=== PATIENT | male | born 1945 | race Caucasian/White ===

== ENCOUNTER 2019-08-22 09:46 | Outpatient (CLI) | payer MEDICARE, MEDICAID, SELFPAY ==
--- NOTE | 2019-08-22 09:30 | USCV_ITS ---
Korey Stanislaw Age: 74 Gender: M : 1945 Exam Date: 08/22/2019 10:19 Ordering Phys: Mery Jurado MD ([email or web address]) Technologist: Rachelle Pepper [place] [facility] [place] SOB BP: 119 / 63 HR: 56 Rhythm: Sinus Technical Quality: Adequate MEASUREMENTS (Male / Female) Normal Values 2D ECHO LV Diastolic Diameter PLAX 6.3 cm 4.2 - 5.9 / 3.9 - 5.3 cm LV Systolic Diameter PLAX 6.0 cm LV Chamber Size 4.8 cm IVS Diastolic Thickness 0.7 cm 0.6 - 1.0 / 0.6 - 0.9 cm IVS Systolic Thickness 0.6 cm LVPW Diastolic Thickness 1.5 cm 0.6 - 1.0 / 0.6 - 0.9 cm LVPW Systolic Thickness 0.9 cm RV Chamber Size 4.0 cm LVOT Diameter 2.0 cm LV Ejection Fraction 2D Teich 10.6 % LV Ejection Fraction MOD 2C 36.8 % LV Ejection Fraction 2C AL 40.0 % LA Diameter 5.3 cm LA Width 4.3 cm LA Height 4.0 cm RA Width 3.1 cm RA Height 3.7 cm Aorta at Sinotubular Diameter 2.3 cm M-MODE LV Diastolic Diameter MM 6.8 cm 4.2 - 5.9 / 3.9 - 5.3 cm LV Systolic Diameter MM 5.8 cm LV Ejection Fraction MM Teich 28.8 % IVS Diastolic Thickness MM 0.7 cm 0.6 - 1.0 / 0.6 - 0.9 cm IVS Systolic Thickness MM 0.9 cm LVPW Diastolic Thickness MM 0.7 cm 0.6 - 1.0 / 0.6 - 0.9 cm LVPW Systolic Thickness MM 1.0 cm Aortic Annulus Diameter 2.7 cm LA Ao Ratio MM 1.9 MV E Point Septal Separation 1.9 cm DOPPLER AV Peak Velocity 133.0 cm/s LVOT Peak Velocity 86.0 cm/s AV Area Cont Eq vti 2.2 cm squared AV Area Cont Eq pk 2.1 cm squared MV Area PHT 5.0 cm squared Mitral E to A Ratio 2.7 MV E' Velocity 8.0 cm/s Mitral E to MV E' Ratio 12.1 Mitral E to LV E' Lateral Ratio 13.9 Mitral E to LV E' Septal Ratio 10.8 TR Peak Velocity 315.6 cm/s TR Peak Gradient 39.9 mmHg TR Mean Velocity 164.9 cm/s TR Mean Gradient 14.1 mmHg TR Velocity Time Integral 78.3 cm TV Peak E Velocity 63.0 cm/s Right Atrial Pressure 3.0 mmHg Pulmonary Artery Systolic Pressu 42.8 mmHg PV Peak Velocity 87.0 cm/s RV Acceleration Time 0.1 s RV Ejection Time 0.4 s RV AcT/ET 0.3 FINDINGS Left Ventricle Moderately increased left ventricular cavity size. Severely decreased left ventricular systolic function. Left ventricular ejection fraction is estimated at 28 %. Global left ventricular hypokinesis. Grade III/IV diastolic dysfunction (restrictive filling pattern), severely elevated filling pressures. Right Ventricle The right ventricle is normal in size and function. Moderate pulmonary hypertension, RVSP 42.8 mmHg. Right Atrium The right atrium is normal in size. Left Atrium Moderately increased left atrial size. Mitral Valve Moderately thickened mitral valve. No mitral valve stenosis. Severe mitral valve regurgitation. Aortic Valve Moderate aortic valve calcification. No aortic valve stenosis. Mild aortic valve regurgitation. Tricuspid Valve Mild tricuspid valve regurgitation. Pulmonic Valve Structurally normal pulmonic valve without significant stenosis. There is no pulmonic regurgitation. Pericardium Normal pericardium without effusion. Aorta Normal ascending aorta dimension. CONCLUSIONS 1-Moderately increased left ventricular cavity size. Severely decreased left ventricular systolic function. Left ventricular ejection fraction is estimated at 28 %. Global left ventricular hypokinesis. Grade III/IV diastolic dysfunction (restrictive filling pattern), severely elevated filling pressures. 2-The right ventricle is normal in size and function. Moderate pulmonary hypertension, RVSP 42.8 mmHg. 3-Moderately thickened mitral valve. No mitral valve stenosis. Severe mitral valve regurgitation. 4-Moderate aortic valve calcification. No aortic valve stenosis. Mild aortic valve regurgitation. 5-Mild tricuspid valve regurgitation. 6-There is no pericardial effusion. 7-Right atrial pressure is around 15 mm of mercury. 8-When compared to the prior echocardiogram dated 11/11/2017 there is worsening of left ventricle function from low normal 50% to severely depressed 28% now. There is global hypokinesis. There is also worsening of mitral regurgitation from mild to severe now. Mery Jurado MD (Electronically Signed) Final Date: 22 August 2019 18:57 S
== END 2019-08-22 09:47 | disposition home or self-care (01) ==
LOC: RAD 09:50
PROVIDERS: Family Provider Internal Medicine; PCP Internal Medicine; Visit Provider Internal Medicine Cardiovascular Disease
DX: R06.02 Shortness of breath (principal); I27.0 Primary pulmonary hypertension; I08.3 Combined rheumatic disorders of mitral, aortic and tricuspid valves
CPT/HCPCS: 93306

== ENCOUNTER → 2019-09-04 13:57 | Outpatient (BNVA) | payer MEDICARE, MEDICAID, SELFPAY | PROVIDERS: Family Provider Internal Medicine; PCP Internal Medicine; Visit Provider Nurse Practitioner Family | DX: I25.10 Atherosclerotic heart disease of native coronary artery without angina pectoris (principal); I50.9 Heart failure, unspecified | CPT/HCPCS: 80048 ==

== ENCOUNTER 2020-02-26 10:31 | Outpatient (CLI) | payer MEDICARE, MEDICAID, SELFPAY ==
[2020-02-26 10:45] VITALS: BMI 22.8
--- NOTE | 2020-02-26 10:54 | NMCV_ITS ---
NM angela perf SPECT r/s* [id number] Stanislaw Nair Age: 74 Gender: M : 1945 Exam Date: 02/26/2020 11:33 Ordering Phys: Ivania Zheng Technologist: GAYLA Blancas Exam Location: [facility] Indications: CHEST PAIN STRESS TEST Please see separate stress test report in [facility] for full findings IMAGE PROTOCOL Rest/Stress 1 Exercise Day Radiopharmaceutical Dose (mCi) Administration Site Administered by Rest: Tc-99m 10.8 IV GAYLA Maguire Sestamibi Stress:Tc-99m 32.2 IV GAYLA Maguire Sestamibi Rest: 26-Feb-2020 60 Discovery 630 Stress: 26-Feb-2020 30 Discovery 630 Radiopharmaceutical was injected at 87 % maximum heart rate. Images obtained in supine and prone position. SPECT RESULTS Technical Quality: Excellent Raw Data Analysis: Normal Image Corrections: No attenuation or motion correction applied Summed Stress Score: 23 Summed Rest Score: 22 Summed Difference Score: 2 PERFUSION FINDINGS Large area of fixed perfusion defect noted in basal to distal inferior and basal to distal lateral wall suggestive of old myocardial infarction versus scarring. FUNCTIONAL RESULTS (calculated via Gated SPECT) Stress Image LV EF (%): 25 Stress EDV (mL):246 TID: 1.03 Stress ESV (mL):184 Rest Image LV EF (%): 25 FUNCTIONAL FINDINGS: Severe global hypokinesis with regional inferior and lateral akinesis IMPRESSIONS Large area of old myocardial infarction versus scarring noted in the inferior and lateral wall without serenity-infarct ischemia. EKG segment will be documented separately. Mery Jurado MD (Electronically Signed) Final Date: 26 February 2020 18:18 S
--- NOTE | 2020-02-26 10:54 | ECG_ITS ---
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 Baseline heart rate was 92 beats per minute. Baseline blood pressure was 141/90 millimeters of mercury. Target heart rate was 146 beats per minute. Maximum heart rate achieved was 135, which was 92 % of the target heart rate. Maximum blood pressure was 173/106 millimeters of mercury. Total exercise time was 2 minutes 28 seconds. Maximum METs achieved was 4.6, maximum VO2 was 16.1. The reason for ending the test was maximum effort achieved. The patient complained of shortness of during the stress test, which then resolved at the end of the test. ELECTROCARDIOGRAM: BASELINE: Showed sinus rhythm, normal axis, no significant ST-T changes at the baseline noted. EXERCISE: At the peak exercise level, no significant ST-T changes suggestive of ischemia noted. RECOVERY: During the recovery period, heart rate dropped appropriately. PVCs were noted, no significant ST-T changes in the recovery suggestive of ischemia noted. CONCLUSION: 1. Exercise capacity poor. 2. Heart rate response was tachycardic. 3. Blood pressure response was appropriate. 4. Symptoms not suggestive of ischemia. 5. Electrocardiogram portion of the stress test was not suggestive of ischemia. 6. Nuclear scan will be documented separately. Electronically Signed On 02-27-2020 18:37:18 TRANSCRIBING OPERATORS SUPERVISOR by SHANNA BONE [id number]
[2020-02-26 12:29] VITALS: BP 126/88; PULSE 95
== END 2020-02-26 10:32 | disposition home or self-care (01) ==
LOC: CDL 10:37
PROVIDERS: PCP Internal Medicine; Visit Provider Nurse Practitioner Family
DX: R07.9 Chest pain, unspecified (principal); I25.10 Atherosclerotic heart disease of native coronary artery without angina pectoris
CPT/HCPCS: 78452; 93017; A9500

== ENCOUNTER → 2020-04-24 10:05 | Outpatient (BNVA) | payer MEDICARE, MEDICAID, SELFPAY | PROVIDERS: PCP Internal Medicine; Visit Provider Internal Medicine Cardiovascular Disease | DX: Z20.822 Contact with and (suspected) exposure to COVID-19 (principal); I50.42 Chronic combined systolic (congestive) and diastolic (congestive) heart failure; I25.10 Atherosclerotic heart disease of native coronary artery without angina pectoris; I11.0 Hypertensive heart disease with heart failure | CPT/HCPCS: 80048; 85025; 85610; 87635 ==

== ENCOUNTER 2020-05-15 10:55 | Day surgery (SDC) | payer MEDICARE, MEDICAID, SELFPAY ==
[2020-05-14 14:20] VITALS: BMI 22.0
[2020-05-15] VITALS (16 sets, daily range): BP systolic 127–152; BP diastolic 81–99; PULSE 72–100; RESP 14–34; TEMP 36.8–37.3; O2SAT 92–97; BMI 22.5
--- NOTE | 2020-05-15 11:00 | XACV_ITS ---
Exam Room: [facility] Ht: 173 cm Wt: 65 kg BSA: 1.76 m2 Gender: Male : 1945 Any Known Allergies: No known allergies Exam Priority: Routine Procedure(s): Procedure Description: Diagnostic procedure Procedure Description: Venous Graft Catheterization Procedure Description: PELAEZ Graft Catheterization Procedure Description: Coronary Angiography Diagnostic Cath Status: Elective Diagnostic Findings * LM: Mild 20% stenosis, PAIGE: 3 flow. * pLAD: Severe 90% stenosis, PAIGE: 3 flow. * mLAD: Severe 100% stenosis, PAIGE: 0 flow. * mCIRC: Severe 99% stenosis, PAIGE: 3 flow. * pRCA: Severe 99% stenosis, PAIGE: 2 flow. * dRCA: Severe 90% stenosis, PAIGE: 2 flow. * Two grafts visualized. * PELAEZ to dLAD: patent. * SVG to RPDA: patent. * Coronary angiography shows right dominance. PCI Status: Elective PCI Indication: New Onset Angina <= 2 months Interventional Findings * Unsuccessful attempt to cross mid circumflex despite of using different wires and techniques. Refer for BREAD ROOM HAND revascularization if fails medical management. Conclusions 1. I was not able to find graft to circumflex despite of aortogram. RIVERA was not attached. Most likely skip graft from PELAEZ to circumflex if present is not patent. Mid circumflex is the culprit vessel. Is highly calcified 99% subtotally occluded chronically occluded vessel which is the culprit.. 2. There is severe coronary artery disease with four vessel disease. 3. All grafts patent. 4. Patient has prior CABG. 5. Ascending aortogram was performed, no aneurysm noted. No saphenous venous graft to obtuse marginal seen.. Recommendations * 1-Return to inpatient for close monitoring and routine cath care 2-Risk factor modification for secondary prevention 3-Statin and aspirin 81 mg life--long, if tolerated 4-Maximize medical management 5-Refer for BREAD ROOM HAND ow up with Dr. Jurado in four weeks and your primary care in 10 days. Diagnostic RX Recommendation: PCI w/o planned CABG Pressures Phase:Rest AO : 127 / 63 ( 87 ) @ 7:32:00 AM 113 / 61 ( 83 ) @ 7:39:00 AM 118 / 61 ( 83 ) @ 7:49:00 AM 121 / 60 ( 85 ) @ 8:07:00 AM 124 / 64 ( 89 ) @ 8:21:00 AM 129 / 70 ( 95 ) @ 8:28:00 AM Clinical Evaluation EBL: 5mL-10mL Procedural Details Procedure Consent Obtained. Pre-Procedure Time Out. Identified patient by full name and date of as verbalized by the patient/guarantor. Does the consent match the physician's order: Yes. Accurate & Complete Informed Consent: Yes. Inpatient/Outpatient History & Physical on Chart: Yes. If H&P is completed, is and addenduem needed: No; If yes, is the addendum complete: N/A. Visualize and Verify Site with Patient/Guarantor: N/A. Relevant Radiology Images available: N/A. Pre-op teaching completed and patient verbalized understanding. The risks, benefits, and alternatives of sedation and/or procedure were discussed by physician. The patient agrees to continue. Procedure started. [facility] Clinical Fraility Score: 4: Vulnerable. Aluminum Fabrication Supervisor Indications: New Onset Angina. Chest Pain Symptom Assessment: Typical Angina Symptoms. Cardiovascular Instability: No. Correct patient, site and procedure confirmed by cath team. PERRLA. Strong, equal hand nurse ortho bilaterally. Lungs clear x 5 lobes. IV Site on Arrival: 20 gauge in the left forearm. IV Fluids: 0.9% NaCl at KVO. 0 mL infused prior to laboratory machinist. Pre Procedural Pulses: bilateral dorsalis pedis was 2+. Pre Procedural Pulses: bilateral posterior tibial was 2+. Oxygen started at 2liters/min via nasal canula. bilateral groins was prepped with chloroprep then draped in the usual sterile fashion. Baseline sample Acquired. HR: 70 BPM. Physician arrived. Equipment: 6F - Femoral. Cardiac Cath Pack. ACIST Manifold Kit Model BT 2000. Heparinized Saline (2 units/mL), 1000 mL bag. Kit, Micropuncture. Physician scrubbed in. Immediate Pre-Procedure Time Out. Correct Patient: Yes; Correct Procedure: Yes; Correct Site: Yes; Correct Patient Position: Yes; Correct Supplies: Yes; Dried Flammable Prep: Yes; Blood Products Available: N/A;. Lidocaine 1% infiltrated to the right groin. Arterial access obtained with micropuncture set. A 5 pitcairn islander JL4 catheter in over wire. Multiple views taken of left coronary artery. Catheter removed over the standard wire. A 5 pitcairn islander JR4 catheter in over wire. SVG's to RCA visualized and patent. Catheter redirected to the RCA. Multiple views taken of right coronary artery. Catheter redirected to the PELAEZ. PELAEZ to LAD visualized. Catheter removed over the standard wire. A 5 pitcairn islander Angled Pig catheter in over wire. Aortogram performed in @ 10 mL/second for a total of 30 mL. Catheter removed over the standard wire. A 5 pitcairn islander JR4 catheter in over wire. Catheter out. 6 pitcairn islander XB 3 guide catheter was inserted over the wire. Inventory is CRD 6FR XB 3 GUIDE. Runthrough guidewire was advanced through the guide catheter to lesion in the mid Circ. AP pads applied to patient. Wire out to reshape. Runthrough guidewire was advanced through the guide catheter to lesion in the mid Circ. Wire out to reshape. Runthrough guidewire was advanced through the guide catheter to lesion in the mid Circ. Wire out. Hi-Torque Refuse Collector 50 wire inserted. Wire out. Runthrough guidewire was advanced through the guide catheter to lesion in the mid Circ. Wire out. Guide catheter out. Hand injection for groin picture. Sheath removed. A Perclose ([employer]) was successful obtaining hemostatsis at the Right Femoral artery insertion site. Lidocaine 1% infiltrated to the right groin. Perclose placed without complications. No signs or symptoms of hematoma noted. Sterile dressing applied per usual sterile fashion. Post Procedure: Pulses reassessed and unchanged. PERRLA. Strong, equal hand nurse ortho bilaterally. No VTE prophylaxis required. Medication's Wasted: Lidocaine 1% = 10 mL. Medication's Wasted: Heparin = 1000 units. Total IV fluids: 111 mL. Contrast type used: Omnipaque 300 mgI/mL, 500 mL bottle. Physician scrubbed out. Post-op diagnosis: multi vessel CAD, occluded SVG to circ. Complications: none. Estimated blood loss: 5mL-10mL. Procedure completed. Patient transferred by bed to ICU. Vital chart was stopped. Access Site Site: Right Femoral artery Sheath Size: 6 Fr Hemostasis Method: Perclose ([employer]) Hemostasis Success: Successful Procedure Medications Start: 1:12 PM Stop: 1:12 PM Medication: Versed Amount: 1 mg Route: I.V. Start: 1:12 PM Stop: 1:12 PM Medication: Fentanyl Amount: 50 mcg Route: I.V. Start: 1:38 PM Stop: 1:38 PM Medication: Versed Amount: 1 mg Route: I.V. Start: 1:38 PM Stop: 1:38 PM Medication: Fentanyl Amount: 50 mcg Route: I.V. Start: 2:06 PM Stop: 2:06 PM Medication: Heparin Amount: 5000 units Route: I.V. I, the attending physician, have reviewed and verified all procedure medications. Yes, all medications given per verbal order History/Risk Factors Hypertension: Yes Dyslipidemia: No Peripheral Arterial Disease (PAD): No Myocardial Infarction (NM): Yes Obesity: No Renal Disease: No Prior Interventions PCI: Yes CABG: Yes Valve Surgery: No Report Signatures Finalized by Mery Jurado MD on 05/24/2020 03:55 PM
[2020-05-15] MEDS: diphenhydrAMINE 50 mg Capsule PO (11:19)
--- NOTE | 2020-05-15 13:09 | P.HP_ITS ---
Providers/Chief Complaint Primary Care Provider: Sonia Bustillo MD Chief Complaint: Left Cardiac Catheterization History of Present Illness Stanislaw Nair is a 75 year old male past medical history significant for coronary artery disease status post CABG 2018 x3, history of ST elevation [place] 2004, history of V. fib arrest, history of HIV, history of systolic heart failure who despite of optimization of medicine continues to have chest pain and worsening of shortness of breath. Stress test was performed which did not show ischemia since patient continues to have worsening of symptoms we decided to proceed with left heart cath. I have personally explained all risk benefit and alternative for the procedure including arrhythmia bleeding cardiac arrest emergent surgery. He agrees to proceed with it Medications/Allergies Home Medications Medication Instructions Recorded Confirmed Last Taken Type hydrochlorothiazide 12.5 mg tablet 12.5 mg PO DAILY 90 Days #90 tab 04/26/19 05/14/20 05/15/20 08:00 Rx atorvastatin 10 mg tablet 10 mg PO DAILY 90 Days #90 tab 06/13/19 05/15/20 05/14/20 22:00 Rx aspirin 81 mg tablet,delayed 81 mg PO DAILY 07/24/19 05/14/20 05/15/20 08:00 History release carvedilol 6.25 mg tablet 6.25 mg PO BID 07/24/19 05/14/20 05/15/20 08:00 History levothyroxine 112 mcg capsule 112 mcg PO DAILY 07/24/19 05/14/20 05/15/20 08:00 History potassium chloride 10 mEq 10 meq PO DAILY #30 tab 07/29/19 05/14/20 05/15/20 08:00 Rx tablet,extended release clopidogrel 75 mg tablet 75 mg PO DAILY #90 tab 08/13/19 05/14/20 05/15/20 08:00 Rx losartan 50 mg tablet 50 mg PO DAILY #90 tab 09/11/19 05/14/20 05/15/20 08:00 Rx furosemide 20 mg tablet 40 mg PO DAILY #180 tab 10/24/19 05/14/20 05/15/20 08:00 Rx nitroglycerin 0.4 mg sublingual 0.4 mg SUBLINGUAL Q5M PRN #30 tab 12/02/19 05/14/20 05/15/20 08:00 Rx tablet dolutegravir 50 mg-lamivudine 300 1 tab PO DAILY 03/24/20 05/14/20 05/15/20 08:00 History mg tablet isosorbide mononitrate 60 mg 60 mg PO DAILY #30 tab 04/22/20 05/14/20 05/15/20 08:00 Rx tablet,extended release 24 hr Allergies Allergy/AdvReac Type Severity Reaction Status Date / Time No Known Allergies Allergy Verified 05/14/20 14:25 PFSH Acute PFSH: Medical History Arteriosclerotic coronary artery disease History of non-Hodgkin's lymphoma HIV (human immunodeficiency virus infection) HTN (hypertension) Surgical History History of coronary artery bypass graft S/P PTCA (percutaneous transluminal coronary angioplasty) Family History Mother Diabetes CAD (coronary artery disease) Hypertension Father Diabetes CAD (coronary artery disease) Hypertension Brother CAD (coronary artery disease) Stroke Social History Smoking and tobacco status: never smoked Vitals/I&O/Wt Last Vital Signs Temp 98.2 F 05/15/20 11:22 Pulse 72 05/15/20 11:22 Resp 16 05/15/20 11:22 BP 139/83 05/15/20 11:22 Pulse Ox 97 05/15/20 11:22 Weight last 48 hrs Weight 148 lb Weight 145 lb Weight 145 lb Physical Exam Narrative: EXAM NARRATIVE: GENERAL: Patient is alert, awake and oriented x3. NECK: No jugular vein distension. HEENT: No cyanosis. No icterus. No pallor. HEART: Regular S1 and S2. No murmur, rub or gallop. LUNGS: Reduced breath sound with mild crackle bilaterally. ABDOMEN: Soft, nontender and nondistended. Positive bowel sounds. No guarding, rebound or tenderness. CENTRAL NERVOUS SYSTEM: Grossly nonfocal. EXTREMITIES: Lower extremities without edema bilaterally. A&P Assessment and plan (1) Arteriosclerotic coronary artery disease: Due to worsening of shortness of breath and chest pain in a patient with prior history of ST elevation [place] CABG and V. fib arrest despite of optimization of medicine we will further explored with left heart cath. Further plan will be advised as per progress of the patient. Status: Acute (2) HTN (hypertension): Well-controlled. Status: Acute Qualifiers: Hypertension type: essential hypertension Qualified Code(s): I10 - Essential (primary) hypertension (3) CHF (congestive heart failure): Compensated. Status: Acute Qualifiers: Heart failure type: combined systolic and diastolic Heart failure chronicity: chronic Qualified Code(s): I50.42 - Chronic combined systolic (congestive) and diastolic (congestive) heart failure Attestations Medical Necessity Statement*: Not expecting his stay to cross more than 1 midnight Coding Level of Care Code Established Pt Acute Vocational Psychologist for Coltg Fwd Patient Type Established History Detailed Exam Detailed Medical Decision Making Moderate Complexity Diagnoses Arteriosclerotic coronary artery disease I25.10 HTN (hypertension) I10 Hypertension type: essential hypertension CHF (congestive heart failure) I50.42 Heart failure type: combined systolic and diastolic Heart failure chronicity: chronic
--- NOTE | 2020-05-15 13:13 | W.PM.OPSUD ---
Surgery/Procedure H&P Update DATE OF PROCEDURE: May 15, 2020 DATE H&P PERFORMED: 05/15/20 H&P UPDATE INFORMATION: I have examined patient prior to procedure and No changes to prior documentation PREOP DIAGNOSIS: Angina PLANNED PROCEDURE: Operation Date: 05/15/20 12:00 Proposed Procedures p Left Cardiac Catheterization 94142 R06.02(Left) - Mery Jurado MD PATIENT REASSESSED PRIOR TO SEDATION, WITH NO CHANGE NOTED: Yes PHYSICAL EXAM: alert, oriented x 3 and clear to auscultation bilaterally AIRWAY EVAL/ANESTHESIA PLAN: ASA II, Risks, benefits & alternatives of sedation and/or procedure discussed and Patient agrees to continue as planned
[2020-05-15] MEDS: carvedilol 6.25 mg Tablet PO (18:27)
--- NOTE | 2020-05-15 23:22 | PC.NURSE ---
Dr. Mcerloy notified of patient asking for something for pain. He states his pain in at his surgical site to right groin. Right groin site is WNL. Dr. Mistry ordered Fentanyl IV. Patient asked that his IV be removed and is refusing to have another IV put in. IV was removed with catheter intact. Dr. Mcelroy notified. FOZIA De La Torre ordered.
[2020-05-16] MEDS: HYDROcodone-acetaminophen 5-325 mg Tablet 1 TAB PO (00:07)
[2020-05-16 03:20] VITALS: BP 127/68; PULSE 64; RESP 17; TEMP 36.6; O2SAT 94
[2020-05-16 06:00] VITALS: PULSE 64
[2020-05-16 08:12] VITALS: BP 145/73; PULSE 80; RESP 21; TEMP 36.8; O2SAT 97
[2020-05-16] MEDS: aspirin 81 mg EC Tablet PO (08:20)
[2020-05-16] MEDS: carvedilol 6.25 mg Tablet PO (08:20)
[2020-05-16] MEDS: clopidogrel 75 mg Tablet PO (08:20)
[2020-05-16] MEDS: atorvastatin 40 mg Tablet 20 MG PO (08:21)
[2020-05-16 08:22] VITALS: BP 145/73
[2020-05-16] MEDS: FUROsemide 20 mg Tablet 40 MG PO (08:22)
[2020-05-16] MEDS: isosorbide mononitrate ER 60 mg Tablet PO (08:22)
[2020-05-16] MEDS: potassium chloride ER 10 mEq Tablet PO (08:22)
[2020-05-16] MEDS: losartan 50 mg Tablet PO (08:22)
[2020-05-16] MEDS: hydroCHLOROthiazide 25 mg Tablet 12.5 MG PO (08:22)
[2020-05-16] MEDS: levothyroxine 112 mcg Tablet PO (08:23)
--- NOTE | 2020-05-16 09:49 | ECG_ITS ---
[facility] Test Date: 2020-05-16 Pat Name: Stanislaw Nair Department: Room: 111 Gender: Male District Wildlife Manager: : 1945 Requested By: Mery Jurado Order Number: [id number] Мария MD: Milo Mistry M.D. Measurements Intervals [place] Rate: 78 P: 59 CA: 184 QRS: 15 QRSD: 93 T: 95 QT: 368 QTc: 420 Interpretive Statements SINUS RHYTHM POSSIBLE LEFT ATRIAL ENLARGEMENT [-0.1mV P WAVE IN V1/V2] NONSPECIFIC ST & T-WAVE ABNORMALITY Compared to ECG 03/08/2016 12:08:54 Sinus bradycardia no longer present T-wave abnormality still present Electronically Signed On 05-18-2020 18:55:50 ELECTRIC MOTORS SALESPERSON by Milo Mistry M.D. [id number]
[2020-05-16] MEDS: nitroglycerin 0.4 mg sublingual Tablet SUBLINGUAL (09:53)
--- NOTE | 2020-05-16 10:21 | P.SS_ITS ---
Short Stay Summary Providers Date of Admit/Discharge: 05/16/20 Attending Provider: Mery Jurado MD Primary Care Provider: Sonia Bustillo MD Chief Complaint: Left Cardiac Catheterization HPI History of Present Illness Stanislaw Nair is a 75 year old male with past medical history significant for coronary artery disease status post CABG 2018 x3, history of ST elevation [place] 2004, history of V. fib arrest, history of HIV, history of systolic heart failure who despite of optimization of medicine continues to have chest pain and worsening of shortness of breath. Stress test was performed which did not show ischemia since patient continues to have worsening of symptoms so planned to undergo left heart cath. Review of Systems Const: Reports: change in weight and fatigue; Denies: fever(s) or chills Eyes: Denies: change in vision ENMT: Denies: throat pain or odynophagia Card: Reports: chest pain (Discomfort/tightness) and dyspnea on exertion; Denies: palpitations, swelling of feet/ankles, lightheadedness or orthopnea Resp: Reports: non-productive cough and chest congestion; Denies: dyspnea or productive cough GI: Reports: abdominal pain and hematochezia (positive hemoccult recently. ); Denies: nausea, vomiting, diarrhea or constipation : Denies: flank pain, dysuria or urinary frequency Musc: Denies: neck pain, back pain or joint pain Skin/Breast: Denies: rash or pruritus Neuro: Denies: headache(s) or dizziness Psych: Denies: anxiety or depression Endo: Denies: polyuria, polydipsia or tired all the time Dileep/Lymph: Denies: easy bruising or easy bleeding Home Meds/Allergies Home Medications and Allergies Home Medications Medication Instructions Recorded Confirmed Type aspirin 81 mg tablet,delayed 81 mg PO DAILY 07/24/19 05/14/20 History release carvedilol 6.25 mg tablet 6.25 mg PO BID 07/24/19 05/14/20 History levothyroxine 112 mcg capsule 112 mcg PO DAILY 07/24/19 05/14/20 History dolutegravir 50 mg-lamivudine 300 1 tab PO DAILY 03/24/20 05/14/20 History mg tablet Allergies Allergy/AdvReac Type Severity Reaction Status Date / Time No Known Allergies Allergy Verified 05/14/20 14:25 PFSH Acute PFSH: Medical History Arteriosclerotic coronary artery disease History of non-Hodgkin's lymphoma HIV (human immunodeficiency virus infection) HTN (hypertension) Surgical History History of coronary artery bypass graft S/P PTCA (percutaneous transluminal coronary angioplasty) Family History Mother Diabetes CAD (coronary artery disease) Hypertension Father Diabetes CAD (coronary artery disease) Hypertension Brother CAD (coronary artery disease) Stroke Social History Smoking and tobacco status: never smoked Vitals/I&O/Wt Last Vital Signs Temp 98.3 F 05/16/20 08:12 Pulse 80 05/16/20 08:12 Resp 21 H 05/16/20 08:12 BP 145/73 05/16/20 08:22 Pulse Ox 97 05/16/20 08:12 05/15/20 05/16/20 05/16/20 22:59 06:59 14:59 Intake Total 1134 / 1134 120 / 120 Output Total 450 / 450 475 / 925 Balance 684 / 684 -475 / 209 120 / 120 Weight last 48 hrs Weight 148 lb Weight 145 lb Weight 145 lb Physical Exam Narrative: EXAM NARRATIVE: GENERAL: Patient is alert, awake and oriented x3. NECK: No jugular vein distension. HEENT: No cyanosis. No icterus. No pallor. HEART: Regular S1 and S2. No murmur, rub or gallop. LUNGS: Reduced breath sound with mild crackle bilaterally. ABDOMEN: Soft, nontender and nondistended. Positive bowel sounds. No guarding, rebound or tenderness. CENTRAL NERVOUS SYSTEM: Grossly nonfocal. EXTREMITIES: Lower extremities without edema bilaterally. Hospital Course Hospital Course 75 year old male past medical history significant for coronary artery disease status post CABG 2018 x3, history of ST elevation [place] 2004, history of V. fib arrest, history of HIV, history of systolic heart failure who despite of optimization of medicine continues to have chest pain and worsening of shortness of breath. Stress test was performed which did not show ischemia since patient continues to have worsening of symptoms was to performed left heart cath. Coronary angiography showed patent PELAEZ and SVG to RCA however graft to left circumflex artery was occluded. Brief attempt was made to perform PCI of occluded torres martinez OM branch, however wire could not cross the stenosis and medical therapy was decided. Patient will be discharged home on Ranexa 500 mg twice daily. He will continue aspirin and Plavix. SSS Data Data Completed and Pending: Pending at discharge Category Date Time Status SCIENCE LIAISON request for service Routin e Exams 05/15/20 11:00 Taken Diagnoses at Discharge Discharge Diagnosis (1) Arteriosclerotic coronary artery disease: Status: Acute (2) HTN (hypertension): Status: Acute Qualifiers: Hypertension type: essential hypertension Qualified Code(s): I10 - Essential (primary) hypertension (3) CHF (congestive heart failure): Status: Acute Qualifiers: Heart failure chronicity: chronic Heart failure type: combined systolic and diastolic Qualified Code(s): I50.42 - Chronic combined systolic (congestive) and diastolic (congestive) heart failure Discharge Plan Discharge Patient Disposition: Home Condition: Stable Prescriptions: New ranolazine 500 mg tablet extended release 12 hr 500 mg PO BID Qty: 60 RF: 5 Continued carvedilol 6.25 mg tablet 6.25 mg PO BID RF: 0 aspirin [Adult Low Dose Aspirin] 81 mg tablet,delayed release (DR/EC) 81 mg PO DAILY RF: 0 levothyroxine 112 mcg capsule 112 mcg PO DAILY RF: 0 Dovato 50-300 mg tablet 1 tab PO DAILY RF: 0 hydrochlorothiazide 12.5 mg tablet 12.5 mg PO DAILY 90 Days Qty: 90 RF: 3 atorvastatin [Lipitor] 10 mg tablet 10 mg PO DAILY 90 Days Qty: 90 RF: 3 potassium chloride 10 mEq tablet extended release 10 meq PO DAILY Qty: 30 RF: 6 clopidogrel [Plavix] 75 mg tablet 75 mg PO DAILY Qty: 90 RF: 3 losartan 50 mg tablet 50 mg PO DAILY Qty: 90 RF: 3 furosemide 20 mg tablet 40 mg PO DAILY Qty: 180 RF: 3 nitroglycerin [Nitrostat] 0.4 mg tablet, sublingual 0.4 mg SUBLINGUAL Q5M PRN (Reason: chest pain) Qty: 30 RF: 3 isosorbide mononitrate 60 mg tablet extended release 24 hr 60 mg PO DAILY Qty: 30 RF: 6 Discharge Orders: Discharge Order (Routine); Ordered 05/16/20 Ordered By: Milo Mistry Referrals: Mery Jurado MD [Physician] - 6 Weeks ([facility] will be calling to schedule a cardiology followup with Dr. Jurado to be seen in 6 weeks. If you don't hear from them by Monday afternoon, please give them a call at [phone]) Ivania Zheng FNP [Nurse Practitioner] - 7-10 days ([facility] will be calling to schedule a post prcedure followup with JAYLIN Lemons to be seen in 7 to 10 days. If you don't hear from them by Monday afternoon, please give them a call at [phone]) Discharge Diet: Cardiac Discharge Activity: Increase activity as tolerated Patient Instructions: Ranolazine (By mouth), Left Heart Catheterization (DC), Post Angiogram Home Care Instructions Activity Restrictions/Additional Instructions: Follow-up with Ivania Zheng in 7 to 10 days, follow-up with Dr. Jurado in 6 to 8 weeks. Please do not lift more than 5 pounds of weight over the next 5 days Attestations Medical Necessity Statement*: Care not expected to cross 2 midnights. Patient came for outpatient left heart cath. Time Spent in Patient Care*: greater than 30 min Quality Metrics Clinical Quality Measures: During this hospital stay, did patient experience: None Coding Level of Care Code Acute Project Manager Process Development for g Fwd Diagnoses Arteriosclerotic coronary artery disease I25.10 HTN (hypertension) I10 Hypertension type: essential hypertension CHF (congestive heart failure) I50.42 Heart failure chronicity: chronic Heart failure type: combined systolic and diastolic
[2020-05-16 10:43] VITALS: BP 129/77; PULSE 76; RESP 18; TEMP 36.6; O2SAT 92
--- NOTE | 2020-05-16 10:56 | PC.NURSE ---
Pt discharged home. Pts discharge instructions given along with prescriptions and follow up appointment. Pt had no c/o pain or discomfort at the time of discharge.
== END 2020-05-16 11:00 | disposition home or self-care (01) ==
LOC: CCL 10:57 → CSU 13:40
PROVIDERS: PCP Internal Medicine; Visit Provider Internal Medicine Cardiovascular Disease
DX: I25.10 Atherosclerotic heart disease of native coronary artery without angina pectoris (principal); I11.0 Hypertensive heart disease with heart failure; I50.42 Chronic combined systolic (congestive) and diastolic (congestive) heart failure; Z95.1 Presence of aortocoronary bypass graft; I25.2 Old myocardial infarction; Z79.82 Long term (current) use of aspirin; B20 Human immunodeficiency virus [HIV] disease; Z82.49 Family history of ischemic heart disease and other diseases of the circulatory system; Z83.3 Family history of diabetes mellitus
CPT/HCPCS: 36415; 93005; 93459; C1760; C1769; C1887; C1894; J1644; J2250; J3010; J7030; Q0163; Q9967

== ENCOUNTER → 2021-03-10 11:35 | Outpatient (BNVA) | payer MEDICARE, MEDICAID, SELFPAY | PROVIDERS: PCP Internal Medicine; Visit Provider Nurse Practitioner Family | DX: I25.10 Atherosclerotic heart disease of native coronary artery without angina pectoris (principal); I11.0 Hypertensive heart disease with heart failure; I50.42 Chronic combined systolic (congestive) and diastolic (congestive) heart failure | CPT/HCPCS: 80048; 83880; 85025 ==

== ENCOUNTER → 2021-09-03 10:27 | Outpatient (BNVA) | payer MEDICARE, MEDICAID, SELFPAY | PROVIDERS: PCP Internal Medicine; Visit Provider Internal Medicine | DX: I25.10 Atherosclerotic heart disease of native coronary artery without angina pectoris (principal); I11.0 Hypertensive heart disease with heart failure; I50.42 Chronic combined systolic (congestive) and diastolic (congestive) heart failure | CPT/HCPCS: 99214 ==

== ENCOUNTER 2022-04-26 12:04 | Outpatient (CLI) | payer MEDICARE, MEDICAID, SELFPAY ==
--- NOTE | 2022-04-26 12:19 | XRR_ITS ---
PROCEDURE INFORMATION: Exam: XR Chest Exam date and time: 04/26/2022 12:31 PM Age: 77 years old Clinical indication: Shortness of breath; Prior surgery; Surgery type: Openheart, cardiac stents; Patient HX: --sob, HX of openheart and a heart condition. PT states that breathing is getting worse x a month. History of non hodgkins lymphoma TECHNIQUE: Imaging protocol: Radiologic exam of the chest. Views: 2 views. COMPARISON: CR XR chest 1V [id number] 03/08/2016 12:19 PM FINDINGS: Lungs: There is vague haziness both lung gutierrez with peribronchial cuffing and indistinct vascular margins likely secondary to pulmonary vascular congestion. There is also a small patchy infiltrate right lower lobe that may be secondary to CHF or pneumonia. Pleural spaces: Small bibasilar pleural effusions likely cardiogenic in nature. Heart/Mediastinum: Heart is moderately enlarged but stable. There is pulmonary vascular redistribution indicating elevated central venous pressure. Bones/joints: Patient has undergone prior median sternotomy and CABG. XR/XR chest 2V* [id number] IMPRESSION: 1. Cardiomegaly with mild CHF pattern. 2. Nonspecific patchy infiltrate right lower lobe. Cannot rule out superimposed pneumonia. Continued follow-up advised.
== END 2022-04-26 12:05 | disposition home or self-care (01) ==
LOC: RAD 12:08
PROVIDERS: PCP Internal Medicine; Visit Provider Nurse Practitioner Family
DX: R06.02 Shortness of breath (principal); I51.7 Cardiomegaly; R91.8 Other nonspecific abnormal finding of lung field; I50.9 Heart failure, unspecified
CPT/HCPCS: 71046

== ENCOUNTER → 2022-05-09 12:30 | Outpatient (BNVA) | payer MEDICARE, MEDICAID, SELFPAY | PROVIDERS: PCP Internal Medicine; Visit Provider Internal Medicine | DX: I25.10 Atherosclerotic heart disease of native coronary artery without angina pectoris (principal); I11.0 Hypertensive heart disease with heart failure; I50.42 Chronic combined systolic (congestive) and diastolic (congestive) heart failure; Z95.1 Presence of aortocoronary bypass graft | CPT/HCPCS: 99214 ==

== ENCOUNTER → 2022-05-09 12:30 | Outpatient (BNVA) | payer MEDICARE, MEDICAID, SELFPAY | PROVIDERS: PCP Internal Medicine; Visit Provider Internal Medicine | DX: I10 Essential (primary) hypertension (principal); I25.10 Atherosclerotic heart disease of native coronary artery without angina pectoris; I50.9 Heart failure, unspecified | CPT/HCPCS: 36415; 80048; 83880 ==

== ENCOUNTER 2022-06-03 12:16 | Outpatient (CLI) | payer MEDICARE, MEDICAID, SELFPAY ==
--- NOTE | 2022-06-03 13:00 | USCV_ITS ---
Stanislaw Nair Age: 77 Gender: M : 1945 Exam Date: 06/03/2022 13:38 Ordering Phys: Milo Mistry M.D ([email or web address]) Technologist: Laura Melgar Exam Location: [facility] – [place], [place] Indication: SOB BP: 117 / 70 HR: 67 Rhythm: Sinus Technical Quality: Good MEASUREMENTS (Male / Female) Normal Values 2D ECHO LV Diastolic Diameter PLAX 5.7 cm 4.2 - 5.9 / 3.9 - 5.3 cm LV Systolic Diameter PLAX 5.4 cm IVS Diastolic Thickness 0.8 cm 0.6 - 1.0 / 0.6 - 0.9 cm IVS Systolic Thickness 1.0 cm LVPW Diastolic Thickness 0.7 cm 0.6 - 1.0 / 0.6 - 0.9 cm LVPW Systolic Thickness 0.9 cm LVOT Diameter 2.1 cm LV Ejection Fraction 2D Teich 10.7 % LV Ejection Fraction MOD 2C 18.9 % LV Ejection Fraction 2C AL 18.0 % LA Diameter 3.7 cm LA Width 4.2 cm LA Height 4.9 cm RA Width 2.8 cm RA Height 4.6 cm Aorta at Sinotubular Diameter 0.0 cm IVC Diameter 2.6 cm M-MODE MV E Point Septal Separation 1.8 cm DOPPLER AV Peak Velocity 96.0 cm/s LVOT Peak Velocity 60.0 cm/s AV Area Cont Eq vti 2.4 cm squared AV Area Cont Eq pk 2.1 cm squared MV Peak Velocity 132.0 cm/s MV Area PHT 6.9 cm squared Mitral E to A Ratio 6.5 MV E' Velocity 66.0 cm/s Mitral E to MV E' Ratio 19.8 Mitral E to LV E' Lateral Ratio 16.6 Mitral E to LV E' Septal Ratio 24.9 TR Peak Velocity 313.5 cm/s TR Peak Gradient 39.3 mmHg Right Atrial Pressure 8.0 mmHg Pulmonary Artery Systolic Pressu 47.3 mmHg RV Acceleration Time 0.1 s RV Ejection Time 0.3 s RV AcT/ET 0.3 FINDINGS Left Ventricle Severely increased left ventricular cavity size. Severely decreased left ventricular systolic function. Left ventricular ejection fraction is estimated at 15 %. Global left ventricular hypokinesis. Grade IV/IV diastolic dysfunction (irreversible restrictive filling pattern), severely elevated filling pressures. Right Ventricle Normal right ventricular size. Mildly decreased right ventricular systolic function. Right Atrium Mildly increased right atrial size. Left Atrium Moderately increased left atrial size. Mitral Valve Moderately thickened mitral valve. Severe mitral valve regurgitation. Aortic Valve Moderate aortic valve calcification. No aortic valve stenosis. No aortic valve regurgitation. Tricuspid Valve Moderate tricuspid valve regurgitation. Pulmonic Valve [id number] pulmonary valve regurgitation. Pericardium Normal pericardium without effusion. Aorta Normal ascending aorta dimension. IVC Dilated IVC with decreased respiratory variation. CONCLUSIONS 1-Severely increased left ventricular cavity size. Severely decreased left ventricular systolic function. Left ventricular ejection fraction is estimated at 15 %. Global left ventricular hypokinesis. Grade IV/IV diastolic dysfunction (irreversible restrictive filling pattern), severely elevated filling pressures. 2- Moderately thickened mitral valve. Severe mitral valve regurgitation. 3-Moderate tricuspid valve regurgitation. 4-Dilated IVC with decreased respiratory variation. 5-There is no pericardial effusion. 6-Right atrial pressure is around 20 mm of mercury. Mery Jurado MD (Electronically Signed) Final Date: 04 June 2022 00:06 S
== END 2022-06-03 12:17 | disposition home or self-care (01) ==
LOC: RAD 12:21
PROVIDERS: PCP Internal Medicine; Visit Provider Internal Medicine
DX: R06.02 Shortness of breath (principal); I08.1 Rheumatic disorders of both mitral and tricuspid valves
CPT/HCPCS: 93306

== ENCOUNTER → 2022-07-22 09:21 | Outpatient (BNVA) | payer MEDICARE, MEDICAID, SELFPAY | PROVIDERS: PCP Internal Medicine; Visit Provider Internal Medicine | DX: I25.10 Atherosclerotic heart disease of native coronary artery without angina pectoris (principal); I11.0 Hypertensive heart disease with heart failure; I50.42 Chronic combined systolic (congestive) and diastolic (congestive) heart failure; Z79.82 Long term (current) use of aspirin | CPT/HCPCS: 99214 ==

== ENCOUNTER 2023-01-13 13:46 | Emergency (ER) | payer MEDICARE, MEDICAID, SELFPAY ==
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
[2023-01-13 13:53] VITALS: BP 126/83; PULSE 70; RESP 18; TEMP 36.9; O2SAT 93; BMI 21.6
[2023-01-13 13:56] VITALS: BP 126/83; PULSE 69; RESP 26; O2SAT 93
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
[2023-01-13 15:26] VITALS: BP 140/82; PULSE 71; RESP 24; O2SAT 94
[2023-01-13] MEDS: lidocaine-epi 1% 20 mL INJ INJECTION (15:37)
--- NOTE | 2023-01-13 15:39 | PC.NURSE ---
Bedside with Dr. Sagastume, sutures placed by doctor.
[2023-01-13 15:42] VITALS: BP 141/89; PULSE 75; RESP 24; O2SAT 92
--- NOTE | 2023-01-13 15:51 | PC.NURSE ---
Patient discharged to waiting room, waiting for personal ride at 1532.
== END 2023-01-13 15:52 | disposition home or self-care (01) ==
PROVIDERS: Emergency Provider Family Medicine; PCP Internal Medicine
DX: S01.81XA Laceration without foreign body of other part of head, initial encounter (principal); S00.81XA Abrasion of other part of head, initial encounter; I11.0 Hypertensive heart disease with heart failure; I50.9 Heart failure, unspecified; Z85.72 Personal history of non-Hodgkin lymphomas; B20 Human immunodeficiency virus [HIV] disease; Z95.1 Presence of aortocoronary bypass graft; V89.2XXA Person injured in unspecified motor-vehicle accident, traffic, initial encounter; Z79.02 Long term (current) use of antithrombotics/antiplatelets; Z79.82 Long term (current) use of aspirin
CPT/HCPCS: 12013; 70450; 70486; 72125; 99284

== ENCOUNTER 2023-01-20 09:52 | Outpatient (CLI) | payer MEDICARE, MEDICAID, SELFPAY ==
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
== END 2023-01-20 09:53 | disposition home or self-care (01) ==
LOC: RAD 09:53
PROVIDERS: PCP Internal Medicine; Visit Provider Internal Medicine
DX: R07.81 Pleurodynia (principal); S22.42XA Multiple fractures of ribs, left side, initial encounter for closed fracture; V89.2XXA Person injured in unspecified motor-vehicle accident, traffic, initial encounter; I50.22 Chronic systolic (congestive) heart failure; I08.3 Combined rheumatic disorders of mitral, aortic and tricuspid valves; I27.20 Pulmonary hypertension, unspecified
CPT/HCPCS: 71100; 93296; 93306; 99214

== ENCOUNTER 2023-04-03 10:31 | Emergency (ER) | payer MEDICARE, MEDICAID, SELFPAY ==
[2023-04-03 10:36] VITALS: BP 113/85; PULSE 87; RESP 22; TEMP 36.6; O2SAT 90; BMI 21.6
--- NOTE | 2023-04-03 10:43 | XR_ITS ---
WS: [id number] Exam: XR chest 1V portable [id number] Date/Time of Exam: 04/03/2023 10:44 AM Reason For Exam: sob Comparison 01/20/2023. Diffuse infiltrate in the mid and lower RIGHT lung suspicious for active pneumonia. Chronic pleural t hickening at the RIGHT costophrenic angle. The heart is mildly enlarged. The LEFT lung is clear. No p neumothorax. Signs of previous CABG surgery and coronary artery stenting. The mediastinum is normal i n contour. Bony structures are intact. Old LEFT rib fractures. Monitoring leads superimpose the chest . IMPRESSION: 1. Diffuse interstitial infiltrate in the mid and lower RIGHT lung suspicious for active pneumonia. P leural thickening at the RIGHT costophrenic angle. 2. Mild cardiac enlargement.
--- NOTE | 2023-04-03 10:44 | ED_ITS ---
HPI - SOB/Dyspnea 2 General: Chief Complaint: Shortness of Breath/Dyspnea Stated Complaint: chf exacerbation Time Seen by Provider: 04/03/23 10:32 Source: patient Mode of arrival: EMS Limitations: no limitations History of Present Illness: HPI Narrative: Patient is a 77-year-old male with an extensive past medical history including CAD with multiple cardiac stents, history of CABG, HTN, hyperlipidemia, atrial fibrillation on anticoagulation, CHF with severely decreased EF at 15% (does not have a defibrillator but at last cardiology appointment he was agreeable to ICD), non-hodgkins lymphoma, and HIV presents to ED today via EMS for complaints of shortness of breath. Patient states that he chronically has shortness of breath and cannot really tell me today that it is any different than his baseline. Patient states he feels tired of not being able to do any form of physical activity because his shortness of breath limits this. He has no chest pain currently. Has not noticed any leg swelling or weight gain. MD elicited complaint: shortness of breath Pertinent past history: congestive heart failure Onset (ago): month(s) Timing: constant Severity: severe Exacerbating factors: exertion Relieving factors: nothing Known history of: congestive heart failure Associated symptoms: Reports no associated symptoms and chest congestion; Deny abdominal pain, chest pain, dizziness, fever(s), hemoptysis, lightheadedness, nausea, palpitations, syncope or vomiting Treatment prior to arrival: none Related Data: Home oxygen amount: none Review of Systems 2 Const: Denies: fever(s), chills, body aches, fatigue or malaise Eyes: Denies: change in vision or blurry vision Card: Reports: dyspnea on exertion (chronic); Denies: chest pain, palpitations, irregular heart rhythm, edema, swelling of feet/ankles, lightheadedness, syncope, pre-syncope, leg pain with exertion or acrocyanosis Resp: Reports: dyspnea (chronic), non-productive cough and chest congestion; Denies: productive cough, wheezing, pain on inspiration or hemoptysis GI: Denies: abdominal pain, nausea, vomiting, heartburn or diarrhea : Denies: difficulty urinating or dysuria Musc: Denies: neck pain, back pain or joint pain Skin/Breast: Denies: rash Neuro: Denies: headache(s), numbness in extremities, weakness in extremities, sensory changes or dizziness [facility] ED 2 PFSH: Medical History History of non-Hodgkin's lymphoma HIV (human immunodeficiency virus infection) CHF (congestive heart failure) Arteriosclerotic coronary artery disease HTN (hypertension) Surgical History History of coronary artery bypass graft S/P PTCA (percutaneous transluminal coronary angioplasty) Family History Mother Diabetes CAD (coronary artery disease) Hypertension Father Diabetes CAD (coronary artery disease) Hypertension Brother CAD (coronary artery disease) Stroke Social History Smoking and tobacco/nicotine status: never used tobacco/nicotine Physical Exam 2 Const: COMMON NORMALS: no acute distress, patient oriented x3, no limitations, alert and well nourished GENERAL APPEARANCE: cooperative and other (chronically ill appearing) ORIENTATION/CONSCIOUSNESS: Yes awake, Yes oriented to person, Yes oriented to place and Yes oriented to time HENMT: COMMON NORMALS: normocephalic and atraumatic HEAD & SCALP: normal to inspection, normocephalic and atraumatic Eye: GENERAL EYE: appearance normal, both eyes and all related structures Neck/C-Spine: COMMON NORMALS: full ROM, no lymphadenopathy, supple, no meningeal signs and no JVD Chest: COMMONS NORMALS: normal inspection of the chest Resp: COMMON NORMALS: normal respiratory effort AUSCULTATION: rhonchi left lower and right lower Cardio: COMMON NORMALS: no JVD and regular rate RATE: regular rate R HYTHM: abnormal rhythm irregularly irregular GI: COMMON NORMALS: Normal to inspection, nondistended, normoactive bowel sounds present, Soft to palpation, non-tender, No hepatosplenomegaly present and no masses PALPATION: Yes Soft to palpation and Yes No hepatosplenomegaly present : COMMON NORMALS: Yes no CVA tenderness BLADDER/KIDNEY EXAM: Yes no CVA tenderness Back/Pelvis: COMMON NORMALS: no CVA tenderness and thoracic and lumbar spine normal to inspection Extremity: COMMON NORMALS: normal to inspection GENERAL: Yes normal exam except as noted Neuro: ISAAC COMA SCALE: document GCS findings Isaac coma scale eye opening: Spontaneous Isaac coma scale verbal response: Orientated Isaac coma scale motor response: Obey commands Isaac coma scale total score: 15 COMMON NORMALS: patient oriented x3, moves all extremities, no focal motor deficits and no sensory deficits noted SENSORIUM/ORIENTATION: Yes alert, Yes oriented to person, Yes oriented to place and Yes oriented to time MENINGEAL SIGNS: Yes no meningeal signs Skin: COMMON NORMALS: no rashes or lesions noted GENERAL SKIN EXAM: no rashes or lesions noted Course 2 Vital Signs: Vital signs: Vital Signs Temperature 97.8 F 04/03/23 10:36 Pulse Rate 87 04/03/23 10:36 Respiratory Rate 22 H 04/03/23 10:36 Blood Pressure 113/85 04/03/23 10:36 Pulse Oximetry 90 04/03/23 10:36 Oxygen Delivery Me thod Room Air 04/03/23 10:36 MDM - SOB/Dyspnea Medical Decision Making Patient is a nice 77-year-old male here with a complaint of shortness of breath. He states he is chronically short of breath and does not feel like his complaint today is really any worse than his baseline. He is not requiring oxygen. He is satting mid 90s on room air. He has not had any recent fevers. Patient does have an extensive past medical history regarding his heart. He has significant CAD and severely reduced EF at 15%. He is up to date on cardiology appointments and he has recently been agreeable to discussion of an ICD. He has no complaints of chest pain or palpitations today. His baseline and repeat EKGs showing rate controlled atrial fibrillation which he has a known history of. Blood work shows a normal white count. Chemistry overall fairly unremarkable. He does have some minor elevations to his BUNs/Cr at 36/1.5. Most recent comparisons were about a year ago and they were 24/1.1 then. Has been BNP is chronically elevated. He clinically does not appear fluid overloaded. Initial trop is elevated with a non-significant delta. Again EKGs are non-ischemic and he has no complaints of chest pain. Discussed with Dr. Acosta regarding patient. Patient wants to go home if possible. I think this is reasonable. His CXR does show RML and RLL pneumonia. Respiratoy panel negative. Again he is not requiring oxygen. Normal white count. He was given IM Rocephin prior to discharge and will be placed on Augmentin/Azithromycin for CAP coverage. He has an appointment with his PCP next Monday for follow up. Strict return to ED precautions. Medical Records I reviewed the patient's medical records. Lab Data I reviewed the patient's lab results. 04/03/23 10:56 04/03/23 10:56 Labs/Radiology: Laboratory Results WBC 7.59 10^3/uL (3.29-11.43) 04/03/23 10:56 RBC 5.24 10^6/uL (3.85-5.65) 04/03/23 10:56 Hgb 13.90 g/dL (11.27-16.99) 04/03/23 10:56 Hct 44.8 % (37-53) 04/03/23 10:56 MCV 85.5 fl (82-101) 04/03/23 10:56 MCH 26.5 pg (27-33) L 04/03/23 10:56 MCHC 31.0 g/dL (30-55) 04/03/23 10:56 RDW 17.4 % (12.1-15.1) H 04/03/23 10:56 Plt Count 250 10^3/cmm (157-399) 04/03/23 10:56 MPV 11.3 fL (7.4-10.4) H 04/03/23 10:56 Neut % (Auto) 79.4 % 04/03/23 10:56 Lymph % (Auto) 9.4 % 04/03/23 10:56 Garrett % (Auto) 7.6 % 04/03/23 10:56 Eos % (Auto) 1.1 % 04/03/23 10:56 Baso % (Auto) 1.3 % 04/03/23 10:56 Neut # (Auto) 6.03 10^3/uL (1.8-7.7) 04/03/23 10:56 Lymph # (Auto) 0.7 10^3/uL (0.8-4.8) L 04/03/23 10:56 Garrett # (Auto) 0.6 10^3/uL (0.2-0.9) 04/03/23 10:56 Eos # (Auto) 0.1 10^3/uL (0.0-0.8) 04/03/23 10:56 Baso # (Auto) 0.1 10^3/uL (0.0-0.1) 04/03/23 10:56 Nucleated RBC % (auto) 0.3 % 04/03/23 10:56 Nucleated RBCs # 0.0 /100WBC 04/03/23 10:56 Sodium 138 mmol/L (136-145) 04/03/23 10:56 Potassium 3.7 mmol/L (3.5-5.1) 04/03/23 10:56 Chloride 97 mmol/L (98-107) L 04/03/23 10:56 Carbon Dioxide 30 mmol/L (22-29) H 04/03/23 10:56 Anion Gap 14.7 (5-19) 04/03/23 10:56 BUN 36 mg/dL (8-23) H 04/03/23 10:56 Creatinine 1.5 mg/dL (0.7-1.2) H 04/03/23 10:56 GFR Calculation Not Reportable 04/03/23 10:56 Glucose 131 mg/dL (65-115) H 04/03/23 10:56 Calculated Osmolality 296 mOsm/kg (285-295) H 04/03/23 10:56 Calcium 9.5 mg/dL (8.5-10.5) 04/03/23 10:56 Total Bilirubin 1.2 mg/dL (0.15-1.2) 04/03/23 10:56 AST 28 U/L (0-40) 04/03/23 10:56 ALT 21 U/L (0-41) 04/03/23 10:56 Alkaline Phosphatase 164 U/L (40-130) H 04/03/23 10:56 Troponin T Baseline 76 ng/L (0-15) H 04/03/23 10:56 Troponin T 120 Minute 77.26 ng/L (0-15) H 04/03/23 12:50 Delta Troponin T 1.26 ABS# (0-10) 04/03/23 12:50 NT-Pro-B Natriuret Pep 9959 pg/mL (0-450) H 04/03/23 10:56 Total Protein 7.7 g/dL (6.6-8.7) 04/03/23 10:56 Albumin 3.8 g/dL (3.5-5.2) 04/03/23 10:56 Globulin 3.9 g/dL (1.3-4.6) 04/03/23 10:56 Adenovirus (PCR) Not detected (NOT DETECT) 04/03/23 11:18 C. pneumoniae DNA (PCR) Not detected (NOT DETECT) 04/03/23 11:18 Coronavirus 229E (PCR) Not detected (NOT DETECT) 04/03/23 11:18 Human Metapneumovir PCR Not detected (NOT DETECT) 04/03/23 11:18 Influenza A (H1) PCR Not detected (NOT DETECT) 04/03/23 11:18 Influ A (H1/09) PCR Not detected (NOT DETECT) 04/03/23 11:18 Influenza A (H3) PCR Not detected (NOT DETECT) 04/03/23 11:18 Influenza Type A (PCR) Not detected (NOT DETECT) 04/03/23 11:18 Influenza Type B (PCR) Not detected (NOT DETECT) 04/03/23 11:18 M. pneumoniae (PCR) Not detected (NOT DETECT) 04/03/23 11:18 Parainfluenza 1 (PCR) Not detected (NOT DETECT) 04/03/23 11:18 Parainfluenza 2 (PCR) Not detected (NOT DETECT) 04/03/23 11:18 Parainfluenza 3 (PCR) Not detected (NOT DETECT) 04/03/23 11:18 Parainfluenza 4 (PCR) Not detected (NOT DETECT) 04/03/23 11:18 RSV Type A (PCR) Not detected (NOT DETECT) 04/03/23 11:18 RSV Type B (PCR) Not detected (NOT DETECT) 04/03/23 11:18 Entero/Rhino (PCR) Not detected (NOT DETECT) 04/03/23 11:18 SARS-CoV-2 (PCR) Not detected (NOT DETECT) 04/03/23 11:18 All radiology interpretation(s) finalized by discharge Discharge Plan Discharge Patient Disposition: Home Clinical Impression: Pneumonia involving right lung Qualifiers: Pneumonia type: due to unspecified organism Lung location: lower lobe of lung Q ualified Code(s): J18.9 - Pneumonia, unspecified organism Condition: Stable Prescriptions: New azithromycin 250 mg tablet See Rx Instructions .ROUTE .COMPLEX Qty: 6 0RF Rx Instructions: take 500 mg today (day 1), then 250 mg for 4 days (days 2-5) amoxicillin-pot clavulanate 875-125 mg tablet 1 tab PO BID Qty: 14 0RF No Action carvedilol 6.25 mg tablet 6.25 mg PO BID aspirin [Adult Low Dose Aspirin] 81 mg tablet,delayed release (DR/EC) 81 mg PO DAILY Dovato 50-300 mg tablet 1 tab PO DAILY potassium chloride 10 mEq tablet extended release 10 meq PO DAILY Qty: 90 3RF losartan 50 mg tablet 50 mg PO DAILY Qty: 90 3RF nitroglycerin [Nitrostat] 0.4 mg tablet, sublingual 0.4 mg SUBLINGUAL Q5M PRN (Reason: chest pain) Qty: 25 3RF metolazone 2.5 mg tablet 2.5 mg PO DAILY Qty: 90 1RF atorvastatin [Lipitor] 10 mg tablet 10 mg PO DAILY Qty: 90 3RF Plavix 75 mg tablet 75 mg PO QAM Qty: 90 3RF ranolazine 500 mg tablet extended release 12 hr 500 mg PO BID Qty: 60 5RF levothyroxine 100 mcg tablet 100 mcg PO QAM escitalopram oxalate 10 mg tablet 10 mg PO QAM isosorbide mononitrate 60 mg tablet extended release 24 hr 60 mg PO QAM furosemide 20 mg tablet 40 mg PO QAM hydrochlorothiazide 12.5 mg tablet 12.5 mg PO QAM Discharge Orders: Discharge ED (Routine); Ordered 04/03/23 Ordered By: Nayla Herndon Referrals: Sonia Bustillo MD [Primary Care Provider] - Patient Instructions: Pneumonia (ED) Activity Restrictions/Additional Instructions: As we discussed your x-ray today showed a right-sided pneumonia. You are being placed on antibiotics for this. You need to return to the emergency department for onset of chest pain, difficulty breathing or shortness of breath that is worse than your baseline, fevers, or any other concerns you may have. Your kidney labs (BUN/Cr) were slightly elevated today. I would like these rechecked through your primary care office during your scheduled appointment next week. They may not need to be rechecked if they have more recent labs for comparison. Coding Level of Care Code ED Manager Multimedia for Tiara Sanchez
[2023-04-03 11:06] LABS: Basophils # 0.1 10^3/uL (0.0-0.1); Basophils % 1.3 %; Eosinophils # 0.1 10^3/uL (0.0-0.8); Eosinophils % 1.1 %; Hematocrit 44.8 % (37-53); Lymphocytes # 0.7 10^3/uL (0.8-4.8); Lymphocytes % 9.4 %; Mean Corpuscular Hemoglobin 26.5 pg (27-33); Mean Corpuscular Volume 85.5 fl (82-101); Mean Platelet Volume 11.3 fL (7.4-10.4); Monocytes # 0.6 10^3/uL (0.2-0.9); Monocytes % 7.6 %; Neutrophils # 6.03 10^3/uL (1.8-7.7); Neutrophils % 79.4 %; Nucleated Red Blood Cells % 0.3 %; Platelet Count 250 10^3/cmm (157-399); Red Blood Count 5.24 10^6/uL (3.85-5.65); Red Cell Distribution Width 17.4 % (12.1-15.1); White Blood Count 7.59 10^3/uL (3.29-11.43)
[2023-04-03 11:20] LABS: Troponin(5th) Baseline 76 ng/L (0-15)
[2023-04-03 11:33] LABS: Alanine Aminotransferase 21 U/L (0-41); Albumin Level 3.8 g/dL (3.5-5.2); Alkaline Phosphatase 164 U/L (40-130); Anion Gap 14.7 (5-19); Aspartate Amino Transferase 28 U/L (0-40); Blood Urea Nitrogen 36 mg/dL (8-23); Calcium 9.5 mg/dL (8.5-10.5); Carbon Dioxide 30 mmol/L (22-29); Chloride 97 mmol/L (98-107); Globulin 3.9 g/dL (1.3-4.6); Glucose 131 mg/dL (65-115); NT Pro B Type Natriuretic Pept 9959 pg/mL (0-450); Osmolality Calculated 296 mOsm/kg (285-295); Potassium 3.7 mmol/L (3.5-5.1); Sodium 138 mmol/L (136-145); Total Bilirubin 1.2 mg/dL (0.15-1.2); Total Protein 7.7 g/dL (6.6-8.7)
--- NOTE | 2023-04-03 12:53 | ECG_ITS ---
[facility] Test Date: 2023-04-03 Pat Name: Stanislaw Nair Department: Room: Gender: Male Senior Counsel Commercial: : 1945 Requested By: Nayla Herndon Order Number: [id number] Мария MD: Zak Palomares M.D. Measurements Intervals [place] Rate: 83 P: 0 WV: 0 QRS: 4 QRSD: 101 T: 266 QT: 382 QTc: 451 Interpretive Statements ATRIAL FIBRILLATION NONSPECIFIC ST & T-WAVE ABNORMALITY Compared to ECG 05/16/2020 09:56:35 Sinus rhythm no longer present T-wave abnormality still present Electronically Signed On 04-04-2023 19:40:02 CHORE TENDER by Zak Palomares M.D. [email or web address]
[2023-04-03 13:15] LABS: Troponin 5 2HR 77.26 ng/L (0-15); Troponin 5 2HR Delta 1.26 ABS# (0-10)
[2023-04-03 13:18] LABS: Adenovirus Not Detected (NOT DETECT); Chlamydia Pneumoniae Not Detected (NOT DETECT); Coronavirus 229E,HKU1,NL63,OC4 Not Detected (NOT DETECT); Human Metapneumovirus Not Detected (NOT DETECT); Human Rhinovirus/Enterovirus Not Detected (NOT DETECT); Influenza A Not Detected (NOT DETECT); Influenza A H1 Not Detected (NOT DETECT); Influenza A H1-2009 Not Detected (NOT DETECT); Influenza A H3 Not Detected (NOT DETECT); Influenza B Not Detected (NOT DETECT); Mycoplasma Pneumoniae Not Detected (NOT DETECT); Parainfluenza Virus Type 1 Not Detected (NOT DETECT); Parainfluenza Virus Type 2 Not Detected (NOT DETECT); Parainfluenza Virus Type 3 Not Detected (NOT DETECT); Parainfluenza Virus Type 4 Not Detected (NOT DETECT); Respiratory Syncytial Virus A Not Detected (NOT DETECT); Respiratory Syncytial Virus B Not Detected (NOT DETECT); SARS-COV-2 Not Detected (NOT DETECT)
[2023-04-03 13:30] VITALS: BP 108/82; PULSE 88; O2SAT 93
[2023-04-03] MEDS: cefTRIAXone 1,000 MG in water for injection-sterile 2.1 ML 2.1 MG IM (13:43)
[2023-04-03 13:56] VITALS: BP 112/80; PULSE 89; O2SAT 95
== END 2023-04-03 13:57 | disposition home or self-care (01) ==
PROVIDERS: Emergency Provider Physician Assistant; PCP Internal Medicine
DX: J18.9 Pneumonia, unspecified organism (principal); Z79.02 Long term (current) use of antithrombotics/antiplatelets; Z79.82 Long term (current) use of aspirin; Z11.52 Encounter for screening for COVID-19; B20 Human immunodeficiency virus [HIV] disease; I11.0 Hypertensive heart disease with heart failure; I50.9 Heart failure, unspecified; Z95.1 Presence of aortocoronary bypass graft; Z85.72 Personal history of non-Hodgkin lymphomas
CPT/HCPCS: 36415; 71045; 80053; 83880; 84484; 85025; 87486; 87581; 87633; 93005; 96372; 99285; J0696

== ENCOUNTER 2023-04-14 03:40 | Emergency (ER) | payer MEDICARE, MEDICAID, SELFPAY ==
[2023-04-14 03:40] VITALS: BP 118/82; PULSE 87; RESP 28; TEMP 36.3; BMI 22.6
--- NOTE | 2023-04-14 03:45 | ECG_ITS ---
[facility] Test Date: 2023-04-14 Pat Name: Stanislaw Nair Department: Room: Gender: Male Bottle Feeder: : 1945 Requested By: Mateo Mejía Order Number: [id number] Мария MD: Gagandeep Carrasquillo M.D. Measurements Intervals [place] Rate: 98 P: 0 MS: 0 QRS: 27 QRSD: 98 T: 133 QT: 366 QTc: 468 Interpretive Statements ATRIAL FIBRILLATION ST DEVIATION AND MODERATE T-WAVE ABNORMALITY, CONSIDER LATERAL ISCHEMIA [-0.1+ mV T-WAVE IN I/aVL/V5/V6] Compared to ECG 04/03/2023 12:53:05 Possible ischemia now present T-wave abnormality still present Electronically Signed On 04-14-2023 6:53:01 SATELLITE SPECIALIST by Gagandeep Carrasquillo M.D. [email or web address]
--- NOTE | 2023-04-14 03:46 | XRR_ITS ---
PROCEDURE INFORMATION: Exam: XR Chest Exam date and time: 04/14/2023 3:49 AM Age: 77 years old Clinical indication: Shortness of breath; Prior surgery; Surgery date: 6+ months; Surgery type: 2016; Patient HX: Patient says he has been feeling SOB and overly fatigued as of lately. Denies an cough or illiness; Additional info: Dyspnea TECHNIQUE: Imaging protocol: Radiologic exam of the chest. Views: 1 view. COMPARISON: CR XR chest 1V portable [id number] 04/03/2023 10:50 AM FINDINGS: Lungs: Lower lung ground-glass opacities are decreased. Pleural spaces: Question small pleural effusions. Negative for pneumothorax. Heart/Mediastinum: Cardiomegaly. CABG. Bones/joints: Unremarkable. XR/XR chest 1V portable [id number] IMPRESSION: Improved exam.
--- NOTE | 2023-04-14 03:58 | ED_ITS ---
HPI - SOB/Dyspnea 2 General: Chief Complaint: Shortness of Breath/Dyspnea Stated Complaint: SOB, Dizziness Time Seen by Provider: 04/14/23 03:45 History of Present Illness: HPI Narrative: Patient presents to the ER for worsening shortness of breath. Patient was brought in by EMS who said the patient was just discharged at 5 PM yesterday from the ER at [facility] for a workup for shortness of breath. He then went home got worse and then called EMS to be brought here. We do not have the records of [facility] and patient does not know what they did. They did not send him home to the medicine. Patient was treated in this ER approximately 1 week ago for pneumonia. Patient does not have oxygen at home. Patient says the shortness of breath has been going on for over the last month and slowly getting worse. Upon talking with the patient further it sounds these are more like panic attacks he says he sits in his room all alone and worries that if something was to happen no one would find him in He knows his heart is racing and he short of breath. Review of Systems 2 General: Reports: 10 or more systems reviewed and unremarkable except in HPI and below PFSH ED 2 PFSH: Medical History History of non-Hodgkin's lymphoma HIV (human immunodeficiency virus infection) CHF (congestive heart failure) Arteriosclerotic coronary artery disease HTN (hypertension) Surgical History History of coronary artery bypass graft S/P PTCA (percutaneous transluminal coronary angioplasty) Family History Mother Diabetes CAD (coronary artery disease) Hypertension Father Diabetes CAD (coronary artery disease) Hypertension Brother CAD (coronary artery disease) Stroke Social History Smoking and tobacco/nicotine status: never used tobacco/nicotine Physical Exam 2 Const: COMMON NORMALS: no acute distress, average body habitus, patient oriented x3, no limitations, healthy appearing, alert and well nourished HENMT: COMMON NORMALS: normocephalic, atraumatic, hearing grossly normal bilaterally, external ears normal, EAC's normal, Normal external nose present, moist oral mucous membranes and oropharynx normal HEAD & SCALP: normocephalic and atraumatic NOSE: Normal external nose present EXTERNAL EAR: Yes external ears normal EXTERNAL AUDITORY CANAL: EAC's normal Neck/C-Spine: COMMON NORMALS: no JVD Chest: COMMONS NORMALS: normal inspection of the chest and normal palpation of entire chest wall Resp: COMMON NORMALS: normal respiratory effort, No retractions, No use of accessory muscles and clear to auscultation bilaterally AUSCULTATION: clear to auscultation bilaterally Cardio: COMMON NORMALS: no JVD, regular rate, S1 normal heart sound present, S2 normal heart sound present, No gallops present (Cardio), No clicks present (Cardio) and No murmurs present (Cardio); negative for regular rhythm (Irregularly irregular) RATE: regular rate R HYTHM: abnormal rhythm (Irregularly irregular) HEART SOUNDS: S1 normal heart sound present and S2 normal heart sound present GI: COMMON NORMALS: Normal to inspection, nondistended, normoactive bowel sounds present, Soft to palpation, non-tender, No hepatosplenomegaly present and no masses PALPATION: Yes Soft to palpation and Yes No hepatosplenomegaly present Neuro: COMMON NORMALS: patient oriented x3 SENSORIUM/ORIENTATION: Yes alert Course 2 Vital Signs: Vital signs: Vital Signs Temperature 97.4 F L 04/14/23 03:40 Pulse Rate 101 H 04/14/23 05:11 Respiratory Rate 28 H 04/14/23 03:40 Blood Pressure 100/80 04/14/23 05:11 Pulse Oximetry 95 04/14/23 05:11 Oxygen Delivery Me thod Room Air 04/14/23 05:11 MDM - SOB/Dyspnea Medical Decision Making Home oxygen evaluation was done by RT which said he was pacing by the bed and the lowest he ever became was 96% on room air. Patient had CBC CMP chest x-ray and EKG troponin and BNP all performed. This first potassium, at 6.5 Cruz redraw the second 1 was 5.5. The BUN/creatinine was 32 and 1.6 troponin baseline was 71 and BNP was 14,319. Other than a potassium these are all stable for the patient. Patient was taken off of oxygen after his home oxygen study and he continued to be 95 to 97% on room air. Patient was given 10 mg of BuSpar for what appeared to be anxiety. Patient be discharged home with a diagnosis of BuSpar and patient be taken off his potassium. Patient is to follow-up with his PCP in approximately 7 days for further evaluation and treatment. Differential Diagnosis Unlikely acute exacerbation of chronic obstructive airways disease, congestive heart failure, community acquired pneumonia, asthma with exacerbation or pulmonary embolism Medical Records I reviewed the patient's medical records. Lab Data I reviewed the patient's lab results. 04/14/23 04:01 04/14/23 04:48 Labs/Radiology: Radiology Impressions Chest X-Ray 04/14/23 03:46 IMPRESSION: Improved exam. Laboratory Results WBC 9.36 10^3/uL (3.29-11.43) 04/14/23 04:01 RBC 5.32 10^6/uL (3.85-5.65) 04/14/23 04:01 Hgb 14.00 g/dL (11.27-16.99) 04/14/23 04:01 Hct 45.4 % (37-53) 04/14/23 04:01 MCV 85.3 fl (82-101) 04/14/23 04:01 MCH 26.3 pg (27-33) L 04/14/23 04:01 MCHC 30.8 g/dL (30-55) 04/14/23 04:01 RDW 18.0 % (12.1-15.1) H 04/14/23 04:01 Plt Count 223 10^3/cmm (157-399) 04/14/23 04:01 MPV 11.6 fL (7.4-10.4) H 04/14/23 04:01 Neut % (Auto) 80.4 % 04/14/23 04:01 Lymph % (Auto) 10.0 % 04/14/23 04:01 [place] % (Auto) 7.6 % 04/14/23 04:01 Eos % (Auto) 0.1 % 04/14/23 04:01 Baso % (Auto) 0.9 % 04/14/23 04:01 Neut # (Auto) 7.53 10^3/uL (1.8-7.7) 04/14/23 04:01 Lymph # (Auto) 0.9 10^3/uL (0.8-4.8) 04/14/23 04:01 [place] # (Auto) 0.7 10^3/uL (0.2-0.9) 04/14/23 04:01 Eos # (Auto) 0.0 10^3/uL (0.0-0.8) 04/14/23 04:01 Baso # (Auto) 0.1 10^3/uL (0.0-0.1) 04/14/23 04:01 Nucleated RBC % (auto) 0 % 04/14/23 04:01 Nucleated RBCs # 0.0 /100WBC 04/14/23 04:01 Sodium 139 mmol/L (136-145) 04/14/23 04:48 Potassium 5.5 mmol/L (3.5-5.1) H 04/14/23 04:48 Chloride 97 mmol/L (98-107) L 04/14/23 04:48 Carbon Dioxide 26 mmol/L (22-29) 04/14/23 04:48 Anion Gap 21.5 (5-19) H 04/14/23 04:48 BUN 32 mg/dL (8-23) H 04/14/23 04:48 Creatinine 1.6 mg/dL (0.7-1.2) H 04/14/23 04:48 GFR Calculation Not Reportable 04/14/23 04:48 Glucose 117 mg/dL (65-115) H 04/14/23 04:48 Calculated Osmolality 296 mOsm/kg (285-295) H 04/14/23 04:48 Calcium 9.6 mg/dL (8.5-10.5) 04/14/23 04:48 Total Bilirubin 1.6 mg/dL (0.15-1.2) H 04/14/23 04:01 AST 34 U/L (0-40) 04/14/23 04:01 ALT 31 U/L (0-41) 04/14/23 04:01 Alkaline Phosphatase 162 U/L (40-130) H 04/14/23 04:01 Troponin T Baseline 71 ng/L (0-15) H 04/14/23 04:01 NT-Pro-B Natriuret Pep 89808 pg/mL (0-450) H 04/14/23 04:01 Total Protein 7.5 g/dL (6.6-8.7) 04/14/23 04:01 Albumin 3.9 g/dL (3.5-5.2) 04/14/23 04:01 Globulin 3.6 g/dL (1.3-4.6) 04/14/23 04:01 All radiology interpretation(s) finalized by discharge EKG Data EKG 1: I personally reviewed and interpreted this EKG as follows: EKG Interpretation Date: 04/14/23 EKG interpretation time: 03:49 Prior EKG tracings: not available for review Interpretation: EKG showed ventricular rate 98 beats minute, QRS duration 98, QTc of 421, atrial fibrillation, Discharge Plan Discharge Patient Disposition: Home Clinical Impression: Panic attack, Breath shortness, Acute hyperkalemia Condition: Stable Prescriptions: New buspirone 5 mg tablet 5 mg PO TID PRN (Reason: anxiety) Qty: 14 0RF Discontinued potassium chloride 10 mEq tablet extended release 10 meq PO DAILY Qty: 90 3RF No Action carvedilol 6.25 mg tablet 6.25 mg PO BID aspirin [Adult Low Dose Aspirin] 81 mg tablet,delayed release (DR/EC) 81 mg PO DAILY Dovato 50-300 mg tablet 1 tab PO DAILY losartan 50 mg tablet 50 mg PO DAILY Qty: 90 3RF nitroglycerin [Nitrostat] 0.4 mg tablet, sublingual 0.4 mg SUBLINGUAL Q5M PRN (Reason: chest pain) Qty: 25 3RF metolazone 2.5 mg tablet 2.5 mg PO DAILY Qty: 90 1RF atorvastatin [Lipitor] 10 mg tablet 10 mg PO DAILY Qty: 90 3RF Plavix 75 mg tablet 75 mg PO QAM Qty: 90 3RF ranolazine 500 mg tablet extended release 12 hr 500 mg PO BID Qty: 60 5RF azithromycin 250 mg tablet See Rx Instructions .ROUTE .COMPLEX Qty: 6 0RF Rx Instructions: take 500 mg today (day 1), then 250 mg for 4 days (days 2-5) amoxicillin-pot clavulanate 875-125 mg tablet 1 tab PO BID Qty: 14 0RF levothyroxine 100 mcg tablet 100 mcg PO QAM escitalopram oxalate 10 mg tablet 10 mg PO QAM isosorbide mononitrate 60 mg tablet extended release 24 hr 60 mg PO QAM furosemide 20 mg tablet 40 mg PO QAM hydrochlorothiazide 12.5 mg tablet 12.5 mg PO QAM Discharge Orders: Discharge ED (Routine); Ordered 04/14/23 Ordered By: Mateo Mejía Referrals: Sonia Bustillo MD [Primary Care Provider] - 1 week Patient Instructions: Hyperkalemia (ED), Anxiety (ED), Panic Attack (ED) Activity Restrictions/Additional Instructions: Please stop taking your potassium supplement as your potassium is already high. Please start taking the buspirone as needed for anxiety. Please follow-up with your family doctor within the next 7 days for further evaluation and treatment. Coding Level of Care Code ED [employer] Roofer for Tiara Sanchez
[2023-04-14 04:07] LABS: Basophils # 0.1 10^3/uL (0.0-0.1); Basophils % 0.9 %; Eosinophils % 0.1 %; Hematocrit 45.4 % (37-53); Lymphocytes # 0.9 10^3/uL (0.8-4.8); Mean Corpuscular HGB Conc 30.8 g/dL (30-55); Mean Corpuscular Hemoglobin 26.3 pg (27-33); Mean Corpuscular Volume 85.3 fl (82-101); Mean Platelet Volume 11.6 fL (7.4-10.4); Monocytes # 0.7 10^3/uL (0.2-0.9); Monocytes % 7.6 %; Neutrophils # 7.53 10^3/uL (1.8-7.7); Neutrophils % 80.4 %; Nucleated Red Blood Cells % 0 %; Platelet Count 223 10^3/cmm (157-399); Red Blood Count 5.32 10^6/uL (3.85-5.65); White Blood Count 9.36 10^3/uL (3.29-11.43)
[2023-04-14 04:19] VITALS: O2SAT 96; O2SAT 97
[2023-04-14 04:29] LABS: Troponin(5th) Baseline 71 ng/L (0-15)
[2023-04-14 04:36] LABS: Alanine Aminotransferase 31 U/L (0-41); Albumin Level 3.9 g/dL (3.5-5.2); Alkaline Phosphatase 162 U/L (40-130); Anion Gap 21.5 (5-19); Aspartate Amino Transferase 34 U/L (0-40); Blood Urea Nitrogen 31 mg/dL (8-23); Calcium 9.9 mg/dL (8.5-10.5); Carbon Dioxide 28 mmol/L (22-29); Chloride 97 mmol/L (98-107); Globulin 3.6 g/dL (1.3-4.6); Glucose 114 mg/dL (65-115); NT Pro B Type Natriuretic Pept 14319 pg/mL (0-450); Osmolality Calculated 297 mOsm/kg (285-295); Sodium 140 mmol/L (136-145); Total Bilirubin 1.6 mg/dL (0.15-1.2); Total Protein 7.5 g/dL (6.6-8.7)
[2023-04-14 04:39] LABS: Potassium 6.5 mmol/L (3.5-5.1)
[2023-04-14 05:11] VITALS: BP 100/80; PULSE 101; O2SAT 95
[2023-04-14 05:11] LABS: Anion Gap 21.5 (5-19); Blood Urea Nitrogen 32 mg/dL (8-23); Calcium 9.6 mg/dL (8.5-10.5); Carbon Dioxide 26 mmol/L (22-29); Chloride 97 mmol/L (98-107); Glucose 117 mg/dL (65-115); Osmolality Calculated 296 mOsm/kg (285-295); Potassium 5.5 mmol/L (3.5-5.1); Sodium 139 mmol/L (136-145)
[2023-04-14] MEDS: BuSPIRONE 10 mg Tablet PO (05:11)
--- NOTE | 2023-04-14 05:38 | PC.NURSE ---
Friend of patient, Brady, called ER asking for update on patient. This nurse went and verified it would be okay to speak with caller and give him update on patient status. 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
[2023-04-14 05:40] VITALS: BP 115/82; PULSE 98; O2SAT 96
== END 2023-04-14 05:43 | disposition home or self-care (01) ==
PROVIDERS: Emergency Provider Emergency Medicine; PCP Internal Medicine
DX: F41.0 Panic disorder [episodic paroxysmal anxiety] (principal); R06.02 Shortness of breath; E87.5 Hyperkalemia; Z79.02 Long term (current) use of antithrombotics/antiplatelets; Z79.82 Long term (current) use of aspirin; B20 Human immunodeficiency virus [HIV] disease; Z85.72 Personal history of non-Hodgkin lymphomas; I11.0 Hypertensive heart disease with heart failure; I50.9 Heart failure, unspecified; I25.10 Atherosclerotic heart disease of native coronary artery without angina pectoris; Z95.1 Presence of aortocoronary bypass graft
CPT/HCPCS: 36415; 71045; 80048; 80053; 83880; 84484; 85025; 93005; 99285

== ENCOUNTER → 2023-04-18 08:36 | Outpatient (BNVA) | payer MEDICARE, MEDICAID, SELFPAY | PROVIDERS: PCP Internal Medicine; Visit Provider Nurse Practitioner Family | DX: I11.0 Hypertensive heart disease with heart failure (principal); I50.42 Chronic combined systolic (congestive) and diastolic (congestive) heart failure | CPT/HCPCS: 99214 ==

== ENCOUNTER → 2023-05-01 10:03 | Outpatient (BNVA) | payer MEDICARE, MEDICAID, SELFPAY | PROVIDERS: PCP Internal Medicine; Visit Provider Thoracic Surgery (Cardiothoracic Vascular Surgery) | DX: I11.0 Hypertensive heart disease with heart failure (principal); I50.42 Chronic combined systolic (congestive) and diastolic (congestive) heart failure | CPT/HCPCS: 99203 ==

== ENCOUNTER 2023-05-20 00:02 | Inpatient (IN) | payer MEDICARE, MEDICAID, SELFPAY ==
[2023-05-20] VITALS (70 sets, daily range): BP systolic 70–158; BP diastolic 47–101; PULSE 45–112; RESP 16–32; TEMP 34.3–37.8; O2SAT 13–100; BMI 19.3
--- NOTE | 2023-05-20 00:08 | XRR_ITS ---
PROCEDURE INFORMATION: Exam: XR Chest Exam date and time: 05/20/2023 12:36 AM Age: 78 years old Clinical indication: Other: Bradycardia TECHNIQUE: Imaging protocol: Radiologic exam of the chest. Views: 1 view. COMPARISON: CR (CHEST, ) 04/14/2023 3:49 AM FINDINGS: Lungs: Heterogeneous opacities at the right lung base could reflect atelectasis or pneumonitis. Pleural spaces: Tiny right pleural effusion appears similar to earlier exam. No pneumothorax on either side. Heart/Mediastinum: Severe enlargement of the cardiac silhouette is similar to prior. Vasculature: Mediastinal surgical clips and vascular markers suggest prior myocardial revascularization. Bones/joints: Age appropriate. XR/XR chest 1V portable [id number] IMPRESSION: 1. Stable severe cardiac enlargement. 2. Minor opacity at the right lung base could be atelectasis or developing pneumonitis. No findings of pulmonary edema.
--- NOTE | 2023-05-20 00:19 | ED_ITS ---
HPI - SOB/Dyspnea 2 General: Chief Complaint: Shortness of Breath/Dyspnea Stated Complaint: SOB Time Seen by Provider: 05/20/23 00:04 History of Present Illness: HPI Narrative: Patient presents to the ER for shortness of breath, low heart rate, low blood pressure. EMS stated his heart rate was fluctuating between about 40 and about 60 beats a minute, blood pressure upon arrival was 94/78. Patient states he has an appointment on Monday to have a defibrillator placed by Dr. Rankin but feels so bad that he does not think he can wait that long. Per records patient has ischemic cardiomyopathy status post CABG x 3 in 2018 and has multiple stents placed since then. He has a history of nodular lymphoma and HIV infection. He has chronic atrial fibrillation and is on Eliquis. He has had a transthoracic echo in May 2022 that revealed an ejection fraction of 15% with severe mitral valve regurgitation and moderate tricuspid valve regurgitation [facility] ED 2 PFSH: Medical History (Updated 05/20/23 @ 04:56 by Romero Jimenez MD) Hypothyroidism Atrial fibrillation with RVR History of non-Hodgkin's lymphoma HIV (human immunodeficiency virus infection) CHF (congestive heart failure) 05/24/22: LVEF 15% Arteriosclerotic coronary artery disease HTN (hypertension) Surgical History History of coronary artery bypass graft S/P PTCA (percutaneous transluminal coronary angioplasty) Family History Mother Diabetes CAD (coronary artery disease) Hypertension Father Diabetes CAD (coronary artery disease) Hypertension Brother CAD (coronary artery disease) Stroke Social History Smoking and tobacco/nicotine status: never used tobacco/nicotine Physical Exam 2 Const: COMMON NORMALS: patient oriented x3, no limitations and alert HENMT: COMMON NORMALS: normocephalic, atraumatic, hearing grossly normal bilaterally, external ears normal, EAC's normal, Normal external nose present, moist oral mucous membranes and oropharynx normal HEAD & SCALP: normocephalic and atraumatic NOSE: Normal external nose present EXTERNAL EAR: Yes external ears normal EXTERNAL AUDITORY CANAL: EAC's normal Eye: COMMON NORMALS: Equal, round and reactive pupils present, EOMs intact bilaterally, conjunctivae normal and no scleral icterus CONJUNCTIVA: Yes conjunctivae normal PUPIL: Yes Equal, round and reactive pupils present Neck/C-Spine: COMMON NORMALS: full ROM, no lymphadenopathy, supple, no meningeal signs and no JVD Chest: COMMONS NORMALS: normal inspection of the chest and normal palpation of entire chest wall Resp: COMMON NORMALS: normal respiratory effort, No retractions, No use of accessory muscles, clear to auscultation bilaterally (Decreased breath sounds bilaterally) and percussion normal AUSCULTATION: clear to auscultation bilaterally (Decreased breath sounds bilaterally) PERCUSSION: percussion normal Cardio: COMMON NORMALS: no JVD, S1 normal heart sound present, S2 normal heart sound present and No gallops present (Cardio); negative for regular rhythm (Bradycardic irregularly irregular rhythm) and negative for No murmurs present (Cardio) (3 out of 6 systolic ejection murmur) RHYTHM: abnormal rhythm (Bradycardic irregularly irregular rhythm) HEART SOUNDS: S1 normal heart sound present and S2 normal heart sound present GI: COMMON NORMALS: Normal to inspection, nondistended, normoactive bowel sounds present, Soft to palpation, non-tender, No hepatosplenomegaly present and no masses PALPATION: Yes Soft to palpation and Yes No hepatosplenomegaly present Extremity: NARRATIVE EXTREMITY EXAM: Fingers cold and blue. Neuro: COMMON NORMALS: patient oriented x3 SENSORIUM/ORIENTATION: Yes alert MENINGEAL SIGNS: Yes no meningeal signs Procedures Central Line Placement Left SC: Time Out Performed: Yes Patient Placed on Monitor/Pulse Ox: Yes MD Prep: mask, gown and gloves Central Line Prep: Chlorhexidine scrub and sterile drapes applied Ultrasound Used for Placement: Yes Central Line Lumen Inserted: triple Post Procedure: sutured in place, good blood return, all ports aspirated, flushed, capped and sterile dressing applied Post Procedure X-Ray: tip of catheter in good position and no pneumothorax seen Patient Tolerated Procedure: well and no complications Complications: none Intubation sedative: Etomidate Mg Given: 20 paralytic: Succinylcholine Mg Given: 100 Laryngoscope: fiber optic video scope ET Tube Size: 8 Tube Secured Depth (cm): 26 Tube Secured Location: lips Tube Placement Confirmation: visualized tube passing through cords, equal breath sounds bilaterally and no breath sounds over epigastrium Patient Tolerated Procedure: well and no complications Course 2 Vital Signs: Vital signs: Vital Signs Temperature 94.1 F L 05/20/23 04:45 Pulse Rate 59 L 05/20/23 04:45 Respiratory Rate 18 05/20/23 04:51 Blood Pressure 98/71 05/20/23 04:45 Pulse Oximetry 50 L 05/20/23 04:22 Oxygen Delivery Me thod Mechanical Ventil ation 05/20/23 04:51 Oxygen Flow Rate 50 05/20/23 04:45 Fraction of Inspir ed Oxygen 50 05/20/23 04:51 MDM - SOB/Dyspnea Medical Decision Making During patient's ER stay he looked over to nurse and says I think I am dying and then he went unresponsive and bradycardia down for could not feel a pulse. CPR was started patient was intubated that his pulse came back. Patient was placed on a ventilator and OG tube and Erickson were placed chest x-ray was obtained postintubation patient continued to be bradycardic and hypotensive. It left subclavian central line was placed x-ray was obtained reveals good placement, Dr. Jimenez was consulted who agreed to take the patient for the ICU for further evaluation and treatment. Differential Diagnosis Unlikely acute exacerbation of chronic obstructive airways disease, congestive heart failure, community acquired pneumonia, asthma with exacerbation or pulmonary embolism Medical Records I reviewed the patient's medical records. Lab Data I reviewed the patient's lab results. 05/20/23 00:54 05/20/23 00:54 Labs/Radiology: Radiology Impressions Head CT 05/20/23 01:47 IMPRESSION: No evidence of acute intracranial hemorrhage, mass effect, or edema. Chest X-Ray 05/20/23 03:22 IMPRESSION: Interval insertion of left subclavian central venous catheter in satisfactory position. No evidence of pneumothorax. Laboratory Results WBC 7.14 10^3/uL (3.29-11.43) 05/20/23 00:54 Corrected WBC Cancelled 05/20/23 00:28 RBC 4.91 10^6/uL (3.85-5.65) 05/20/23 00:54 Hgb 13.30 g/dL (11.27-16.99) 05/20/23 00:54 Hct 43.9 % (37-53) 05/20/23 00:54 MCV 89.4 fl (82-101) 05/20/23 00:54 MCH 27.1 pg (27-33) 05/20/23 00:54 MCHC 30.3 g/dL (30-55) 05/20/23 00:54 RDW 20.0 % (12.1-15.1) H 05/20/23 00:54 Plt Count 139 10^3/cmm (157-399) L 05/20/23 00:54 MPV 11.8 fL (7.4-10.4) H 05/20/23 00:54 Gran % Cancelled 05/20/23 00:28 Neut % (Auto) 69.0 % 05/20/23 00:54 Lymph % (Auto) 18.6 % 05/20/23 00:54 [place] % (Auto) 9.4 % 05/20/23 00:54 Eos % (Auto) 0.8 % 05/20/23 00:54 Baso % (Auto) 0.8 % 05/20/23 00:54 Neut # (Auto) 4.92 10^3/uL (1.8-7.7) 05/20/23 00:54 Lymph # (Auto) 1.3 10^3/uL (0.8-4.8) 05/20/23 00:54 Iron # (Auto) 0.7 10^3/uL (0.2-0.9) 05/20/23 00:54 Eos # (Auto) 0.1 10^3/uL (0.0-0.8) 05/20/23 00:54 Baso # (Auto) 0.1 10^3/uL (0.0-0.1) 05/20/23 00:54 Absolute Gran (auto) Cancelled 05/20/23 00:28 Nucleated RBC % (auto) 0.3 % 05/20/23 00:54 Nucleated RBCs # 0.0 /100WBC 05/20/23 00:54 PT 24.70 SECONDS (12.1-14.9) H 05/20/23 01:36 INR 2.14 (0.8-1.2) H 05/20/23 01:36 Specimen Type Arterial 05/20/23 02:25 Sample Site Brachial, right 05/20/23 02:25 ABG pH 7.22 (7.35-7.45) L 05/20/23 02:25 ABG pCO2 35.3 mmHg (35-45) 05/20/23 02:25 ABG pO2 452.0 mmHg (80.0-100.0) H 05/20/23 02:25 ABG PO2/FiO2 Ratio 0 05/20/23 02:25 ABG HCO3 14.6 mmol/L (22-26) L 05/20/23 02:25 ABG O2 Saturation > 100.0 05/20/23 02:25 ABG Base Excess -12.1 mmol/L (-2.0-2.0) L 05/20/23 02:25 Kevin Test N/a 05/20/23 02:25 A-a O2 Gradient 26.9 mmHg (5-10) H 05/20/23 02:25 Hematocrit 39.0 % (42-52) L 05/20/23 02:25 Hgb O2 Saturation 98.6 % (95-100) 05/20/23 02:25 Carboxyhemoglobin 1.2 %THgb (0.4-20.1) 05/20/23 02:25 Methemoglobin 0.8 % (0.4-1.5) 05/20/23 02:25 Total Hemoglobin 12.7 g/dL (14-18) L 05/20/23 02:25 Sodium 137.0 mmol/L (131-143) 05/20/23 02:25 Potassium 3.5 mmol/L (3.5-5.0) 05/20/23 02:25 Glucose 156.0 mg/dL (70-115) H 05/20/23 02:25 Ionized Calcium 1.0 mmol/L (1.1-1.4) L 05/20/23 02:25 O2 Delivery Device Vent 05/20/23 02:25 O2 Liters/Min 1.0 % 05/20/23 00:22 FiO2 100.0 % 05/20/23 02:25 PEEP 6.0 cmH20 05/20/23 02:25 Pharmaceutical Development Technician ID Alewe 05/20/23 02:25 Sodium 134 mmol/L (136-145) L 05/20/23 00:54 Potassium 5.3 mmol/L (3.5-5.1) H 05/20/23 00:54 Chloride 93 mmol/L (98-107) L 05/20/23 00:54 Carbon Dioxide 20 mmol/L (22-29) L 05/20/23 00:54 Anion Gap 26.3 (5-19) H 05/20/23 00:54 BUN 35 mg/dL (8-23) H 05/20/23 00:54 Creatinine 2.2 mg/dL (0.7-1.2) H 05/20/23 00:54 GFR Calculation Not Reportable 05/20/23 00:54 Glucose 135 mg/dL (65-115) H 05/20/23 00:54 Calculated Osmolality 288 mOsm/kg (285-295) 05/20/23 00:54 Lactic Acid 5.8 mmol/L (0.5-2.2) H* 05/20/23 01:36 Calcium 8.1 mg/dL (8.5-10.5) L 05/20/23 00:54 Phosphorus 4.9 mg/dL (2.5-4.5) H 05/20/23 00:54 Magnesium 2.3 mg/dL (1.7-2.3) 05/20/23 00:54 Total Bilirubin 1.2 mg/dL (0.15-1.2) 05/20/23 00:54 AST 39 U/L (0-40) 05/20/23 00:54 ALT 22 U/L (0-41) 05/20/23 00:54 Alkaline Phosphatase 162 U/L (40-130) H 05/20/23 00:54 Troponin T Baseline 64 ng/L (0-15) H 05/20/23 00:54 Troponin T 120 Minute 63.29 ng/L (0-15) H 05/20/23 02:31 Delta Troponin T -0.71 ABS# (0-10) L 05/20/23 02:31 NT-Pro-B Natriuret Pep 6527 pg/mL (0-450) H 05/20/23 00:54 Total Protein 6.6 g/dL (6.6-8.7) 05/20/23 00:54 Albumin 3.4 g/dL (3.5-5.2) L 05/20/23 00:54 Globulin 3.2 g/dL (1.3-4.6) 05/20/23 00:54 Procalcitonin 0.10 ng/mL (0-0.5) 05/20/23 00:54 TSH 8.78 uIU/mL (0.27-4.20) H 05/20/23 00:54 Random Cortisol 35.64 ug/dL (2.47-19.5) H 05/20/23 00:54 Influenza Type A Ag negative (Negative) 05/20/23 02:38 Influenza Type B Ag negative (Negative) 05/20/23 02:38 SARS-CoV-2 Ag (Rapid) negative (Negative) 05/20/23 02:38 All radiology interpretation(s) finalized by discharge EKG Data EKG 1: I personally reviewed and interpreted this EKG as follows: EKG Interpretation Date: 05/20/23 EKG interpretation time: 00:22 Prior EKG tracings: available for review Interpretation: Ventricular rate 68 beats a minute QRS duration 85 QTc 416 atrial fibrillation EKG 2: I personally reviewed and interpreted this EKG as follows: EKG Interpretation Date: 05/20/23 EKG interpretation time: 01:44 Prior EKG tracings: available for review Interpretation: Ventricular rate 61 bpm, QRS duration 90, QTc of 421, atrial fibrillation, nonspecific ST-T wave abnormality Critical Care Time 2 Critical Care Time: Critical Care Time: Yes Total Critical Care Time: 120 Attestation: The patient was emergently evaluated this patient's presentation and case had a high probability of a clinically significant, sudden, or life-threatening deterioration of the patient's initial critical presentation or condition which required my full and direct attention, intervention and personal management. Discharge Plan Discharge Patient Disposition: Admitted As Inpatient Admit Provider: Romero Jimenez Clinical Impression: Acute respiratory failure, Bradycardia, Ischemic cardiomyopathy Condition: Stable Coding Level of Care Code ED Regional Account Manager for Tiara Sanchez
[2023-05-20 00:34] LABS: ABG PCO2 23.3 mmHg (35-45); ABG PH Result 7.43 (7.35-7.45); Alveolar-Arterial Oxygen Gradi 4.4 mmHg (5-10); Arterial Blood Gas Hematocrit 39.5 % (42-52); Base Excess ABG -7.1 mmol/L (-2.0-2.0); Blood Gas Sample Site Brachial, right; Blood Gas Sample Type Arterial; Carboxyhemoglobin 1.4 %THgb (0.4-20.1); HCO3 ABG 15.4 mmol/L (22-26); HGB O2 Sat 97.8 % (95-100); Methemoglobin 0.2 % (0.4-1.5); Oxygen Device NC; Oxygen Saturation ABG 99.3; PO2 FiO2 Ratio Arterial Blood 0; Total Hemoglobin 12.9 g/dL (14-18)
[2023-05-20] MEDS: etomidate 2 mg/mL INJ SDV 10 mL 20 MG IVP ×2 (00:41→01:26)
[2023-05-20] MEDS: succinylcholine 20 mg/mL SDV 10mL 100 MG IVP (00:42)
--- NOTE | 2023-05-20 00:53 | XRR_ITS ---
PROCEDURE INFORMATION: Exam: XR Chest Exam date and time: 05/20/2023 1:02 AM Age: 78 years old Clinical indication: Device placement; Ett placement (vent status); Additional info: Post intubation TECHNIQUE: Imaging protocol: Radiologic exam of the chest. Views: 1 view. COMPARISON: CR (CHEST, ) 05/20/2023 12:36 AM FINDINGS: Tubes, catheters and devices: Endotracheal tube has been inserted in satisfactory position. Lungs: Patchy opacity is noted at the right lung base. Pleural spaces: Blunted costophrenic angles suggests small pleural effusions. No pneumothorax on either side. Heart/Mediastinum: Severe cardiac enlargement is unchanged. Vasculature: Mediastinal surgical clips and vascular markers suggest prior myocardial revascularization. Bones/joints: Age appropriate. XR/XR chest 1V portable [id number] IMPRESSION: 1. Endotracheal tube has been inserted in satisfactory position. 2. Patchy opacity at the right lung base is nonspecific but could reflect atelectasis or developing pneumonia. 3. Stable severe cardiac enlargement.
--- NOTE | 2023-05-20 00:57 | PC.NURSE ---
pt extremities cold, cyanosis to fingers, nose, toes, radial pulse 1+.
[2023-05-20 00:59] LABS: Basophils # 0.1 10^3/uL (0.0-0.1); Basophils % 0.8 %; Eosinophils # 0.1 10^3/uL (0.0-0.8); Eosinophils % 0.8 %; Hematocrit 43.9 % (37-53); Lymphocytes # 1.3 10^3/uL (0.8-4.8); Lymphocytes % 18.6 %; Mean Corpuscular HGB Conc 30.3 g/dL (30-55); Mean Corpuscular Hemoglobin 27.1 pg (27-33); Mean Corpuscular Volume 89.4 fl (82-101); Mean Platelet Volume 11.8 fL (7.4-10.4); Monocytes # 0.7 10^3/uL (0.2-0.9); Monocytes % 9.4 %; Neutrophils # 4.92 10^3/uL (1.8-7.7); Nucleated Red Blood Cells % 0.3 %; Platelet Count 139 10^3/cmm (157-399); Red Blood Count 4.91 10^6/uL (3.85-5.65); White Blood Count 7.14 10^3/uL (3.29-11.43)
[2023-05-20] MEDS: fentaNYL 1,000 MCG/100 ML BAG 2.5 MCG IV (01:08)
[2023-05-20] MEDS: dexmedeTOMIDine 0.9 % NaCL 400 MCG/100 ML PREMIX 1.3600000000000001 MCG IV (01:08)
--- NOTE | 2023-05-20 01:15 | PC.NURSE ---
@ [address] singer, 8.0 et tube, 26@ lip with +color change
[2023-05-20 01:20] LABS: Phosphorus 4.9 mg/dL (2.5-4.5)
[2023-05-20 01:33] LABS: Troponin(5th) Baseline 64 ng/L (0-15)
[2023-05-20 01:34] LABS: Alanine Aminotransferase 22 U/L (0-41); Albumin Level 3.4 g/dL (3.5-5.2); Alkaline Phosphatase 162 U/L (40-130); Aspartate Amino Transferase 39 U/L (0-40); Blood Urea Nitrogen 35 mg/dL (8-23); Calcium 8.1 mg/dL (8.5-10.5); Carbon Dioxide 20 mmol/L (22-29); Chloride 93 mmol/L (98-107); Creatinine Clr Calc Pharmacy 23.5054; Globulin 3.2 g/dL (1.3-4.6); Glucose 135 mg/dL (65-115); Magnesium 2.3 mg/dL (1.7-2.3); Osmolality Calculated 288 mOsm/kg (285-295); Sodium 134 mmol/L (136-145); Total Bilirubin 1.2 mg/dL (0.15-1.2); Total Protein 6.6 g/dL (6.6-8.7)
[2023-05-20 01:37] LABS: Anion Gap 26.3 (5-19); Potassium 5.3 mmol/L (3.5-5.1)
--- NOTE | 2023-05-20 01:39 | PC.NURSE ---
pt decerebrate posturing, no pupil response
[2023-05-20] MEDS: LORazepam 2 mg/mL INJ 10 mL MDV IV (01:41)
--- NOTE | 2023-05-20 01:47 | CTR_ITS ---
PROCEDURE INFORMATION: Exam: CT Head Without Contrast Exam date and time: 05/20/2023 2:00 AM Age: 78 years old Clinical indication: Altered mental status/memory loss; Additional info: AMS TECHNIQUE: Imaging protocol: Computed tomography of the head without contrast. Radiation optimization: All CT scans at this facility use at least one of these dose optimization techniques: automated exposure control; mA and/or kV adjustment per patient size (includes targeted exams where dose is matched to clinical indication); or iterative reconstruction. COMPARISON: CT head wo con* [id number] 01/13/2023 2:19 PM RADIATION DOSE METRICS: Total DLP (mGy-cm): 1130.58 FINDINGS: Brain: No hemorrhage. Unremarkable white matter. No mass effect. Preserved lopez-white interfaces. Cerebral ventricles: No ventriculomegaly. Paranasal sinuses: There is chronic partly calcified debris in the left maxillary sinus. Paranasal sinuses are otherwise clear. Mastoid air cells: Visualized mastoid air cells are well aerated. Bones/joints: Unremarkable. No acute fracture. Soft tissues: Unremarkable. CT/CT head wo con* [id number] IMPRESSION: No evidence of acute intracranial hemorrhage, mass effect, or edema.
[2023-05-20 01:54] LABS: INR 2.14 (0.8-1.2)
[2023-05-20] MEDS: sodium chloride 0.9% 1,000 ML 999 ML IV ×2 (01:54)
[2023-05-20 02:01] LABS: NT Pro B Type Natriuretic Pept 6527 pg/mL (0-450); Thyroid Stimulating Hormone 8.78 uIU/mL (0.27-4.20)
[2023-05-20 02:08] LABS: Lactic Sepsis W/Reflex 5.8 mmol/L (0.5-2.2)
--- NOTE | 2023-05-20 02:08 | ECG_ITS ---
[facility] Test Date: 2023-05-20 Pat Name: Stanislaw Nair Department: Room: Gender: Male Card Doffer: : 1945 Requested By: Mateo Mejía Order Number: [id number] Мария MD: Milo Mistry M.D. Measurements Intervals [place] Rate: 68 P: 0 MI: 0 QRS: 61 QRSD: 85 T: 119 QT: 399 QTc: 425 Interpretive Statements ATRIAL FIBRILLATION ST DEVIATION AND MODERATE T-WAVE ABNORMALITY, CONSIDER LATERAL ISCHEMIA [-0.1+ mV T-WAVE IN I/aVL/V5/V6] Compared to ECG 04/14/2023 03:49:10 No significant changes Electronically Signed On 05-20-2023 10:11:26 ORIENTAL RUG STRETCHER by Milo Mistry M.D. [id number]
--- NOTE | 2023-05-20 02:14 | XRR_ITS ---
PROCEDURE INFORMATION: Exam: XR Chest Exam date and time: 05/20/2023 2:23 AM Age: 78 years old Clinical indication: Device placement; Other: Og tube; Additional info: Og tube placement TECHNIQUE: Imaging protocol: Radiologic exam of the chest. Views: 1 view. COMPARISON: CR (CHEST, ) 05/20/2023 1:02 AM FINDINGS: Tubes, catheters and devices: Endotracheal tube is in satisfactory position. Enteral tube has been inserted in satisfactory position. Lungs: Stable nonspecific opacity at the right lung base. No findings pulmonary edema. Pleural spaces: Blunted costophrenic angles suggests small pleural effusions. No pneumothorax on either side. Heart/Mediastinum: Stable severe cardiac enlargement. Vasculature: Mediastinal surgical clips and vascular markers suggest prior myocardial revascularization. Bones/joints: Age appropriate. XR/XR chest 1V portable [id number] IMPRESSION: Endotracheal tube and enteral tube are in satisfactory positions. Remainder of the exam is stable.
[2023-05-20 02:30] LABS: ABG PCO2 35.3 mmHg (35-45); ABG PH Result 7.22 (7.35-7.45); Alveolar-Arterial Oxygen Gradi 26.9 mmHg (5-10); Base Excess ABG -12.1 mmol/L (-2.0-2.0); Blood Gas Sample Site Brachial, right; Blood Gas Sample Type Arterial; Carboxyhemoglobin 1.2 %THgb (0.4-20.1); HCO3 ABG 14.6 mmol/L (22-26); HGB O2 Sat 98.6 % (95-100); Methemoglobin 0.8 % (0.4-1.5); Oxygen Device VENT; Oxygen Saturation ABG > 100.0; PO2 FiO2 Ratio Arterial Blood 0; Potassium Level - ABG 3.5 mmol/L (3.5-5.0); Total Hemoglobin 12.7 g/dL (14-18)
[2023-05-20 02:57] LABS: Troponin 5 2HR 63.29 ng/L (0-15)
[2023-05-20 02:58] LABS: Troponin 5 2HR Delta -0.71 ABS# (0-10)
[2023-05-20 02:59] LABS: Influenza A by IFA negative (Negative); Influenza B by IFA negative (Negative); SARS Covid-2 Antigen negative (Negative)
--- NOTE | 2023-05-20 03:22 | XRR_ITS ---
PROCEDURE INFORMATION: Exam: XR Chest Exam date and time: 05/20/2023 3:37 AM Age: 78 years old Clinical indication: Device placement; Other: Central line placement TECHNIQUE: Imaging protocol: Radiologic exam of the chest. Views: 1 view. COMPARISON: CR (CHEST, ) 05/20/2023 2:23 AM FINDINGS: Tubes, catheters and devices: Left subclavian central venous catheter has been inserted with the tip projecting over the superior vena cava. Endotracheal and enteral tubes remain in satisfactory positions. Lungs: Unchanged minor opacity at the right lung base. Pleural spaces: Trace bilateral pleural effusions. Heart/Mediastinum: Unchanged cardiomegaly. Bones/joints: Age appropriate. XR/XR chest 1V portable [id number] IMPRESSION: Interval insertion of left subclavian central venous catheter in satisfactory position. No evidence of pneumothorax.
[2023-05-20 03:28] LABS: Reflex Lactate Order REFLEX LACTIC ORDERD
--- NOTE | 2023-05-20 03:36 | P.HP_ITS ---
Providers/Chief Complaint 2 Primary Care Provider: Sonia Bustillo MD Chief Complaint: SOB History of Present Illness 78-year-old gentleman with history of CAD, CABG, stents, ischemic cardiomyopathy, ejection fraction 15% on echocardiogram a year ago, history of V-fib arrest in 2013, atrial fibrillation on anticoagulation, severe MVR, moderate TVR, moderate pulmonary hypertension, history of lymphoma, HIV, has been in process of making arrangements with cardiothoracic surgery for AICD implantation this Monday, presented to ER with complaint of shortness of breath, in the ER noted to be cyanotic with worsening, feeling of impending doom reported feeling like he is going to and shortly after became unresponsive, went into cardiac arrest when he bradycardia down into the 20s, could not be palpated, underwent CPR, was intubated, achieved ROSC. He is afebrile, without leukocytosis, initial ABG with decreased CO2 23.3, pO2 106, bicarb 0.4. After resuscitation ABG 7.2/35 point 3/452/14 0.6 on 100% FiO2 on mechanical ventilator. On presentation he was also noted with mild hyperkalemia 5.3, JAMAL, BUN 35, creatinine 2.2. Mild alk phos elevation 162. Magnesium 2.3. Baseline troponin 64, 2-hour troponin unchanged 63.29. NT-proBNP 6527. Albumin 3.4. Procalcitonin 0.1. TSH 8.78. Rapid influenza and rapid COVID-19 negative. Chest x-ray with an opacity at right lung base possible atelectasis or developing pneumonitis. Stable severe cardiac enlargement. Head CT without evidence of acute intracranial hemorrhage mass effect or edema. He was started on on Precedex for sedation. Blood pressure around MAP of 62. On the monitor he is in atrial fibrillation with heart rates fluctuating around 50s. While able to communicate on discussion of goals of care stated help me if you can . Review of Systems 2 General: Reports: ROS unobtainable due to endotracheal tube Medications/Allergies Home Medications Medication Instructions Recorded Confirmed Last Taken Type aspirin 81 mg tablet,delayed 81 mg PO DAILY 07/24/19 05/17/23 05/16/23 History release (Adult Low Dose Aspirin) carvedilol 6.25 mg tablet 6.25 mg PO BID 07/24/19 05/17/23 05/17/23 History dolutegravir 50 mg-lamivudine 300 1 tab PO DAILY 03/24/20 05/17/23 05/16/23 History mg tablet (Dovato) ranolazine 500 mg tablet,extended 500 mg PO BID #60 tabs 05/15/20 05/17/23 01/13/23 Rx release,12 hr losartan 50 mg tablet 50 mg PO DAILY #90 tabs 12/13/21 05/17/23 05/17/23 Rx nitroglycerin 0.4 mg sublingual 0.4 mg sublingual Q5M PRN chest 12/31/21 05/17/23 05/16/23 Rx tablet (Nitrostat) pain #25 tabs metolazone 2.5 mg tablet 2.5 mg PO DAILY #90 tabs 06/13/22 05/17/23 05/16/23 Rx atorvastatin 10 mg tablet (Lipitor) 10 mg PO DAILY #90 tabs 11/16/22 05/17/23 05/17/23 Rx escitalopram oxalate 10 mg tablet 10 mg PO QAM 01/13/23 05/17/23 05/17/23 History furosemide 20 mg tablet 40 mg PO QAM 01/13/23 05/17/23 05/16/23 History isosorbide mononitrate 60 mg 60 mg PO QAM 01/13/23 05/17/23 05/17/23 History tablet,extended release 24 hr levothyroxine 100 mcg tablet 100 mcg PO QAM 01/13/23 05/17/23 05/17/23 History clopidogrel 75 mg tablet (Plavix) 75 mg PO QAM #90 tabs 03/06/23 05/17/23 05/15/23 Rx buspirone 5 mg tablet 5 mg PO TID PRN anxiety #14 tabs 04/14/23 05/17/23 Unknown Rx apixaban 2.5 mg tablet (Eliquis) 2.5 mg PO BID 04/18/23 05/17/23 05/17/23 History Allergies Allergy/AdvReac Type Severity Reaction Status Date / Time No Known Allergies Allergy Verified 05/01/23 10:13 PFSH Acute 2 PFSH: Medical History (Updated 05/20/23 @ 04:56 by Romero Jimenez MD) Hypothyroidism Atrial fibrillation with RVR History of non-Hodgkin's lymphoma HIV (human immunodeficiency virus infection) CHF (congestive heart failure) 05/24/22: LVEF 15% Arteriosclerotic coronary artery disease HTN (hypertension) Surgical History History of coronary artery bypass graft S/P PTCA (percutaneous transluminal coronary angioplasty) Family History Mother Diabetes CAD (coronary artery disease) Hypertension Father Diabetes CAD (coronary artery disease) Hypertension Brother CAD (coronary artery disease) Stroke Social History Smoking and tobacco/nicotine status: never used tobacco/nicotine Vitals/I&O/Wt Last Vital Signs Pulse 53 L 05/20/23 03:25 Resp 25 H 05/20/23 03:25 BP 74/47 05/20/23 03:25 Pulse Ox 98 05/20/23 02:15 O2 Del Method Mechanical Ventilation 05/20/23 03:25 FiO2 50 05/20/23 03:25 05/19/23 05/19/23 05/20/23 14:59 22:59 06:59 Intake Total 2003.005 / 2003.005 Balance 2003.005 / 2003.005 Weight last 48 hrs Weight 54.431 kg Physical Exam 2 Const: GENERAL APPEARANCE: patient mechanically ventilated OTHER: Sedated. HENMT: COMMON NORMALS: oropharynx normal Eye: OTHER: BP pinpoint pupils. Neck/C-Spine: COMMON NORMALS: no JVD Resp: COMMON NORMALS: normal respiratory effort and clear to auscultation bilaterally AUSCULTATION: clear to auscultation bilaterally Cardio: COMMON NORMALS: no JVD, regular rhythm, S1 normal heart sound present, S2 normal heart sound present and No murmurs present (Cardio) RATE: b radycardic RHYTHM: abnormal rhythm irregularly irregular HEART SOUNDS: S1 normal heart sound present and S2 normal heart sound present GI: COMMON NORMALS: Normal to inspection, nondistended, normoactive bowel sounds present, Soft to palpation and non-tender PALPATION: Yes Soft to palpation Extremity: COMMON NORMALS: no joint enlargement and no pedal edema Neuro: SENSORIUM/ORIENTATION: No alert Skin: NARRATIVE SKIN EXAM: Cool to touch. GENERAL SKIN EXAM: no rashes or lesions noted OTHER: Cyanotic distal extremities. Prolonged cap refill. Urinary Catheter Management: Erickson: Cath Placed During This Visit: yes Urinary Catheter Date of Insertion: 05/20/23 Urinary Catheter Time of Insertion: 01:18 Data 05/20/23 00:54 05/20/23 00:54 A&P Assessment and plan (1) Cardiac arrest: Cardiac arrest in ER, bradycardia down, lost pulse, bradycardia reported as low as 20s, without palpable pulse CPR was started. Intubated. Achieved ROSC. Hypotensive, bradycardic, atrial fibrillation. Reviewed vital signs, CBC, INR, ABG, CMP, lactic acid, magnesium, troponin, procalcitonin, TSH, rapid flu, rapid COVID, EKG, chest x-ray, head CT, ER note, discussed with ER provider. Random cortisol obtained. Complete troponin EKG series. Obtain TTE. Will need cardiology consultation. (2) Cardiogenic shock: Acidosis some persistence of bradycardia in the 50s with low EF, low blood pressures with cardiogenic shock, added epinephrine 1 mcg/min. Monitor for risk of tachycardia. Monitor heart rates. Left subclavian CVC was placed in ER. Additional assessment with echocardiogram, complete troponin EKG series. Will need cardiology consultation. Admitted to the intensive care unit. Continue hemodynamic and respiratory support. Consider dobutamine, but at risk of tachycardia. Less likely septic shock, afebrile, without leukocytosis, but does have underlying HIV. Right lower lobe possible infiltrate versus atelectasis. Will empirically cover with Levaquin for now. Mechanical ventilatory support, sedation. Random serum cortisol obtained, appropriate. (3) Bradycardia: Bradycardia down, lost pulse, reportedly bradycardia as low as 20s in ER. Very low EF at baseline 15%, history of ischemic cardiomyopathy. Epinephrine 1 mcg/min for now. Monitor heart rates. Blood pressures. Continue with hemodynamic support. EKG on my interpretation with atrial fibrillation, bradycardia. Hold/stop beta-mustapha. Does appear to have JAMAL on presentation as well, possible toxic effect of beta-mustapha contributing? TSH elevated, possible consideration of hypothyroidism, will switch to IV levothyroxine for now. Atrial fibrillation, with intermittent bradycardia, possible sick sinus syndrome. Will need cardiology evaluation. (4) Ischemic cardiomyopathy: History ischemic possibly also HIV? cardiomyopathy, EF 15%. Arrangements were being made for AICD to be placed on Monday. Continue aspirin, Plavix. Hold beta-mustapha. (5) HIV (human immunodeficiency virus infection): Check viral load, CD4. (6) Hypothyroidism: TSH 8.78, bradycardic, switch to IV levothyroxine for now. (7) JAMAL (acute kidney injury): Possibly prerenal with bradycardia, soft blood pressure on presentation, possible cardiorenal. Hemodynamic support as above. Additionally on losartan at home, hold. Hold Lasix, metolazone. Assess kidney ultrasound. Plan CAD: Hx CABG, stents, ischemic VFib arrest in 2013, isch cardiomyopathy EF 15% continue aspirin, Plavix, at the moment not a candidate for beta-mustapha. Goals of care: Full code at this time, detailed goals of care not available, but patient reportedly unable to communicate and express help me if you can . This was echoed by patient's next of kin. HTN: Currently hypotensive, hold antihypertensives. Atrial fibrillation: Normally on Eliquis. Switched to Lovenox for now. Requesting home medications to be confirmed, please review and reconcile once available. Prognosis guarded. Attestations 2 Medical Necessity Statement*: Admission over 2 midnights anticipated for assessment management of cardiogenic shock, bradycardia, status post cardiac arrest, with underlying ischemic cardiomyopathy, EF 15%, underlying HIV, JAMAL, additional medical problems as above. Coding Level of Care Code Critical Care >/= 30 minutes Critical care time (in minutes): 45 The high probability of a clinically significant, sudden or life threatening deterioration, as referenced in this documentation, required my full and direct attention, intervention and personal management. The critical care time shown is in addition to time spent performing any reported separately billable procedures and includes the following: [x] Data and vital sign review and interpretation [x ] Patient assessment, examination and intervention [x] Medication orders and management [x] Patient/Family updates as able [x] Care Coordination and Documentation. Diagnoses Cardiac arrest I46.9 Cardiogenic shock R57.0 Bradycardia R00.1 Ischemic cardiomyopathy I25.5 HIV (human immunodeficiency virus infection) B20 Hypothyroidism E03.9 JAMAL (acute kidney injury) N17.9
[2023-05-20] MEDS: levofloxacin-dextrose 5 % 750 MG/150 ML PREMIX 100 MG IV (04:00)
[2023-05-20] MEDS: EPINEPHrine 2.5 MG in sodium chloride 0.9% 250 ML 6.05999999999999961 MG IV (04:18)
[2023-05-20 04:35] LABS: Cortisol Random 35.64 ug/dL (2.47-19.5)
--- NOTE | 2023-05-20 04:48 | USCV_ITS ---
Stanislaw Nair Age: 78 Gender: M : 1945 Exam Date: 05/20/2023 11:33 Ordering Phys: Romero Jimenez MD Technologist: Nghia Dexter Exam Location: [facility] – [place] Indication: cardiac arrest BP: 100 / 76 HR: 82 Rhythm: Sinus Technical Quality: Adequate MEASUREMENTS (Male / Female) Normal Values 2D ECHO LVOT Diameter 1.8 cm LV Ejection Fraction MOD 2C 35.7 % LV Ejection Fraction 2C AL 0.0 % LA Diameter 4.5 cm RA Systolic Volume 4C AL 74.0 ml RA Systolic Volume 4C MOD 74.9 ml Aorta at Sinotubular Diameter 2.3 cm IVC Diameter 2.7 cm M-MODE LA Ao Ratio MM 2.0 AV Cusp Separation MM 1.1 cm DOPPLER AV Peak Velocity 117.0 cm/s LVOT Peak Velocity 46.0 cm/s AV Area Cont Eq vti 1.2 cm squared AV Area Cont Eq pk 1.1 cm squared MV Peak Velocity 393.0 cm/s MV Area PHT 5.3 cm squared Mitral E to A Ratio 4.0 TV Peak Velocity 217.3 cm/s TR Peak Velocity 230.0 cm/s TR Peak Gradient 21.2 mmHg TR Mean Velocity 173.0 cm/s TR Mean Gradient 12.9 mmHg TR Velocity Time Integral 61.1 cm PV Peak Velocity 59.2 cm/s RV Ejection Time 0.3 s FINDINGS Left Ventricle Left ventricle is normal size. Left systolic function is severely reduced with EF of 10 to 15%. Severe global hypokinesis. Right Ventricle Right ventricle is hypokinetic Right Atrium Dilated. Left Atrium Dilated. Mitral Valve Structurally normal mitral valve. Severe mitral regurgitation. Aortic Valve Structurally normal aortic valve. No significant stenosis. Mild aortic regurgitation. Tricuspid Valve Mild tricuspid regurgitation. Pulmonary artery systolic pressure is normal. Pulmonic Valve Mild pulmonic regurgitation. Pericardium Normal Aorta Normal in size IVC Dilated CONCLUSIONS LV systolic function is severely reduced with EF of 10 to 15%. Right ventricle is hypokinetic Biatrial dilation Severe mitral regurgitation Mild aortic regurgitation Mild tricuspid regurgitation Mild pulmonic regurgitation IVC is dilated. Compared to prior echocardiogram from 01/2023 no significant changes are seen Milo Mistry MD (Electronically Signed) Final Date: 21 May 2023 11:48 S
[2023-05-20 04:54] LABS: Lactic Acid level (Lactate) 5.3 mmol/L (0.5-2.2)
--- NOTE | 2023-05-20 04:57 | USR_ITS ---
PROCEDURE INFORMATION: Exam: US Retroperitoneal; Complete; Kidneys and Bladder Exam date and time: 05/20/2023 11:16 AM Age: 78 years old Clinical indication: Condition or disease; Other: Valeriano TECHNIQUE: Imaging protocol: Real-time ultrasound of the retroperitoneum with image documentation. Complete exam focused on the kidneys and bladder. COMPARISON: No relevant prior studies available. FINDINGS: Right kidney: 2 small cysts measuring up to 7 mm. No stones. No hydronephrosis. The right kidney measures 10.2 x 4.9 x 4.7 cm with the right renal cortex thickness measuring 1.3 cm. Left kidney: Normal. No stones. No hydronephrosis. The left kidney measures 11.5 x 4.8 x 5.4 cm with the left kidney cortex thickness measuring 1.4 cm. Urinary bladder: Erickson catheter in the bladder, underdistended. US/US renal BI* [id number] IMPRESSION: 1. No hydronephrosis on either side. 2. Normal size kidneys with 2 millimetric right renal cysts.
[2023-05-20] MEDS: pantoprazole 40 mg SDV IVP (05:07)
[2023-05-20] MEDS: enoxaparin 40 mg/0.4 mL Syringe 54 MG SUBCUT (05:13)
--- NOTE | 2023-05-20 06:08 | ECG_ITS ---
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 Measurements Intervals [place] Rate: 61 P: 0 [place]: 0 QRS: 48 QRSD: 90 T: 73 QT: 417 QTc: 423 Interpretive Statements ATRIAL FIBRILLATION POSSIBLE RIGHT VENTRICULAR CONDUCTION DELAY [RSR (QR) IN V1/V2] NONSPECIFIC ST & T-WAVE ABNORMALITY Compared to ECG 05/20/2023 00:12:06 Possible ischemia no longer present T-wave abnormality still present Electronically Signed On 05-20-2023 10:08:20 MANAGER NURSING by Milo Mistry M.D. [id number]
[2023-05-20 07:31] LABS: Basophils # 0.1 10^3/uL (0.0-0.1); Basophils % 0.5 %; Eosinophils % 0.1 %; Hematocrit 43.6 % (37-53); Lymphocytes # 0.6 10^3/uL (0.8-4.8); Lymphocytes % 6.1 %; Mean Corpuscular HGB Conc 30.7 g/dL (30-55); Mean Corpuscular Hemoglobin 26.9 pg (27-33); Mean Corpuscular Volume 87.4 fl (82-101); Mean Platelet Volume 12.5 fL (7.4-10.4); Monocytes # 0.9 10^3/uL (0.2-0.9); Monocytes % 9.6 %; Neutrophils # 8.07 10^3/uL (1.8-7.7); Neutrophils % 82.8 %; Nucleated Red Blood Cells % 0 %; Platelet Count 155 10^3/cmm (157-399); Red Blood Count 4.99 10^6/uL (3.85-5.65); Red Cell Distribution Width 19.9 % (12.1-15.1); White Blood Count 9.75 10^3/uL (3.29-11.43)
[2023-05-20 07:44] LABS: Alanine Aminotransferase 27 U/L (0-41); Albumin Level 3.2 g/dL (3.5-5.2); Alkaline Phosphatase 159 U/L (40-130); Anion Gap 19.1 (5-19); Aspartate Amino Transferase 50 U/L (0-40); Blood Urea Nitrogen 35 mg/dL (8-23); Calcium 7.5 mg/dL (8.5-10.5); Carbon Dioxide 22 mmol/L (22-29); Chloride 100 mmol/L (98-107); Globulin 2.8 g/dL (1.3-4.6); Glucose 110 mg/dL (65-115); Osmolality Calculated 293 mOsm/kg (285-295); Potassium 4.1 mmol/L (3.5-5.1); Sodium 137 mmol/L (136-145); Total Bilirubin 1.5 mg/dL (0.15-1.2)
--- NOTE | 2023-05-20 08:02 | PC.PHAR ---
Addendum entered by Suzy Cardoza 05/20/23 08:39: ext med history shows spironolactone 25mg daily filled 03/27/23 30d/s Original Note: medications entered are from what ext med history shows has been filled recently and what was on previously entered med list-removed ranolazine er 500mg bid ext doesnt show filled recently ranolazine er 500mg bid was on previosuly entered med list shows rx was written on 05/15/2020-
[2023-05-20 08:13] LABS: Creatinine Clr Calc Pharmacy 25.1388
[2023-05-20 08:18] LABS: Troponin 5 6HR 117.9 ng/L (0-15); Troponin 5 6HR Delta 53.9 ng/L (0-12)
[2023-05-20] MEDS: levothyroxine 100 mcg SDV 70 MCG IVP (09:26)
[2023-05-20] MEDS: norepinephrine 4 MG/250 ML BAG 7.5 MG IV (09:30)
[2023-05-20] MEDS: midazolam hcl 100 MG/100 ML BAG IV (09:31)
--- NOTE | 2023-05-20 12:13 | W.PM.EVENTAC ---
Event Note Event Note: Patient was found awake alert Will add Versed along fentanyl Avoid propofol Change vasopressors to Levophed and dobutamine Discontinue epinephrine Will start bicarb drip as well Will touch base with Dr. Rankin we can keep activated till Monday to get AICD
[2023-05-20] MEDS: FUROsemide 10 mg/mL SDV 4mL 40 MG IVP (12:56)
[2023-05-20] MEDS: piperacillin-tazobactam 3.375 GM in sodium chloride 0.9% (plus) 50 ML IV ×2 (12:56→20:55)
[2023-05-20] MEDS: sodium bicarbonate 150 MEQ in dextrose 5% 1,000 ML 75 MEQ IV (12:57)
[2023-05-20 18:12] LABS: ABG PCO2 42.3 mmHg (35-45); ABG PH Result 7.41 (7.35-7.45); Alveolar-Arterial Oxygen Gradi 11.9 mmHg (5-10); Base Excess ABG 1.5 mmol/L (-2.0-2.0); Blood Gas Allen Test Pos; Blood Gas Operator Identificat MONRO; Blood Gas Sample Site Brachial, right; Blood Gas Sample Type Arterial; HCO3 ABG 26.5 mmol/L (22-26); HGB O2 Sat 98.3 % (95-100); Ionized Calcium Level - ABG 1.2 mmol/L (1.1-1.4); Methemoglobin 0.2 % (0.4-1.5); Oxygen Device VENT; Oxygen Saturation ABG 99.6; PO2 FiO2 Ratio Arterial Blood 0; Potassium Level - ABG 3.2 mmol/L (3.5-5.0); Total Hemoglobin 14.4 g/dL (14-18)
[2023-05-20] MEDS: potassium chloride oral liq 20 mEq/15 mL UDC PO (22:47)
[2023-05-20] MEDS: fentaNYL 1,000 MCG/100 ML BAG 7.5 MCG IV (23:05)
--- NOTE | 2023-05-20 23:13 | PC.NURSE ---
Hospitalist notified bicarb normalized. Bicarb stopped per doctor orders. Also let hospitalist know about low potassium. Liquid oral potassium ordered for OG.
[2023-05-21] VITALS (75 sets, daily range): BP systolic 79–116; BP diastolic 48–71; PULSE 60–96; RESP 16–26; TEMP 37.2–37.8; O2SAT 85–100; BMI 22.6
[2023-05-21 04:31] LABS: Basophils # 0.1 10^3/uL (0.0-0.1); Basophils % 0.5 %; Eosinophils # 0.1 10^3/uL (0.0-0.8); Eosinophils % 0.7 %; Hematocrit 40.9 % (37-53); Lymphocytes # 0.5 10^3/uL (0.8-4.8); Lymphocytes % 4.3 %; Mean Corpuscular HGB Conc 31.3 g/dL (30-55); Mean Corpuscular Hemoglobin 26.7 pg (27-33); Mean Corpuscular Volume 85.2 fl (82-101); Mean Platelet Volume 12.2 fL (7.4-10.4); Monocytes # 0.6 10^3/uL (0.2-0.9); Neutrophils # 10.05 10^3/uL (1.8-7.7); Neutrophils % 88.9 %; Nucleated Red Blood Cells % 0 %; Platelet Count 156 10^3/cmm (157-399); Red Cell Distribution Width 19.6 % (12.1-15.1); White Blood Count 11.31 10^3/uL (3.29-11.43)
[2023-05-21] MEDS: chlorhexidine gluconate 4% Btl 118 mL 1 APPLIC TOPICAL (04:31)
[2023-05-21] MEDS: piperacillin-tazobactam 3.375 GM in sodium chloride 0.9% (plus) 50 ML IV ×3 (04:32→19:59)
[2023-05-21] MEDS: pantoprazole 40 mg SDV IVP (04:33)
[2023-05-21] MEDS: enoxaparin 60 mg/0.6 mL Syringe SUBCUT (04:34)
[2023-05-21 04:37] LABS: Alanine Aminotransferase 21 U/L (0-41); Alkaline Phosphatase 128 U/L (40-130); Anion Gap 12.1 (5-19); Aspartate Amino Transferase 28 U/L (0-40); Blood Urea Nitrogen 31 mg/dL (8-23); Calcium 8.1 mg/dL (8.5-10.5); Carbon Dioxide 31 mmol/L (22-29); Chloride 99 mmol/L (98-107); Creatinine Clr Calc Pharmacy 29.1081; Globulin 2.9 g/dL (1.3-4.6); Glucose 97 mg/dL (65-115); Osmolality Calculated 294 mOsm/kg (285-295); Potassium 3.1 mmol/L (3.5-5.1); Sodium 139 mmol/L (136-145); Total Bilirubin 1.5 mg/dL (0.15-1.2); Total Protein 5.9 g/dL (6.6-8.7)
[2023-05-21 04:40] LABS: ABG PH Result 7.43 (7.35-7.45); Alveolar-Arterial Oxygen Gradi 14.8 mmHg (5-10); Arterial Blood Gas Hematocrit 41.6 % (42-52); Base Excess ABG 5.7 mmol/L (-2.0-2.0); Blood Gas Operator Identificat JB; Blood Gas Sample Site Brachial, right; Blood Gas Sample Type Arterial; Carboxyhemoglobin 1.6 %THgb (0.4-20.1); HGB O2 Sat 97.1 % (95-100); Ionized Calcium Level - ABG 1.2 mmol/L (1.1-1.4); Methemoglobin 0.5 % (0.4-1.5); Oxygen Device VENT; Oxygen Saturation ABG 99.2; PO2 FiO2 Ratio Arterial Blood 0; Potassium Level - ABG 2.8 mmol/L (3.5-5.0); Total Hemoglobin 13.6 g/dL (14-18)
[2023-05-21 04:41] LABS: Lactate (Lactic Acid level) 1.2 mmol/L (0.5-2.2)
[2023-05-21] MEDS: norepinephrine 4 MG/250 ML BAG 7.5 MG IV ×2 (06:52→07:40)
[2023-05-21] MEDS: potassium chloride oral liq 20 mEq/15 mL UDC 40 MEQ OG-TUBE (06:52)
[2023-05-21] MEDS: fentaNYL 1,000 MCG/100 ML BAG 10 MCG IV ×2 (06:57→07:17)
[2023-05-21] MEDS: levothyroxine 100 mcg SDV 70 MCG IVP (08:14)
[2023-05-21] MEDS: midazolam hcl 100 MG/100 ML BAG IV (10:45)
--- NOTE | 2023-05-21 11:05 | PC.NURSE ---
resp rate increased repositioned and sedation increased
[2023-05-21] MEDS: FUROsemide 10 mg/mL SDV 4mL 40 MG IVP (12:09)
--- NOTE | 2023-05-21 12:11 | P.PN_ITS ---
Subjective 2 Subjective: Patient intubated and sedated Requiring minimal dose of vasopressor Levophed not on dobutamine CBC is unremarkable Blood gas unremarkable Bicarb drip turned off Patient will be given 80 mEq of potassium Creatinine improving Vitals/I&O/Wt Last Vital Signs Temp 99.8 F H 05/21/23 08:30 Pulse 87 05/21/23 10:00 Resp 26 H 05/21/23 11:38 BP 91/53 05/21/23 10:00 Pulse Ox 100 05/21/23 11:38 O2 Del Method Mechanical Ventilation 05/21/23 06:00 O2 Flow Rate 50 05/20/23 04:45 FiO2 30 05/21/23 11:38 05/20/23 05/21/23 05/21/23 22:59 06:59 14:59 Intake Total 876.75 / 958.138 287.725 / 1245.863 114.966 / 114.966 Output Total 2075 / 2075 900 / 2975 Balance -1198.25 / -1116.862 -612.275 / -1729.137 114.966 / 114.966 Weight last 48 hrs Weight 63.503 kg Weight 64.864 kg Weight 64.864 kg Weight 54.431 kg Physical Exam 2 Narrative: Patient intubated sedated Looks euvolemic FiO2 30% PEEP 5 Off pressors Bilateral assisted breath sounds Neuroexam is limited Urinary Catheter Management: Erickson: Cath Placed During This Visit: yes Reason for Continuing Indwelling Catheter: Accurate Measurement of Urinary Output in Critically Ill Patients Urinary Catheter Date of Insertion: 05/20/23 Urinary Catheter Time of Insertion: 01:18 Data 05/21/23 03:41 05/21/23 03:41 A&P Assessment and plan (1) HTN (hypertension): Qualifiers: Hypertension type: essential hypertension Qualified Code(s): I10 - Essential (primary) hypertension (2) CHF (congestive heart failure): Qualifiers: Heart failure type: combined systolic and diastolic Heart failure chronicity: chronic Qualified Code(s): I50.42 - Chronic combined systolic (congestive) and diastolic (congestive) heart failure (3) Ischemic cardiomyopathy: (4) Cardiogenic shock: (5) Cardiac arrest: (6) JAMAL (acute kidney injury): (7) HIV (human immunodeficiency virus infection): (8) Acute respiratory failure: Qualifiers: Respiratory failure complication: unspecified whether with hypoxia or hypercapnia Qualified Code(s): J96.00 - Acute respiratory failure, unspecified whether with hypoxia or hypercapnia (9) Right lower lobe pulmonary infiltrate: Plan Cardiac arrest most likely after cardiac arrhythmia Cardiogenic shock Respiratory failure require mechanical ventilation Reduced ejection fraction No significant signs of fluid overload Dr. Rankin planning for AICD placement on Monday, I have notified him Discontinue Lovenox patient did not receive Plavix he has been on Lovenox, did not get Eliquis which she was taking at home Continue low-dose Lasix Did not require dobutamine, wean off Levophed today Spoke with the girlfriend who was at the bedside, she is stating that Aspiration pneumonia: No fever Continue Zosyn Guarded prognosis Patient is full code Spoke with the girlfriend, there is no family in [place], daughter lives out of state in [place], girlfriend stating that she has medical DPOA paperwork but she is not sure if that is signed Attestations 2 Medical Necessity Statement*: Continue ICU management Coding Level of Care Code Critical Care >/= 30 minutes Critical care time (in minutes): 30 The high probability of a clinically significant, sudden or life threatening deterioration, as referenced in this documentation, required my full and direct attention, intervention and personal management. The critical care time shown is in addition to time spent performing any reported separately billable procedures and includes the following: [x] Data and vital sign review and interpretation [x ] Patient assessment, examination and intervention [x] Medication orders and management [x] Patient/Family updates as able [x] Care Coordination and Documentation. Diagnoses Essential hypertension I10 Hypertension type: essential hypertension Chronic combined systolic and diastolic congestive heart failure I50.42 Heart failure type: combined systolic and diastolic Heart failure chronicity: chronic Ischemic cardiomyopathy I25.5 Cardiogenic shock R57.0 Cardiac arrest I46.9 JAMAL (acute kidney injury) N17.9 HIV (human immunodeficiency virus infection) B20 Acute respiratory failure J96.00 Respiratory failure complication: unspecified whether with hypoxia or hypercapnia Right lower lobe pulmonary infiltrate R91.8
[2023-05-21] MEDS: lidocaine 1% 5 ML in potassium chloride premix 100 ML 25 ML IV (12:40)
--- NOTE | 2023-05-21 13:35 | PC.NURSE ---
resp rate elevated reposition and suction urine output increased
[2023-05-21] MEDS: fentaNYL 1,000 MCG/100 ML BAG 12.5 MCG IV (14:38)
[2023-05-21] MEDS: amiodarone 150 MG/100 ML PREMIX 400 MG IV (16:54)
--- NOTE | 2023-05-21 19:40 | PC.NURSE ---
VYe Tach: 8 beat run of V.tach @approximately 1920. Zoll pads placed on chest. Strip printed, image sent via VOLT to Dr. Jimenez @193. Stip placed in chart.
[2023-05-21 20:51] LABS: Magnesium 1.8 mg/dL (1.7-2.3); Potassium 3.6 mmol/L (3.5-5.1)
[2023-05-21] MEDS: magnesium sulfate premix 2 GM/50 ML PIGGYBACK IV (23:07)
[2023-05-21] MEDS: potassium chloride oral liq 20 mEq/15 mL UDC 40 MEQ PO (23:19)
[2023-05-22] VITALS (99 sets, daily range): BP systolic 81–122; BP diastolic 43–86; PULSE 61–114; RESP 16–32; TEMP 37.6–38.2; O2SAT 90–99
[2023-05-22] MEDS: norepinephrine 4 MG/250 ML BAG 22.5 MG IV (00:08)
[2023-05-22] MEDS: fentaNYL 1,000 MCG/100 ML BAG 10 MCG IV (00:46)
[2023-05-22] MEDS: chlorhexidine gluconate 4% Btl 118 mL 1 APPLIC TOPICAL (02:46)
[2023-05-22] MEDS: pantoprazole 40 mg SDV IVP (04:20)
[2023-05-22] MEDS: piperacillin-tazobactam 3.375 GM in sodium chloride 0.9% (plus) 50 ML IV ×3 (04:25→20:38)
[2023-05-22 04:38] LABS: Basophils # 0.1 10^3/uL (0.0-0.1); Basophils % 0.7 %; Eosinophils % 0.3 %; Hematocrit 44.6 % (37-53); Lymphocytes # 0.6 10^3/uL (0.8-4.8); Lymphocytes % 5.1 %; Mean Corpuscular HGB Conc 31.2 g/dL (30-55); Mean Corpuscular Hemoglobin 26.8 pg (27-33); Mean Corpuscular Volume 86.1 fl (82-101); Mean Platelet Volume 10.6 fL (7.4-10.4); Monocytes # 0.8 10^3/uL (0.2-0.9); Monocytes % 6.4 %; Neutrophils # 10.38 10^3/uL (1.8-7.7); Neutrophils % 86.8 %; Nucleated Red Blood Cells % 0 %; Platelet Count 196 10^3/cmm (157-399); Red Blood Count 5.18 10^6/uL (3.85-5.65); Red Cell Distribution Width 20.6 % (12.1-15.1); White Blood Count 11.95 10^3/uL (3.29-11.43)
[2023-05-22 04:59] LABS: Alanine Aminotransferase 18 U/L (0-41); Albumin Level 3.1 g/dL (3.5-5.2); Alkaline Phosphatase 127 U/L (40-130); Anion Gap 12.1 (5-19); Aspartate Amino Transferase 29 U/L (0-40); Blood Urea Nitrogen 29 mg/dL (8-23); Calcium 8.3 mg/dL (8.5-10.5); Carbon Dioxide 31 mmol/L (22-29); Chloride 98 mmol/L (98-107); Creatinine Clr Calc Pharmacy 36.5577; Globulin 3.2 g/dL (1.3-4.6); Glucose 135 mg/dL (65-115); Osmolality Calculated 292 mOsm/kg (285-295); Potassium 4.1 mmol/L (3.5-5.1); Sodium 137 mmol/L (136-145); Total Bilirubin 1.6 mg/dL (0.15-1.2); Total Protein 6.3 g/dL (6.6-8.7)
[2023-05-22] MEDS: levothyroxine 100 mcg Tablet PO (05:18)
[2023-05-22] MEDS: norepinephrine 4 MG/250 ML BAG 26.25 MG IV (09:14)
--- NOTE | 2023-05-22 09:40 | PC.NURSE ---
Called significant other, Va Bonilla, . Left message for her to call back she did. Spoke with her about the DPOA/ living will. She stated he has a Living Will that has her listed as beneficiary and the person to make decisions. Requested her to bring in a copy. She stated she would. She also stated he did not really have family, he had a niece. Requested her to bring in that phone number as well.
--- NOTE | 2023-05-22 10:56 | PC.NURSE ---
DPOA/ Healthcare directives now here.
[2023-05-22] MEDS: FUROsemide 10 mg/mL SDV 4mL 40 MG IVP (12:20)
--- NOTE | 2023-05-22 12:29 | PM.PN ---
Subjective Subjective: Sedation turned off at 8 AM this morning Patient has been evaluated multiple times today Family meeting conducted, spoke with Dr. Rankin Patient cognitive status is questionable at this point He is not showing any responses despite being off sedation Please note he was on Versed he might take longer time to show response For PVCs, V. tach episodes he has been put on amiodarone since yesterday Sinus pauses noted on telemetry as well Not on any pressors Family at the bedside Girlfriend is the medical DPOA who have change CODE STATUS to DO NOT RESUSCITATE in case there is an episode of cardiac arrest she is agreeable with hospice/comfort care management and terminal extubation She is well aware that AICD plans are dependent on his cognitive status Vitals/I&O/Wt Last Vital Signs Temp 100 F H 05/22/23 09:30 Pulse 76 05/22/23 10:00 Resp 27 H 05/22/23 10:30 BP 106/64 05/22/23 10:00 Pulse Ox 97 05/22/23 10:30 O2 Del Method Mechanical Ventilation 05/22/23 09:30 O2 Flow Rate 50 05/20/23 04:45 FiO2 30 05/22/23 10:30 05/21/23 05/22/23 05/22/23 22:59 06:59 14:59 Intake Total 658.584 / 818.133 473.051 / 1291.184 351.828 / 351.828 Output Total 2500 / 2500 150 / 2650 250 / 250 Balance -1841.416 / -1681.867 323.051 / -1358.816 101.828 / 101.828 Weight last 48 hrs Weight 62.369 kg Weight 63.503 kg Physical Exam Narrative: Signs of fluid overload present Currently on 30% FiO2 PEEP 5 Hemodynamically stable Multiple PVCs Adequate urine output Abdomen soft Patient not following commands Off sedation Urinary Catheter Management: Erickson: Cath Placed During This Visit: yes Reason for Continuing Indwelling Catheter: Accurate Measurement of Urinary Output in Critically Ill Patients Urinary Catheter Date of Insertion: 05/20/23 Urinary Catheter Time of Insertion: 01:18 Data 05/22/23 04:15 05/22/23 04:15 Micro: Microbiology 05/21/23 11:56 Gram Stain - Final Sputum - Endotracheal Tube Aspirate A&P Assessment and plan (1) CHF (congestive heart failure): Qualifiers: Heart failure type: combined systolic and diastolic Heart failure chronicity: chronic Qualified Code(s): I50.42 - Chronic combined systolic (congestive) and diastolic (congestive) heart failure (2) Ischemic cardiomyopathy: (3) Cardiogenic shock: (4) Cardiac arrest: (5) Hypothyroidism: (6) JAMAL (acute kidney injury): (7) HIV (human immunodeficiency virus infection): (8) Acute respiratory failure: Qualifiers: Respiratory failure complication: unspecified whether with hypoxia or hypercapnia Qualified Code(s): J96.00 - Acute respiratory failure, unspecified whether with hypoxia or hypercapnia (9) Right lower lobe pulmonary infiltrate: Plan Cardiac arrest s/p intubation by the EMS Sedation vacation today Monitor cognitive function Off fentanyl and Versed He might take longer to wake up and show neurological response CT head was unremarkable Respiratory failure requiring mechanical ventilation Minimal ventilatory settings PEEP 5 FiO2 30% Aspiration pneumonia currently on antibiotics afebrile low-grade fever noted No significant leukocytosis Cultures negative to date Cardiorenal: JAMAL: Creatinine improving with diuresis Systolic CHF exacerbation gentle diuresis Cardiogenic shock: Improving Nodule lymphoma, HIV history: Ischemic cardiomyopathy AICD placement on hold it is dependent upon cognitive function of the patient, Goals of care discussed with the medical DPOA his girlfriend who is at the bedside she did bring up medical DPOA documentation Second person on medical DPOA is niece in [place] We were mistaken, he has no daughter, there is a niece who is in [place] second agent as medical DPOA in case) not able to make decisions We discussed current status, indication for sedation medication, minimal vent settings, EF 15%, increased risk of mortality morbidity considering EF 15% high chance of cardiac arrhythmia and cardiac arrest, therefore had decided to pursue DO NOT RESUSCITATE goals of care in case there is another cardiac arrest she would transition his care to hospice/comfort Spoke with Dr. Rankin: AICD placement is dependent on cognitive function Patient evaluated multiple times Attestations Medical Necessity Statement*: Continue ICU management Coding Level of Care Code Critical Care >/= 30 minutes Critical care time (in minutes): 40 The high probability of a clinically significant, sudden or life threatening deterioration, as referenced in this documentation, required my full and direct attention, intervention and personal management. The critical care time shown is in addition to time spent performing any reported separately billable procedures and includes the following: [x] Data and vital sign review and interpretation [x] Patient assessment, examination and intervention [x] Medication orders and management [x] Patient/Family updates as able [x] Care Coordination and Documentation. Diagnoses Chronic combined systolic and diastolic congestive heart failure I50.42 Heart failure type: combined systolic and diastolic Heart failure chronicity: chronic Ischemic cardiomyopathy I25.5 Cardiogenic shock R57.0 Cardiac arrest I46.9 Hypothyroidism E03.9 JAMAL (acute kidney injury) N17.9 HIV (human immunodeficiency virus infection) B20 Acute respiratory failure J96.00 Respiratory failure complication: unspecified whether with hypoxia or hypercapnia Right lower lobe pulmonary infiltrate R91.8
--- NOTE | 2023-05-22 13:19 | PC.SOCIAL ---
Pg 2 IMM Pt is intubated at this time. Provided pt a copy of Pg 2 IMM at bedside. Unable to get ahold of family to explain. Pt is not expected to d/c w/n the next 24-48hrs. Initialed, dated, & timed a copy & placed in chart.
[2023-05-22 15:19] LABS: HIV RNA (CPY/ML) 1.58 (NOT DETECTED); HIV RNA LOG 38 copies/mL (NOT DETECTED)
--- NOTE | 2023-05-22 18:21 | PC.NURSE ---
Shift summary: Pt remains intubated. FIo2 remains at 30%. Only vent setting change was decreasing respiratory rate to 12. Sedation has been off since prior to 0900. Pt does grimace now with some repositioning and nail bed squeeze. He does not follow any commands at this time. Amio gtt still infusing at 0.5 mg/min. Levophed gtt infusing at 3 mcg/min from 6 this am. No edema noted. A-fib continues with occasional PVCs. AICD implant on hold until mentation improves. He has been slightly febrile all shift 99.8 to 100.8. Lasix admin today. Urine output of 1600ml this shift. No Bm noted. Significant other, Va, has been in to visit today as well as called twice to check on his progress.
--- NOTE | 2023-05-22 19:42 | CTR_ITS ---
PROCEDURE INFORMATION: Exam: CT Head Without Contrast Exam date and time: 05/23/2023 1:38 AM Age: 78 years old Clinical indication: Altered mental status/memory loss; Additional info: Post code TECHNIQUE: Imaging protocol: Computed tomography of the head without contrast. Radiation optimization: All CT scans at this facility use at least one of these dose optimization techniques: automated exposure control; mA and/or kV adjustment per patient size (includes targeted exams where dose is matched to clinical indication); or iterative reconstruction. COMPARISON: CT head wo con* [id number] 05/20/2023 2:00 AM RADIATION DOSE METRICS: Total DLP (mGy-cm): 956.59 FINDINGS: Brain: There is mild cerebral atrophy. There is mild diffuse heterogeneity of the white matter attenuation, consistent with chronic white matter ischemic changes. Negative for intracranial hemorrhage. Escobar and white matter interfaces are unremarkable. Negative for midline shift of brain. Cerebral ventricles: No ventriculomegaly. Paranasal sinuses: There is left maxillary sinus mucosal thickening with calcifications. Chronic mucoperiosteal thickening changes of the robert. Mastoid air cells: Visualized mastoid air cells are well aerated. Bones/joints: Unremarkable. No acute fracture. Soft tissues: Unremarkable. CT/CT head wo con* [id number] IMPRESSION: Negative for acute intracranial pathology.
[2023-05-22] MEDS: norepinephrine 4 MG/250 ML BAG 7.5 MG IV (23:05)
--- NOTE | 2023-05-22 23:27 | PC.NURSE ---
Sedation medications turned off this morning. At 2200 pt was responding to verbal command, nodding head yes and no, squeezing hands on command and wiggling toes.
[2023-05-23] VITALS (65 sets, daily range): BP systolic 88–123; BP diastolic 52–86; PULSE 65–132; RESP 16–40; TEMP 36.1–37.3; O2SAT 67–100; BMI 21.8
[2023-05-23] MEDS: chlorhexidine gluconate 4% Btl 118 mL 1 APPLIC TOPICAL (03:09)
[2023-05-23 03:58] LABS: Basophils % 0.4 %; Eosinophils # 0.1 10^3/uL (0.0-0.8); Eosinophils % 0.5 %; Hematocrit 42.7 % (37-53); Lymphocytes # 0.5 10^3/uL (0.8-4.8); Lymphocytes % 5.6 %; Mean Corpuscular HGB Conc 31.6 g/dL (30-55); Mean Corpuscular Volume 85.4 fl (82-101); Mean Platelet Volume 10.6 fL (7.4-10.4); Monocytes # 0.6 10^3/uL (0.2-0.9); Monocytes % 6.3 %; Neutrophils # 8.22 10^3/uL (1.8-7.7); Neutrophils % 86.4 %; Nucleated Red Blood Cells % 0 %; Platelet Count 148 10^3/cmm (157-399); Red Cell Distribution Width 20.7 % (12.1-15.1); White Blood Count 9.52 10^3/uL (3.29-11.43)
[2023-05-23 04:20] LABS: ABG PCO2 47.6 mmHg (35-45); ABG PH Result 7.49 (7.35-7.45); Arterial Blood Gas Hematocrit 42.4 % (42-52); Base Excess ABG 11.4 mmol/L (-2.0-2.0); Blood Gas Sample Site Brachial, right; Blood Gas Sample Type Arterial; HCO3 ABG 36.5 mmol/L (22-26); Oxygen Device VENT; PO2 FiO2 Ratio Arterial Blood 0
[2023-05-23 04:24] LABS: Magnesium 1.9 mg/dL (1.7-2.3)
[2023-05-23 04:25] LABS: Alanine Aminotransferase 12 U/L (0-41); Albumin Level 2.8 g/dL (3.5-5.2); Alkaline Phosphatase 103 U/L (40-130); Anion Gap 15.8 (5-19); Aspartate Amino Transferase 14 U/L (0-40); Blood Urea Nitrogen 25 mg/dL (8-23); Calcium 8.2 mg/dL (8.5-10.5); Carbon Dioxide 31 mmol/L (22-29); Chloride 94 mmol/L (98-107); Globulin 3.3 g/dL (1.3-4.6); Glucose 113 mg/dL (65-115); Osmolality Calculated 291 mOsm/kg (285-295); Sodium 138 mmol/L (136-145); Total Bilirubin 1.5 mg/dL (0.15-1.2); Total Protein 6.1 g/dL (6.6-8.7)
[2023-05-23 04:27] LABS: Potassium 2.8 mmol/L (3.5-5.1)
[2023-05-23] MEDS: piperacillin-tazobactam 3.375 GM in sodium chloride 0.9% (plus) 50 ML IV ×3 (05:09→19:55)
[2023-05-23] MEDS: pantoprazole 40 mg SDV IVP (05:09)
[2023-05-23] MEDS: lidocaine 1% 5 ML in potassium chloride premix 100 ML 26.25 ML IV (05:11)
[2023-05-23] MEDS: levothyroxine 100 mcg Tablet PO (06:27)
[2023-05-23] MEDS: fentaNYL 1,000 MCG/100 ML BAG 5 MCG IV (06:37)
--- NOTE | 2023-05-23 07:18 | P.PN_ITS ---
Subjective 2 Subjective: Mr. Nair remains intubated at this time. I do note that he is on a fentanyl infusion though apparently pressors are off. He remains on amiodarone. Monitor shows atrial fibrillation with heart rate in the mid 60s. No profound bradycardic episodes are reported by nursing service. Vitals/I&O/Wt Last Vital Signs Temp 97.3 F L 05/23/23 04:00 Pulse 71 05/23/23 06:00 Resp 20 H 05/23/23 06:00 BP 109/70 05/23/23 06:00 Pulse Ox 100 05/23/23 06:00 O2 Del Method Mechanical Ventilation 05/23/23 06:00 O2 Flow Rate 50 05/20/23 04:45 FiO2 30 05/23/23 06:00 05/22/23 05/23/23 05/23/23 22:59 06:59 14:59 Intake Total 406.687 / 758.515 287.425 / 1045.940 Output Total 1999 / 2249 400 / 2650 Balance -1593.313 / -1491.485 -112.575 / -1604.060 Weight last 48 hrs Weight 135 lb 4.8 oz Weight 137 lb 8 oz Physical Exam 2 Resp: COMMON NORMALS: clear to auscultation bilaterally AUSCULTATION: clear to auscultation bilaterally Cardio: COMMON NORMALS: regular rate RATE: regular rate RHYTHM: abnormal rhythm irregularly irregular Urinary Catheter Management: Erickson: Cath Placed During This Visit: yes Reason for Continuing Indwelling Catheter: Accurate Measurement of Urinary Output in Critically Ill Patients Urinary Catheter Date of Insertion: 05/20/23 Urinary Catheter Time of Insertion: 01:18 Data 05/23/23 03:31 05/23/23 03:31 Micro: Microbiology 05/21/23 11:56 Gram Stain - Final Sputum - Endotracheal Tube Aspirate Sputum Culture - Preliminary A&P Assessment and plan (1) CHF (congestive heart failure): We are currently awaiting consensus on Mr. Nair's cognitive state to determine whether it is appropriate to consider AICD implantation. I will be conferring more with my colleagues concerning this later today. Qualifiers: Heart failure type: combined systolic and diastolic Heart failure chronicity: chronic Qualified Code(s): I50.42 - Chronic combined systolic (congestive) and diastolic (congestive) heart failure Attestations 2 Medical Necessity Statement*: Congestive heart failure with severe medically refractory cardiomyopathy status post cardiac arrest Coding Level of Care Code Acute Code for Chg Fwd Diagnoses Chronic combined systolic and diastolic congestive heart failure I50.42 Heart failure type: combined systolic and diastolic Heart failure chronicity: chronic
[2023-05-23] MEDS: lidocaine 1% 5 ML in potassium chloride premix 100 ML 25 ML IV (09:34)
--- NOTE | 2023-05-23 10:11 | PC.NURSE ---
off sedation pt responding and awake at this time head of bed elevated pending extubation
--- NOTE | 2023-05-23 10:26 | PC.NURSE ---
extubated placed on 4 lnc at this time head of bed elevated suction large amts of secreations
[2023-05-23] MEDS: FUROsemide 10 mg/mL SDV 4mL 40 MG IVP (12:19)
--- NOTE | 2023-05-23 12:44 | P.PN_ITS ---
Subjective 2 Subjective: Successfully extubated to nasal cannula Saturating well Patient was asking for water He is only oriented to himself When I discussed indication for AICD he said what ever it takes but at the same time he is repeatedly saying he is not sure he does not now I have notified Dr. Rankin Patient seems to be oriented to himself Vitals/I&O/Wt Last Vital Signs Temp 97.3 F L 05/23/23 04:00 Pulse 120 H 05/23/23 10:00 Resp 23 H 05/23/23 09:55 BP 122/84 05/23/23 10:00 Pulse Ox 92 05/23/23 10:00 O2 Del Method Mechanical Ventilation 05/23/23 06:00 O2 Flow Rate 50 05/20/23 04:45 FiO2 30 05/23/23 09:55 05/22/23 05/23/23 05/23/23 22:59 06:59 14:59 Intake Total 406.687 / 758.515 287.425 / 1045.940 307.232 / 307.232 Output Total 1999 400 / 2650 Balance -1593.313 / -1491.485 -112.575 / -1604.060 307.232 / 307.232 Weight last 48 hrs Weight 61.371 kg Weight 62.369 kg Physical Exam 2 Narrative: Nasal cannula Signs of fluid overload present Currently on nasal cannula Oriented to himself Lethargic and fatigued Eye crusting noted Able to move extremities but very weak Erickson catheter draining concentrated urine Tachycardia Afebrile Urinary Catheter Management: Erickson: Cath Placed During This Visit: yes Reason for Continuing Indwelling Catheter: Accurate Measurement of Urinary Output in Critically Ill Patients Urinary Catheter Date of Insertion: 05/20/23 Urinary Catheter Time of Insertion: 01:18 Data 05/23/23 03:31 05/23/23 03:31 Micro: Microbiology 05/21/23 11:56 Gram Stain - Final Sputum - Endotracheal Tube Aspirate Sputum Culture - Preliminary Yeast species A&P Assessment and plan (1) CHF (congestive heart failure): Qualifiers: Heart failure type: combined systolic and diastolic Heart failure chronicity: chronic Qualified Code(s): I50.42 - Chronic combined systolic (congestive) and diastolic (congestive) heart failure (2) Ischemic cardiomyopathy: (3) Cardiogenic shock: (4) Cardiac arrest: (5) JAMAL (acute kidney injury): (6) Hypothyroidism: (7) HIV (human immunodeficiency virus infection): (8) Acute respiratory failure: Qualifiers: Respiratory failure complication: unspecified whether with hypoxia or hypercapnia Qualified Code(s): J96.00 - Acute respiratory failure, unspecified whether with hypoxia or hypercapnia (9) Right lower lobe pulmonary infiltrate: (10) Hypokalemia: (11) Hypomagnesemia: Plan Cardiac arrest secondary to malignant arrhythmia Extubated 05/22 Oriented to himself Asking for water 1 discussed AICD indication he is stating that he is not sure and then at the same time stating that what ever it takes, will reevaluate later in the day Dr. Rankin updated Patient is still febrile for aspiration pneumonia continue antibiotics Severe hypokalemia will give 80 mEq of potassium with 2 bags of K rider, magnesium is 1.9 will add p.o. regimen Patient extubated 05/22 to nasal cannula Aspiration pneumonia continue antibiotics he is not septic, no leukocytosis in case of further episode of fever we might have to escalate antibiotics to cover anti-MRSA and double antipseudomonal coverage for possible ventilator associated pneumonia SYSTOLIC CHF exacerbation I would continue Lasix. Multiple PVCs, no sustained V. tach: Discontinue IV amiodarone and switch to p.o. regimen Keep him on metoprolol Keep potassium above 4 magnesium of 2 Will request speech therapy DNR/DNI Guarded prognosis Will request PT as well JAMAL: Improved with diuresis Hypothyroidism continue levothyroxine Continue HIV medications Patient was evaluated multiple times Notify Dr. Rankin Attestations 2 Medical Necessity Statement*: Continue ICU management Coding Level of Care Code Critical Care >/= 30 minutes Critical care time (in minutes): 45 The high probability of a clinically significant, sudden or life threatening deterioration, as referenced in this documentation, required my full and direct attention, intervention and personal management. The critical care time shown is in addition to time spent performing any reported separately billable procedures and includes the following: [x] Data and vital sign review and interpretation [x ] Patient assessment, examination and intervention [x] Medication orders and management [x] Patient/Family updates as able [x] Care Coordination and Documentation. Diagnoses Chronic combined systolic and diastolic congestive heart failure I50.42 Heart failure type: combined systolic and diastolic Heart failure chronicity: chronic Ischemic cardiomyopathy I25.5 Cardiogenic shock R57.0 Cardiac arrest I46.9 JAMAL (acute kidney injury) N17.9 Hypothyroidism E03.9 HIV (human immunodeficiency virus infection) B20 Acute respiratory failure J96.00 Respiratory failure complication: unspecified whether with hypoxia or hypercapnia Right lower lobe pulmonary infiltrate R91.8 Hypokalemia E87.6 Hypomagnesemia E83.42
[2023-05-23] MEDS: vancomycin 1,000 MG in sodium chloride 0.9% 250 ML 250 MG IV (13:21)
[2023-05-23] MEDS: metoprolol tartrate 25 mg Tablet PO ×2 (13:22→21:42)
[2023-05-23] MEDS: amiodarone 200 mg Tablet 400 MG PO (17:30)
[2023-05-24] VITALS (13 sets, daily range): BP systolic 87–119; BP diastolic 57–68; PULSE 74–100; RESP 15–30; TEMP 36.4–36.9; O2SAT 83–100
--- NOTE | 2023-05-24 01:28 | PC.NURSE ---
Report called to [facility]. Patient AOx4 after midnight during shift. Tolerating oral intake well. Patient is using call light appropriately.
[2023-05-24] MEDS: piperacillin-tazobactam 3.375 GM in sodium chloride 0.9% (plus) 50 ML IV ×3 (05:07→21:27)
[2023-05-24] MEDS: pantoprazole 40 mg SDV IVP (05:10)
[2023-05-24 05:15] LABS: Basophils % 0.5 %; Eosinophils # 0.1 10^3/uL (0.0-0.8); Eosinophils % 0.9 %; Hematocrit 43.3 % (37-53); Lymphocytes # 0.6 10^3/uL (0.8-4.8); Lymphocytes % 7.4 %; Mean Corpuscular Hemoglobin 26.6 pg (27-33); Mean Corpuscular Volume 88.5 fl (82-101); Mean Platelet Volume 10.9 fL (7.4-10.4); Monocytes # 0.5 10^3/uL (0.2-0.9); Monocytes % 6.8 %; Neutrophils # 6.18 10^3/uL (1.8-7.7); Neutrophils % 83.7 %; Nucleated Red Blood Cells % 0.3 %; Platelet Count 138 10^3/cmm (157-399); Red Blood Count 4.89 10^6/uL (3.85-5.65); Red Cell Distribution Width 20.5 % (12.1-15.1); White Blood Count 7.39 10^3/uL (3.29-11.43)
[2023-05-24 05:41] LABS: Anion Gap 13.2 (5-19); Blood Urea Nitrogen 29 mg/dL (8-23); Calcium 8.2 mg/dL (8.5-10.5); Carbon Dioxide 32 mmol/L (22-29); Chloride 95 mmol/L (98-107); Creatinine Clr Calc Pharmacy 47.1943; Glucose 90 mg/dL (65-115); Osmolality Calculated 289 mOsm/kg (285-295); Potassium 3.2 mmol/L (3.5-5.1); Sodium 137 mmol/L (136-145)
[2023-05-24] MEDS: levothyroxine 100 mcg Tablet PO (06:48)
--- NOTE | 2023-05-24 09:39 | P.PN_ITS ---
Subjective 2 Subjective: Patient is awake and alert Oriented to time place and person He is able to recall that he was scheduled for an AICD on Monday but stating that he is not sure what happened at home I explained him he had a cardiac arrhythmia related to low EF cardiomyopathy Patient stating that he is scared of dying he is agreeable for AICD placement, I have notified Dr. Rankin who is planning to intervene likely on Monday which is his OR day I have changed amiodarone from IV to p.o. regimen Replenish potassium it is 2.2 today Afebrile in last 24 hours MRSA PCR pending Vitals/I&O/Wt Last Vital Signs Temp 97.6 F 05/24/23 07:17 Pulse 74 05/24/23 07:17 Resp 15 05/24/23 07:17 BP 102/65 05/24/23 07:17 Pulse Ox 94 05/24/23 07:17 O2 Del Method Nasal Cannula 05/24/23 07:17 O2 Flow Rate 3 05/24/23 01:54 FiO2 30 05/23/23 09:55 05/23/23 05/24/23 05/24/23 22:59 06:59 14:59 Intake Total 350 / 1118.439 290 / 1408.439 Output Total 400 / 400 300 / 700 Balance -50 / 718.439 -10 / 708.439 Weight last 48 hrs Weight 68.719 kg Weight 61.371 kg Physical Exam 2 Narrative: Signs of fluid load present Awake and alert GCS 15 Nonfocal neuroexam Currently on 3 L Pleasant cooperative S1, S2 Eating breakfast No active pain Erickson catheter in place Urinary Catheter Management: Erickson: Cath Placed During This Visit: yes Reason for Continuing Indwelling Catheter: Required Immobilization for Trauma or Surgery or Anesthesia Urinary Catheter Date of Insertion: 05/20/23 Urinary Catheter Time of Insertion: 01:18 Data 05/24/23 05:01 05/24/23 05:01 Micro: Microbiology 05/21/23 11:56 Gram Stain - Final Sputum - Endotracheal Tube Aspirate Sputum Culture - Preliminary Yeast species A&P Assessment and plan (1) CHF (congestive heart failure): Qualifiers: Heart failure type: combined systolic and diastolic Heart failure chronicity: chronic Qualified Code(s): I50.42 - Chronic combined systolic (congestive) and diastolic (congestive) heart failure (2) Ischemic cardiomyopathy: (3) Cardiogenic shock: (4) Bradycardia: (5) Cardiac arrest: (6) Hypothyroidism: (7) JAMAL (acute kidney injury): (8) Hypokalemia: (9) HIV (human immunodeficiency virus infection): (10) Acute respiratory failure: Qualifiers: Respiratory failure complication: unspecified whether with hypoxia or hypercapnia Qualified Code(s): J96.00 - Acute respiratory failure, unspecified whether with hypoxia or hypercapnia (11) Right lower lobe pulmonary infiltrate: (12) DNR (do not resuscitate): Plan Cardiac arrest likely related to V-fib arrhythmia EF 15% Plan for AICD placement on Monday by Dr. Rankin Aspiration pneumonia Afebrile in last 24 hours Check MRSA PCR He is on MRSA and antipseudomonal coverage for now JAMAL: Cardiorenal improved with diuresis Hypokalemia: Replenish potassium above 4 and mag above 2 Nonsustained V. tach Patient was on amiodarone drip for about 40 hours we have switched to p.o. amiodarone regimen Electrolyte goals: Potassium of 4 magnesium of 2 Continue p.o. magnesium supplementation Girlfriend is medical DPOA we do have legal documentation which is scanned in our system Niece is in [place] who is a second person as the DPOA Dysphagia diet Hold off on Eliquis for AICD placement on Monday I will keep him on Lovenox for now Patient is DNR/DNI in case of cardiac arrest I rediscussed goals of care today he is in agreement with DNR/DNI but want AICD placement Attestations 2 Medical Necessity Statement*: Continue medical management Diagnoses Chronic combined systolic and diastolic congestive heart failure I50.42 Heart failure type: combined systolic and diastolic Heart failure chronicity: chronic Ischemic cardiomyopathy I25.5 Cardiogenic shock R57.0 Bradycardia R00.1 Cardiac arrest I46.9 Hypothyroidism E03.9 JAMAL (acute kidney injury) N17.9 Hypokalemia E87.6 HIV (human immunodeficiency virus infection) B20 Acute respiratory failure J96.00 Respiratory failure complication: unspecified whether with hypoxia or hypercapnia Right lower lobe pulmonary infiltrate R91.8 DNR (do not resuscitate) Z66
[2023-05-24] MEDS: metoprolol tartrate 25 mg Tablet PO ×2 (09:40→21:52)
[2023-05-24] MEDS: amiodarone 200 mg Tablet 400 MG PO ×2 (09:40→17:27)
[2023-05-24] MEDS: FUROsemide 10 mg/mL SDV 4mL 20 MG IVP (10:50)
[2023-05-24] MEDS: lidocaine 1% 5 ML in potassium chloride premix 100 ML 25 ML IV (10:53)
[2023-05-24] MEDS: vancomycin 1,000 MG in sodium chloride 0.9% 250 ML 250 MG IV (13:22)
[2023-05-24 14:58] LABS: Methicillin-Resist S.aureu PCR NOT DETECTED (NOT DETECTED)
[2023-05-24] MEDS: magnesium oxide 400 mg tablet PO (17:27)
[2023-05-24] MEDS: chlorhexidine gluconate 4% Btl 118 mL 1 APPLIC TOPICAL (17:27)
--- NOTE | 2023-05-24 23:48 | PC.NURSE ---
At 2139 patient had a 9 beat run of VTACH.
[2023-05-25] VITALS (21 sets, daily range): BP systolic 98–129; BP diastolic 59–80; PULSE 78–110; RESP 15–32; TEMP 34.2–37; O2SAT 89–100
[2023-05-25] MEDS: piperacillin-tazobactam 3.375 GM in sodium chloride 0.9% (plus) 50 ML IV ×3 (04:07→20:47)
[2023-05-25] MEDS: pantoprazole 40 mg SDV IVP (04:08)
[2023-05-25 05:20] LABS: Basophils % 0.6 %; Eosinophils # 0.1 10^3/uL (0.0-0.8); Eosinophils % 1.4 %; Hematocrit 42.8 % (37-53); Lymphocytes # 0.6 10^3/uL (0.8-4.8); Lymphocytes % 9.5 %; Mean Corpuscular HGB Conc 30.6 g/dL (30-55); Mean Corpuscular Hemoglobin 26.5 pg (27-33); Mean Corpuscular Volume 86.6 fl (82-101); Mean Platelet Volume 10.5 fL (7.4-10.4); Monocytes # 0.5 10^3/uL (0.2-0.9); Monocytes % 7.9 %; Neutrophils # 5.15 10^3/uL (1.8-7.7); Neutrophils % 79.8 %; Nucleated Red Blood Cells % 0 %; Platelet Count 132 10^3/cmm (157-399); Red Blood Count 4.94 10^6/uL (3.85-5.65); Red Cell Distribution Width 20.2 % (12.1-15.1); White Blood Count 6.45 10^3/uL (3.29-11.43)
[2023-05-25 06:02] LABS: Anion Gap 14.3 (5-19); Blood Urea Nitrogen 31 mg/dL (8-23); Calcium 8.4 mg/dL (8.5-10.5); Carbon Dioxide 31 mmol/L (22-29); Chloride 96 mmol/L (98-107); Creatinine Clr Calc Pharmacy 51.4422; Glucose 103 mg/dL (65-115); Magnesium 2.1 mg/dL (1.7-2.3); Osmolality Calculated 293 mOsm/kg (285-295); Potassium 3.3 mmol/L (3.5-5.1); Sodium 138 mmol/L (136-145)
--- NOTE | 2023-05-25 07:00 | P.PN_ITS ---
Subjective 2 Subjective: Mr. Nair is awake on rounds. He wishes to proceed with plan for AICD implantation. He was concerned about his overall general weakness and I do appreciate his position on this. As well, he continues to receive IV antibiotics for concerns of potential pneumonia. Nurses report he did have a's 6 beat run of V. tach last night with spontaneous conversion. Vitals/I&O/Wt Last Vital Signs Temp 97.5 F L 05/25/23 03:53 Pulse 92 05/25/23 06:48 Resp 28 H 05/25/23 03:53 BP 104/71 05/25/23 03:53 Pulse Ox 92 05/25/23 03:53 O2 Del Method Nasal Cannula 05/24/23 16:00 O2 Flow Rate 3 05/24/23 01:54 FiO2 30 05/23/23 09:55 05/24/23 05/25/23 05/25/23 22:59 06:59 14:59 Intake Total 635 / 1295 290 / 1585 Output Total 450 / 450 Balance 635 / 1295 -160 / 1135 Weight last 48 hrs Weight 151 lb 3.2 oz Weight 151 lb 8 oz Physical Exam 2 Resp: COMMON NORMALS: normal respiratory effort and clear to auscultation bilaterally AUSCULTATION: clear to auscultation bilaterally Cardio: COMMON NORMALS: regular rate RATE: regular rate RHYTHM: abnormal rhythm irregularly irregular GI: COMMON NORMALS: Soft to palpation and non-tender PALPATION: Yes Soft to palpation Extremity: COMMON NORMALS: no clubbing, cyanosis or edema Urinary Catheter Management: Erickson: Cath Placed During This Visit: yes Reason for Continuing Indwelling Catheter: Required Immobilization for Trauma or Surgery or Anesthesia Urinary Catheter Date of Insertion: 05/20/23 Urinary Catheter Time of Insertion: 01:18 Data 05/25/23 04:56 05/25/23 04:56 A&P Assessment and plan (1) Cardiac arrest: Challenging situation, however given his presentation with acute arrest, history of arrest requiring CPR, as well as documented continued ventricular arrhythmias, I feel we should proceed with AICD implantation. He will have increased risk for adverse outcome including potential infection requiring need to explant the device related to the need for urgent AICD in the face of ongoing antibiotic treatment for presumed possible pneumonia. I discussed this very frankly with Mr. Nair he states understanding and wishes to proceed. We will tentatively plan for AICD implantation this afternoon around 4 PM when [employer] new accounts representative will be available. 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
[2023-05-25] MEDS: sodium chloride 0.9% 1,000 ML 75 ML IV ×2 (07:42→23:20)
[2023-05-25] MEDS: amiodarone 200 mg Tablet 400 MG PO (09:23)
[2023-05-25] MEDS: magnesium oxide 400 mg tablet PO (09:25)
--- NOTE | 2023-05-25 09:25 | P.PN_ITS ---
Subjective 2 Subjective: Patient resting comfortably Currently on 3 L Patient does not use oxygen at home Awaiting residential placement after AICD today Patient is requesting for [facility] or [facility] Will let disease case manager rn know No fever in last 48 hours He will still need antibiotics after AICD placement as prophylaxis for wound infection Vitals/I&O/Wt Last Vital Signs Temp 97.5 F L 05/25/23 07:10 Pulse 78 05/25/23 08:04 Resp 18 05/25/23 08:04 BP 106/68 05/25/23 07:10 Pulse Ox 98 05/25/23 08:04 O2 Del Method Nasal Cannula 05/25/23 08:04 O2 Flow Rate 3 05/25/23 08:04 FiO2 30 05/23/23 09:55 05/24/23 05/25/23 05/25/23 22:59 06:59 14:59 Intake Total 635 / 1295 290 / 1585 Output Total 450 / 450 Balance 635 / 1295 -160 / 1135 Weight last 48 hrs Weight 68.583 kg Weight 68.719 kg Physical Exam 2 Narrative: Awake and alert Euvolemic GCS 15 currently on 3 L Pleasant cooperative Nonfocal neuroexam No active chest pain His friend is visiting her In good spirits Urinary Catheter Management: Erickson: Cath Placed During This Visit: yes Reason for Continuing Indwelling Catheter: Required Immobilization for Trauma or Surgery or Anesthesia Urinary Catheter Date of Insertion: 05/20/23 Urinary Catheter Time of Insertion: 01:18 Data 05/25/23 04:56 05/25/23 04:56 A&P Assessment and plan (1) DNR (do not resuscitate): (2) CHF (congestive heart failure): Qualifiers: Heart failure type: combined systolic and diastolic Heart failure chronicity: chronic Qualified Code(s): I50.42 - Chronic combined systolic (congestive) and diastolic (congestive) heart failure (3) Ischemic cardiomyopathy: (4) Cardiogenic shock: (5) Arteriosclerotic coronary artery disease: (6) Cardiac arrest: (7) Hypothyroidism: (8) JAMAL (acute kidney injury): (9) Hypokalemia: (10) HIV (human immunodeficiency virus infection): (11) Acute respiratory failure: Qualifiers: Respiratory failure complication: unspecified whether with hypoxia or hypercapnia Qualified Code(s): J96.00 - Acute respiratory failure, unspecified whether with hypoxia or hypercapnia (12) Right lower lobe pulmonary infiltrate: Plan Ischemic cardiomyopathy: Plan for AICD placement today N.p.o. for now Aspiration pneumonia: Afebrile for last 48 hours Will Dc iv antibiotics and switch to p.o. regimen after AICD placement We can remove Erickson catheter after AICD placement as well Cardiac arrest related to cardiac arrhythmia Patient extubated successfully to nasal cannula Weak and lethargic appreciate PT recommendations Awaiting residential placement Patient is DNR/DNI Considering history of cardiac arrhythmia he was put on amiodarone p.o. regimen along metoprolol JAMAL improved with diuresis Gentle fluid hydration for AICD placement Attestations 2 Medical Necessity Statement*: Hopefully discharge once he gets placement of AICD Diagnoses DNR (do not resuscitate) Z66 Chronic combined systolic and diastolic congestive heart failure I50.42 Heart failure type: combined systolic and diastolic Heart failure chronicity: chronic Ischemic cardiomyopathy I25.5 Cardiogenic shock R57.0 Arteriosclerotic coronary artery disease I25.10 Cardiac arrest I46.9 Hypothyroidism E03.9 JAMAL (acute kidney injury) N17.9 Hypokalemia E87.6 HIV (human immunodeficiency virus infection) B20 Acute respiratory failure J96.00 Respiratory failure complication: unspecified whether with hypoxia or hypercapnia Right lower lobe pulmonary infiltrate R91.8
[2023-05-25] MEDS: metoprolol tartrate 25 mg Tablet PO (09:27)
[2023-05-25] MEDS: chlorhexidine gluconate 4% Btl 118 mL 1 APPLIC TOPICAL (09:28)
[2023-05-25] MEDS: levothyroxine 100 mcg Tablet PO (10:04)
[2023-05-25] MEDS: vancomycin 1,000 MG in sodium chloride 0.9% 250 ML 250 MG IV (12:05)
[2023-05-25] MEDS: lidocaine 1% 5 ML in potassium chloride premix 100 ML 25 ML IV (12:07)
--- NOTE | 2023-05-25 15:58 | PC.NURSE ---
This [employer] performed pre-op cleaning of pt with 2% CG wipes. Cleansing of neck, arms, chest, abdomen, legs from hip to ankle, socks removed feet cleansed socks replaced. Previous gown removed, new gown placed on pt.
--- NOTE | 2023-05-25 16:50 | ANES.PAUD2 ---
Pre-Anesthetic Update Pre-Anesthetic Assessment: Date of Surgery/Procedure: 05/25/23 Proposed Procedure: Operation Date: 05/25/23 16:00 Proposed Procedures p Defibrillator Placement(Not Applicable) - Valentin Rankin MD Any changes to Pre-Anesthetic Assessment?: Yes Changes from Pre-Anesthetic Assessment: Recent cardiac arrest and resuscitation Last Intake: Intake Last Liquid Date 05/24/23 Last Liquid Time 23:45 Last Solid Date 05/24/23 Last Solid Time 18:30 Labs Last 48hrs: Short CBC 05/24/23 05/25/23 Range/Units 05:01 04:56 WBC 7.39 6.45 (3.29-11.43) 10^ 3/uL Hgb 13.00 13.10 (11.27-16.99) g/ dL Hct 43.3 42.8 (37-53) % MCV 88.5 86.6 (82-101) fl Plt Count 138 L 132 L (157-399) 10^3/c mm Neut % (Auto) 83.7 79.8 % Neut # (Auto) 6.18 5.15 (1.8-7.7) 10^3/u L BMP 05/24/23 05/25/23 05:01 04:56 Sodium 137 138 Potassium 3.2 L 3.3 L Chloride 95 L 96 L Carbon Dioxide 32 H 31 H BUN 29 H 31 H Creatinine 1.2 1.1 Glucose 90 103 Calcium 8.2 L 8.4 L Vitals: Temperature 98.6 F 05/25/23 16:30 Temperature Source Axillary 05/25/23 03:53 Pulse Rate 89 05/25/23 16:30 Pulse Rhythm Regular 05/25/23 08:00 Pulse Strength 3+ Normal 05/24/23 20:36 Respiratory Rate 17 05/25/23 16:30 Respiratory Effort Spontaneous, Non- Labored 05/24/23 20:36 Respiratory Depth Normal 05/24/23 20:36 Respiratory Patter n Normal 05/24/23 20:36 Blood Pressure 98/59 05/25/23 16:30 Blood Pressure Ilana n 72 05/25/23 16:30 Blood Pressure Pos ition Semi Fowlers 05/25/23 03:53 Pulse Oximetry 99 05/25/23 16:30 Oxygen Delivery Me thod Room Air 05/25/23 16:30 Oxygen Flow Rate 3 05/25/23 08:04 Fraction of Inspir ed Oxygen 30 05/23/23 09:55 SaO2/FiO2 Ratio 98 05/20/23 02:15 Sepsis Recent Feve r Within 48 Hours No 05/20/23 02:15 Sepsis New/Unexpla ined Change in Men barbara Status No 05/20/23 00:03 Exam: Pre-Anes Outpt Exam: alert and oriented x 3 Cardiac Studies: Echocardiogram 05/20/23 Echocardiogram Ultrasound 01/20/23 Sestamibi Stress Test (Cardiology) 02/26/20
--- NOTE | 2023-05-25 17:28 | SC_ITS ---
WS: [id number] C-arm fluoroscopy for pacemaker insertion, 05/25/2023 Clinical Data: AICD implantation Comparison: Portable chest, 05/20/2023 Findings: Dr. Bill inserted a permanent pacemaker and defibrillator device. Impression: Pacemaker and defibrillator insertion.
[2023-05-25] MEDS: sodium chloride 0.9% 1,000 ML 30 ML IV (17:34)
[2023-05-25] MEDS: ceFAZolin 2,000 MG in sodium chloride 0.9% (plus) 50 ML 100 MG IV (18:10)
[2023-05-25] MEDS: ceFAZolin 1,000 mg SDV 1000 MG IRRIGATION (18:48)
[2023-05-25] MEDS: lidocaine 1% INJ 10 mL (per mL) 20 ML INTRADERMA (19:30)
--- NOTE | 2023-05-25 19:41 | PM.OP ---
Operative Report Date of procedure: May 25, 2023 Pre-op diagnosis: Congestive heart failure with medical refractory cardiomyopathy and recurrent ventricular arrhythmia Post-op diagnosis: same Procedure done: Single-lead automatic implantable cardiac defibrillator implantation Implants: AICD generator Right ventricular lead Pathology: none sent Surgeon: Valentin Rankin MD Anesthesia: MAC and Local IV fluids: 350 Complications: Hemodynamic instability required administration of nor epi and subsequently dobutamine infusion for stability Condition: stable Disposition: ICU Brief History: Mr. Nair is a 78-year-old gentleman with severe congestive heart failure and cardiomyopathy with an ejection fraction of 15%. He has a prior history of cardiac arrest following ventricular arrhythmia presented to the emergency department this admission where he had a witnessed arrest in the department. He has made a slow but steady recovery from that time with subsequent extubated and has regained full sensorium. Currently on antibiotic therapy due to haziness in the right lower lobe with concerns of potential pneumonia. White count remains normal he is afebrile. After careful discussion with or colleagues we felt that we should proceed with attempt at AICD implantation realizing that he is at increased risk for complications related to his tenuous condition as well as prior left subclavian central line placement in the emergency room department. This line has subsequent been removed. Details of risk of the procedure and the increased risk related to the numerous factors mentioned were discussed with Mr. Nair. He wished to proceed and did get permission for a 1 or 2 rounds of CPR but did not want to be electrically cardioverted. I did discuss with him that AICD implantation would provide that automatically as an attempt to recover rhythm should he had a malignant ventricular arrhythmia. He stated understanding wish to proceed. Proper consents have been reviewed and signed. Procedure: Procedure: Mr. Nair was taken to the OR suite and placed in the supine position over a shoulder roll. Appropriate timeout was completed and confirmed by all operative members present. He received conscious sedation with continuous anesthesia monitoring by. He has entire chest was sterilely prepped and draped. During this period, his became hypotensive and somewhat bradycardic. Just was counteracted with initially norepinephrine added I recommended dobutamine which was added. He had recently good response with this though it was slow, most probably related to his slow circulation time. After careful discussion between the operative team and our anesthesia colleagues, we felt reasonable to proceed with attempt at AICD implantation. Minimal sedation was given through the remainder of the procedure. 1% lidocaine was infiltrated in the left subclavicular region. While in Trendelenburg position, utilizing modified seldinger technique, a guidewire was placed in the [left/right] subclavian vein. This was confirmed in position by fluoroscopy. Next, after infiltration with lidocaine, a subcutaneous pocket was created beginning from the exit point of the guidewire and extending laterally and inferiorly. Cautery was utilized to create the pocket. I elected to create a submuscular pocket related to his very thin habitus. Hemostasis was confirmed. An antibiotic-soaked sponge was placed in the wound. A dilator and tear-away sheath was placed over the guidewire and advanced under fluoroscopy. Guidewire and dilator were removed. Next using a combination of curved and straight stylettes, the right ventricular lead was placed in position by fluoroscopy. The distal screw was extended. Interrogation was then performed confirming appropriate parameters. The tear-away sheath was then removed and the ventricular lead was sewn to the floor of the submuscular pocket. Generator was brought into the field, and after confirmation of hemostasis in the submuscular pocket, the lead was connected to the generator with appropriate capture. The entire system was interrogated by fluoroscopy. Lead and generator were secured in the pocket after the generator was placed in an antibiotic sleeve. Sponge and needle count was correct. The wound was then closed in 2 layers of 3-0 Vicryl suture. Skin was reapproximated in a subcuticular manner with 4-0 Monocryl suture. A pressure dressing was applied. The left arm was placed in a sling. Mr. Nair had equal breath sounds bilaterally. He was then transferred to the ICU, where chest x-ray is currently pending. There are no family members available or that can be contacted for further discussions at this time. Following are the specifics of this system: Right ventricular lead is 55 cm and model 6935M Serial number [id number] Ventricular lead had sensing of 11.6 mV with an impedance of 437 ohms. Threshold was 0.75 V [employer] AICD generator: Model # [id number] Serial #[id number] Current mode is VVI with a low rate of 40. Ventricular fibrillation at 188 bpm.
--- NOTE | 2023-05-25 19:45 | PC.NURSE ---
Received from OR via bed with nurse and BILLET HEATER OPERATOR at bedside. V/S stable. Axillary temp 93.6, terrie hugger placed on patient for active warming. Patient awake, alert, and oriented. Dressing to left upper chest c/d/i with sling in place to left arm.
--- NOTE | 2023-05-25 20:21 | ANE.PACU2 ---
Inpatient post-anesthesia follow up: Airway intact: Yes Vital signs: Temperature 97.5 F Pulse Rate 92 Respiratory Rate 16 Blood Pressure 107/71 Pulse Oximetry 100 Oxygen Delivery Me thod Nasal Cannula Oxygen Flow Rate 3.0 Fraction of Inspir ed Oxygen 30 Hydration adequate: Yes Nausea and vomiting: No Pain level: 1 Mental status: Baseline
--- NOTE | 2023-05-25 23:26 | PC.NURSE ---
Arterial Blood pressures: 2130 -- 135/62 (85) Dobutamine decreased to 8mcg/kg/min 2145 -- 123/60 (81) Dobutamine decreased to 6mcg/kg/min 2200 -- 128/62 (83) 2215 -- 131/61 (83) 2230 -- 130/61 (82) Dobutamine decreased to 5mcg/kg/min 2245 -- 129/58 (81) 2300 -- 126/59 (80) 2330 -- 116/52 Dobutamine decreased to 4mcg/kg/min
[2023-05-26] VITALS (28 sets, daily range): BP systolic 91–120; BP diastolic 60–82; PULSE 77–114; RESP 8–35; TEMP 36.1–36.7; O2SAT 90–99
--- NOTE | 2023-05-26 01:33 | PC.NURSE ---
Arterial Blood Pressure: 2315 -- 130/58 (77) 2330 -- 108/91 (99) 2345 -- 100/46 (63) 0000 -- 106/50 (66) 0015 -- 101/48 (63) Increased dobutamine to 5mcg/kg/min 0030 -- 102/50 (65) 0045 -- 107/52 (67) 0100 -- 111/53 (69)
[2023-05-26] MEDS: acetaminophen 325 mg Tablet 650 MG PO (02:35)
--- NOTE | 2023-05-26 03:12 | PC.NURSE ---
Arterial Line B/P: 0115 -- 114/61 (77) 0130 -- 114/58 (74) 0145 -- 95/40 (55) Right wrist IV pulled out, new IV started to right hand and Dobutamine restarted. 0200 -- 96/44 (61) 0215 -- 97/46 (61) 0230 -- 108/48 (66) 0245 -- 119/53 (72) 0300 -- 117/50 (70) Initialized on 05/26/23 03:06 - END OF NOTE
[2023-05-26] MEDS: pantoprazole 40 mg SDV IVP (04:21)
[2023-05-26] MEDS: piperacillin-tazobactam 3.375 GM in sodium chloride 0.9% (plus) 50 ML IV (04:21)
[2023-05-26 04:45] LABS: Basophils # 0.1 10^3/uL (0.0-0.1); Basophils % 0.7 %; Eosinophils # 0.1 10^3/uL (0.0-0.8); Eosinophils % 0.7 %; Hematocrit 38.4 % (37-53); Lymphocytes # 0.6 10^3/uL (0.8-4.8); Lymphocytes % 8.4 %; Mean Corpuscular Hemoglobin 26.6 pg (27-33); Mean Corpuscular Volume 85.9 fl (82-101); Mean Platelet Volume 10.5 fL (7.4-10.4); Monocytes # 0.6 10^3/uL (0.2-0.9); Monocytes % 8.2 %; Neutrophils % 81.1 %; Nucleated Red Blood Cells % 0 %; Platelet Count 125 10^3/cmm (157-399); Red Blood Count 4.47 10^6/uL (3.85-5.65); Red Cell Distribution Width 20.2 % (12.1-15.1); White Blood Count 6.79 10^3/uL (3.29-11.43)
--- NOTE | 2023-05-26 05:07 | PC.NURSE ---
Arterial Blood Pressures: 0315 -- 117/50 (70) 0330 -- 114/48 (68) 0345 -- 114/45 (67) 0400 -- 116/51 (70) 0415 -- 102/49 (65) 0430 -- 109/49 (67) 0445 -- 106/49 (66)
[2023-05-26 05:11] LABS: Anion Gap 15.3 (5-19); Blood Urea Nitrogen 23 mg/dL (8-23); Calcium 7.9 mg/dL (8.5-10.5); Carbon Dioxide 26 mmol/L (22-29); Chloride 99 mmol/L (98-107); Creatinine Clr Calc Pharmacy 65.3046; Glucose 129 mg/dL (65-115); Osmolality Calculated 289 mOsm/kg (285-295); Potassium 3.3 mmol/L (3.5-5.1); Sodium 137 mmol/L (136-145)
[2023-05-26] MEDS: levothyroxine 100 mcg Tablet PO (05:44)
--- NOTE | 2023-05-26 06:00 | XR_ITS ---
WS: [id number] Portable AP upright chest, 05/26/2023 Clinical Data: s/p aicd placement Comparison: Portable chest, 05/20/2023 Findings: There is a permanent pacemaker with the generator overlying the left upper chest. The dista l wires are within the right ventricle. There are small bilateral pleural effusions. The pulmonary va scularity is increased. The heart is enlarged. No pneumothorax is seen. Midline sternotomy sutures ar e present. There are monitor leads on the chest wall. The endotracheal tube and nasogastric tube are no longer present. Impression: 1. Insertion of permanent pacemaker with defibrillator capabilities. 2. No change in cardiomegaly, pulmonary vascular congestion and small bilateral effusions. 3. Removal of endotracheal tube and nasogastric tube.
--- NOTE | 2023-05-26 06:02 | PC.NURSE ---
Patient reports pain to left shoulder, tylenol given for pain. Patient refusing [place] for pain.
--- NOTE | 2023-05-26 06:27 | PC.NURSE ---
Arterial Blood Pressures: 0500 -- 115/49 (69) 0515 -- 113/51 (69) 0530 -- 111/50 (68) 0545 -- 120/54 (74) 0600 -- 112/53 (72) 0615 -- 119/53 (74)
[2023-05-26] MEDS: magnesium oxide 400 mg tablet PO ×2 (09:33→17:40)
[2023-05-26] MEDS: amiodarone 200 mg Tablet 400 MG PO ×2 (09:33→17:40)
[2023-05-26] MEDS: metoprolol tartrate 25 mg Tablet PO (09:33)
--- NOTE | 2023-05-26 11:32 | PM.PN ---
Subjective Subjective: This morning patient is stating that he is feeling slightly better Will try to wean off dobutamine Currently on room air saturating 92% Requires intermittently 2 L Vitals/I&O/Wt Last Vital Signs Temp 97.7 F 05/26/23 04:39 Pulse 83 05/26/23 10:24 Resp 18 05/26/23 10:24 BP 98/62 05/26/23 06:00 Pulse Ox 93 05/26/23 10:24 O2 Del Method Nasal Cannula 05/26/23 10:24 O2 Flow Rate 2 05/26/23 10:24 FiO2 30 05/23/23 09:55 05/25/23 05/26/23 05/26/23 22:59 06:59 14:59 Intake Total 1755 / 5 150 / 2205 50 / 50 Output Total 800 / 810 Balance 1745 / 2045 -650 / 1395 50 / 50 Weight last 48 hrs Weight 93.894 kg Weight 68.583 kg Physical Exam Narrative: Awake alert Euvolemic GCS 15 Pleasant cooperative Nonfocal neuroexam No active sign of fluid overload Currently on room air After complaint No active chest pain Urinary Catheter Management: Erickson: Cath Placed During This Visit: yes Reason for Continuing Indwelling Catheter: Accurate Measurement of Urinary Output in Critically Ill Patients Urinary Catheter Date of Insertion: 05/20/23 Urinary Catheter Time of Insertion: 01:18 Data 05/26/23 04:19 05/26/23 04:19 Micro: Microbiology 05/21/23 11:56 Gram Stain - Final Sputum - Endotracheal Tube Aspirate Sputum Culture - Final Rupinder tropicalis A&P Assessment and plan (1) DNR (do not resuscitate): (2) CHF (congestive heart failure): Qualifiers: Heart failure type: combined systolic and diastolic Heart failure chronicity: chronic Qualified Code(s): I50.42 - Chronic combined systolic (congestive) and diastolic (congestive) heart failure (3) Ischemic cardiomyopathy: (4) AICD (automatic cardioverter/defibrillator) present: (5) Cardiogenic shock: (6) Cardiac arrest: (7) Hypothyroidism: (8) JAMAL (acute kidney injury): (9) Hypokalemia: (10) Hypomagnesemia: (11) HIV (human immunodeficiency virus infection): (12) Acute respiratory failure: Qualifiers: Respiratory failure complication: unspecified whether with hypoxia or hypercapnia Qualified Code(s): J96.00 - Acute respiratory failure, unspecified whether with hypoxia or hypercapnia (13) Right lower lobe pulmonary infiltrate: Plan Status post AICD placement by Dr. Rankin No postoperative complication other than low blood pressure He was put on IV fluids and dobutamine No severe signs of cardiogenic shock We are weaning off dobutamine today Turn off IV fluids I will also switch his IV antibiotics to p.o. regimen Patient is waiting for shelter placement Hold off on IV Lasix for now Continue cardiac diet I will discontinue metoprolol and continue amiodarone DNR/DNI Hypokalemia: Replenish IV K rider, magnesium is normal Attestations Medical Necessity Statement*: Might be able to transfer out of ICU by tomorrow Diagnoses DNR (do not resuscitate) Z66 Chronic combined systolic and diastolic congestive heart failure I50.42 Heart failure type: combined systolic and diastolic Heart failure chronicity: chronic Ischemic cardiomyopathy I25.5 AICD (automatic cardioverter/defibrillator) present Z95.810 Cardiogenic shock R57.0 Cardiac arrest I46.9 Hypothyroidism E03.9 JAMAL (acute kidney injury) N17.9 Hypokalemia E87.6 Hypomagnesemia E83.42 HIV (human immunodeficiency virus infection) B20 Acute respiratory failure J96.00 Respiratory failure complication: unspecified whether with hypoxia or hypercapnia Right lower lobe pulmonary infiltrate R91.8
[2023-05-26 13:14] LABS: Vancomycin Trough 9.6 ug/mL (10-15)
[2023-05-26] MEDS: lidocaine 1% 5 ML in potassium chloride premix 100 ML 25 ML IV (13:29)
--- NOTE | 2023-05-26 13:45 | PC.NURSE ---
Art line removed intact. Pressure held until hemostatis obtained Gauze and transparent dressing applied.
[2023-05-26] MEDS: ALPRAZolam 0.5 mg Tablet PO (16:33)
[2023-05-26] MEDS: amoxicillin-clav 875-125 mg Tablet 1 TAB PO (17:40)
[2023-05-26] MEDS: chlorhexidine gluconate 4% Btl 118 mL 1 APPLIC TOPICAL (17:40)
--- NOTE | 2023-05-26 19:15 | PC.NURSE ---
Shift summary: Pt rested in bed in the am. Spent the rest of the shift in the recliner. He transferred well, with 1 assist. Able to bear his weight well. He did start to get short of breath after the transfer so O2 at 2lpm/NC applied for his comfort. He remains using oxygen the rest fo the shift. His knees are mottled. His hands and nail beds are purplish in color. His BP stayed WNL so the Dobutamine was weaned off early afternoon. He Picks at his meals and drinks fluids sparingly. He is alert and oriented. He is very polite. He became anxious and asked for anxiety meds this afternoon. Lung sounds were clear at that time. Xanax ordered and given, pt stated that held tremendously. His urine was rosario yellow witha low put put of 2250. He did have a very loos Bm today.
[2023-05-26] MEDS: HYDROcodone-acetaminophen 5-325 mg Tablet 1 TAB PO (20:50)
[2023-05-27] VITALS (18 sets, daily range): BP systolic 80–111; BP diastolic 54–83; PULSE 69–113; RESP 1–32; TEMP 36.2–36.9; O2SAT 91–95
[2023-05-27] MEDS: ALPRAZolam 0.5 mg Tablet PO ×2 (00:33→20:02)
[2023-05-27 04:30] LABS: Basophils # 0.1 10^3/uL (0.0-0.1); Basophils % 0.7 %; Eosinophils # 0.1 10^3/uL (0.0-0.8); Eosinophils % 1.2 %; Hematocrit 44.9 % (37-53); Lymphocytes # 0.8 10^3/uL (0.8-4.8); Lymphocytes % 10.1 %; Mean Corpuscular HGB Conc 30.3 g/dL (30-55); Mean Corpuscular Hemoglobin 26.4 pg (27-33); Mean Platelet Volume 11.3 fL (7.4-10.4); Monocytes # 0.5 10^3/uL (0.2-0.9); Monocytes % 7.2 %; Neutrophils # 6.01 10^3/uL (1.8-7.7); Neutrophils % 79.5 %; Nucleated Red Blood Cells % 0 %; Platelet Count 141 10^3/cmm (157-399); Red Blood Count 5.16 10^6/uL (3.85-5.65); Red Cell Distribution Width 20.5 % (12.1-15.1); White Blood Count 7.55 10^3/uL (3.29-11.43)
[2023-05-27] MEDS: pantoprazole 40 mg SDV IVP (04:48)
[2023-05-27 04:55] LABS: Anion Gap 13.7 (5-19); Blood Urea Nitrogen 21 mg/dL (8-23); Calcium 8.4 mg/dL (8.5-10.5); Carbon Dioxide 29 mmol/L (22-29); Chloride 98 mmol/L (98-107); Creatinine Clr Calc Pharmacy 55.6491; Glucose 99 mg/dL (65-115); Osmolality Calculated 287 mOsm/kg (285-295); Potassium 3.7 mmol/L (3.5-5.1); Sodium 137 mmol/L (136-145)
[2023-05-27] MEDS: levothyroxine 100 mcg Tablet PO (06:31)
[2023-05-27] MEDS: amiodarone 200 mg Tablet 400 MG PO ×2 (08:20→18:02)
[2023-05-27] MEDS: magnesium oxide 400 mg tablet PO ×2 (08:20→18:02)
[2023-05-27] MEDS: amoxicillin-clav 875-125 mg Tablet 1 TAB PO ×2 (08:20→18:03)
[2023-05-27] MEDS: chlorhexidine gluconate 4% Btl 118 mL 1 APPLIC TOPICAL (08:21)
[2023-05-27] MEDS: fixodent 39 gm Tube 1 APPLIC DENTAL (08:32)
--- NOTE | 2023-05-27 10:09 | P.PN_ITS ---
Subjective 2 Subjective: Off dobutamine drip since yesterday Blood pressure stable Patient eating breakfast Urine output is somewhat adequate Patient p.o. intake is poor Can transfer out of ICU to CSU Will do gentle fluid hydration till 3:00 Vitals/I&O/Wt Last Vital Signs Temp 98.2 F 05/27/23 04:00 Pulse 69 05/27/23 09:29 Resp 25 H 05/27/23 04:00 BP 92/64 05/27/23 04:00 Pulse Ox 95 05/27/23 09:29 O2 Del Method Nasal Cannula 05/27/23 09:29 O2 Flow Rate 2 05/27/23 09:29 FiO2 30 05/23/23 09:55 05/26/23 05/27/23 05/27/23 22:59 06:59 14:59 Intake Total 425 / 1975 100 / 2075 Output Total 250 / 250 275 / 525 Balance 175 / 1725 -175 / 1550 Weight last 48 hrs Weight 65.862 kg Weight 93.894 kg Physical Exam 2 Narrative: Pleasant cough No sign of fluid overload Currently on 2 L GCS 15 Pleasant and cooperative Nonfocal neuroexam MAP above 65 mmHg Urinary Catheter Management: Erickson: Cath Placed During This Visit: yes Reason for Continuing Indwelling Catheter: Accurate Measurement of Urinary Output in Critically Ill Patients Urinary Catheter Date of Insertion: 05/20/23 Urinary Catheter Time of Insertion: 01:18 Data 05/27/23 04:04 05/27/23 04:04 A&P Assessment and plan (1) DNR (do not resuscitate): (2) CHF (congestive heart failure): Qualifiers: Heart failure type: combined systolic and diastolic Heart failure chronicity: chronic Qualified Code(s): I50.42 - Chronic combined systolic (congestive) and diastolic (congestive) heart failure (3) Ischemic cardiomyopathy: (4) Cardiogenic shock: (5) Bradycardia: (6) Cardiac arrest: (7) AICD (automatic cardioverter/defibrillator) present: (8) Hypothyroidism: (9) JAMAL (acute kidney injury): (10) Hypokalemia: (11) Hypomagnesemia: (12) HIV (human immunodeficiency virus infection): (13) Acute respiratory failure: Qualifiers: Respiratory failure complication: unspecified whether with hypoxia or hypercapnia Qualified Code(s): J96.00 - Acute respiratory failure, unspecified whether with hypoxia or hypercapnia (14) Right lower lobe pulmonary infiltrate: Plan Ischemic cardiomyopathy Status post AICD placement Dr. Rankin No postoperative complication Patient required dobutamine for quite some time after AICD however it has been turned off Hemoglobin stable He has been transitioned to p.o. antibiotics for pneumonia Afebrile Can transfer out of ICU to CSU Gentle fluid hydration till 3:00 Plan to discharge him home versus group home on Monday DNR/DNI Not a candidate to be on significant antihypertensive regimen Continue Eliquis Poor p.o. intake Cardiac diet Requiring 2 L of oxygen Attestations 2 Medical Necessity Statement*: Possible discharge on Monday Diagnoses DNR (do not resuscitate) Z66 Chronic combined systolic and diastolic congestive heart failure I50.42 Heart failure type: combined systolic and diastolic Heart failure chronicity: chronic Ischemic cardiomyopathy I25.5 Cardiogenic shock R57.0 Bradycardia R00.1 Cardiac arrest I46.9 AICD (automatic cardioverter/defibrillator) present Z95.810 Hypothyroidism E03.9 JAMAL (acute kidney injury) N17.9 Hypokalemia E87.6 Hypomagnesemia E83.42 HIV (human immunodeficiency virus infection) B20 Acute respiratory failure J96.00 Respiratory failure complication: unspecified whether with hypoxia or hypercapnia Right lower lobe pulmonary infiltrate R91.8
[2023-05-27] MEDS: sodium chloride 0.9% 500 ML 70 ML IV (10:52)
[2023-05-27] MEDS: DOVATO 1 EACH PO (15:28)
[2023-05-27] MEDS: HYDROcodone-acetaminophen 5-325 mg Tablet 1 TAB PO (18:01)
[2023-05-27] MEDS: BuSPIRONE 10 mg Tablet PO (18:02)
[2023-05-27] MEDS: apixaban 5 mg Tablet 2.5 MG PO (18:02)
[2023-05-27] MEDS: ondansetron 2 mg/ML SDV 2 mL 4 MG IVP (20:03)
[2023-05-28] VITALS (13 sets, daily range): BP systolic 84–106; BP diastolic 58–85; PULSE 89–107; RESP 14–20; TEMP 36.4–36.8; O2SAT 92–97
[2023-05-28] MEDS: levothyroxine 100 mcg Tablet PO (05:02)
[2023-05-28] MEDS: pantoprazole 40 mg SDV IVP (05:02)
[2023-05-28] MEDS: escitalopram 10 mg Tablet PO (05:02)
[2023-05-28] MEDS: amoxicillin-clav 875-125 mg Tablet 1 TAB PO ×2 (09:49→17:55)
[2023-05-28] MEDS: apixaban 5 mg Tablet 2.5 MG PO ×2 (09:49→17:55)
[2023-05-28] MEDS: magnesium oxide 400 mg tablet PO ×2 (09:49→17:54)
[2023-05-28] MEDS: amiodarone 200 mg Tablet 400 MG PO ×2 (09:49→17:54)
[2023-05-28] MEDS: DOVATO 1 EACH PO (09:49)
[2023-05-28] MEDS: BuSPIRONE 10 mg Tablet PO ×2 (09:49→17:54)
--- NOTE | 2023-05-28 11:14 | P.PN_ITS ---
Subjective 2 Subjective: Blood pressure slightly better today No need of fluids Noticed mild crackles on lung auscultation Patient is on 2 L of oxygen A-fib RVR heart rate fluctuating between 95-1 10 Vitals/I&O/Wt Last Vital Signs Temp 97.5 F L 05/28/23 04:21 Pulse 107 H 05/28/23 09:02 Resp 18 05/28/23 09:02 BP 84/58 05/28/23 08:32 Pulse Ox 92 05/28/23 09:02 O2 Del Method Room Air 05/28/23 09:02 O2 Flow Rate 2 05/27/23 13:00 FiO2 30 05/23/23 09:55 05/27/23 05/28/23 05/28/23 21:59 06:59 14:59 Intake Total Output Total 50 / 50 Balance -50 / -50 Weight last 48 hrs Weight 47.854 kg Weight 65.862 kg Physical Exam 2 Narrative: On lung auscultation has mild crackles base of the lungs Currently on 2 L Blue tenderness noted of toes patient was in dependent position Erickson catheter and consider urine Pleasant cooperative Did not eat his breakfast much A-fib RVR Urinary Catheter Management: Erickson: Cath Placed During This Visit: yes, but has since been removed by the nurse Reason for Continuing Indwelling Catheter: Decision to DC Catheter Urinary Catheter Date of Insertion: 05/20/23 Urinary Catheter Time of Insertion: 01:18 Date Urinary Catheter Removed: 05/28/23 Time Urinary Catheter Discontinued: 10:05 Data 05/27/23 04:04 05/27/23 04:04 A&P Assessment and plan (1) DNR (do not resuscitate): (2) CHF (congestive heart failure): Qualifiers: Heart failure type: combined systolic and diastolic Heart failure chronicity: chronic Qualified Code(s): I50.42 - Chronic combined systolic (congestive) and diastolic (congestive) heart failure (3) Ischemic cardiomyopathy: (4) Cardiogenic shock: (5) Arteriosclerotic coronary artery disease: (6) Cardiac arrest: (7) AICD (automatic cardioverter/defibrillator) present: (8) JAMAL (acute kidney injury): (9) Hypokalemia: (10) HIV (human immunodeficiency virus infection): (11) Acute respiratory failure: Qualifiers: Respiratory failure complication: unspecified whether with hypoxia or hypercapnia Qualified Code(s): J96.00 - Acute respiratory failure, unspecified whether with hypoxia or hypercapnia (12) Right lower lobe pulmonary infiltrate: Plan 78-year male who present to the hospital after cardiac arrest, likely V-fib, patient was scheduled to see Dr. Rankin for AICD placement, Dr. Rankin was consulted, patient was extubated successfully to nasal cannula, patient agreed for AICD placement, his goals of care were changed to DNR/DNI, he suffered from aspiration pneumonia required antibiotics, I have switched his IV antibiotics to p.o. regimen he has been afebrile, his EF is poor 15%, poor functional capacity that is why we are recommending long term placement however he has not been accepted anywhere yet, his blood pressure remains in low 90s however MAP above 65, I am avoiding giving him IV fluids because he has mild crackles in his lungs neck, requires 2 L of oxygen intermittently, patient is agreeable to go home with home health if he is not excepted at any long term will need another home oxygen evaluation, he will need 3 more days of antibiotics to finish the course Cardiac arrest status post AICD placement Aspiration pneumonia: Improving Systolic CHF: Avoid IV fluids, will give him Lasix at the time of discharge Clinically euvolemic urine is concentrated Remove Erickson catheter today JAMAL: Resolved with diuresis Hypokalemia: Replenished DNR/DNI Cardiac diet Appreciate PT recommendations A-fib RVR added digoxin with amiodarone continue Eliquis he can be transition to 5 mg twice a day it was 2.5 twice daily because of JAMAL Poor prognosis Medical DPOA is his GF Please note there is no family his niece is second person on medical DPOA paperwork she is in [place]. Goals of care has been discussed with the patient and medical DPOA, they are agreeable with DNR/DNI Considering poor functional status in case of further worsening palliative care should be discussed Attestations 2 Medical Necessity Statement*: Possible discharge on Monday Diagnoses DNR (do not resuscitate) Z66 Chronic combined systolic and diastolic congestive heart failure I50.42 Heart failure type: combined systolic and diastolic Heart failure chronicity: chronic Ischemic cardiomyopathy I25.5 Cardiogenic shock R57.0 Arteriosclerotic coronary artery disease I25.10 Cardiac arrest I46.9 AICD (automatic cardioverter/defibrillator) present Z95.810 JAMAL (acute kidney injury) N17.9 Hypokalemia E87.6 HIV (human immunodeficiency virus infection) B20 Acute respiratory failure J96.00 Respiratory failure complication: unspecified whether with hypoxia or hypercapnia Right lower lobe pulmonary infiltrate R91.8
[2023-05-28] MEDS: digoxin 125 mcg Tablet PO (11:52)
[2023-05-28] MEDS: HYDROcodone-acetaminophen 5-325 mg Tablet 1 TAB PO (17:54)
--- NOTE | 2023-05-28 21:28 | PC.NURSE ---
Received in hand off report that patient had not urinated since sebastian was discontinued this morning but that patient has not had very much to drink. Nurse encouraged patient to drink more water. Patient was bladder scanned at this time and revealed only 58ml in the bladder and the patient states he still has no urge to urinate. Will continue to monitor at this time.
[2023-05-28] MEDS: ALPRAZolam 0.5 mg Tablet PO (22:03)
[2023-05-29] VITALS (19 sets, daily range): BP systolic 90–123; BP diastolic 58–74; PULSE 71–112; RESP 20–30; TEMP 37.1; O2SAT 88–99
[2023-05-29] MEDS: pantoprazole 40 mg SDV IVP (02:52)
[2023-05-29] MEDS: ondansetron 2 mg/ML SDV 2 mL 4 MG IVP (02:52)
--- NOTE | 2023-05-29 03:49 | PC.NURSE ---
Patient called nurse with complaints of nausea. Administered PRN zofran which did not help to relieve nausea. Patient had episode of vomiting once after which he stated he felt a little bit better. The patient was bladder scanned at this time which only revealed 112ml in bladder, patient still has not voided and has no urge to urinate.
--- NOTE | 2023-05-29 07:23 | PM.DCS ---
Documented by User: Mery Ta MD 05/28/23 11:28 Discharge Providers Date of Admission: 05/20/23 03:42 Date of Discharge: May 28, 2023 Attending Provider at Admission: Romero Jimenez Attending Provider at Discharge: Mery Ta MD Primary Care Provider: Sonia Bustillo MD Diagnoses at Discharge Discharge Diagnosis (1) DNR (do not resuscitate): Status: Acute (2) CHF (congestive heart failure): Status: Acute Qualifiers: Heart failure chronicity: chronic Heart failure type: combined systolic and diastolic Qualified Code(s): I50.42 - Chronic combined systolic (congestive) and diastolic (congestive) heart failure Permanent problem details: 05/24/22: LVEF 15% (3) Ischemic cardiomyopathy: Status: Acute (4) Cardiogenic shock: Status: Acute (5) Arteriosclerotic coronary artery disease: Status: Acute (6) Cardiac arrest: Status: Acute Permanent problem details: Like related to V-fib ROSC obtained by the EMS, Patient extubated successfully to nasal cannula 05/22 (7) AICD (automatic cardioverter/defibrillator) present: Status: Acute Permanent problem details: Placed by Dr. Rankin 05/25/2023 (8) JAMAL (acute kidney injury): Status: Acute (9) Hypokalemia: Status: Acute (10) HIV (human immunodeficiency virus infection): Status: Acute (11) Acute respiratory failure: Status: Acute Qualifiers: Respiratory failure complication: unspecified whether with hypoxia or hypercapnia Qualified Code(s): J96.00 - Acute respiratory failure, unspecified whether with hypoxia or hypercapnia (12) Right lower lobe pulmonary infiltrate: Status: Acute Reason for Visit Reason for Visit: SOB Hospital Course Hospital Course 78-year-old male who was admitted on 05/19 after cardiac arrest, he was intubated by the EMS, patient suffered from V-fib, ROSC was obtained, was admitted to the ICU, left subclavian central line was placed, patient was on Levophed and dobutamine which was gradually weaned off, Dr. Rankin was consulted as there was plan for AICD placement, patient was successfully extubated to nasal cannula 05/22, patient is a from aspiration pneumonia for which she required IV antibiotics initially which was transitioned to Augmentin when he recovered, his cardiogenic shock signs and symptoms improved, his EF is 15%, he still has poor functional status, still at risk of higher mortality and morbidity, does not have any family member, medical DPOA is his girlfriend, niece is second person on his medical DPOA who lives in [place], goals of care discussed they were changed from full code to DNR/DNI. I do believe in case of further worsening we should discuss palliative care with the patient and his medical DPOA. Secondary to poor functional status physical therapy and senior care was recommended. It is very challenging to get him placed because of HIV medications. Please note his systolic blood pressure stays below 100 however MAP stays above 65 and remotely, at the time of discharge she will get Augmentin, Eliquis, digoxin and amiodarone. I have discontinued antihypertensive regimen and Coreg because of his persistently low blood pressure. Requires 2 L of oxygen intermittently. Does state that if he is ultimately not excepted to senior care he would like to go home instead. He states he has a friend whose name is Ulises who takes care of him and is able to help him with all his activities of daily living. Brady helps with meals, laundry and a lot of the other chores that the patient might need to take care of. He says that he can only rely on him and in the meantime as an outpatient can try to work on senior care placement if he feels he needs it later. He states his functionality has improved. He is able to use a walker and ambulate up to the bathroom now. He states he is getting better. We will discuss with case management today to see what the status of senior care is. If it will take another few days for placement set up patient says he would like to be notified and would opt going home instead. This document to serve as discharge summary if patient ends up leaving today. Physical Exam Narrative: Mild signs of fluid overload Request to michelle escobar AICD site unremarkable Vianca escobar Nonfocal neuroexam GCS 15 Urinary Catheter Management: Erickson: Cath Placed During This Visit: yes, but has since been removed by the nurse Reason for Continuing Indwelling Catheter: Decision to DC Catheter Urinary Catheter Date of Insertion: 05/20/23 Urinary Catheter Time of Insertion: 01:18 Date Urinary Catheter Removed: 05/28/23 Time Urinary Catheter Discontinued: 10:05 Discharge Data Studies Completed and Pending Completed Studies During Hospitalization Category Date Time Status CT head wo con* [id number] Routine Cat Scan 05/22/23 19:[address] head wo con* [id number] Stat Cat Scan 05/20/23 01:47 Completed CXRP [XR chest 1V portable [id number]] Stat Exams 05/20/23 02:14 Completed CXRP [XR chest 1V portable [id number]] Stat Exams 05/20/23 03:22 Completed XR chest 1V portable [id number] Routine Exams 05/26/23 06:00 Completed XR chest 1V portable [id number] Stat Exams 05/20/23 00:08 Completed XR chest 1V portable [id number] Stat Exams 05/20/23 00:53 Completed CV. echo complete* [id number] Routine Ultrasound 05/20/23 04:48 Completed US renal BI* [id number] Routine Ultrasound 05/20/23 04:57 Completed Pending at discharge Category Date Time Status Miscellaneous Test Routine Lab 05/20/23 07:08 Received Radiology Impressions Renal Ultrasound 05/20/23 04:57 IMPRESSION: 1. No hydronephrosis on either side. 2. Normal size kidneys with 2 millimetric right renal cysts. Head CT 05/22/23 19:42 IMPRESSION: Negative for acute intracranial pathology. Laboratory Results WBC 7.55 10^3/uL (3.29-11.43) 05/27/23 04:04 Corrected WBC Cancelled 05/20/23 00:28 RBC 5.16 10^6/uL (3.85-5.65) 05/27/23 04:04 Hgb 13.60 g/dL (11.27-16.99) 05/27/23 04:04 Hct 44.9 % (37-53) 05/27/23 04:04 MCV 87.0 fl (82-101) 05/27/23 04:04 MCH 26.4 pg (27-33) L 05/27/23 04:04 MCHC 30.3 g/dL (30-55) 05/27/23 04:04 RDW 20.5 % (12.1-15.1) H 05/27/23 04:04 Plt Count 141 10^3/cmm (157-399) L 05/27/23 04:04 MPV 11.3 fL (7.4-10.4) H 05/27/23 04:04 Gran % Cancelled 05/20/23 00:28 Neut % (Auto) 79.5 % 05/27/23 04:04 Lymph % (Auto) 10.1 % 05/27/23 04:04 Barron % (Auto) 7.2 % 05/27/23 04:04 Eos % (Auto) 1.2 % 05/27/23 04:04 Baso % (Auto) 0.7 % 05/27/23 04:04 Neut # (Auto) 6.01 10^3/uL (1.8-7.7) 05/27/23 04:04 Lymph # (Auto) 0.8 10^3/uL (0.8-4.8) 05/27/23 04:04 Barron # (Auto) 0.5 10^3/uL (0.2-0.9) 05/27/23 04:04 Eos # (Auto) 0.1 10^3/uL (0.0-0.8) 05/27/23 04:04 Baso # (Auto) 0.1 10^3/uL (0.0-0.1) 05/27/23 04:04 Absolute Gran (auto) Cancelled 05/20/23 00:28 Nucleated RBC % (auto) 0 % 05/27/23 04:04 Nucleated RBCs # 0.0 /100WBC 05/27/23 04:04 PT 24.70 SECONDS (12.1-14.9) H 05/20/23 01:36 INR 2.14 (0.8-1.2) H 05/20/23 01:36 Specimen Type Cancelled 05/23/23 09:03 Sample Site Cancelled 05/23/23 09:03 O2 Sat Pulse Oximetry Cancelled 05/23/23 09:03 ABG pH Cancelled 05/23/23 09:03 ABG pCO2 Cancelled 05/23/23 09:03 ABG pO2 Cancelled 05/23/23 09:03 ABG PO2/FiO2 Ratio Cancelled 05/23/23 09:03 ABG HCO3 Cancelled 05/23/23 09:03 ABG O2 Saturation Cancelled 05/23/23 09:03 ABG Base Excess Cancelled 05/23/23 09:03 Kevin Test Cancelled 05/23/23 09:03 A-a O2 Gradient Cancelled 05/23/23 09:03 Hematocrit Cancelled 05/23/23 09:03 Hgb O2 Saturation Cancelled 05/23/23 09:03 Carboxyhemoglobin Cancelled 05/23/23 09:03 Methemoglobin Cancelled 05/23/23 09:03 Total Hemoglobin Cancelled 05/23/23 09:03 Sodium Cancelled 05/23/23 09:03 Potassium Cancelled 05/23/23 09:03 Glucose Cancelled 05/23/23 09:03 Ionized Calcium Cancelled 05/23/23 09:03 Respiration Rate Cancelled 05/23/23 09:03 O2 Delivery Device Cancelled 05/23/23 09:03 O2 Liters/Min Cancelled 05/23/23 09:03 SIMV Cancelled 05/23/23 09:03 Vent Mode Cancelled 05/23/23 09:03 Mechanical Rate Cancelled 05/23/23 09:03 Spontaneous Rate Cancelled 05/23/23 09:03 FiO2 Cancelled 05/23/23 09:03 Tidal Volume Cancelled 05/23/23 09:03 PEEP Cancelled 05/23/23 09:03 Pressure Support Cancelled 05/23/23 09:03 Pressure Control Cancelled 05/23/23 09:03 CPAP Cancelled 05/23/23 09:03 Mode BiPAP Cancelled 05/23/23 09:03 Specimen Drawn By Cancelled 05/23/23 09:03 Oxygen Equipment Technician ID Cancelled 05/23/23 09:03 Crit Value Read Back Cancelled 05/23/23 09:03 Blood Gas Notified Time Cancelled 05/23/23 09:03 Sodium 137 mmol/L (136-145) 05/27/23 04:04 Potassium 3.7 mmol/L (3.5-5.1) 05/27/23 04:04 Chloride 98 mmol/L (98-107) 05/27/23 04:04 Carbon Dioxide 29 mmol/L (22-29) 05/27/23 04:04 Anion Gap 13.7 (5-19) 05/27/23 04:04 BUN 21 mg/dL (8-23) 05/27/23 04:04 Creatinine 1.0 mg/dL (0.7-1.2) 05/27/23 04:04 GFR Calculation Not Reportable 05/27/23 04:04 Glucose 99 mg/dL (65-115) 05/27/23 04:04 Calculated Osmolality 287 mOsm/kg (285-295) 05/27/23 04:04 Lactic Acid 5.8 mmol/L (0.5-2.2) H* 05/20/23 01:36 Lactic Acid (Sepsis) 5.3 mmol/L (0.5-2.2) H* 05/20/23 04:28 Lactate 1.2 mmol/L (0.5-2.2) 05/21/23 03:41 Calcium 8.4 mg/dL (8.5-10.5) L 05/27/23 04:04 Phosphorus 4.9 mg/dL (2.5-4.5) H 05/20/23 00:54 Magnesium 2.0 mg/dL (1.7-2.3) 05/26/23 03:27 Total Bilirubin 1.5 mg/dL (0.15-1.2) H 05/23/23 03:31 AST 14 U/L (0-40) 05/23/23 03:31 ALT 12 U/L (0-41) 05/23/23 03:31 Alkaline Phosphatase 103 U/L (40-130) 05/23/23 03:31 Troponin T Baseline 64 ng/L (0-15) H 05/20/23 00:54 Troponin T 120 Minute 63.29 ng/L (0-15) H 05/20/23 02:31 Delta Troponin T -0.71 ABS# (0-10) L 05/20/23 02:31 Troponin T Hi Sens 6Hr 117.9 ng/L (0-15) H 05/20/23 07:08 Troponin T Hi Sens 6Hr Delta 53.9 ng/L (0-12) H* 05/20/23 07:08 NT-Pro-B Natriuret Pep 6527 pg/mL (0-450) H 05/20/23 00:54 Total Protein 6.1 g/dL (6.6-8.7) L 05/23/23 03:31 Albumin 2.8 g/dL (3.5-5.2) L 05/23/23 03:31 Globulin 3.3 g/dL (1.3-4.6) 05/23/23 03:31 Procalcitonin 0.10 ng/mL (0-0.5) 05/20/23 00:54 TSH 8.78 uIU/mL (0.27-4.20) H 05/20/23 00:54 Random Cortisol 35.64 ug/dL (2.47-19.5) H 05/20/23 00:54 Vancomycin Trough 9.6 ug/mL (10-15) L 05/26/23 12:07 HIV-1 RNA copies/mL 1.58 (NOT DETECTED) H 05/20/23 07:08 HIV-1 RNA (PCR) log10 38 copies/mL (NOT DETECTED) H 05/20/23 07:08 Influenza Type A Ag negative (Negative) 05/20/23 02:38 Influenza Type B Ag negative (Negative) 05/20/23 02:38 SARS-CoV-2 Ag (Rapid) negative (Negative) 05/20/23 02:38 MRSA (PCR) Not detected (NOT DETECTED) 05/23/23 13:30 Vitals Last Vital Signs Temp 98.2 F 05/28/23 11:19 Pulse 93 05/28/23 11:19 Resp 18 05/28/23 11:19 BP 97/69 05/28/23 11:19 Pulse Ox 92 05/28/23 09:02 O2 Del Method Room Air 05/28/23 09:02 O2 Flow Rate 2 05/27/23 13:00 FiO2 30 05/23/23 09:55 Discharge Plan Discharge Patient Disposition: Home Condition: Stable Prescriptions: New magnesium oxide 400 mg (241.3 mg magnesium) Tablet 400 mg PO BID Qty: 6 0RF amoxicillin-pot clavulanate 875-125 mg Tablet 1 tab PO BID Qty: 6 0RF amiodarone [Pacerone] 200 mg Tablet 400 mg PO BID Qty: 120 4RF Rx Instructions: 400 mg twice a day for 7 days, then 400 mg daily digoxin 125 mcg (0.125 mg) Tablet 125 mcg PO DAILY Qty: 90 0RF Continued atorvastatin [Lipitor] 10 mg tablet 10 mg PO DAILY Qty: 90 3RF Plavix 75 mg tablet 75 mg PO QAM Qty: 90 3RF buspirone 10 mg tablet 10 mg PO BID Nitrostat 0.4 mg Tablet, Sublingual 0.4 mg SUBLINGUAL Q5M PRN (Reason: Chest Pain) Rx Instructions: do not exceed 3 doses per episode ondansetron 4 mg tablet,disintegrating 4 mg PO Q8H PRN (Reason: Nausea And Vomiting) potassium chloride 20 mEq tablet extended release 20 meq PO DAILY Dovato 50-300 mg tablet 1 tab PO DAILY levothyroxine 100 mcg tablet 100 mcg PO QAM escitalopram oxalate 10 mg tablet 10 mg PO QAM Changed Eliquis 2.5 mg tablet 5 mg PO BID Qty: 60 0RF furosemide 20 mg tablet 20 mg PO QAM PRN (Reason: Overload, weight gain, shortness of breath) Qty: 60 0RF Discontinued carvedilol 6.25 mg tablet 6.25 mg PO BID aspirin [Adult Low Dose Aspirin] 81 mg tablet,delayed release (DR/EC) 81 mg PO DAILY losartan 50 mg tablet 50 mg PO DAILY Qty: 90 3RF metolazone 2.5 mg tablet 2.5 mg PO EVERY OTHER DAY isosorbide mononitrate 60 mg tablet extended release 24 hr 60 mg PO QAM Referrals: [facility] [Provider Group] - 06/05/23 2:30 pm (If you need to reschedule, please call ) Sonia Bustillo MD [Primary Care Provider] - 06/02/23 10:30 am () Valentin Rankin MD [Physician] - 7-10 days Discharge Diet: Cardiac Discharge Activity: Increase activity as tolerated and As per PT/OT instructions Patient Instructions: Digoxin (By mouth), Amoxicillin/Clavulanate Potassium (By mouth) (Augmentin, Augmentin..., Amiodarone (By mouth) (Cordarone, Pacerone), Magnesium Oxide (By mouth) (Mag-Ox 400, [facility]..., Heart Failure (DC), Implantable Cardioverter Defibrillator (DC), CHF Stoplight, Opioid Safety, Post Pacemaker - Chucho Activity Restrictions/Additional Instructions: May resume eliquis on May 26 No lifting or pulling with left arm x 2 weeks Do not raise left hand above eye level x 2 weeks May remove surgical bandage on May 26 Then, paint incision with betadine and recover with bandage daily May begin showers with bandage off on May 28 Left arm sling may be removed if patient compliant with not using left arm excessively x 2 weeks Report any redness, swelling, drainage, or increasing pain from surgical site Coding Level of Care Code 35077 Diagnoses DNR (do not resuscitate) Z66 Chronic combined systolic and diastolic congestive heart failure I50.42 Heart failure chronicity: chronic Heart failure type: combined systolic and diastolic Ischemic cardiomyopathy I25.5 Cardiogenic shock R57.0 Arteriosclerotic coronary artery disease I25.10 Cardiac arrest I46.9 AICD (automatic cardioverter/defibrillator) present Z95.810 JAMAL (acute kidney injury) N17.9 Hypokalemia E87.6 HIV (human immunodeficiency virus infection) B20 Acute respiratory failure J96.00 Respiratory failure complication: unspecified whether with hypoxia or hypercapnia Right lower lobe pulmonary infiltrate R91.8 Documented by User: Eunice Rush MD 05/29/23 09:34 Diagnoses at Discharge Discharge Diagnosis (1) DNR (do not resuscitate): Status: Acute (2) CHF (congestive heart failure): Status: Acute Qualifiers: Heart failure chronicity: chronic Heart failure type: combined systolic and diastolic Qualified Code(s): I50.42 - Chronic combined systolic (congestive) and diastolic (congestive) heart failure Permanent problem details: 05/24/22: LVEF 15% (3) Ischemic cardiomyopathy: Status: Acute (4) Cardiogenic shock: Status: Acute (5) Arteriosclerotic coronary artery disease: Status: Acute (6) Cardiac arrest: Status: Acute Permanent problem details: Like related to V-fib ROSC obtained by the EMS, Patient extubated successfully to nasal cannula 05/22 (7) AICD (automatic cardioverter/defibrillator) present: Status: Acute Permanent problem details: Placed by Dr. Rankin 05/25/2023 (8) JAMAL (acute kidney injury): Status: Acute (9) Hypokalemia: Status: Acute (10) HIV (human immunodeficiency virus infection): Status: Acute (11) Acute respiratory failure: Status: Acute Qualifiers: Respiratory failure complication: unspecified whether with hypoxia or hypercapnia Qualified Code(s): J96.00 - Acute respiratory failure, unspecified whether with hypoxia or hypercapnia (12) Right lower lobe pulmonary infiltrate: Status: Acute Reason for Visit Reason for Visit: SOB Hospital Course Hospital Course 78-year-old male who was admitted on 05/19 after cardiac arrest, he was intubated by the EMS, patient suffered from V-fib, ROSC was obtained, was admitted to the ICU, left subclavian central line was placed, patient was on Levophed and dobutamine which was gradually weaned off, Dr. Rankin was consulted as there was plan for AICD placement, patient was successfully extubated to nasal cannula 05/22, patient is a from aspiration pneumonia for which she required IV antibiotics initially which was transitioned to Augmentin when he recovered, his cardiogenic shock signs and symptoms improved, his EF is 15%, he still has poor functional status, still at risk of higher mortality and morbidity, does not have any family member, medical DPOA is his girlfriend, niece is second person on his medical DPOA who lives in [place], goals of care discussed they were changed from full code to DNR/DNI. I do believe in case of further worsening we should discuss palliative care with the patient and his medical DPOA. Secondary to poor functional status physical therapy and senior care was recommended. It is very challenging to get him placed because of HIV medications. Please note his systolic blood pressure stays below 100 however MAP stays above 65 and remotely, at the time of discharge she will get Augmentin, Eliquis, digoxin and amiodarone. I have discontinued antihypertensive regimen and Coreg because of his persistently low blood pressure. Requires 2 L of oxygen intermittently. Does state that if he is ultimately not excepted to senior care he would like to go home instead. He states he has a friend whose name is Ulises who takes care of him and is able to help him with all his activities of daily living. Brady helps with meals, laundry and a lot of the other chores that the patient might need to take care of. He says that he can only rely on him and in the meantime as an outpatient can try to work on senior care placement if he feels he needs it later. He states his functionality has improved. He is able to use a walker and ambulate up to the bathroom now. He states he is getting better. We will discuss with case management today to see what the status of senior care is. If it will take another few days for placement set up patient says he would like to be notified and would opt going home instead. This document to serve as discharge summary if patient ends up leaving today. Physical Exam Narrative: Euvolemic today. Lungs clear to auscultation bilaterally mild rhonchi at bases [facility] AICD site unremarkable [facility] Nonfocal neuroexam GCS 15 Normal S1-S2 Abdomen soft nontender No edema bilateral lower extremities Urinary Catheter Management: Erickson: Cath Placed During This Visit: yes, but has since been removed by the nurse Discharge Plan Discharge Patient Disposition: Home Condition: Stable Prescriptions: New magnesium oxide 400 mg (241.3 mg magnesium) Tablet 400 mg PO BID Qty: 6 0RF amoxicillin-pot clavulanate 875-125 mg Tablet 1 tab PO BID Qty: 6 0RF amiodarone [Pacerone] 200 mg Tablet 400 mg PO BID Qty: 120 4RF Rx Instructions: 400 mg twice a day for 7 days, then 400 mg daily digoxin 125 mcg (0.125 mg) Tablet 125 mcg PO DAILY Qty: 90 0RF Continued atorvastatin [Lipitor] 10 mg tablet 10 mg PO DAILY Qty: 90 3RF Plavix 75 mg tablet 75 mg PO QAM Qty: 90 3RF buspirone 10 mg tablet 10 mg PO BID Nitrostat 0.4 mg Tablet, Sublingual 0.4 mg SUBLINGUAL Q5M PRN (Reason: Chest Pain) Rx Instructions: do not exceed 3 doses per episode ondansetron 4 mg tablet,disintegrating 4 mg PO Q8H PRN (Reason: Nausea And Vomiting) potassium chloride 20 mEq tablet extended release 20 meq PO DAILY Dovato 50-300 mg tablet 1 tab PO DAILY levothyroxine 100 mcg tablet 100 mcg PO QAM escitalopram oxalate 10 mg tablet 10 mg PO QAM Changed Eliquis 2.5 mg tablet 5 mg PO BID Qty: 60 0RF furosemide 20 mg tablet 20 mg PO QAM PRN (Reason: Overload, weight gain, shortness of breath) Qty: 60 0RF Discontinued carvedilol 6.25 mg tablet 6.25 mg PO BID aspirin [Adult Low Dose Aspirin] 81 mg tablet,delayed release (DR/EC) 81 mg PO DAILY losartan 50 mg tablet 50 mg PO DAILY Qty: 90 3RF metolazone 2.5 mg tablet 2.5 mg PO EVERY OTHER DAY isosorbide mononitrate 60 mg tablet extended release 24 hr 60 mg PO QAM Referrals: [facility] [Provider Group] - 06/05/23 2:30 pm (If you need to reschedule, please call ) Sonia Bustillo MD [Primary Care Provider] - 06/02/23 10:30 am () Valentin Rankin MD [Physician] - 7-10 days Discharge Diet: Cardiac Discharge Activity: Increase activity as tolerated and As per PT/OT instructions Patient Instructions: Digoxin (By mouth), Amoxicillin/Clavulanate Potassium (By mouth) (Augmentin, Augmentin..., Amiodarone (By mouth) (Cordarone, Pacerone), Magnesium Oxide (By mouth) (Mag-Ox 400, [place] [facility]..., Heart Failure (DC), Implantable Cardioverter Defibrillator (DC), CHF Stoplight, Opioid Safety, Post Pacemaker - Chucho Activity Restrictions/Additional Instructions: May resume eliquis on Monday, May 26 No lifting or pulling with left arm x 2 weeks Do not raise left hand above eye level x 2 weeks May remove surgical bandage on May 26 Then, paint incision with betadine and recover with bandage daily May begin showers with bandage off on May 28 Left arm sling may be removed if patient compliant with not using left arm excessively x 2 weeks Report any redness, swelling, drainage, or increasing pain from surgical site Discharge Attestations Time Spent in Discharge Care*: greater than 30 min Quality Metrics Clinical Quality Measures [ No reported AMI, CVA or VTE this stay] Coding Level of Care Code 50531 Total time (in minutes) for Discharge: 45 Diagnoses DNR (do not resuscitate) Z66 Chronic combined systolic and diastolic congestive heart failure I50.42 Heart failure chronicity: chronic Heart failure type: combined systolic and diastolic Ischemic cardiomyopathy I25.5 Cardiogenic shock R57.0 Arteriosclerotic coronary artery disease I25.10 Cardiac arrest I46.9 AICD (automatic cardioverter/defibrillator) present Z95.810 JAMAL (acute kidney injury) N17.9 Hypokalemia E87.6 HIV (human immunodeficiency virus infection) B20 Acute respiratory failure J96.00 Respiratory failure complication: unspecified whether with hypoxia or hypercapnia Right lower lobe pulmonary infiltrate R91.8
[2023-05-29] MEDS: DOVATO 1 EACH PO (09:23)
[2023-05-29] MEDS: amoxicillin-clav 875-125 mg Tablet 1 TAB PO ×2 (09:24→17:44)
[2023-05-29] MEDS: digoxin 125 mcg Tablet PO (09:24)
[2023-05-29] MEDS: magnesium oxide 400 mg tablet PO ×2 (09:24→17:44)
[2023-05-29] MEDS: amiodarone 200 mg Tablet 400 MG PO ×2 (09:24→17:44)
[2023-05-29] MEDS: BuSPIRONE 10 mg Tablet PO ×2 (09:24→17:44)
[2023-05-29] MEDS: apixaban 5 mg Tablet 2.5 MG PO ×2 (09:25→17:44)
[2023-05-29] MEDS: sodium chloride 0.9% 250 ML IV ×2 (09:26→09:38)
[2023-05-29] MEDS: escitalopram 10 mg Tablet PO (09:27)
[2023-05-29] MEDS: levothyroxine 100 mcg Tablet PO (09:27)
[2023-05-29 12:31] LABS: Anion Gap 17.3 (5-19); Blood Urea Nitrogen 26 mg/dL (8-23); Calcium 8.7 mg/dL (8.5-10.5); Carbon Dioxide 26 mmol/L (22-29); Chloride 97 mmol/L (98-107); Creatinine Clr Calc Pharmacy 43.2103; Glucose 103 mg/dL (65-115); NT Pro B Type Natriuretic Pept 22501 pg/mL (0-450); Osmolality Calculated 287 mOsm/kg (285-295); Potassium 4.3 mmol/L (3.5-5.1); Sodium 136 mmol/L (136-145)
--- NOTE | 2023-05-29 12:57 | PC.SOCIAL ---
IMM update pg 2 of IMM updated and reviewed w/ patient. Copy provided and copy dated, initialed and placed in chart.
[2023-05-29] MEDS: FUROsemide 10 mg/mL SDV 4mL 40 MG IVP (13:57)
--- NOTE | 2023-05-29 16:57 | XRR_ITS ---
PROCEDURE INFORMATION: Exam: XR Chest Exam date and time: 05/29/2023 5:14 PM Age: 78 years old Clinical indication: Shortness of breath; Additional info: Hf, ef 10% TECHNIQUE: Imaging protocol: Radiologic exam of the chest. Views: 1 view. COMPARISON: CR XR chest 1V portable [id number] 05/26/2023 3:48 AM FINDINGS: Lungs: No focal consolidation. Pleural spaces: No evidence of pneumothorax. Small bilateral pleural effusions. Heart/Mediastinum: Moderate cardiomegaly. 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 Left subclavian approach single lead pacemaker ICD. Bones/joints: No evidence of acute osseous abnormality. XR/XR chest 1V portable [id number] IMPRESSION: 1. Cardiomegaly and small bilateral pleural effusions.
--- NOTE | 2023-05-29 17:00 | W.PM.EVENTAC ---
Event Note Event Note: Patient has had little to no urine output in the last 24 hours. Unresponsive to Lasix. Lasix has been increased to 40 IV twice daily. BNP 22,000. We will consult cardiology. Patient may require dobutamine drip again. He will also require ischemic workup. Discussed with Dr. Palomares, who will consult on patient.
--- NOTE | 2023-05-29 17:52 | P.CONIM_ITS ---
Providers/Reason For Consult 2 Consulting Physician/Specialty*: TERE Palomares MD/cardiology Reason for Consult*: Patient with advanced heart failure, oliguria Attending Physician: Eunice Rush MD Primary Care Provider: Sonia Bustillo MD History of Present Illness History of Present Illness Stanislaw Nair is a 78 year old male history of atherosclerotic heart disease, severe LV systolic dysfunction, was admitted to hospital with features of decompensated heart failure. Apparently the patient went into ventricular fibrillation and was successfully resuscitated. Subsequently he underwent ICD implantation. Currently the patient is very oligoanuric. Cardiology consult is requested for further cardiac evaluation recommendations. This patient is known to have recurrent decompensated heart failure. His LV ejection fraction was around 10 to 15% by echocardiogram, on 05/20/23. He denies any chest pain or chest tightness. He had a cardiac catheterization in 2020. He was found to have a patent PELAEZ to the LAD and venous graft to the RCA. He had a high-grade lesion in the mid circumflex artery which was found to be not amenable for PCI. So it was opted to treat him medically at that time. Currently he has no fever or chills. No cough. Patient also was found to have features of acute kidney injury, possible right lower lobe infiltrate. He is a DNR status. He has a history of non-Hodgkin's lymphoma, HIV, hypothyroidism, atrial fibrillation and high blood pressure. Review of Systems 2 Narrative: CONSTITUTIONAL: No fever or chills. History generalized weakness EYES: No blurring of vision or other visual disturbances lately. ENT: No hoarseness of voice, auditory disturbances or sore throat. CARDIOVASCULAR: As mentioned above. RESPIRATORY: No significant cough. GASTROINTESTINAL: No hematemesis or melena. GENITOURINARY: No dysuria or hematuria. INTEGUMENTARY: No skin rashes or history of skin cancer. NEURO: No transient ischemic attacks or amaurosis. PSYCHIATRIC: No history of psychosis or major depression. HEMATOLOGIC: No bleeding disorders or significant anemia. ENDOCRINE: No history of polyuria or polydipsia. MUSCULOSKELETAL: No recent joint pain or swelling. ALLERGY/IMMUNOLOGY: As mentioned above. Medications/Allergies Home Medications Medication Instructions Recorded Confirmed Last Taken Type aspirin 81 mg tablet,delayed 81 mg PO DAILY 07/24/19 05/20/23 05/16/23 History release (Adult Low Dose Aspirin) carvedilol 6.25 mg tablet 6.25 mg PO BID 07/24/19 05/20/23 05/17/23 History losartan 50 mg tablet 50 mg PO DAILY #90 tabs 12/13/21 05/20/23 05/17/23 Rx atorvastatin 10 mg tablet (Lipitor) 10 mg PO DAILY #90 tabs 11/16/22 05/20/23 05/17/23 Rx escitalopram oxalate 10 mg tablet 10 mg PO QAM 01/13/23 05/20/23 05/17/23 History furosemide 20 mg tablet 20 mg PO QAM 01/13/23 05/20/23 05/16/23 History isosorbide mononitrate 60 mg 60 mg PO QAM 01/13/23 05/20/23 05/17/23 History tablet,extended release 24 hr levothyroxine 100 mcg tablet 100 mcg PO QAM 01/13/23 05/20/23 05/17/23 History clopidogrel 75 mg tablet (Plavix) 75 mg PO QAM #90 tabs 03/06/23 05/20/23 05/15/23 Rx apixaban 2.5 mg tablet (Eliquis) 2.5 mg PO BID 04/18/23 05/20/23 05/17/23 History buspirone 10 mg tablet 10 mg PO BID 05/20/23 05/20/23 Unknown History dolutegravir 50 mg-lamivudine 300 1 tab PO DAILY 05/20/23 05/20/23 Unknown History mg tablet (Dovato) metolazone 2.5 mg tablet 2.5 mg PO EVERY OTHER DAY 05/20/23 05/20/23 Unknown History nitroglycerin 0.4 mg sublingual 0.4 mg sublingual Q5M PRN Chest 05/20/23 05/20/23 Unknown History tablet (Nitrostat) Pain ondansetron 4 mg disintegrating 4 mg PO Q8H PRN Nausea And Vomiting 05/20/23 05/20/23 Unknown History tablet potassium chloride 20 mEq 20 meq PO DAILY 05/20/23 05/20/23 Unknown History tablet,extended release Allergies Allergy/AdvReac Type Severity Reaction Status Date / Time No Known Allergies Allergy Verified 05/01/23 10:13 Current Medications Generic Name Dose Route Start Last Admin Trade Name Freq PRN Reason Stop Dose Admin Acetaminophen 650 mg 05/20/23 04:48 05/26/23 02:35 Acetaminophen 325 Mg Tablet PO 650 mg Q6H PRN Administration Mild/Mod Pain Or Temp >/= 101 Hydrocodone Bitart/Acetaminophen 1 tab 05/25/23 20:03 05/28/23 17:54 Hydrocodone-Acetaminophen 5-325 Mg Tablet PO 1 tab Q4H PRN Administration MODERATE PAIN Alprazolam 0.5 mg 05/26/23 16:19 05/28/23 22:03 Alprazolam 0.5 Mg Tablet PO 0.5 mg BID PRN Administration ANXIETY Amiodarone HCl 400 mg 05/23/23 18:00 05/29/23 17:44 Amiodarone 200 Mg Tablet PO 400 mg BID SHAMIKA Administration Amoxicillin/Clavulanate Potassium 1 tab 05/26/23 18:00 05/29/23 17:44 Amoxicillin-Clav 875-125 Mg Tablet PO 1 tab BID SHAMIKA Administration Protocol Apixaban 2.5 mg 05/27/23 18:00 05/29/23 17:44 Apixaban 5 Mg Tablet PO 2.5 mg BID SHAMIKA Administration Buspirone HCl 10 mg 05/27/23 18:00 05/29/23 17:44 Buspirone 10 Mg Tablet PO 10 mg BID SHAMIKA Administration Denture Adhesive 1 applic 05/27/23 08:09 05/27/23 08:32 Fixodent 39 Gm Tube DENTAL 1 applic PRN PRN Administration denture adhesive Digoxin 125 mcg 05/28/23 11:15 05/29/23 09:24 Digoxin 125 Mcg Tablet PO 125 mcg DAILY SHAMIKA Administration Escitalopram Oxalate 10 mg 05/28/23 06:00 05/29/23 09:27 Escitalopram 10 Mg Tablet PO 10 mg QAM SHAMIKA Administration Levothyroxine Sodium 100 mcg 05/22/23 06:00 05/29/23 09:27 Levothyroxine 100 Mcg Tablet PO 100 mcg QAM SHAMIKA Administration Magnesium Oxide 400 mg 05/24/23 18:00 05/29/23 17:44 Magnesium Oxide 400 Mg Tablet PO 400 mg BID SHAMIKA Administration Non-Formulary Med ( 1 each 05/27/23 13:00 05/29/23 09:23 Dovato 50-300 Mg Tab PO 1 each ) DAILY SHAMIKA Administration Ondansetron HCl 4 mg 05/20/23 04:48 05/29/23 02:52 Ondansetron 2 Mg/Ml Sdv 2 Ml IVP 4 mg Q8H PRN Administration vomiting, or N/V if npo Pantoprazole Sodium 40 mg 05/20/23 04:48 05/29/23 02:52 Pantoprazole 40 Mg Sdv IVP 40 mg Q24H SHAMIKA Administration PFSH Acute 2 PFSH: Medical History Hypothyroidism Atrial fibrillation with RVR History of non-Hodgkin's lymphoma HIV (human immunodeficiency virus infection) CHF (congestive heart failure) 05/24/22: LVEF 15% Arteriosclerotic coronary artery disease HTN (hypertension) Surgical History History of coronary artery bypass graft S/P PTCA (percutaneous transluminal coronary angioplasty) Family History Mother Diabetes CAD (coronary artery disease) Hypertension Father Diabetes CAD (coronary artery disease) Hypertension Brother CAD (coronary artery disease) Stroke Social History Smoking and tobacco/nicotine status: never used tobacco/nicotine Vitals/I&O/Wt Last Vital Signs Temp 97.6 F 05/28/23 23:18 Pulse 91 05/29/23 09:32 Resp 22 H 05/29/23 09:32 BP 123/72 05/29/23 10:25 Pulse Ox 94 05/29/23 09:32 O2 Del Method Room Air 05/29/23 09:32 O2 Flow Rate 2 05/27/23 13:00 FiO2 30 05/23/23 09:55 05/29/23 05/29/23 05/29/23 06:59 14:59 22:59 Intake Total 105 / 1910 1020 / 1020 Output Total 105 / 105 50 / 155 Balance 105 / 1800 915 / 915 -50 / 865 Weight last 48 hrs Weight 120 lb 14.4 oz Weight 105 lb 8 oz Physical Exam 2 Narrative: GENERAL: The patient is alert and oriented times three. Lethargic , generalized emaciation HEENT: Mild pallor. No significant pallor, icterus or lymphadenopathy.Oral cavity: There are no mucous membrane lesions. NECK: Trachea appears to be central. No masses noted. No JVD or thyromegaly appreciated. RESPIRATORY: Chest is symmetrical. No intercostals muscle retraction or any accessory muscle activation. There is no chest wall tenderness. Breath sounds are heard bilaterally. Occasional scattered crackles. Breath sounds are diminished in the bases. BREASTS: Deferred. HEART: The heart sounds are normal. Soft S3. No S4.. Short systolic murmur in the left sternal border. No pericardial rub ABDOMEN: No vessel pulsations or distention. No tenderness. Slightly distended. Bowel sounds are normally heard. : Deferred. RECTAL: Deferred. LYMPHATIC: No lymphadenopathy noted in the neck. EXTREMITIES: 1-2+ edema both lower extremities. Cold and clammy extremities. Peripheral pulses are weak bilaterally. MUSCULOSKELETAL: No acute joint deformities or swelling SKIN: There are no significant rashes or ecchymosis NEUROPSYCHIATRIC: The patient is alert and oriented x3. No focal motor deficits. Urinary Catheter Management: Erickson: Cath Placed During This Visit: yes, but has since been removed by the nurse Reason for Continuing Indwelling Catheter: Decision to DC Catheter Urinary Catheter Date of Insertion: 05/20/23 Urinary Catheter Time of Insertion: 01:18 Date Urinary Catheter Removed: 05/28/23 Time Urinary Catheter Discontinued: 10:05 Data 05/27/23 04:04 05/29/23 11:46 Other Labs: Laboratory Last Values WBC 7.55 10^3/uL (3.29-11.43) 05/27/23 04:04 Corrected WBC Cancelled 05/20/23 00:28 RBC 5.16 10^6/uL (3.85-5.65) 05/27/23 04:04 Hgb 13.60 g/dL (11.27-16.99) 05/27/23 04:04 Hct 44.9 % (37-53) 05/27/23 04:04 MCV 87.0 fl (82-101) 05/27/23 04:04 MCH 26.4 pg (27-33) L 05/27/23 04:04 MCHC 30.3 g/dL (30-55) 05/27/23 04:04 RDW 20.5 % (12.1-15.1) H 05/27/23 04:04 Plt Count 141 10^3/cmm (157-399) L 05/27/23 04:04 MPV 11.3 fL (7.4-10.4) H 05/27/23 04:04 Gran % Cancelled 05/20/23 00:28 Neut % (Auto) 79.5 % 05/27/23 04:04 Lymph % (Auto) 10.1 % 05/27/23 04:04 [place] % (Auto) 7.2 % 05/27/23 04:04 Eos % (Auto) 1.2 % 05/27/23 04:04 Baso % (Auto) 0.7 % 05/27/23 04:04 Neut # (Auto) 6.01 10^3/uL (1.8-7.7) 05/27/23 04:04 Lymph # (Auto) 0.8 10^3/uL (0.8-4.8) 05/27/23 04:04 [place] # (Auto) 0.5 10^3/uL (0.2-0.9) 05/27/23 04:04 Eos # (Auto) 0.1 10^3/uL (0.0-0.8) 05/27/23 04:04 Baso # (Auto) 0.1 10^3/uL (0.0-0.1) 05/27/23 04:04 Absolute Gran (auto) Cancelled 05/20/23 00:28 Nucleated RBC % (auto) 0 % 05/27/23 04:04 Nucleated RBCs # 0.0 /100WBC 05/27/23 04:04 PT 24.70 SECONDS (12.1-14.9) H 05/20/23 01:36 INR 2.14 (0.8-1.2) H 05/20/23 01:36 Specimen Type Cancelled 05/23/23 09:03 Sample Site Cancelled 05/23/23 09:03 O2 Sat Pulse Oximetry Cancelled 05/23/23 09:03 ABG pH Cancelled 05/23/23 09:03 ABG pCO2 Cancelled 05/23/23 09:03 ABG pO2 Cancelled 05/23/23 09:03 ABG PO2/FiO2 Ratio Cancelled 05/23/23 09:03 ABG HCO3 Cancelled 05/23/23 09:03 ABG O2 Saturation Cancelled 05/23/23 09:03 ABG Base Excess Cancelled 05/23/23 09:03 Kevin Test Cancelled 05/23/23 09:03 A-a O2 Gradient Cancelled 05/23/23 09:03 Hematocrit Cancelled 05/23/23 09:03 Hgb O2 Saturation Cancelled 05/23/23 09:03 Carboxyhemoglobin Cancelled 05/23/23 09:03 Methemoglobin Cancelled 05/23/23 09:03 Total Hemoglobin Cancelled 05/23/23 09:03 Sodium Cancelled 05/23/23 09:03 Potassium Cancelled 05/23/23 09:03 Glucose Cancelled 05/23/23 09:03 Ionized Calcium Cancelled 05/23/23 09:03 Respiration Rate Cancelled 05/23/23 09:03 O2 Delivery Device Cancelled 05/23/23 09:03 O2 Liters/Min Cancelled 05/23/23 09:03 SIMV Cancelled 05/23/23 09:03 Vent Mode Cancelled 05/23/23 09:03 Mechanical Rate Cancelled 05/23/23 09:03 Spontaneous Rate Cancelled 05/23/23 09:03 FiO2 Cancelled 05/23/23 09:03 Tidal Volume Cancelled 05/23/23 09:03 PEEP Cancelled 05/23/23 09:03 Pressure Support Cancelled 05/23/23 09:03 Pressure Control Cancelled 05/23/23 09:03 CPAP Cancelled 05/23/23 09:03 Mode BiPAP Cancelled 05/23/23 09:03 Specimen Drawn By Cancelled 05/23/23 09:03 Staff Radiographer ID Cancelled 05/23/23 09:03 Crit Value Read Back Cancelled 05/23/23 09:03 Blood Gas Notified Time Cancelled 05/23/23 09:03 Sodium 136 mmol/L (136-145) 05/29/23 11:46 Potassium 4.3 mmol/L (3.5-5.1) 05/29/23 11:46 Chloride 97 mmol/L (98-107) L 05/29/23 11:46 Carbon Dioxide 26 mmol/L (22-29) 05/29/23 11:46 Anion Gap 17.3 (5-19) 05/29/23 11:46 BUN 26 mg/dL (8-23) H 05/29/23 11:46 Creatinine 1.2 mg/dL (0.7-1.2) 05/29/23 11:46 GFR Calculation Not Reportable 05/29/23 11:46 Glucose 103 mg/dL (65-115) 05/29/23 11:46 Calculated Osmolality 287 mOsm/kg (285-295) 05/29/23 11:46 Lactic Acid 5.8 mmol/L (0.5-2.2) H* 05/20/23 01:36 Lactic Acid (Sepsis) 5.3 mmol/L (0.5-2.2) H* 05/20/23 04:28 Lactate 1.2 mmol/L (0.5-2.2) 05/21/23 03:41 Calcium 8.7 mg/dL (8.5-10.5) 05/29/23 11:46 Phosphorus 4.9 mg/dL (2.5-4.5) H 05/20/23 00:54 Magnesium 2.0 mg/dL (1.7-2.3) 05/26/23 03:27 Total Bilirubin 1.5 mg/dL (0.15-1.2) H 05/23/23 03:31 AST 14 U/L (0-40) 05/23/23 03:31 ALT 12 U/L (0-41) 05/23/23 03:31 Alkaline Phosphatase 103 U/L (40-130) 05/23/23 03:31 Troponin T Baseline 64 ng/L (0-15) H 05/20/23 00:54 Troponin T 120 Minute 63.29 ng/L (0-15) H 05/20/23 02:31 Delta Troponin T -0.71 ABS# (0-10) L 05/20/23 02:31 Troponin T Hi Sens 6Hr 117.9 ng/L (0-15) H 05/20/23 07:08 Troponin T Hi Sens 6Hr Delta 53.9 ng/L (0-12) H* 05/20/23 07:08 NT-Pro-B Natriuret Pep 62444 pg/mL (0-450) H 05/29/23 11:46 Total Protein 6.1 g/dL (6.6-8.7) L 05/23/23 03:31 Albumin 2.8 g/dL (3.5-5.2) L 05/23/23 03:31 Globulin 3.3 g/dL (1.3-4.6) 05/23/23 03:31 Procalcitonin 0.10 ng/mL (0-0.5) 05/20/23 00:54 TSH 8.78 uIU/mL (0.27-4.20) H 05/20/23 00:54 Random Cortisol 35.64 ug/dL (2.47-19.5) H 05/20/23 00:54 Vancomycin Trough 9.6 ug/mL (10-15) L 05/26/23 12:07 HIV-1 RNA copies/mL 1.58 (NOT DETECTED) H 05/20/23 07:08 HIV-1 RNA (PCR) log10 38 copies/mL (NOT DETECTED) H 05/20/23 07:08 Influenza Type A Ag negative (Negative) 05/20/23 02:38 Influenza Type B Ag negative (Negative) 05/20/23 02:38 SARS-CoV-2 Ag (Rapid) negative (Negative) 05/20/23 02:38 MRSA (PCR) Not detected (NOT DETECTED) 05/23/23 13:30 Other data: Cardiac catheterization on 05/15/2020 Diagnostic Findings * LM: Mild 20% stenosis, PAIGE: 3 flow. * pLAD: Severe 90% stenosis, PAIGE: 3 flow. * mLAD: Severe 100% stenosis, PAIGE: 0 flow. * mCIRC: Severe 99% stenosis, PAIGE: 3 flow. * pRCA: Severe 99% stenosis, PAIGE: 2 flow. * dRCA: Severe 90% stenosis, PAIGE: 2 flow. * Two grafts visualized. * PELAEZ to dLAD: patent. * SVG to RPDA: patent. * Coronary angiography shows right dominance. PCI Status: Elective PCI Indication: New Onset Angina <= 2 months Interventional Findings * Unsuccessful attempt to cross mid circumflex despite of using different wires and techniques. Refer for STRIPPING SHOVEL OPERATOR revascularization if fails medical management. Conclusions 1. I was not able to find graft to circumflex despite of aortogram. RIVERA was not attached. Most likely skip graft from PELAEZ to circumflex if present is not patent. Mid circumflex is the culprit vessel. Is highly calcified 99% subtotally occluded chronically occluded vessel which is the culprit.. 2. There is severe coronary artery disease with four vessel disease. 3. All grafts patent. 4. Patient has prior CABG. 5. Ascending aortogram was performed, no aneurysm noted. No saphenous venous graft to obtuse marginal seen.. A&P Assessment and plan (1) CHF (NYHA class IV, ACC/AHA stage D): The patient with severe LV systolic dysfunction and features of advanced heart failure. The oliguria, most likely related to the low output state. At this point, it may start him on IV Dobutrex 5 mics per KG per minute. Doses may be gradually advanced. Based on the clinical response, further management decisions will be made. I have ordered an EKG to look for interval changes (2) Ventricular fibrillation: Status post successful resuscitation. (3) AICD (automatic cardioverter/defibrillator) present: Status post ICD implantation, ICD function appears to be appropriate. (4) Atherosclerotic heart disease of [place] coronary artery without angina pectoris: The most recent cardiac catheterization was done in 2020. In the absence of any chest pain, I may hold off on any invasive workup for the time being. Qualifiers: [place] vs. transplanted heart: [place] heart Qualified Code(s): I25.10 - Atherosclerotic heart disease of [place] coronary artery without angina pectoris (5) Intermittent atrial fibrillation: Patient is on long-term oral anticoagulation. This may be continued. (6) JAMAL (acute kidney injury): Kidney function seems to be stable at this time. May continue on the current measures. Plan Based on the clinical response, further recommendations will be made. He may be continue on the other current medications for the time being Thank you for the opportunity to evaluate this patient and make thes recommendations Consult Attestations 2 Medical Necessity Statement: The EKG from -05/13 Atrial fibrillation with controlled ventricular response rate. Diffuse nonspecific T wave changes. Features of incomplete right bundle branch block. The echocardiogram revealed LV systolic function is severely reduced with EF of 10 to 15%. Right ventricle is hypokinetic Biatrial dilation Severe mitral regurgitation Mild aortic regurgitation Mild tricuspid regurgitation Mild pulmonic regurgitation IVC is dilated. Compared to prior echocardiogram from 01/2023 no significant changes are seen Coding Level of Care Code 05219 Diagnoses CHF (NYHA class IV, ACC/AHA stage D) I50.84 Ventricular fibrillation I49.01 AICD (automatic cardioverter/defibrillator) present Z95.810 Atherosclerosis of [place] coronary artery of [place] heart without angina pectoris I25.10 [place] vs. transplanted heart: [place] heart Intermittent atrial fibrillation I48.0 JAMAL (acute kidney injury) N17.9
[2023-05-29] MEDS: DOBUTamine drip 500 MG/250 ML PREMIX 8.23000000000000043 MG IV (19:39)
--- NOTE | 2023-05-29 20:35 | ECG_ITS ---
[facility] Test Date: 2023-05-29 Pat Name: Stanislaw Nair Department: Room: 112 Gender: Male Overlay Pl[employer]ian: : 1945 Requested By: Zak Palomares Order Number: [id number] Мария MD: Zak Palomares M.D. Measurements Intervals [place] Rate: 80 P: 0 CT: 0 QRS: -2 QRSD: 100 T: 60 QT: 421 QTc: 486 Interpretive Statements ATRIAL FIBRILLATION INFERIOR MYOCARDIAL INFARCTION , PROBABLY OLD [40+ ms Q WAVE AND/OR ST/T ABNORMALITY IN II/aVF] Compared to ECG 05/20/2023 01:44:41 Myocardial infarct finding now present T-wave abnormality no longer present Electronically Signed On 05-30-2023 23:10:27 CDT by Zak Palomares M.D. [email or web address]
[2023-05-29] MEDS: ALPRAZolam 0.5 mg Tablet PO (21:44)
[2023-05-30] VITALS (16 sets, daily range): BP systolic 98–121; BP diastolic 55–75; PULSE 73–86; RESP 15–27; TEMP 35.7–36.6; O2SAT 94–96
[2023-05-30] MEDS: pantoprazole 40 mg SDV IVP (02:03)
[2023-05-30] MEDS: FUROsemide 10 mg/mL SDV 4mL 40 MG IVP ×2 (02:04→16:13)
[2023-05-30] MEDS: escitalopram 10 mg Tablet PO (04:48)
[2023-05-30] MEDS: levothyroxine 100 mcg Tablet PO (04:48)
[2023-05-30 04:52] LABS: Basophils # 0.1 10^3/uL (0.0-0.1); Basophils % 1.1 %; Eosinophils # 0.1 10^3/uL (0.0-0.8); Eosinophils % 1.4 %; Hematocrit 38.9 % (37-53); Lymphocytes # 0.6 10^3/uL (0.8-4.8); Lymphocytes % 7.4 %; Mean Corpuscular HGB Conc 31.1 g/dL (30-55); Mean Corpuscular Hemoglobin 26.8 pg (27-33); Mean Corpuscular Volume 86.3 fl (82-101); Mean Platelet Volume 10.5 fL (7.4-10.4); Monocytes # 0.4 10^3/uL (0.2-0.9); Neutrophils # 6.81 10^3/uL (1.8-7.7); Neutrophils % 81.9 %; Nucleated Red Blood Cells % 0 %; Platelet Count 213 10^3/cmm (157-399); Red Blood Count 4.51 10^6/uL (3.85-5.65); Red Cell Distribution Width 20.6 % (12.1-15.1); White Blood Count 8.33 10^3/uL (3.29-11.43)
[2023-05-30 05:51] LABS: Anion Gap 17.3 (5-19); Blood Urea Nitrogen 26 mg/dL (8-23); Calcium 7.6 mg/dL (8.5-10.5); Carbon Dioxide 22 mmol/L (22-29); Chloride 100 mmol/L (98-107); Creatinine Clr Calc Pharmacy 47.1385; Glucose 111 mg/dL (65-115); Magnesium 1.9 mg/dL (1.7-2.3); Osmolality Calculated 287 mOsm/kg (285-295); Potassium 3.3 mmol/L (3.5-5.1); Sodium 136 mmol/L (136-145)
[2023-05-30] MEDS: amoxicillin-clav 875-125 mg Tablet 1 TAB PO (08:22)
[2023-05-30] MEDS: amiodarone 200 mg Tablet 400 MG PO ×2 (08:22→17:42)
[2023-05-30] MEDS: BuSPIRONE 10 mg Tablet PO ×2 (08:22→17:42)
[2023-05-30] MEDS: apixaban 5 mg Tablet 2.5 MG PO ×2 (08:22→17:42)
[2023-05-30] MEDS: magnesium oxide 400 mg tablet PO ×2 (08:22→17:42)
[2023-05-30] MEDS: digoxin 125 mcg Tablet PO (08:22)
[2023-05-30] MEDS: DOVATO 1 EACH PO (08:23)
[2023-05-30] MEDS: potassium chloride ER 20 mEq Tablet 40 MEQ PO (12:08)
--- NOTE | 2023-05-30 12:46 | P.PN_ITS ---
Subjective 2 Subjective: Feels better today. 1100 urine output overnight. Currently on dobutamine drip. Cardiology following States he is happy that he feels better. Vitals/I&O/Wt Last Vital Signs Temp 96.9 F L 05/30/23 03:30 Pulse 77 05/30/23 08:22 Resp 20 H 05/30/23 08:08 BP 121/71 05/30/23 03:30 Pulse Ox 94 05/30/23 08:08 O2 Del Method Room Air 05/30/23 08:08 O2 Flow Rate 2 05/27/23 13:00 FiO2 30 05/23/23 09:55 05/29/23 05/30/23 05/30/23 22:59 06:59 14:59 Intake Total 75 / 1095 Output Total 220 / 325 550 / 875 400 / 400 Balance -220 / 695 -475 / 220 -400 / -400 Weight last 48 hrs Weight 50.938 kg Weight 54.839 kg Physical Exam 2 Narrative: Euvolemic today. Lungs clear to auscultation bilaterally Pleasant cooperative AICD site unremarkable Pleasant cooperative Nonfocal neuroexam GCS 15 Normal S1-S2 Abdomen soft nontender No edema bilateral lower extremities Urinary Catheter Management: Erickson: Cath Placed During This Visit: yes, but has since been removed by the nurse Reason for Continuing Indwelling Catheter: Decision to DC Catheter Urinary Catheter Date of Insertion: 05/20/23 Urinary Catheter Time of Insertion: 01:18 Date Urinary Catheter Removed: 05/28/23 Time Urinary Catheter Discontinued: 10:05 Data 05/30/23 04:32 05/30/23 04:32 A&P Assessment and plan (1) DNR (do not resuscitate): (2) CHF (congestive heart failure): Qualifiers: Heart failure type: combined systolic and diastolic Heart failure chronicity: chronic Qualified Code(s): I50.42 - Chronic combined systolic (congestive) and diastolic (congestive) heart failure (3) Ischemic cardiomyopathy: (4) Cardiogenic shock: (5) Arteriosclerotic coronary artery disease: (6) Cardiac arrest: (7) AICD (automatic cardioverter/defibrillator) present: (8) JAMAL (acute kidney injury): (9) Hypokalemia: (10) HIV (human immunodeficiency virus infection): (11) Acute respiratory failure: Qualifiers: Respiratory failure complication: unspecified whether with hypoxia or hypercapnia Qualified Code(s): J96.00 - Acute respiratory failure, unspecified whether with hypoxia or hypercapnia (12) Right lower lobe pulmonary infiltrate: Plan 78-year male who present to the hospital after cardiac arrest, likely V-fib, patient was scheduled to see Dr. Raknin for AICD placement, Dr. Rankin was consulted, patient was extubated successfully to nasal cannula, patient agreed for AICD placement, his goals of care were changed to DNR/DNI, he suffered from aspiration pneumonia required antibiotics, I have switched his IV antibiotics to p.o. regimen he has been afebrile, his EF is poor 15%, poor functional capacity that is why we are recommending detention placement however he has not been accepted anywhere yet, his blood pressure remains in low 90s however MAP above 65, I am avoiding giving him IV fluids because he has mild crackles in his lungs neck, requires 2 L of oxygen intermittently, patient is agreeable to go home with home health if he is not excepted at any detention will need another home oxygen evaluation, he will need 3 more days of antibiotics to finish the course Cardiac arrest status post AICD placement Acute on chronic CHF exacerbation, severe LV dysfunction, advanced heart failure Ventricular fibrillation Coronary artery disease Intermittent atrial fibrillation -Continue dobutamine 5/h ? Continue IV Lasix ? Cardiology consulted. Recommendations appreciated ? Patient may need ischemic workup. Will discuss with cardiology regarding further management ? Continue amiodarone, digoxin, Eliquis ? Continue Eliquis, aspirin, statin ? Patient is at high risk of cardiac arrhythmia. Aspiration pneumonia: Will stop antibiotics today as patient has completed course. Continue to monitor urine output JAMAL on CKD. Initially resolved with diuresis. Creatinine normal today. Hypokalemia: Replenished DNR/DNI Cardiac diet Medical DPOA is his GF Please note there is no family his niece is second person on medical DPOA paperwork she is in [place]. Attestations 2 Medical Necessity Statement*: Continue to diurese patient. Dobutamine drip to be continued. Diagnoses DNR (do not resuscitate) Z66 Chronic combined systolic and diastolic congestive heart failure I50.42 Heart failure type: combined systolic and diastolic Heart failure chronicity: chronic Ischemic cardiomyopathy I25.5 Cardiogenic shock R57.0 Arteriosclerotic coronary artery disease I25.10 Cardiac arrest I46.9 AICD (automatic cardioverter/defibrillator) present Z95.810 JAMAL (acute kidney injury) N17.9 Hypokalemia E87.6 HIV (human immunodeficiency virus infection) B20 Acute respiratory failure J96.00 Respiratory failure complication: unspecified whether with hypoxia or hypercapnia Right lower lobe pulmonary infiltrate R91.8
--- NOTE | 2023-05-30 17:13 | PM.PN ---
Subjective Subjective: Patient is feeling much better. The urine output is improving. Vital signs seems to be stable. Has occasional PVCs on the monitor. The overall status seems to be improving. Medications: Medication Review Details: Current Medications Acetaminophen (Acetaminophen 325 Mg Tablet) 650 mg PO Q6H PRN PRN Reason: Mild/Mod Pain Or Temp >/= 101 Last Admin: 05/26/23 02:35 Dose: 650 mg Albuterol/Ipratropium (Ipratropium-Albuterol 3 Ml Neb) 3 ml INHALATION Q6H PRN PRN Reason: SHORTNESS OF BREATH Amiodarone HCl (Amiodarone 200 Mg Tablet) 400 mg PO BID [facility] Last Admin: 05/30/23 08:22 Dose: 400 mg Apixaban (Apixaban 5 Mg Tablet) 2.5 mg PO BID [facility] Last Admin: 05/30/23 08:22 Dose: 2.5 mg Aspirin (Aspirin 81 Mg Ec Tablet) 81 mg PO DAILY [facility] Atorvastatin Calcium (Atorvastatin 40 Mg Tablet) 40 mg PO BEDTIME [facility] Buspirone HCl (Buspirone 10 Mg Tablet) 10 mg PO BID [facility] Last Admin: 05/30/23 08:22 Dose: 10 mg Denture Adhesive (Fixodent 39 Gm Tube) 1 applic DENTAL PRN PRN PRN Reason: denture adhesive Last Admin: 05/27/23 08:32 Dose: 1 applic Digoxin (Digoxin 125 Mcg Tablet) 125 mcg PO DAILY [facility] Last Admin: 05/30/23 08:22 Dose: 125 mcg Escitalopram Oxalate (Escitalopram 10 Mg Tablet) 10 mg PO QAM [facility] Last Admin: 05/30/23 04:48 Dose: 10 mg Furosemide (Furosemide 10 Mg/Ml Sdv 4ml) 40 mg IVP Q12H [facility] Last Admin: 05/30/23 16:13 Dose: 40 mg Dobutamine HCl/Dextrose (Dobutamine Drip) 500 mg in 250 mls @ 8.226 mls/hr IV .Q24H [facility] Last Admin: 05/29/23 19:39 Dose: 5 mcg/kg/min, 8.23 mls/hr Levothyroxine Sodium (Levothyroxine 100 Mcg Tablet) 100 mcg PO QAM [facility] Last Admin: 05/30/23 04:48 Dose: 100 mcg Magnesium Oxide (Magnesium Oxide 400 Mg Tablet) 400 mg PO BID [facility] Last Admin: 05/30/23 08:22 Dose: 400 mg Non-Formulary Med ( Dovato 50-300 Mg Tab ) 1 each PO DAILY [facility] Last Admin: 05/30/23 08:23 Dose: 1 each Ondansetron HCl (Ondansetron 2 Mg/Ml Sdv 2 Ml) 4 mg IVP Q8H PRN PRN Reason: vomiting, or N/V if npo Last Admin: 05/29/23 02:52 Dose: 4 mg Pantoprazole Sodium (Pantoprazole 40 Mg Sdv) 40 mg IVP Q24H [facility] Last Admin: 05/30/23 02:03 Dose: 40 mg Vitals/I&O/Wt Last Vital Signs Temp 96.3 F L 05/30/23 12:00 Pulse 85 05/30/23 12:00 Resp 15 05/30/23 12:00 BP 109/69 05/30/23 12:00 Pulse Ox 94 05/30/23 12:00 O2 Del Method Room Air 05/30/23 12:00 O2 Flow Rate 2 05/27/23 13:00 FiO2 30 05/23/23 09:55 05/30/23 05/30/23 05/30/23 06:59 14:59 22:59 Intake Total 75 / 1095 120 / 120 Output Total 550 / 875 500 / 500 Balance -475 / 220 -380 / -380 Weight last 48 hrs Weight 112 lb 4.8 oz Weight 120 lb 14.4 oz Physical Exam Narrative: GENERAL: The patient is alert and oriented times three. Not in any distress HEENT: Mild pallor. No significant pallor, icterus or lymphadenopathy.Oral cavity: There are no mucous membrane lesions. NECK: Trachea appears to be central. No masses noted. No JVD or thyromegaly appreciated. RESPIRATORY: Chest is symmetrical. No intercostals muscle retraction or any accessory muscle activation. There is no chest wall tenderness. Breath sounds are heard bilaterally. Occasional scattered crackles. Breath sounds are diminished in the bases. BREASTS: Deferred. HEART: The heart sounds are normal. Soft S3. No S4.. Short systolic murmur in the left sternal border. No pericardial rub ABDOMEN: No vessel pulsations or distention. No tenderness. Slightly distended. Bowel sounds are normally heard. : Deferred. RECTAL: Deferred. LYMPHATIC: No lymphadenopathy noted in the neck. EXTREMITIES: 1-2+ edema both lower extremities. MUSCULOSKELETAL: No acute joint deformities or swelling SKIN: There are no significant rashes or ecchymosis NEUROPSYCHIATRIC: The patient is alert and oriented x3. No focal motor deficits. Urinary Catheter Management: Erickson: Cath Placed During This Visit: yes, but has since been removed by the nurse Reason for Continuing Indwelling Catheter: Decision to DC Catheter Urinary Catheter Date of Insertion: 05/20/23 Urinary Catheter Time of Insertion: 01:18 Date Urinary Catheter Removed: 05/28/23 Time Urinary Catheter Discontinued: 10:05 Data 05/30/23 04:32 05/30/23 04:32 Other Labs: Laboratory Last Values WBC 8.33 10^3/uL (3.29-11.43) 05/30/23 04:32 Corrected WBC Cancelled 05/20/23 00:28 RBC 4.51 10^6/uL (3.85-5.65) 05/30/23 04:32 Hgb 12.10 g/dL (11.27-16.99) 05/30/23 04:32 Hct 38.9 % (37-53) 05/30/23 04:32 MCV 86.3 fl (82-101) 05/30/23 04:32 MCH 26.8 pg (27-33) L 05/30/23 04:32 MCHC 31.1 g/dL (30-55) 05/30/23 04:32 RDW 20.6 % (12.1-15.1) H 05/30/23 04:32 Plt Count 213 10^3/cmm (157-399) 05/30/23 04:32 MPV 10.5 fL (7.4-10.4) H 05/30/23 04:32 Gran % Cancelled 05/20/23 00:28 Neut % (Auto) 81.9 % 05/30/23 04:32 Lymph % (Auto) 7.4 % 05/30/23 04:32 Cole % (Auto) 5.0 % 05/30/23 04:32 Eos % (Auto) 1.4 % 05/30/23 04:32 Baso % (Auto) 1.1 % 05/30/23 04:32 Neut # (Auto) 6.81 10^3/uL (1.8-7.7) 05/30/23 04:32 Lymph # (Auto) 0.6 10^3/uL (0.8-4.8) L 05/30/23 04:32 Cole # (Auto) 0.4 10^3/uL (0.2-0.9) 05/30/23 04:32 Eos # (Auto) 0.1 10^3/uL (0.0-0.8) 05/30/23 04:32 Baso # (Auto) 0.1 10^3/uL (0.0-0.1) 05/30/23 04:32 Absolute Gran (auto) Cancelled 05/20/23 00:28 Nucleated RBC % (auto) 0 % 05/30/23 04:32 Nucleated RBCs # 0.0 /100WBC 05/30/23 04:32 PT 24.70 SECONDS (12.1-14.9) H 05/20/23 01:36 INR 2.14 (0.8-1.2) H 05/20/23 01:36 Specimen Type Cancelled 05/23/23 09:03 Sample Site Cancelled 05/23/23 09:03 O2 Sat Pulse Oximetry Cancelled 05/23/23 09:03 ABG pH Cancelled 05/23/23 09:03 ABG pCO2 Cancelled 05/23/23 09:03 ABG pO2 Cancelled 05/23/23 09:03 ABG PO2/FiO2 Ratio Cancelled 05/23/23 09:03 ABG HCO3 Cancelled 05/23/23 09:03 ABG O2 Saturation Cancelled 05/23/23 09:03 ABG Base Excess Cancelled 05/23/23 09:03 Kevin Test Cancelled 05/23/23 09:03 A-a O2 Gradient Cancelled 05/23/23 09:03 Hematocrit Cancelled 05/23/23 09:03 Hgb O2 Saturation Cancelled 05/23/23 09:03 Carboxyhemoglobin Cancelled 05/23/23 09:03 Methemoglobin Cancelled 05/23/23 09:03 Total Hemoglobin Cancelled 05/23/23 09:03 Sodium Cancelled 05/23/23 09:03 Potassium Cancelled 05/23/23 09:03 Glucose Cancelled 05/23/23 09:03 Ionized Calcium Cancelled 05/23/23 09:03 Respiration Rate Cancelled 05/23/23 09:03 O2 Delivery Device Cancelled 05/23/23 09:03 O2 Liters/Min Cancelled 05/23/23 09:03 SIMV Cancelled 05/23/23 09:03 Vent Mode Cancelled 05/23/23 09:03 Mechanical Rate Cancelled 05/23/23 09:03 Spontaneous Rate Cancelled 05/23/23 09:03 FiO2 Cancelled 05/23/23 09:03 Tidal Volume Cancelled 05/23/23 09:03 PEEP Cancelled 05/23/23 09:03 Pressure Support Cancelled 05/23/23 09:03 Pressure Control Cancelled 05/23/23 09:03 CPAP Cancelled 05/23/23 09:03 Mode BiPAP Cancelled 05/23/23 09:03 Specimen Drawn By Cancelled 05/23/23 09:03 Salesperson Furs ID Cancelled 05/23/23 09:03 Crit Value Read Back Cancelled 05/23/23 09:03 Blood Gas Notified Time Cancelled 05/23/23 09:03 Sodium 136 mmol/L (136-145) 05/30/23 04:32 Potassium 3.3 mmol/L (3.5-5.1) L 05/30/23 04:32 Chloride 100 mmol/L (98-107) 05/30/23 04:32 Carbon Dioxide 22 mmol/L (22-29) 05/30/23 04:32 Anion Gap 17.3 (5-19) 05/30/23 04:32 BUN 26 mg/dL (8-23) H 05/30/23 04:32 Creatinine 1.1 mg/dL (0.7-1.2) 05/30/23 04:32 GFR Calculation Not Reportable 05/30/23 04:32 Glucose 111 mg/dL (65-115) 05/30/23 04:32 Calculated Osmolality 287 mOsm/kg (285-295) 05/30/23 04:32 Lactic Acid 5.8 mmol/L (0.5-2.2) H* 05/20/23 01:36 Lactic Acid (Sepsis) 5.3 mmol/L (0.5-2.2) H* 05/20/23 04:28 Lactate 1.2 mmol/L (0.5-2.2) 05/21/23 03:41 Calcium 7.6 mg/dL (8.5-10.5) L 05/30/23 04:32 Phosphorus 4.9 mg/dL (2.5-4.5) H 05/20/23 00:54 Magnesium 1.9 mg/dL (1.7-2.3) 05/30/23 04:32 Total Bilirubin 1.5 mg/dL (0.15-1.2) H 05/23/23 03:31 AST 14 U/L (0-40) 05/23/23 03:31 ALT 12 U/L (0-41) 05/23/23 03:31 Alkaline Phosphatase 103 U/L (40-130) 05/23/23 03:31 Troponin T Baseline 64 ng/L (0-15) H 05/20/23 00:54 Troponin T 120 Minute 63.29 ng/L (0-15) H 05/20/23 02:31 Delta Troponin T -0.71 ABS# (0-10) L 05/20/23 02:31 Troponin T Hi Sens 6Hr 117.9 ng/L (0-15) H 05/20/23 07:08 Troponin T Hi Sens 6Hr Delta 53.9 ng/L (0-12) H* 05/20/23 07:08 NT-Pro-B Natriuret Pep 90955 pg/mL (0-450) H 05/29/23 11:46 Total Protein 6.1 g/dL (6.6-8.7) L 05/23/23 03:31 Albumin 2.8 g/dL (3.5-5.2) L 05/23/23 03:31 Globulin 3.3 g/dL (1.3-4.6) 05/23/23 03:31 Procalcitonin 0.10 ng/mL (0-0.5) 05/20/23 00:54 TSH 8.78 uIU/mL (0.27-4.20) H 05/20/23 00:54 Random Cortisol 35.64 ug/dL (2.47-19.5) H 05/20/23 00:54 Vancomycin Trough 9.6 ug/mL (10-15) L 05/26/23 12:07 HIV-1 RNA copies/mL 1.58 (NOT DETECTED) H 05/20/23 07:08 HIV-1 RNA (PCR) log10 38 copies/mL (NOT DETECTED) H 05/20/23 07:08 Influenza Type A Ag negative (Negative) 05/20/23 02:38 Influenza Type B Ag negative (Negative) 05/20/23 02:38 SARS-CoV-2 Ag (Rapid) negative (Negative) 05/20/23 02:38 MRSA (PCR) Not detected (NOT DETECTED) 05/23/23 13:30 A&P Assessment and plan (1) CHF (NYHA class IV, ACC/AHA stage D): Patient seems to have significant improvement of the heart failure symptoms, with the dobutamine fusion. Will continue with IV dobutamine fusion for a total of 48 hours. Will keep him at the same dose at this point. I may start him on losartan 25 mg p.o. in the morning (2) Ventricular fibrillation: Has not had a recurrence of ventricular arrhythmia. May continue on the current treatment. (3) AICD (automatic cardioverter/defibrillator) present: Status post ICD implantation, ICD function appears to be appropriate. No discharges since implantation. (4) Atherosclerotic heart disease of [place] coronary artery without angina pectoris: The most recent cardiac catheterization was done in 2020. In the absence of any chest pain, I may hold off on any invasive workup for the time being. Qualifiers: [place] vs. transplanted heart: [place] heart Qualified Code(s): I25.10 - Atherosclerotic heart disease of [place] coronary artery without angina pectoris (5) Intermittent atrial fibrillation: Patient is on long-term oral anticoagulation. This may be continued. (6) JAMAL (acute kidney injury): Kidney function seems to be stable at this time. May continue on the current measures. Plan Continue with IV dobutamine infusion for a total of 48 hours. Continue other current medications as it is. Based on the clinical progress, further management decisions will be made. Attestations Medical Necessity Statement*: Patient requires continued hospital stay for close monitoring and further management Coding Level of Care Code 99487 Diagnoses CHF (NYHA class IV, ACC/AHA stage D) I50.84 Ventricular fibrillation I49.01 AICD (automatic cardioverter/defibrillator) present Z95.810 Atherosclerosis of [place] coronary artery of [place] heart without angina pectoris I25.10 [place] vs. transplanted heart: [place] heart Intermittent atrial fibrillation I48.0 JAMAL (acute kidney injury) N17.9
[2023-05-30] MEDS: atorvastatin 40 mg Tablet PO (21:26)
[2023-05-30] MEDS: DOBUTamine drip 500 MG/250 ML PREMIX 8.23000000000000043 MG IV (22:41)
[2023-05-30] MEDS: ALPRAZolam 0.5 mg Tablet PO (22:42)
[2023-05-31] VITALS (11 sets, daily range): BP systolic 97–111; BP diastolic 47–64; PULSE 66–79; RESP 20–31; TEMP 36.6–37.3; O2SAT 94–95; BMI 16.8
[2023-05-31] MEDS: FUROsemide 10 mg/mL SDV 4mL 40 MG IVP ×2 (03:42→16:06)
[2023-05-31] MEDS: pantoprazole 40 mg SDV IVP (03:42)
[2023-05-31 04:55] LABS: Basophils # 0.1 10^3/uL (0.0-0.1); Basophils % 0.6 %; Eosinophils # 0.1 10^3/uL (0.0-0.8); Eosinophils % 1.2 %; Hematocrit 39.8 % (37-53); Lymphocytes # 0.5 10^3/uL (0.8-4.8); Lymphocytes % 5.8 %; Mean Corpuscular HGB Conc 30.9 g/dL (30-55); Mean Corpuscular Hemoglobin 26.6 pg (27-33); Mean Corpuscular Volume 86.1 fl (82-101); Mean Platelet Volume 10.7 fL (7.4-10.4); Monocytes # 0.4 10^3/uL (0.2-0.9); Monocytes % 4.7 %; Neutrophils # 8.02 10^3/uL (1.8-7.7); Neutrophils % 85.7 %; Nucleated Red Blood Cells % 0 %; Platelet Count 227 10^3/cmm (157-399); Red Blood Count 4.62 10^6/uL (3.85-5.65); Red Cell Distribution Width 20.7 % (12.1-15.1); White Blood Count 9.36 10^3/uL (3.29-11.43)
[2023-05-31 05:18] LABS: Anion Gap 14.7 (5-19); Blood Urea Nitrogen 22 mg/dL (8-23); Calcium 7.9 mg/dL (8.5-10.5); Carbon Dioxide 28 mmol/L (22-29); Chloride 96 mmol/L (98-107); Creatinine Clr Calc Pharmacy 39.8757; Glucose 98 mg/dL (65-115); Magnesium 1.9 mg/dL (1.7-2.3); Osmolality Calculated 283 mOsm/kg (285-295); Potassium 3.7 mmol/L (3.5-5.1); Sodium 135 mmol/L (136-145)
[2023-05-31] MEDS: escitalopram 10 mg Tablet PO (06:27)
[2023-05-31] MEDS: levothyroxine 100 mcg Tablet PO (06:27)
[2023-05-31] MEDS: amiodarone 200 mg Tablet 400 MG PO ×2 (09:08→18:45)
[2023-05-31] MEDS: magnesium oxide 400 mg tablet PO ×2 (09:08→18:45)
[2023-05-31] MEDS: aspirin 81 mg EC Tablet PO (09:08)
[2023-05-31] MEDS: losartan 50 mg Tablet 25 MG PO (09:08)
[2023-05-31] MEDS: BuSPIRONE 10 mg Tablet PO ×2 (09:08→18:45)
[2023-05-31] MEDS: digoxin 125 mcg Tablet PO (09:08)
[2023-05-31] MEDS: apixaban 5 mg Tablet 2.5 MG PO ×2 (09:09→18:45)
[2023-05-31] MEDS: DOVATO 1 EACH PO (09:09)
--- NOTE | 2023-05-31 09:40 | PC.SOCIAL ---
IMM Update pg 2 of IMM updated and reviewed w/ patient copy provided and copy dated initaled and placed in chart.
--- NOTE | 2023-05-31 13:44 | PC.NURSE ---
Physician orders: Taper off dobutamine drip. Decrease to 2.5 for 2 hours and then discontinue.
--- NOTE | 2023-05-31 14:17 | PM.PN ---
Subjective Subjective: seen today positive balance 1,8L since admission however i questions the accuracy of that data urine output 3400 overnight Vitals/I&O/Wt Last Vital Signs Temp 97.8 F 05/31/23 04:35 Pulse 72 05/31/23 13:42 Resp 21 H 05/31/23 13:42 BP 103/47 05/31/23 09:53 Pulse Ox 95 05/31/23 09:09 O2 Del Method Room Air 05/31/23 09:09 O2 Flow Rate 2 05/27/23 13:00 FiO2 30 05/23/23 09:55 05/30/23 05/31/23 05/31/23 22:59 06:59 14:59 Intake Total 342.484 / 462.484 240 / 240 Output Total 1900 / 2400 1500 / 3900 Balance -1557.516 / -1937.516 -1500 / -3437.516 240 / 240 Weight last 48 hrs Weight 47.344 kg Weight 50.938 kg Physical Exam Narrative: Euvolemic today. Lungs clear to auscultation bilaterally but today has crackles at b/l bases [facility] AICD site unremarkable [facility] Nonfocal neuroexam GCS 15 Normal S1-S2 Abdomen soft nontender No edema bilateral lower extremities Urinary Catheter Management: Erickson: Cath Placed During This Visit: yes, but has since been removed by the nurse Reason for Continuing Indwelling Catheter: Accurate Measurement of Urinary Output in Critically Ill Patients Urinary Catheter Date of Insertion: 05/30/23 Urinary Catheter Time of Insertion: 17:30 Date Urinary Catheter Removed: 05/28/23 Time Urinary Catheter Discontinued: 10:05 Data 05/31/23 04:36 05/31/23 04:36 A&P Assessment and plan (1) DNR (do not resuscitate): (2) CHF (congestive heart failure): Qualifiers: Heart failure type: combined systolic and diastolic Heart failure chronicity: chronic Qualified Code(s): I50.42 - Chronic combined systolic (congestive) and diastolic (congestive) heart failure (3) Ischemic cardiomyopathy: (4) Cardiogenic shock: (5) Arteriosclerotic coronary artery disease: (6) Cardiac arrest: (7) AICD (automatic cardioverter/defibrillator) present: (8) JAMAL (acute kidney injury): (9) Hypokalemia: (10) HIV (human immunodeficiency virus infection): (11) Acute respiratory failure: Qualifiers: Respiratory failure complication: unspecified whether with hypoxia or hypercapnia Qualified Code(s): J96.00 - Acute respiratory failure, unspecified whether with hypoxia or hypercapnia (12) Right lower lobe pulmonary infiltrate: Plan 78-year male who present to the hospital after cardiac arrest, likely V-fib, patient was scheduled to see Dr. Rankin for AICD placement, Dr. Rankin was consulted, patient was extubated successfully to nasal cannula, patient agreed for AICD placement, his goals of care were changed to DNR/DNI, he suffered from aspiration pneumonia required antibiotics, I have switched his IV antibiotics to p.o. regimen he has been afebrile, his EF is poor 15%, poor functional capacity that is why we are recommending assisted placement however he has not been accepted anywhere yet, his blood pressure remains in low 90s however MAP above 65, I am avoiding giving him IV fluids because he has mild crackles in his lungs neck, requires 2 L of oxygen intermittently, patient is agreeable to go home with home health if he is not excepted at any assisted will need another home oxygen evaluation, he will need 3 more days of antibiotics to finish the course Cardiac arrest status post AICD placement Acute on chronic CHF exacerbation, severe LV dysfunction, advanced heart failure Ventricular fibrillation Coronary artery disease Intermittent atrial fibrillation -Continue dobutamine 5/h ? Continue IV Lasix ? Cardiology consulted. Recommendations appreciated ? Patient may need ischemic workup. Will discuss with cardiology regarding further management ? Continue amiodarone, digoxin, Eliquis ? Continue Eliquis, aspirin, statin ? Patient is at high risk of cardiac arrhythmia. - Will touchbase with cardiology Aspiration pneumonia: Will stop antibiotics today as patient has completed course. Continue to monitor urine output JAMAL on CKD. Initially resolved with diuresis. Creatinine normal today. Hypokalemia: Replenished DNR/DNI Cardiac diet Medical DPOA is his GF Please note there is no family his niece is second person on medical DPOA paperwork she is in [place]. Attestations Medical Necessity Statement*: Continue to diurese patient. Dobutamine drip to be continued. Diagnoses DNR (do not resuscitate) Z66 Chronic combined systolic and diastolic congestive heart failure I50.42 Heart failure type: combined systolic and diastolic Heart failure chronicity: chronic Ischemic cardiomyopathy I25.5 Cardiogenic shock R57.0 Arteriosclerotic coronary artery disease I25.10 Cardiac arrest I46.9 AICD (automatic cardioverter/defibrillator) present Z95.810 JAMAL (acute kidney injury) N17.9 Hypokalemia E87.6 HIV (human immunodeficiency virus infection) B20 Acute respiratory failure J96.00 Respiratory failure complication: unspecified whether with hypoxia or hypercapnia Right lower lobe pulmonary infiltrate R91.8
--- NOTE | 2023-05-31 17:43 | P.PN_ITS ---
Subjective 2 Subjective: Patient continues to feel better. Was started on losartan 25 mg p.o. this morning. So far the blood pressure is holding up. No chest pain or palpitations. No significant arrhythmias on the monitor. Medications: Medication Review Details: Current Medications Acetaminophen (Acetaminophen 325 Mg Tablet) 650 mg PO Q6H PRN PRN Reason: Mild/Mod Pain Or Temp >/= 101 Last Admin: 05/26/23 02:35 Dose: 650 mg Albuterol/Ipratropium (Ipratropium-Albuterol 3 Ml Neb) 3 ml INHALATION Q6H PRN PRN Reason: SHORTNESS OF BREATH Alprazolam (Alprazolam 0.5 Mg Tablet) 0.5 mg PO BID PRN PRN Reason: ANXIETY Last Admin: 05/30/23 22:42 Dose: 0.5 mg Amiodarone HCl (Amiodarone 200 Mg Tablet) 400 mg PO BID [facility] Last Admin: 05/31/23 09:08 Dose: 400 mg Apixaban (Apixaban 5 Mg Tablet) 2.5 mg PO BID [facility] Last Admin: 05/31/23 09:09 Dose: 2.5 mg Aspirin (Aspirin 81 Mg Ec Tablet) 81 mg PO DAILY [facility] Last Admin: 05/31/23 09:08 Dose: 81 mg Atorvastatin Calcium (Atorvastatin 40 Mg Tablet) 40 mg PO BEDTIME [facility] Last Admin: 05/30/23 21:26 Dose: 40 mg Buspirone HCl (Buspirone 10 Mg Tablet) 10 mg PO BID [facility] Last Admin: 05/31/23 09:08 Dose: 10 mg Denture Adhesive (Fixodent 39 Gm Tube) 1 applic DENTAL PRN PRN PRN Reason: denture adhesive Last Admin: 05/27/23 08:32 Dose: 1 applic Digoxin (Digoxin 125 Mcg Tablet) 125 mcg PO DAILY [facility] Last Admin: 05/31/23 09:08 Dose: 125 mcg Escitalopram Oxalate (Escitalopram 10 Mg Tablet) 10 mg PO QAM [facility] Last Admin: 05/31/23 06:27 Dose: 10 mg Furosemide (Furosemide 10 Mg/Ml Sdv 4ml) 40 mg IVP Q12H [facility] Last Admin: 05/31/23 16:06 Dose: 40 mg Dobutamine HCl/Dextrose (Dobutamine Drip) 500 mg in 250 mls @ 8.226 mls/hr IV .Q24H [facility] Last Admin: 05/30/23 22:41 Dose: 5 mcg/kg/min, 8.23 mls/hr Levothyroxine Sodium (Levothyroxine 100 Mcg Tablet) 100 mcg PO QAM [facility] Last Admin: 05/31/23 06:27 Dose: 100 mcg Losartan Potassium (Losartan 50 Mg Tablet) 25 mg PO DAILY [facility] Last Admin: 05/31/23 09:08 Dose: 25 mg Magnesium Oxide (Magnesium Oxide 400 Mg Tablet) 400 mg PO BID [facility] Last Admin: 05/31/23 09:08 Dose: 400 mg Non-Formulary Med ( Dovato 50-300 Mg Tab ) 1 each PO DAILY [facility] Last Admin: 05/31/23 09:09 Dose: 1 each Ondansetron HCl (Ondansetron 2 Mg/Ml Sdv 2 Ml) 4 mg IVP Q8H PRN PRN Reason: vomiting, or N/V if npo Last Admin: 05/29/23 02:52 Dose: 4 mg Pantoprazole Sodium (Pantoprazole 40 Mg Sdv) 40 mg IVP Q24H [facility] Last Admin: 05/31/23 03:42 Dose: 40 mg Vitals/I&O/Wt Last Vital Signs Temp 97.8 F 05/31/23 04:35 Pulse 79 05/31/23 17:29 Resp 31 H 05/31/23 17:29 BP 111/59 05/31/23 17:29 Pulse Ox 95 05/31/23 09:09 O2 Del Method Room Air 05/31/23 09:09 O2 Flow Rate 2 05/27/23 13:00 FiO2 30 05/23/23 09:55 05/31/23 05/31/23 05/31/23 06:59 14:59 22:59 Intake Total 240 / 240 Output Total 1500 / 3900 Balance -1500 / -3437.516 240 / 240 Weight last 48 hrs Weight 104 lb 6 oz Weight 112 lb 4.8 oz Physical Exam 2 Narrative: GENERAL: The patient is alert and oriented times three. Not in any distress HEENT: Mild pallor. No significant pallor, icterus or lymphadenopathy.Oral cavity: There are no mucous membrane lesions. NECK: Trachea appears to be central. No masses noted. No JVD or thyromegaly appreciated. RESPIRATORY: Chest is symmetrical. No intercostals muscle retraction or any accessory muscle activation. There is no chest wall tenderness. Breath sounds are heard bilaterally. Occasional scattered crackles. Breath sounds are diminished in the bases. BREASTS: Deferred. HEART: The heart sounds are normal. Soft S3. No S4.. Short systolic murmur in the left sternal border. No pericardial rub ABDOMEN: No vessel pulsations or distention. No tenderness. Slightly distended. Bowel sounds are normally heard. : Deferred. RECTAL: Deferred. LYMPHATIC: No lymphadenopathy noted in the neck. EXTREMITIES: 1-2+ edema both lower extremities. MUSCULOSKELETAL: No acute joint deformities or swelling SKIN: There are no significant rashes or ecchymosis NEUROPSYCHIATRIC: The patient is alert and oriented x3. No focal motor deficits. Urinary Catheter Management: Erickson: Cath Placed During This Visit: yes, but has since been removed by the nurse Reason for Continuing Indwelling Catheter: Accurate Measurement of Urinary Output in Critically Ill Patients Urinary Catheter Date of Insertion: 05/30/23 Urinary Catheter Time of Insertion: 17:30 Date Urinary Catheter Removed: 05/28/23 Time Urinary Catheter Discontinued: 10:05 Data 05/31/23 04:36 05/31/23 04:36 Other Labs: Laboratory Last Values WBC 9.36 10^3/uL (3.29-11.43) 05/31/23 04:36 Corrected WBC Cancelled 05/20/23 00:28 RBC 4.62 10^6/uL (3.85-5.65) 05/31/23 04:36 Hgb 12.30 g/dL (11.27-16.99) 05/31/23 04:36 Hct 39.8 % (37-53) 05/31/23 04:36 MCV 86.1 fl (82-101) 05/31/23 04:36 MCH 26.6 pg (27-33) L 05/31/23 04:36 MCHC 30.9 g/dL (30-55) 05/31/23 04:36 RDW 20.7 % (12.1-15.1) H 05/31/23 04:36 Plt Count 227 10^3/cmm (157-399) 05/31/23 04:36 MPV 10.7 fL (7.4-10.4) H 05/31/23 04:36 Gran % Cancelled 05/20/23 00:28 Neut % (Auto) 85.7 % 05/31/23 04:36 Lymph % (Auto) 5.8 % 05/31/23 04:36 [place] % (Auto) 4.7 % 05/31/23 04:36 Eos % (Auto) 1.2 % 05/31/23 04:36 Baso % (Auto) 0.6 % 05/31/23 04:36 Neut # (Auto) 8.02 10^3/uL (1.8-7.7) H 05/31/23 04:36 Lymph # (Auto) 0.5 10^3/uL (0.8-4.8) L 05/31/23 04:36 [place] # (Auto) 0.4 10^3/uL (0.2-0.9) 05/31/23 04:36 Eos # (Auto) 0.1 10^3/uL (0.0-0.8) 05/31/23 04:36 Baso # (Auto) 0.1 10^3/uL (0.0-0.1) 05/31/23 04:36 Absolute Gran (auto) Cancelled 05/20/23 00:28 Nucleated RBC % (auto) 0 % 05/31/23 04:36 Nucleated RBCs # 0.0 /100WBC 05/31/23 04:36 PT 24.70 SECONDS (12.1-14.9) H 05/20/23 01:36 INR 2.14 (0.8-1.2) H 05/20/23 01:36 Specimen Type Cancelled 05/23/23 09:03 Sample Site Cancelled 05/23/23 09:03 O2 Sat Pulse Oximetry Cancelled 05/23/23 09:03 ABG pH Cancelled 05/23/23 09:03 ABG pCO2 Cancelled 05/23/23 09:03 ABG pO2 Cancelled 05/23/23 09:03 ABG PO2/FiO2 Ratio Cancelled 05/23/23 09:03 ABG HCO3 Cancelled 05/23/23 09:03 ABG O2 Saturation Cancelled 05/23/23 09:03 ABG Base Excess Cancelled 05/23/23 09:03 Kevin Test Cancelled 05/23/23 09:03 A-a O2 Gradient Cancelled 05/23/23 09:03 Hematocrit Cancelled 05/23/23 09:03 Hgb O2 Saturation Cancelled 05/23/23 09:03 Carboxyhemoglobin Cancelled 05/23/23 09:03 Methemoglobin Cancelled 05/23/23 09:03 Total Hemoglobin Cancelled 05/23/23 09:03 Sodium Cancelled 05/23/23 09:03 Potassium Cancelled 05/23/23 09:03 Glucose Cancelled 05/23/23 09:03 Ionized Calcium Cancelled 05/23/23 09:03 Respiration Rate Cancelled 05/23/23 09:03 O2 Delivery Device Cancelled 05/23/23 09:03 O2 Liters/Min Cancelled 05/23/23 09:03 SIMV Cancelled 05/23/23 09:03 Vent Mode Cancelled 05/23/23 09:03 Mechanical Rate Cancelled 05/23/23 09:03 Spontaneous Rate Cancelled 05/23/23 09:03 FiO2 Cancelled 05/23/23 09:03 Tidal Volume Cancelled 05/23/23 09:03 PEEP Cancelled 05/23/23 09:03 Pressure Support Cancelled 05/23/23 09:03 Pressure Control Cancelled 05/23/23 09:03 CPAP Cancelled 05/23/23 09:03 Mode BiPAP Cancelled 05/23/23 09:03 Specimen Drawn By Cancelled 05/23/23 09:03 Lockstitch Front Edge Tape Sewer ID Cancelled 05/23/23 09:03 Crit Value Read Back Cancelled 05/23/23 09:03 Blood Gas Notified Time Cancelled 05/23/23 09:03 Sodium 135 mmol/L (136-145) L 05/31/23 04:36 Potassium 3.7 mmol/L (3.5-5.1) 05/31/23 04:36 Chloride 96 mmol/L (98-107) L 05/31/23 04:36 Carbon Dioxide 28 mmol/L (22-29) 05/31/23 04:36 Anion Gap 14.7 (5-19) 05/31/23 04:36 BUN 22 mg/dL (8-23) 05/31/23 04:36 Creatinine 1.1 mg/dL (0.7-1.2) 05/31/23 04:36 GFR Calculation Not Reportable 05/31/23 04:36 Glucose 98 mg/dL (65-115) 05/31/23 04:36 Calculated Osmolality 283 mOsm/kg (285-295) L 05/31/23 04:36 Lactic Acid 5.8 mmol/L (0.5-2.2) H* 05/20/23 01:36 Lactic Acid (Sepsis) 5.3 mmol/L (0.5-2.2) H* 05/20/23 04:28 Lactate 1.2 mmol/L (0.5-2.2) 05/21/23 03:41 Calcium 7.9 mg/dL (8.5-10.5) L 05/31/23 04:36 Phosphorus 4.9 mg/dL (2.5-4.5) H 05/20/23 00:54 Magnesium 1.9 mg/dL (1.7-2.3) 05/31/23 04:36 Total Bilirubin 1.5 mg/dL (0.15-1.2) H 05/23/23 03:31 AST 14 U/L (0-40) 05/23/23 03:31 ALT 12 U/L (0-41) 05/23/23 03:31 Alkaline Phosphatase 103 U/L (40-130) 05/23/23 03:31 Troponin T Baseline 64 ng/L (0-15) H 05/20/23 00:54 Troponin T 120 Minute 63.29 ng/L (0-15) H 05/20/23 02:31 Delta Troponin T -0.71 ABS# (0-10) L 05/20/23 02:31 Troponin T Hi Sens 6Hr 117.9 ng/L (0-15) H 05/20/23 07:08 Troponin T Hi Sens 6Hr Delta 53.9 ng/L (0-12) H* 05/20/23 07:08 NT-Pro-B Natriuret Pep 94000 pg/mL (0-450) H 05/29/23 11:46 Total Protein 6.1 g/dL (6.6-8.7) L 05/23/23 03:31 Albumin 2.8 g/dL (3.5-5.2) L 05/23/23 03:31 Globulin 3.3 g/dL (1.3-4.6) 05/23/23 03:31 Procalcitonin 0.10 ng/mL (0-0.5) 05/20/23 00:54 TSH 8.78 uIU/mL (0.27-4.20) H 05/20/23 00:54 Random Cortisol 35.64 ug/dL (2.47-19.5) H 05/20/23 00:54 Vancomycin Trough 9.6 ug/mL (10-15) L 05/26/23 12:07 HIV-1 RNA copies/mL 1.58 (NOT DETECTED) H 05/20/23 07:08 HIV-1 RNA (PCR) log10 38 copies/mL (NOT DETECTED) H 05/20/23 07:08 Influenza Type A Ag negative (Negative) 05/20/23 02:38 Influenza Type B Ag negative (Negative) 05/20/23 02:38 SARS-CoV-2 Ag (Rapid) negative (Negative) 05/20/23 02:38 MRSA (PCR) Not detected (NOT DETECTED) 05/23/23 13:30 A&P Assessment and plan (1) CHF (NYHA class IV, ACC/AHA stage D): Patient seems to have significant improvement of the heart failure symptoms, with the dobutamine fusion. Will continue with IV dobutamine fusion for a total of 48 hours. Will keep him at the same dose at this point. I may start him on losartan 25 mg p.o. in the morning and then taper off. Continue the losartan. (2) Ventricular fibrillation: Has not had a recurrence of ventricular arrhythmia. May continue on the current treatment. (3) AICD (automatic cardioverter/defibrillator) present: Status post ICD implantation, ICD function appears to be appropriate. No discharges since implantation. (4) Atherosclerotic heart disease of [place] coronary artery without angina pectoris: The most recent cardiac catheterization was done in 2020. In the absence of any chest pain, I may hold off on any invasive workup for the time being. Qualifiers: [place] vs. transplanted heart: [place] heart Qualified Code(s): I25.10 - Atherosclerotic heart disease of [place] coronary artery without angina pectoris (5) Intermittent atrial fibrillation: Patient is on long-term oral anticoagulation. This may be continued. (6) JAMAL (acute kidney injury): Kidney function seems to be stable at this time. May continue on the current measures. Plan If the patient continues to remain stable, may be discharged home tomorrow. Attestations 2 Medical Necessity Statement*: Possible discharge home tomorrow Coding Level of Care Code Acute Code for Chg Fwd Diagnoses CHF (NYHA class IV, ACC/AHA stage D) I50.84 Ventricular fibrillation I49.01 AICD (automatic cardioverter/defibrillator) present Z95.810 Atherosclerosis of [place] coronary artery of [place] heart without angina pectoris I25.10 [place] vs. transplanted heart: [place] heart Intermittent atrial fibrillation I48.0 JAMAL (acute kidney injury) N17.9
[2023-05-31] MEDS: atorvastatin 40 mg Tablet PO (21:28)
[2023-05-31] MEDS: ALPRAZolam 0.5 mg Tablet PO (22:07)
[2023-06-01 03:05] VITALS: BP 106/64; PULSE 74; RESP 23; TEMP 37.2
[2023-06-01] MEDS: pantoprazole 40 mg SDV IVP (03:53)
[2023-06-01] MEDS: FUROsemide 10 mg/mL SDV 4mL 40 MG IVP (03:53)
[2023-06-01 04:02] LABS: Basophils # 0.1 10^3/uL (0.0-0.1); Basophils % 0.6 %; Eosinophils # 0.2 10^3/uL (0.0-0.8); Eosinophils % 1.8 %; Hematocrit 40.4 % (37-53); Lymphocytes # 0.6 10^3/uL (0.8-4.8); Lymphocytes % 6.7 %; Mean Corpuscular HGB Conc 30.7 g/dL (30-55); Mean Corpuscular Hemoglobin 26.8 pg (27-33); Mean Corpuscular Volume 87.3 fl (82-101); Monocytes # 0.6 10^3/uL (0.2-0.9); Monocytes % 5.9 %; Neutrophils # 7.86 10^3/uL (1.8-7.7); Neutrophils % 82.9 %; Nucleated Red Blood Cells % 0 %; Platelet Count 272 10^3/cmm (157-399); Red Blood Count 4.63 10^6/uL (3.85-5.65); Red Cell Distribution Width 20.6 % (12.1-15.1); White Blood Count 9.49 10^3/uL (3.29-11.43)
[2023-06-01 04:28] LABS: Anion Gap 14.7 (5-19); Blood Urea Nitrogen 19 mg/dL (8-23); Calcium 8.1 mg/dL (8.5-10.5); Carbon Dioxide 30 mmol/L (22-29); Chloride 97 mmol/L (98-107); Creatinine Clr Calc Pharmacy 40.5824; Glucose 94 mg/dL (65-115); Osmolality Calculated 288 mOsm/kg (285-295); Potassium 3.7 mmol/L (3.5-5.1); Sodium 138 mmol/L (136-145)
[2023-06-01 05:09] VITALS: PULSE 65
[2023-06-01] MEDS: escitalopram 10 mg Tablet PO (06:25)
[2023-06-01] MEDS: levothyroxine 100 mcg Tablet PO (06:25)
[2023-06-01 08:20] VITALS: PULSE 68
[2023-06-01] MEDS: amiodarone 200 mg Tablet 400 MG PO (08:20)
[2023-06-01] MEDS: DOVATO 1 EACH PO (08:20)
[2023-06-01] MEDS: apixaban 5 mg Tablet 2.5 MG PO (08:20)
[2023-06-01] MEDS: magnesium oxide 400 mg tablet PO (08:20)
[2023-06-01] MEDS: aspirin 81 mg EC Tablet PO (08:20)
[2023-06-01] MEDS: digoxin 125 mcg Tablet PO (08:20)
[2023-06-01] MEDS: losartan 50 mg Tablet 25 MG PO (08:21)
[2023-06-01] MEDS: BuSPIRONE 10 mg Tablet PO (08:21)
--- NOTE | 2023-06-01 09:34 | P.PN_ITS ---
Subjective 2 Subjective: Patient is feeling okay. He has been ambulating on telemetry without any specific complaints. No chest pain. No new arrhythmias on the monitor. The vital signs remained stable. The blood pressures he is holding up Medications: Medication Review Details: Current Medications Acetaminophen (Acetaminophen 325 Mg Tablet) 650 mg PO Q6H PRN PRN Reason: Mild/Mod Pain Or Temp >/= 101 Last Admin: 05/26/23 02:35 Dose: 650 mg Albuterol/Ipratropium (Ipratropium-Albuterol 3 Ml Neb) 3 ml INHALATION Q6H PRN PRN Reason: SHORTNESS OF BREATH Alprazolam (Alprazolam 0.5 Mg Tablet) 0.5 mg PO BID PRN PRN Reason: ANXIETY Last Admin: 05/31/23 22:07 Dose: 0.5 mg Amiodarone HCl (Amiodarone 200 Mg Tablet) 400 mg PO BID [facility] Last Admin: 06/01/23 08:20 Dose: 400 mg Apixaban (Apixaban 5 Mg Tablet) 2.5 mg PO BID [facility] Last Admin: 06/01/23 08:20 Dose: 2.5 mg Aspirin (Aspirin 81 Mg Ec Tablet) 81 mg PO DAILY [facility] Last Admin: 06/01/23 08:20 Dose: 81 mg Atorvastatin Calcium (Atorvastatin 40 Mg Tablet) 40 mg PO BEDTIME [facility] Last Admin: 05/31/23 21:28 Dose: 40 mg Buspirone HCl (Buspirone 10 Mg Tablet) 10 mg PO BID [facility] Last Admin: 06/01/23 08:21 Dose: 10 mg Denture Adhesive (Fixodent 39 Gm Tube) 1 applic DENTAL PRN PRN PRN Reason: denture adhesive Last Admin: 05/27/23 08:32 Dose: 1 applic Digoxin (Digoxin 125 Mcg Tablet) 125 mcg PO DAILY [facility] Last Admin: 06/01/23 08:20 Dose: 125 mcg Escitalopram Oxalate (Escitalopram 10 Mg Tablet) 10 mg PO QAM [facility] Last Admin: 06/01/23 06:25 Dose: 10 mg Furosemide (Furosemide 10 Mg/Ml Sdv 4ml) 40 mg IVP Q12H [facility] Last Admin: 06/01/23 03:53 Dose: 40 mg Dobutamine HCl/Dextrose (Dobutamine Drip) 500 mg in 250 mls @ 8.226 mls/hr IV .Q24H [facility] Last Admin: 06/01/23 07:20 Dose: Not Given Levothyroxine Sodium (Levothyroxine 100 Mcg Tablet) 100 mcg PO QAM [facility] Last Admin: 06/01/23 06:25 Dose: 100 mcg Losartan Potassium (Losartan 50 Mg Tablet) 25 mg PO DAILY [facility] Last Admin: 06/01/23 08:21 Dose: 25 mg Magnesium Oxide (Magnesium Oxide 400 Mg Tablet) 400 mg PO BID [facility] Last Admin: 06/01/23 08:20 Dose: 400 mg Non-Formulary Med ( Dovato 50-300 Mg Tab ) 1 each PO DAILY [facility] Last Admin: 06/01/23 08:20 Dose: 1 each Ondansetron HCl (Ondansetron 2 Mg/Ml Sdv 2 Ml) 4 mg IVP Q8H PRN PRN Reason: vomiting, or N/V if npo Last Admin: 05/29/23 02:52 Dose: 4 mg Pantoprazole Sodium (Pantoprazole 40 Mg Sdv) 40 mg IVP Q24H [facility] Last Admin: 06/01/23 03:53 Dose: 40 mg Vitals/I&O/Wt Last Vital Signs Temp 98.9 F 06/01/23 03:05 Pulse 68 06/01/23 08:20 Resp 23 H 06/01/23 03:05 BP 106/64 06/01/23 03:05 Pulse Ox 95 05/31/23 23:57 O2 Del Method Room Air 05/31/23 23:57 O2 Flow Rate 2 05/27/23 13:00 FiO2 30 05/23/23 09:55 05/31/23 06/01/23 06/01/23 22:59 06:59 14:59 Intake Total 360 / 600 200 / 800 Output Total 1400 / 1400 1050 / 2450 Balance -1040 / -800 -850 / -1650 Weight last 48 hrs Weight 103 lb 14.4 oz Weight 104 lb 6 oz Physical Exam 2 Narrative: GENERAL: The patient is alert and oriented times three. Not in any distress HEENT: Mild pallor. No significant pallor, icterus or lymphadenopathy.Oral cavity: There are no mucous membrane lesions. NECK: Trachea appears to be central. No masses noted. No JVD or thyromegaly appreciated. RESPIRATORY: Chest is symmetrical. No intercostals muscle retraction or any accessory muscle activation. There is no chest wall tenderness. Breath sounds are heard bilaterally. Occasional scattered crackles. Breath sounds are diminished in the bases. BREASTS: Deferred. HEART: The heart sounds are normal. Soft S3. No S4.. Short systolic murmur in the left sternal border. No pericardial rub ABDOMEN: No vessel pulsations or distention. No tenderness. Slightly distended. Bowel sounds are normally heard. : Deferred. RECTAL: Deferred. LYMPHATIC: No lymphadenopathy noted in the neck. EXTREMITIES: 1-2+ edema both lower extremities. Blisters bilaterally in the lower extremities MUSCULOSKELETAL: No acute joint deformities or swelling SKIN: There are no significant rashes or ecchymosis NEUROPSYCHIATRIC: The patient is alert and oriented x3. No focal motor deficits. Urinary Catheter Management: Erickson: Cath Placed During This Visit: yes, but has since been removed by the nurse Reason for Continuing Indwelling Catheter: Accurate Measurement of Urinary Output in Critically Ill Patients Urinary Catheter Date of Insertion: 05/30/23 Urinary Catheter Time of Insertion: 17:30 Date Urinary Catheter Removed: 05/28/23 Time Urinary Catheter Discontinued: 10:05 Data 06/01/23 03:08 06/01/23 03:08 Other Labs: Laboratory Last Values WBC 9.49 10^3/uL (3.29-11.43) 06/01/23 03:08 Corrected WBC Cancelled 05/20/23 00:28 RBC 4.63 10^6/uL (3.85-5.65) 06/01/23 03:08 Hgb 12.40 g/dL (11.27-16.99) 06/01/23 03:08 Hct 40.4 % (37-53) 06/01/23 03:08 MCV 87.3 fl (82-101) 06/01/23 03:08 MCH 26.8 pg (27-33) L 06/01/23 03:08 MCHC 30.7 g/dL (30-55) 06/01/23 03:08 RDW 20.6 % (12.1-15.1) H 06/01/23 03:08 Plt Count 272 10^3/cmm (157-399) 06/01/23 03:08 MPV 12.0 fL (7.4-10.4) H 06/01/23 03:08 Gran % Cancelled 05/20/23 00:28 Neut % (Auto) 82.9 % 06/01/23 03:08 Lymph % (Auto) 6.7 % 06/01/23 03:08 [place] % (Auto) 5.9 % 06/01/23 03:08 Eos % (Auto) 1.8 % 06/01/23 03:08 Baso % (Auto) 0.6 % 06/01/23 03:08 Neut # (Auto) 7.86 10^3/uL (1.8-7.7) H 06/01/23 03:08 Lymph # (Auto) 0.6 10^3/uL (0.8-4.8) L 06/01/23 03:08 [place] # (Auto) 0.6 10^3/uL (0.2-0.9) 06/01/23 03:08 Eos # (Auto) 0.2 10^3/uL (0.0-0.8) 06/01/23 03:08 Baso # (Auto) 0.1 10^3/uL (0.0-0.1) 06/01/23 03:08 Absolute Gran (auto) Cancelled 05/20/23 00:28 Nucleated RBC % (auto) 0 % 06/01/23 03:08 Nucleated RBCs # 0.0 /100WBC 06/01/23 03:08 PT 24.70 SECONDS (12.1-14.9) H 05/20/23 01:36 INR 2.14 (0.8-1.2) H 05/20/23 01:36 Specimen Type Cancelled 05/23/23 09:03 Sample Site Cancelled 05/23/23 09:03 O2 Sat Pulse Oximetry Cancelled 05/23/23 09:03 ABG pH Cancelled 05/23/23 09:03 ABG pCO2 Cancelled 05/23/23 09:03 ABG pO2 Cancelled 05/23/23 09:03 ABG PO2/FiO2 Ratio Cancelled 05/23/23 09:03 ABG HCO3 Cancelled 05/23/23 09:03 ABG O2 Saturation Cancelled 05/23/23 09:03 ABG Base Excess Cancelled 05/23/23 09:03 Kevin Test Cancelled 05/23/23 09:03 A-a O2 Gradient Cancelled 05/23/23 09:03 Hematocrit Cancelled 05/23/23 09:03 Hgb O2 Saturation Cancelled 05/23/23 09:03 Carboxyhemoglobin Cancelled 05/23/23 09:03 Methemoglobin Cancelled 05/23/23 09:03 Total Hemoglobin Cancelled 05/23/23 09:03 Sodium Cancelled 05/23/23 09:03 Potassium Cancelled 05/23/23 09:03 Glucose Cancelled 05/23/23 09:03 Ionized Calcium Cancelled 05/23/23 09:03 Respiration Rate Cancelled 05/23/23 09:03 O2 Delivery Device Cancelled 05/23/23 09:03 O2 Liters/Min Cancelled 05/23/23 09:03 SIMV Cancelled 05/23/23 09:03 Vent Mode Cancelled 05/23/23 09:03 Mechanical Rate Cancelled 05/23/23 09:03 Spontaneous Rate Cancelled 05/23/23 09:03 FiO2 Cancelled 05/23/23 09:03 Tidal Volume Cancelled 05/23/23 09:03 PEEP Cancelled 05/23/23 09:03 Pressure Support Cancelled 05/23/23 09:03 Pressure Control Cancelled 05/23/23 09:03 CPAP Cancelled 05/23/23 09:03 Mode BiPAP Cancelled 05/23/23 09:03 Specimen Drawn By Cancelled 05/23/23 09:03 Head Gauge Unit Operator ID Cancelled 05/23/23 09:03 Crit Value Read Back Cancelled 05/23/23 09:03 Blood Gas Notified Time Cancelled 05/23/23 09:03 Sodium 138 mmol/L (136-145) 06/01/23 03:08 Potassium 3.7 mmol/L (3.5-5.1) 06/01/23 03:08 Chloride 97 mmol/L (98-107) L 06/01/23 03:08 Carbon Dioxide 30 mmol/L (22-29) H 06/01/23 03:08 Anion Gap 14.7 (5-19) 06/01/23 03:08 BUN 19 mg/dL (8-23) 06/01/23 03:08 Creatinine 1.0 mg/dL (0.7-1.2) 06/01/23 03:08 GFR Calculation Not Reportable 06/01/23 03:08 Glucose 94 mg/dL (65-115) 06/01/23 03:08 Calculated Osmolality 288 mOsm/kg (285-295) 06/01/23 03:08 Lactic Acid 5.8 mmol/L (0.5-2.2) H* 05/20/23 01:36 Lactic Acid (Sepsis) 5.3 mmol/L (0.5-2.2) H* 05/20/23 04:28 Lactate 1.2 mmol/L (0.5-2.2) 05/21/23 03:41 Calcium 8.1 mg/dL (8.5-10.5) L 06/01/23 03:08 Phosphorus 4.9 mg/dL (2.5-4.5) H 05/20/23 00:54 Magnesium 2.0 mg/dL (1.7-2.3) 06/01/23 03:08 Total Bilirubin 1.5 mg/dL (0.15-1.2) H 05/23/23 03:31 AST 14 U/L (0-40) 05/23/23 03:31 ALT 12 U/L (0-41) 05/23/23 03:31 Alkaline Phosphatase 103 U/L (40-130) 05/23/23 03:31 Troponin T Baseline 64 ng/L (0-15) H 05/20/23 00:54 Troponin T 120 Minute 63.29 ng/L (0-15) H 05/20/23 02:31 Delta Troponin T -0.71 ABS# (0-10) L 05/20/23 02:31 Troponin T Hi Sens 6Hr 117.9 ng/L (0-15) H 05/20/23 07:08 Troponin T Hi Sens 6Hr Delta 53.9 ng/L (0-12) H* 05/20/23 07:08 NT-Pro-B Natriuret Pep 71036 pg/mL (0-450) H 05/29/23 11:46 Total Protein 6.1 g/dL (6.6-8.7) L 05/23/23 03:31 Albumin 2.8 g/dL (3.5-5.2) L 05/23/23 03:31 Globulin 3.3 g/dL (1.3-4.6) 05/23/23 03:31 Procalcitonin 0.10 ng/mL (0-0.5) 05/20/23 00:54 TSH 8.78 uIU/mL (0.27-4.20) H 05/20/23 00:54 Random Cortisol 35.64 ug/dL (2.47-19.5) H 05/20/23 00:54 Vancomycin Trough 9.6 ug/mL (10-15) L 05/26/23 12:07 HIV-1 RNA copies/mL 1.58 (NOT DETECTED) H 05/20/23 07:08 HIV-1 RNA (PCR) log10 38 copies/mL (NOT DETECTED) H 05/20/23 07:08 Influenza Type A Ag negative (Negative) 05/20/23 02:38 Influenza Type B Ag negative (Negative) 05/20/23 02:38 SARS-CoV-2 Ag (Rapid) negative (Negative) 05/20/23 02:38 MRSA (PCR) Not detected (NOT DETECTED) 05/23/23 13:30 A&P Assessment and plan (1) CHF (NYHA class IV, ACC/AHA stage D): The patient may be kept on the losartan 25 mg p.o. daily. IV Lasix may be changed to p.o.-40 mg twice daily We may consider starting him on Entresto as an outpatient Consider wound care for the management of blisters (2) Ventricular fibrillation: Has not had a recurrence of ventricular arrhythmia. May continue on the current treatment. (3) AICD (automatic cardioverter/defibrillator) present: Status post ICD implantation, ICD function appears to be appropriate. No discharges since implantation. 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 In the absence of any chest pain, I may hold off on any invasive workup for the time being. Qualifiers: [place] vs. transplanted heart: [place] heart Qualified Code(s): I25.10 - Atherosclerotic heart disease of [place] coronary artery without angina pectoris (5) Intermittent atrial fibrillation: Patient is on long-term oral anticoagulation. This may be continued. (6) JAMAL (acute kidney injury): Kidney function seems to be stable at this time. May continue on the current measures. Plan Discussed with Dr. Rush Possible discharge home today Appointment [facility] to be seen by Ivania Zheng next week We may consider starting him on Entresto as an outpatient Amiodarone 400 mg p.o. twice daily for 5 days followed by 400 mg p.o. daily Lasix 40 mg p.o. daily Consider spironolactone as an outpatient Attestations 2 Medical Necessity Statement*: Disposition as per the primary Coding Level of Care Code 32912 Diagnoses CHF (NYHA class IV, ACC/AHA stage D) I50.84 Ventricular fibrillation I49.01 AICD (automatic cardioverter/defibrillator) present Z95.810 Atherosclerosis of [place] coronary artery of [place] heart without angina pectoris I25.10 [place] vs. transplanted heart: [place] heart Intermittent atrial fibrillation I48.0 JAMAL (acute kidney injury) N17.9
[2023-06-01 11:48] VITALS: BP 114/65; PULSE 63; RESP 19
--- NOTE | 2023-06-01 11:49 | PM.DCS ---
Discharge Providers Date of Admission: 05/20/23 03:42 Date of Discharge: June 01, 2023 Attending Provider at Admission: Romero Jimenez Attending Provider at Discharge: Eunice Rush MD Primary Care Provider: Sonia Bustillo MD Diagnoses at Discharge Discharge Diagnosis (1) CHF (NYHA class IV, ACC/AHA stage D): Status: Acute (2) Ventricular fibrillation: Status: Acute (3) AICD (automatic cardioverter/defibrillator) present: Status: Acute Permanent problem details: Placed by Dr. Rankin 05/25/2023 (4) Atherosclerotic heart disease of [place] coronary artery without angina pectoris: Status: Acute Qualifiers: [place] vs. transplanted heart: [place] heart Qualified Code(s): I25.10 - Atherosclerotic heart disease of [place] coronary artery without angina pectoris (5) Intermittent atrial fibrillation: Status: Acute (6) JAMAL (acute kidney injury): Status: Acute Reason for Visit Reason for Visit: SOB Brief History: Meds to beds set up for the patient. Hospital Course Hospital Course 78-year-old male who was admitted on 05/19 after cardiac arrest, he was intubated by the EMS, patient suffered from V-fib, ROSC was obtained, was admitted to the ICU, left subclavian central line was placed, patient was on Levophed and dobutamine which was gradually weaned off, Dr. Rankin was consulted as there was plan for AICD placement, patient was successfully extubated to nasal cannula 05/22, patient is a from aspiration pneumonia for which she required IV antibiotics initially which was transitioned to Augmentin when he recovered, his cardiogenic shock signs and symptoms improved, his EF is 15%, he still has poor functional status, still at risk of higher mortality and morbidity, does not have any family member, medical DPOA is his girlfriend, niece is second person on his medical DPOA who lives in [place], goals of care discussed they were changed from full code to DNR/DNI. I do believe in case of further worsening we should discuss palliative care with the patient and his medical DPOA. Secondary to poor functional status physical therapy and care home was recommended. It is very challenging to get him placed because of HIV medications. Please note his systolic blood pressure stays below 100 however MAP stays above 65 and remotely, at the time of discharge we have discontinued Coreg, Imdur. Requires 2 L of oxygen intermittently. He has completed Augmentin during hospital stay. Does state that if he is ultimately not excepted to care home he would like to go home instead. He states he has a friend whose name is Ulises who takes care of him and is able to help him with all his activities of daily living. Brady helps with meals, laundry and a lot of the other chores that the patient might need to take care of. He says that he can only rely on him and in the meantime as an outpatient can try to work on care home placement if he feels he needs it later. He states his functionality has improved. He is able to use a walker and ambulate up to the bathroom now. He states he is getting better. Patient developed oliguria on the day of previously planned discharge. He was then placed on dobutamine drip x 48 hours which was weaned off slowly. Losartan has been started. He will be sent home on Lasix orally and to follow-up with cardiology as an outpatient. Patient diuresed well during hospital stay. He has been advised to return to hospital if becomes oliguric again. He does have end-stage heart failure. Cardiology may be able to place patient on Entresto if he is able to tolerate as an outpatient. Patient to follow-up with them after discharge. Cardiology evaluated patient during hospital stay and are on board with the plan. Patient discharged home in stable condition at this time. He has been given instructions regarding his pacemaker wound. It appears well-healed. No erythema at this time. He is to follow-up with Dr. Rankin as an outpatient. Wound care referral given at discharge for wounds on toes. Physical Exam Narrative: Euvolemic today. Lungs clear to auscultation bilaterally. No crackles appreciated. Pleasant cooperative AICD site unremarkable Pleasant cooperative Nonfocal neuroexam GCS 15 Normal S1-S2 Abdomen soft nontender No edema bilateral lower extremities Does have a few ulcers on toes bilaterally. Does have dusky appearing toes. Pulses intact. Urinary Catheter Management: Erickson: Cath Placed During This Visit: yes, but has since been removed by the nurse Reason for Continuing Indwelling Catheter: Accurate Measurement of Urinary Output in Critically Ill Patients Urinary Catheter Date of Insertion: 05/30/23 Urinary Catheter Time of Insertion: 17:30 Date Urinary Catheter Removed: 05/28/23 Time Urinary Catheter Discontinued: 10:05 Discharge Data Studies Completed and Pending Completed Studies During Hospitalization Category Date Time Status CT head wo con* [id number] Routine Cat Scan 05/22/23 19:[address] head wo con* 35327 Stat Cat Scan 05/20/23 01:47 Completed CXRP [XR chest 1V portable [id number]] Stat Exams 05/20/23 02:14 Completed CXRP [XR chest 1V portable 62275] Stat Exams 05/20/23 03:22 Completed XR chest 1V portable 48700 Routine Exams 05/26/23 06:00 Completed XR chest 1V portable [id number] Routine Exams 05/29/23 16:57 Completed XR chest 1V portable [id number] Stat Exams 05/20/23 00:08 Completed XR chest 1V portable [id number] Stat Exams 05/20/23 00:53 Completed CV. echo complete* [id number] Routine Ultrasound 05/20/23 04:48 Completed US renal BI* [id number] Routine Ultrasound 05/20/23 04:57 Completed Pending at discharge Category Date Time Status Miscellaneous Test Routine Lab 05/20/23 07:08 Received Radiology Impressions Renal Ultrasound 05/20/23 04:57 IMPRESSION: 1. No hydronephrosis on either side. 2. Normal size kidneys with 2 millimetric right renal cysts. Head CT 05/22/23 19:42 IMPRESSION: Negative for acute intracranial pathology. Chest X-Ray 05/29/23 16:57 IMPRESSION: 1. Cardiomegaly and small bilateral pleural effusions. Laboratory Results WBC 9.49 10^3/uL (3.29-11.43) 06/01/23 03:08 Corrected WBC Cancelled 05/20/23 00:28 RBC 4.63 10^6/uL (3.85-5.65) 06/01/23 03:08 Hgb 12.40 g/dL (11.27-16.99) 06/01/23 03:08 Hct 40.4 % (37-53) 06/01/23 03:08 MCV 87.3 fl (82-101) 06/01/23 03:08 MCH 26.8 pg (27-33) L 06/01/23 03:08 MCHC 30.7 g/dL (30-55) 06/01/23 03:08 RDW 20.6 % (12.1-15.1) H 06/01/23 03:08 Plt Count 272 10^3/cmm (157-399) 06/01/23 03:08 MPV 12.0 fL (7.4-10.4) H 06/01/23 03:08 Gran % Cancelled 05/20/23 00:28 Neut % (Auto) 82.9 % 06/01/23 03:08 Lymph % (Auto) 6.7 % 06/01/23 03:08 [place] % (Auto) 5.9 % 06/01/23 03:08 Eos % (Auto) 1.8 % 06/01/23 03:08 Baso % (Auto) 0.6 % 06/01/23 03:08 Neut # (Auto) 7.86 10^3/uL (1.8-7.7) H 06/01/23 03:08 Lymph # (Auto) 0.6 10^3/uL (0.8-4.8) L 06/01/23 03:08 [place] # (Auto) 0.6 10^3/uL (0.2-0.9) 06/01/23 03:08 Eos # (Auto) 0.2 10^3/uL (0.0-0.8) 06/01/23 03:08 Baso # (Auto) 0.1 10^3/uL (0.0-0.1) 06/01/23 03:08 Absolute Gran (auto) Cancelled 05/20/23 00:28 Nucleated RBC % (auto) 0 % 06/01/23 03:08 Nucleated RBCs # 0.0 /100WBC 06/01/23 03:08 PT 24.70 SECONDS (12.1-14.9) H 05/20/23 01:36 INR 2.14 (0.8-1.2) H 05/20/23 01:36 Specimen Type Cancelled 05/23/23 09:03 Sample Site Cancelled 05/23/23 09:03 O2 Sat Pulse Oximetry Cancelled 05/23/23 09:03 ABG pH Cancelled 05/23/23 09:03 ABG pCO2 Cancelled 05/23/23 09:03 ABG pO2 Cancelled 05/23/23 09:03 ABG PO2/FiO2 Ratio Cancelled 05/23/23 09:03 ABG HCO3 Cancelled 05/23/23 09:03 ABG O2 Saturation Cancelled 05/23/23 09:03 ABG Base Excess Cancelled 05/23/23 09:03 Kevin Test Cancelled 05/23/23 09:03 A-a O2 Gradient Cancelled 05/23/23 09:03 Hematocrit Cancelled 05/23/23 09:03 Hgb O2 Saturation Cancelled 05/23/23 09:03 Carboxyhemoglobin Cancelled 05/23/23 09:03 Methemoglobin Cancelled 05/23/23 09:03 Total Hemoglobin Cancelled 05/23/23 09:03 Sodium Cancelled 05/23/23 09:03 Potassium Cancelled 05/23/23 09:03 Glucose Cancelled 05/23/23 09:03 Ionized Calcium Cancelled 05/23/23 09:03 Respiration Rate Cancelled 05/23/23 09:03 O2 Delivery Device Cancelled 05/23/23 09:03 O2 Liters/Min Cancelled 05/23/23 09:03 SIMV Cancelled 05/23/23 09:03 Vent Mode Cancelled 05/23/23 09:03 Mechanical Rate Cancelled 05/23/23 09:03 Spontaneous Rate Cancelled 05/23/23 09:03 FiO2 Cancelled 05/23/23 09:03 Tidal Volume Cancelled 05/23/23 09:03 PEEP Cancelled 05/23/23 09:03 Pressure Support Cancelled 05/23/23 09:03 Pressure Control Cancelled 05/23/23 09:03 CPAP Cancelled 05/23/23 09:03 Mode BiPAP Cancelled 05/23/23 09:03 Specimen Drawn By Cancelled 05/23/23 09:03 Carton Maker ID Cancelled 05/23/23 09:03 Crit Value Read Back Cancelled 05/23/23 09:03 Blood Gas Notified Time Cancelled 05/23/23 09:03 Sodium 138 mmol/L (136-145) 06/01/23 03:08 Potassium 3.7 mmol/L (3.5-5.1) 06/01/23 03:08 Chloride 97 mmol/L (98-107) L 06/01/23 03:08 Carbon Dioxide 30 mmol/L (22-29) H 06/01/23 03:08 Anion Gap 14.7 (5-19) 06/01/23 03:08 BUN 19 mg/dL (8-23) 06/01/23 03:08 Creatinine 1.0 mg/dL (0.7-1.2) 06/01/23 03:08 GFR Calculation Not Reportable 06/01/23 03:08 Glucose 94 mg/dL (65-115) 06/01/23 03:08 Calculated Osmolality 288 mOsm/kg (285-295) 06/01/23 03:08 Lactic Acid 5.8 mmol/L (0.5-2.2) H* 05/20/23 01:36 Lactic Acid (Sepsis) 5.3 mmol/L (0.5-2.2) H* 05/20/23 04:28 Lactate 1.2 mmol/L (0.5-2.2) 05/21/23 03:41 Calcium 8.1 mg/dL (8.5-10.5) L 06/01/23 03:08 Phosphorus 4.9 mg/dL (2.5-4.5) H 05/20/23 00:54 Magnesium 2.0 mg/dL (1.7-2.3) 06/01/23 03:08 Total Bilirubin 1.5 mg/dL (0.15-1.2) H 05/23/23 03:31 AST 14 U/L (0-40) 05/23/23 03:31 ALT 12 U/L (0-41) 05/23/23 03:31 Alkaline Phosphatase 103 U/L (40-130) 05/23/23 03:31 Troponin T Baseline 64 ng/L (0-15) H 05/20/23 00:54 Troponin T 120 Minute 63.29 ng/L (0-15) H 05/20/23 02:31 Delta Troponin T -0.71 ABS# (0-10) L 05/20/23 02:31 Troponin T Hi Sens 6Hr 117.9 ng/L (0-15) H 05/20/23 07:08 Troponin T Hi Sens 6Hr Delta 53.9 ng/L (0-12) H* 05/20/23 07:08 NT-Pro-B Natriuret Pep 51993 pg/mL (0-450) H 05/29/23 11:46 Total Protein 6.1 g/dL (6.6-8.7) L 05/23/23 03:31 Albumin 2.8 g/dL (3.5-5.2) L 05/23/23 03:31 Globulin 3.3 g/dL (1.3-4.6) 05/23/23 03:31 Procalcitonin 0.10 ng/mL (0-0.5) 05/20/23 00:54 TSH 8.78 uIU/mL (0.27-4.20) H 05/20/23 00:54 Random Cortisol 35.64 ug/dL (2.47-19.5) H 05/20/23 00:54 Vancomycin Trough 9.6 ug/mL (10-15) L 05/26/23 12:07 HIV-1 RNA copies/mL 1.58 (NOT DETECTED) H 05/20/23 07:08 HIV-1 RNA (PCR) log10 38 copies/mL (NOT DETECTED) H 05/20/23 07:08 Influenza Type A Ag negative (Negative) 05/20/23 02:38 Influenza Type B Ag negative (Negative) 05/20/23 02:38 SARS-CoV-2 Ag (Rapid) negative (Negative) 05/20/23 02:38 MRSA (PCR) Not detected (NOT DETECTED) 05/23/23 13:30 Vitals Last Vital Signs Temp 98.9 F 06/01/23 03:05 Pulse 68 06/01/23 08:20 Resp 23 H 06/01/23 03:05 BP 106/64 06/01/23 03:05 Pulse Ox 95 05/31/23 23:57 O2 Del Method Room Air 05/31/23 23:57 O2 Flow Rate 2 05/27/23 13:00 FiO2 30 05/23/23 09:55 Discharge Plan Discharge Patient Disposition: Home Health Service Condition: Stable Prescriptions: New Pacerone 200 mg Tablet 400 mg PO DAILY Qty: 30 4RF magnesium oxide 400 mg (241.3 mg magnesium) Tablet 400 mg PO BID Qty: 6 0RF digoxin 125 mcg (0.125 mg) Tablet 125 mcg PO DAILY Qty: 90 0RF losartan 50 mg Tablet 25 mg PO DAILY Qty: 30 0RF atorvastatin 40 mg Tablet 40 mg PO BEDTIME Qty: 30 0RF Lasix 40 mg tablet 40 mg PO QAM Qty: 30 0RF Continued Plavix 75 mg tablet 75 mg PO QAM Qty: 90 3RF buspirone 10 mg tablet 10 mg PO BID Nitrostat 0.4 mg Tablet, Sublingual 0.4 mg SUBLINGUAL Q5M PRN (Reason: Chest Pain) Rx Instructions: do not exceed 3 doses per episode ondansetron 4 mg tablet,disintegrating 4 mg PO Q8H PRN (Reason: Nausea And Vomiting) potassium chloride 20 mEq tablet extended release 20 meq PO DAILY Dovato 50-300 mg tablet 1 tab PO DAILY levothyroxine 100 mcg tablet 100 mcg PO QAM escitalopram oxalate 10 mg tablet 10 mg PO QAM Changed Eliquis 2.5 mg tablet 5 mg PO BID Qty: 60 0RF Discontinued carvedilol 6.25 mg tablet 6.25 mg PO BID aspirin [Adult Low Dose Aspirin] 81 mg tablet,delayed release (DR/EC) 81 mg PO DAILY losartan 50 mg tablet 50 mg PO DAILY Qty: 90 3RF atorvastatin [Lipitor] 10 mg tablet 10 mg PO DAILY Qty: 90 3RF metolazone 2.5 mg tablet 2.5 mg PO EVERY OTHER DAY isosorbide mononitrate 60 mg tablet extended release 24 hr 60 mg PO QAM furosemide 20 mg tablet 20 mg PO QAM Discharge Orders: Discharge Order (Routine); Ordered 06/01/23 Ordered By: Eunice Rush Other Ambulatory Orders: Basic Metabolic Panel (Routine) Timeframe: 1 Week Facility: [facility] - Location: Lab - Main Lab Ordered By: Eunice Rush DME: [employer] (Order) Location: None Selected Ordered By: Eunice Rush DME: Walker (Order) Location: None Selected Ordered By: Eunice Rush Referrals: [facility] [Outside] Sonia Bustillo MD [Primary Care Provider] - 06/02/23 10:30 am () Zak Palomares MD [Physician] - 1 month (Your follow up appointment with Dr. Palomares will be scheduled during your Ivania Zheng appointment. Thank you.) Valentin Rankin MD [Physician] - 7-10 days (Your Dr. Rankin appointment will be scheduled during your Ivania Zheng appointment. Thank you.) Ivania Zheng FNP [Nurse Practitioner] - 06/05/23 2:15 pm [facility], [Staff Physician] - 1-3 days (You will need to call [phone] to get established as a new patient and schedule an appointment. Thank you.) Discharge Diet: Cardiac Discharge Activity: Increase activity as tolerated and As per PT/OT instructions Patient Instructions: Digoxin (By mouth), Amoxicillin/Clavulanate Potassium (By mouth) (Augmentin, Augmentin..., Amiodarone (By mouth) (Cordarone, Pacerone), Losartan (By mouth) (Cozaar), Atorvastatin (By mouth) (Lipitor, Atorvaliq), Magnesium Oxide (By mouth) (Mag-Ox 400, [facility]..., Heart Failure (DC), Implantable Cardioverter Defibrillator (DC), CHF Stoplight, Opioid Safety, Post Pacemaker - Rankin Activity Restrictions/Additional Instructions: May begin showers with bandage off on Monday, May 28 Left arm sling may be removed if patient compliant with not using left arm excessively x 2 weeks Report any redness, swelling, drainage, or increasing pain from surgical site Discharge Attestations Time Spent in Discharge Care*: greater than 30 min Quality Metrics Clinical Quality Measures [ No reported AMI, CVA or VTE this stay] Coding Level of Care Code Acute Code for Chg Fwd Diagnoses CHF (NYHA class IV, ACC/AHA stage D) I50.84 Ventricular fibrillation I49.01 AICD (automatic cardioverter/defibrillator) present Z95.810 Atherosclerosis of [place] coronary artery of [place] heart without angina pectoris I25.10 [place] vs. transplanted heart: [place] heart Intermittent atrial fibrillation I48.0 JAMAL (acute kidney injury) N17.9
--- NOTE | 2023-06-01 12:50 | PC.NURSE ---
AICD dressing on patients left upper chest has been removed, cleaned with betadine and new dressing applied. Patient instructed that he may remove dressing and shower tomorrow 06/01
[2023-06-01 12:54] VITALS: PULSE 72; RESP 21
--- NOTE | 2023-06-01 16:31 | PC.NURSE ---
Patient left facility against medical advise. Patient was aware that with out the dobutamine he may not be able to urinate, he was informed that he may have worsening heart failure, fluid volume overload, worsening of symptoms and potentially . Patient is aware and accepts all risks. Physician notified of departure.
== END 2023-06-01 16:45 | disposition home health service (06) | DRG 276 ==
LOC: ER 01:05 → ICU 03:45 → MEDSURG 05-24 01:40 → ICU 05-25 19:26 → CSU 05-27 14:22
PROVIDERS: Internal Medicine; Thoracic Surgery (Cardiothoracic Vascular Surgery); Admitting Provider Internal Medicine; Emergency Provider Emergency Medicine; PCP Internal Medicine; Visit Provider Internal Medicine
PROC: 0JH608Z Insertion of Defibrillator Generator into Chest Subcutaneous Tissue and Fascia, Open Approach (ICD-10-PCS; CPT 33249; principal; 2023-05-25 16:00)
DX: I49.01 Ventricular fibrillation (principal); I50.23 Acute on chronic systolic (congestive) heart failure; J69.0 Pneumonitis due to inhalation of food and vomit; R57.0 Cardiogenic shock; J96.00 Acute respiratory failure, unspecified whether with hypoxia or hypercapnia; I13.0 Hypertensive heart and chronic kidney disease with heart failure and stage 1 through stage 4 chronic kidney disease, or unspecified chronic kidney disease; N17.9 Acute kidney failure, unspecified; E87.20 Acidosis, unspecified; I46.9 Cardiac arrest, cause unspecified; R40.4 Transient alteration of awareness; I25.10 Atherosclerotic heart disease of native coronary artery without angina pectoris; I25.5 Ischemic cardiomyopathy; N18.9 Chronic kidney disease, unspecified; I48.91 Unspecified atrial fibrillation; I08.1 Rheumatic disorders of both mitral and tricuspid valves; I27.20 Pulmonary hypertension, unspecified; Z21 Asymptomatic human immunodeficiency virus [HIV] infection status; E87.5 Hyperkalemia; E03.9 Hypothyroidism, unspecified; I95.9 Hypotension, unspecified; I47.20 Ventricular tachycardia, unspecified; I49.3 Ventricular premature depolarization; E87.6 Hypokalemia; Z66 Do not resuscitate; R00.1 Bradycardia, unspecified; Z11.52 Encounter for screening for COVID-19; Z79.01 Long term (current) use of anticoagulants; Z79.02 Long term (current) use of antithrombotics/antiplatelets; Z95.1 Presence of aortocoronary bypass graft; Z95.5 Presence of coronary angioplasty implant and graft; Z85.72 Personal history of non-Hodgkin lymphomas
CPT/HCPCS: 31500; 36415; 36556; 36592; 36600; 51702; 51798; 70450; 71045; 76000; 76770; 80048; 80051; 80053; 80202; 82330; 82533; 82803; 82805; 83605; 83735; 83880; 84100; 84132; 84145; 84443; 84484; 85025; 85610; 86360; 87070; 87106; 87205; 87426; 87536; 87641; 87804; 92507; 92523; 92526; 92610; 93005; 93306; 94002; 94003; 94664; 94799; 96365; 96366; 96367; 96368; 96372; 96375; 96376; 97110; 97116; 97163; 97530; 99291; 99292; A4222; A4570; C1722; C1751; C9113; J0171; J0283; J0330; J0690; J1250; J1650; J1940; J1956; J2060; J2250; J2405; J2543; J2704; J3010; J3370; J3475; J3480; J3490; J7030; J7040; J7050; J7070

== ENCOUNTER → 2023-06-05 13:56 | Outpatient (BNVA) | payer MEDICARE, MEDICAID, SELFPAY | PROVIDERS: PCP Internal Medicine; Visit Provider Nurse Practitioner Family | DX: I50.84 End stage heart failure (principal); Z95.810 Presence of automatic (implantable) cardiac defibrillator; R94.31 Abnormal electrocardiogram [ECG] [EKG] | CPT/HCPCS: 93005; 99214 ==

== ENCOUNTER → 2023-06-06 13:19 | Outpatient (BNVA) | payer MEDICARE, MEDICAID, SELFPAY | PROVIDERS: PCP Internal Medicine; Visit Provider Thoracic Surgery (Cardiothoracic Vascular Surgery) | DX: I96 Gangrene, not elsewhere classified (principal); S90.822D Blister (nonthermal), left foot, subsequent encounter; S90.821D Blister (nonthermal), right foot, subsequent encounter; S80.821D Blister (nonthermal), right lower leg, subsequent encounter; S90.521D Blister (nonthermal), right ankle, subsequent encounter; X58.XXXD Exposure to other specified factors, subsequent encounter | CPT/HCPCS: 97597; 97598; 99213 ==

== ENCOUNTER → 2023-08-24 11:28 | Outpatient (BNVA) | payer MEDICARE, MEDICAID, SELFPAY | PROVIDERS: PCP Internal Medicine; Visit Provider Internal Medicine Cardiovascular Disease | DX: R07.9 Chest pain, unspecified (principal) | CPT/HCPCS: 93005 ==

== ENCOUNTER → 2023-11-23 10:45 | Outpatient (BNVA) | payer MEDICARE, MEDICAID, SELFPAY | PROVIDERS: PCP Internal Medicine; Visit Provider Nurse Practitioner Family | DX: I11.0 Hypertensive heart disease with heart failure (principal); I25.10 Atherosclerotic heart disease of native coronary artery without angina pectoris; Z95.810 Presence of automatic (implantable) cardiac defibrillator; I50.84 End stage heart failure | CPT/HCPCS: 99214 ==

== ENCOUNTER 2023-12-01 20:48 | Inpatient (IN) | payer MEDICARE, MEDICAID, SELFPAY ==
--- OUTSIDE RECORDS SUMMARY | 2023-12-01 20:53 | XMS_ITS ---
Author Name Unknown Organization [facility] Address [address] [place] [address] Care Team Providers Care Sugar Coating Hand Name Role Phone KANIKA YANG Primary Care Provider REASON FOR VISIT Flu shot Immunizations Vaccine Route Administration Date Status Comme nts [facility] Flu IM Intramuscular 01/02/2023 Administered Lot #[id number] [facility] [id number] Social History Sex Assigned At : Social History Observation Description Sex Assigned At Male Encounters Encounter Location Date Provider Diagnosis [facility] [address] [place] [address] 01/02/2023 KANIKA YANG Flu vaccine n eed Z23 Assessments Encounter Date Diagnosis (ICD Code) Assessment Notes Treatment Notes Treatment Clinical Notes 01/02/2023 Flu vaccine need (ICD-10 - Z23) Plan Of Treatment Next Appt Details Provider Name:KANIKA Guerrier, 12/04/2023 10:30:00 AM, [address], [place], [address], Provider Name:KANIKA Guerrier, 12/04/2023 11:00:00 AM, [address], [place], [address], Progress Notes * BOLESWilder MALCOLMOB:1945 ( 77 yo M)Acc No.[id number]:01/02/2023 Patient:?Stanislaw BOLES Appointment Provider:?KANIKA YANG MD :1945???Age:77 Y???Sex:Male Black e:01/02/2023 Address:[address] [place], [place] [address]CRISTIAN rPice [id number] Subjective: * Chief Complaints: * ???1. Flu shot. * Medical History:? Objective: Assessment: * Assessment: 1.?Flu vaccine need - Z23 (P rimary)? Plan: * Treatment: * Immunizations:? 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
--- OUTSIDE RECORDS SUMMARY | 2023-12-01 20:53 | XMS_ITS ---
Author Name Unknown Organization [facility] Address [address] [place] [address] Care Team Providers Care Lining Folder Name Role Phone KANIKA YANG Primary Care Provider REASON FOR VISIT low potassium Medications Medication SIG (Take, Route, Frequency, Duration) Notes Start Date End Date Status Potassium Chloride ER 20 MEQ 1 tablet with food Orally Once a day for 30 days 01/04/2023 Active Social History Sex Assigned At : Social History Observation Description Sex Assigned At Male Encounters Encounter Location Date Provider Diagnosis [facility] [address] [place] [address] 01/04/2023 KANIKA YANG Plan Of Treatment Medication Medication Name Sig Start Date Stop Date Notes Potassium Chloride ER 20 MEQ 1 tablet wi th food Orally Once a day for 30 days 01/04/2023 Next Appt Details Provider Name:KANIKA Guerrier, 12/04/2023 10:30:00 AM, [address], [place], [address], Provider Name:KANIKA Guerrier, 12/04/2023 11:00:00 AM, [address], [place], [address], Progress Notes * BOLES MónicaBrendaOB:1945 ( 77 yo M)Acc No.[id number]:01/04/2023 Patient:?Stanislaw Boles :1945???Age:77 Y???Sex:Male Address:[address] [place] [address], [place], [address] * Refills? Start Potassium Chloride ER Tablet Extended Release, 20 MEQ, Orally, 30, 1 tablet with food, Once a day, 30 days, Refills=5 * true * Date:? Generated for Ambika porter/Estela/Tonyitting on:?12/01/2023 08:53 PM CDT
--- OUTSIDE RECORDS SUMMARY | 2023-12-01 20:53 | XMS_ITS ---
Author Name Unknown Organization [facility] Address [address] [place] [address] Care Team Providers Care Greenskeeper Laborer Name Role Phone KANIKA YANG Primary Care Provider [phone] REASON FOR VISIT refill dovato Medications Medication SIG (Take, Route, Fr equency, Duration) Notes Start Date End Date Status Dovato 50-300 MG Take 1 tablet by marjorie th once daily for 30 days for 30 days Active Social History Sex Assigned At : Social History Observation Description Sex Assigned At Male Encounters Encounter Location Date Provider Diagnosis [facility] [address] [place] [address] 01/17/2023 KANIKA YANG Plan Of Treatment Medication Medication Name Sig Start Date Stop Date Notes Dovato 50-300 MG Take 1 tablet by marjorie th once daily for 30 days for 30 days Next Appt Details Provider Name:KANIKA Guerrier, 12/04/2023 10:30:00 AM, [address], [place], [address], Provider Name:KANIKA Guerrier, 12/04/2023 11:00:00 AM, [address], [place], [address], Progress Notes * Mónica BOLESBrendaOB:1945 ( 77 yo M)Acc No.[id number]:01/17/2023 Patient:?Stanislaw Boles :1945???Age:77 Y???Sex:Male Address:[address] [place] [address], [place], [address] * Refills? Refill Dovato Tablet, 50-300 MG, 30 Tablet, Take 1 tablet by mouth once daily for 30 days, 30 days, Refills=11 * true * Date:? Generated for Ambika porter/Estela/Salomónsmitting on:?12/01/2023 08:53 PM CDT
--- OUTSIDE RECORDS SUMMARY | 2023-12-01 20:54 | XMS_ITS | Patient Health Record ---
Author Name Unknown Organization [facility] Address [address] [facility] [place] [address] [address] [place] [address] Care Team Providers Care Network Programmer Name Role Phone YANGKANIKA Primary Care Provider [phone] Allergies No Known Allergies Results Component Value Reference Range Notes RPR (Not yet reviewed by pro vider) Interpretation:Non-Reactive Performing Lab: Notes/Report: Non-Reactive Chlamydia/Gonorrhoeae (Not y et reviewed by provider) Interpretation:Negative Performing Lab: Notes/Report: Negative LIPID PANEL WITH REFLEX TO D IRECT LDL Reviewed date:01/04/2023 08:02:05 AM Interpretation: Performing Lab:[place], [facility] Davis, VdzvouZL[address] Jasmine Huang MD Notes/Report: 0 0 FASTING 0 0 0 CHOLESTEROL, TOTAL 106 <200 mg/dL HDL CHOLESTEROL 29 > OR = 40 mg/dL TRIGLYCERIDES 109 <150 mg/dL LDL-CHOLESTEROL 58 Reference range: <100 Desirable range <100 mg/dL for primary prevention; <70 mg/dL for patients with CHD or diabetic patients with > or = 2 CHD risk factors. LDL-C is now calculated using the Maximo-Haresh calculation, which is a validated novel method providing better accuracy than the Friedewald equation in the estimation of LDL-C. Maximo SS et al. RICKI. 2013;310(19): 5375-0523 (http://education.Educabilia.com/faq/BYO175) CHOL/HDLC RATIO 3.7 <5.0 (calc) NON HDL CHOLESTEROL 77 <130 mg/dL (calc) For patients with diabetes plus 1 major ASCVD risk factor, treating to a non-HDL-C goal of <100 mg/dL (LDL-C of <70 mg/dL) is considered a therapeutic option. LYMPHOCYTE SUBSET PANEL 5 Reviewed date:01/04/2023 08:01:58 AM Interpretation: Performing Lab:Jaki MARKHAM [employer] [facility] [address], [place] RsrjVI[address] Kolton Alvarez Shreyas Notes/Report: 0 0 FASTING 0 0 0 % CD4 34 30-61 % ABSOLUTE CD4+ CELLS 917 179-7488 cells/uL ABSOLUTE LYMPHOCYTES 528 066-5010 cells/uL COMPREHENSIVE METABOLIC PANE L Reviewed date:01/04/2023 08:02:46 AM Interpretation: Performing Lab:[facility]Fqfphv[address] Davis, IyjwegZF[address] Jasmine Huang MD Notes/Report: 0 0 0 FASTING 0 0 GLUCOSE 124 65-99 mg/dL Fasting reference interval For someone without known diabetes, a glucose value between 100 and 125 mg/dL is consistent with prediabetes and should be confirmed with a follow-up test. UREA NITROGEN (BUN) 17 7-25 mg/dL CREATININE 1.01 0.70-1.28 mg/dL EGFR 77 > OR = 60 mL/min/1.73m2 BUN/CREATININE RATIO SEE NOTE: 6-22 (calc) Not Reported: BUN and Creatinine are within reference range. SODIUM 140 135-146 mmol/L POTASSIUM 2.9 3.5-5.3 mmol/L CHLORIDE 98 98-110 mmol/L CARBON DIOXIDE 31 20-32 mmol/L CALCIUM 9.1 8.6-10.3 mg/dL PROTEIN, TOTAL 7.1 6.1-8.1 g/dL ALBUMIN 4.1 3.6-5.1 g/dL GLOBULIN 3.0 1.9-3.7 g/dL (calc) ALBUMIN/GLOBULIN RATIO 1.4 1.0-2.5 (calc) BILIRUBIN, TOTAL 1.2 0.2-1.2 mg/dL ALKALINE PHOSPHATASE 107 35-144 U/L AST 25 10-35 U/L ALT 19 9-46 U/L CBC (INCLUDES DIFF/PLT) (REF L) Reviewed date:01/04/2023 08:02:12 AM Interpretation: Performing Lab:[facility][id number] Marietta Louis, IanqufWV[address] Jasmine Huang MD Notes/Report: 0 0 0 FASTING 0 0 WHITE BLOOD CELL COUNT 6.5 3.8-10.8 Thousand/ uL RED BLOOD CELL COUNT 4.55 4.20-5.80 Million/uL HEMOGLOBIN 13.1 13.2-17.1 g/dL HEMATOCRIT 40.1 38.5-50.0 % MCV 88.1 80.0-100.0 fL MCH 28.8 27.0-33.0 pg MCHC 32.7 32.0-36.0 g/dL RDW 14.4 11.0-15.0 % PLATELET COUNT 198 140-400 Thousand/uL MPV 12.0 7.5-12.5 fL ABSOLUTE NEUTROPHILS 5005 7680-1107 cells/uL ABSOLUTE LYMPHOCYTES 2392 282-8918 cells/uL ABSOLUTE MONOCYTES 338 200-950 cells/uL ABSOLUTE EOSINOPHILS 98 15-500 cells/uL ABSOLUTE BASOPHILS 59 0-200 cells/uL NEUTROPHILS 77 LYMPHOCYTES 15.4 MONOCYTES 5.2 EOSINOPHILS 1.5 BASOPHILS 0.9 URINALYSIS, COMPLETE W/REFLE X TO CULTURE Reviewed date:01/04/2023 08:02:27 AM Interpretation: Performing Lab:[facility][id number] Tim MendietaYntqtgQR[address] Jasmine Huang MD Notes/Report: 0 0 0 FASTING 0 0 COLOR YELLOW YELLOW APPEARANCE CLOUDY CLEAR SPECIFIC GRAVITY 1.016 1.001-1.035 PH 6.5 5.0-8.0 GLUCOSE NEGATIVE NEGATIVE BILIRUBIN NEGATIVE NEGATIVE KETONES NEGATIVE NEGATIVE OCCULT BLOOD 2+ NEGATIVE PROTEIN 1+ NEGATIVE NITRITE POSITIVE NEGATIVE LEUKOCYTE ESTERASE 3+ NEGATIVE WBC > OR = 60 < OR = 5 /HPF RBC 0-2 < OR = 2 /HPF SQUAMOUS EPITHELIAL CELLS 0-5 < OR = 5 /HPF BACTERIA MANY NONE SEEN /HPF HYALINE CAST 6-10 NONE SEEN /LPF HEMOGLOBIN A1c Reviewed date:01/04/2023 08:09:30 AM Interpretation: Performing Lab:[facility]-Bqxurb[address]etta Davis LqcmdyAD[address] Jasmine Huang MD Notes/Report: 0 0 0 FASTING 0 0 HEMOGLOBIN A1c 5.7 <5.7 % of total Hgb For someone without known diabetes, a hemoglobin A1c value between 5.7% and 6.4% is consistent with prediabetes and should be confirmed with a follow-up test. For someone with known diabetes, a value <7% indicates that their diabetes is well controlled. A1c targets should be individualized based on duration of diabetes, age, comorbid conditions, and other considerations. This assay result is consistent with an increased risk of diabetes. Currently, no consensus exists regarding use of hemoglobin A1c for diagnosis of diabetes for children. HIV 1 RNA, QN PCR W/RFL DAVE (RTI,PI,INTEGRASE) Reviewed date:01/08/2023 09:42:12 PM Interpretation: Performing Lab:Jaki JONES/[facility],[address] [facility] HealthcareCA[address] Destiny Burch MD,PhD,MARTIN Notes/Report: 0 HIV 1 RNA, QN PCR 64 HIV 1 RNA, QN PCR 1.81 REFERENCE RANGE: NOT DETECTED copies/mL NOT DETECTED Log copies/mL This test was performed using Real-Time Polymerase Chain Reaction. Reportable range is 20 to 10,000,000 copies/mL (1.30-7.00 Log copies/mL). CULTURE, URINE, ROUTINE Reviewed date:01/04/2023 07:57:36 AM Interpretation: Performing Lab:[facility]Domenic Mcmillan[address] Jasmine Huang MD Notes/Report: 0 0 0 FASTING 0 0 REFLEXIVE URINE CULTURE Reviewed date:01/04/2023 07:57:36 AM Interpretation: Performing Lab:[facility] [place] Jasmine Huang MD Notes/Report: 0 0 0 FASTING 0 0 QUANTIFERON(R)-TB GOLD PLUS, 1 TUBE Reviewed date:01/05/2023 01:14:59 PM Interpretation: Performing Lab:[facility] W[facility] [place] Jasmine Huang MD Notes/Report: 0 QUANTIFERON(R)-TB GOLD PLUS, 1 TUBE NEGATIVE NEGATIVE Negative test result. M. tuberculosis complex infection unlikely. NIL 0.08 MITOGEN-NIL 7.92 TB1-NIL 0.00 TB2-NIL 0.02 The Nil tube value reflects the background interferon gamma immune response of the patient's blood sample. This value has been subtracted from the patient's displayed TB and Mitogen results. Lower than expected results with the Mitogen tube prevent false-negative Quantiferon readings by detecting a patient with a potential immune suppressive condition and/or suboptimal pre-analytical specimen handling. The TB1 Antigen tube is coated with the M. tuberculosis-specific antigens designed to elicit responses from TB antigen primed CD4+ helper T-lymphocytes. The TB2 Antigen tube is coated with the M. tuberculosis-specific antigens designed to elicit responses from TB antigen primed CD4+ helper and CD8+ cytotoxic T-lymphocytes. For additional information, please refer to https://education.Farmainstant/faq/MJZ896 (This link is being provided for informational/ educational purposes only.) Reason For Referral Reason lots of loss, grief surrounding his family. Diagnosis 1 HIV disease (B20) Referral Organization [facility] Referring Provider First Name KANIKA Referring Provider Last Name TREY Referring Provider Speciality [facility] ctice Referred Provider Specialty Psychologist Clinical Notes 01/05/23 Attempted t o contact CL and his phone does not accept unidentified callers. LVM for CL's CM (Amada Dell in [place]), requesting she return call to discuss contact with CL., 01/11/23 CL's CM left a VM informing this visual supervisor it was fine to call CL with identified call., 01/12/23 Called CL who reported he would like to seek counseling closer to home (in [place]). CL was referred to [facility] in [place] . CL was also informed he could contact this visual supervisor if he chose to engage in Telehealth visits with the clinic., 01/26/23 Changed referral status to consult pending Referral Priority Routine Medications Medication SIG (Take, Route, Frequency, Duration) Notes Start Date End Date Status Atorvastatin Calcium 10 MG 1 tablet Oral ly Once a day Active Nitroglycerin 0.3 MG as directed Sublingual Active Isosorbide Mononitrate ER 60 MG 1 tablet in the morning Orally Once a day Active Losartan Potassium 50 MG 1 tablet Orally Once a day Active Plavix 75 MG 1 tablet Orally Once a day Active hydroCHLOROthiazide 12.5 MG 1 capsule in the morning Orally Once a day Active Levothyroxine Sodium 125 MCG 1 tablet in the morning on an empty stomach Orally Once a day Active Potassium Chloride ER 20 MEQ 1 tablet wi th food Orally Once a day for 30 days 01/04/2023 Active Dovato 50-300 MG Take 1 tablet by mouth once daily for 30 days for 30 days Active Potassium Chloride ER 10 MEQ 1 tablet wi th food Orally Twice a day Active Furosemide 20 MG 1 tablet Orally bid Active Immunizations Vaccine Route Administration Date Status Comme nts [facility] Flu IM Intramuscular 12/30/2021 Administered Lot # [id number] [facility] # 48396-438-06 [facility] Flu IM Intramuscular 01/02/2023 Administered Lot #[id number] [facility] 16828-836-83 [facility] Prevnar 13 IM Intramuscular 06/25/[address] c # [id number] flu shot 2019 * IM Intramuscular 12/19/2017 [place] [id number] Influenza* Unknown 01/07/2010 Administered Influenza* Unknown 12/19/2011 Administered Influenza* Unknown 01/09/2013 Administered Influenza* Unknown 01/21/2014 Administered pneumo 23 Unknown 01/14/2010 Administered pneumovax 23 IM Intramuscular 10/29/2018 Administered n dc# [id number] T dap Unknown 01/09/2013 Administered T dap Unknown 07/23/2013 Administered Twinrix Unknown 01/01/2009 Administered Twinrix Unknown 06/30/2009 Administered Social History Tobacco Use: Social History Observation Description Date Details (start date - stop date) Never Smoker NA - NA Sex Assigned At : Social History Observation Description Sex Assigned At Male Tobacco Use/Smoking Question Answer Notes Are you a nonsmoker Alcohol Screen (Audit-C) Question Answer Notes Did you have a drink containing alcohol in the p ast year? No Points 0 Interpretation Negative Sexual History Question Answer Notes Had sex in the past 12 months (vaginal, oral, or anal)? No Have you ever had a Sexually transmitted disease ? No Tobacco use other than smoking: Question Answer Notes Are you an other tobacco user? No Problems Problem Type SNOMED Code ICD Code Onset Dates Problem Status W/U Status Risk Notes Problem Human immunodeficiency virus infection (91812997) Human immunodeficiency virus [HIV] disease (B20) 998 Active confirmed mig_App - Problem Hypothyroidism (87824369) Hypothyroidism, unspecified (E03.9) 015 Active confirmed mig_App - Problem Insomnia (938477245) Insomnia, unspecified (G47.00) Active confirmed mig_App - Problem Atherosclerotic heart disease of [place] coronary artery without angina pectoris (878734616388102) Atherosclerotic heart disease of [place] coronary artery without angina pectoris (I25.10) Active confirmed mig_App - Problem Enlarged prostate (195167126) Enlarged prostate without lower urinary tract symptoms (N40.0) Active confirmed mig_App - Problem Hemospermia (07544336) Hematospermia (R36.1) Active confirmed mig_App - Problem History of risk factor (122277794) OTH SPEC PERS HX PRS HZRDS HLTH OTH (V15.89) Active confirmed mig_App - Problem 645865743 Mixed hyperlipidemia (E78.2) Active confirmed Problem 8727027 Primary insomnia (F51.01) Active confirmed Problem 31050726 Essential (primary) hypertension (I10) Active confirmed Problem Human immunodeficiency virus infection (59302794) HIV disease (B20) 998 Active confirmed Problem 046504810 Moderate episode of recurrent major depressive disorder (F33.1) Active confirmed Problem 883760068 History of [place] (myocardial infarction) (I25.2) Active confirmed Vital Signs Heart Rate 70 /min 01/02/2023 Respiratory Rate 16 /min 01/02/2023 Oximetry 96 % 01/02/2023 Blood pressure diastolic 55 mm Hg 01/02/2023 Height 68 in 01/02/2023 Blood pressure systolic 112 mm Hg 01/02/2023 Weight 134 lbs 01/02/2023 BMI 20.37 kg/m2 01/02/2023 Encounters Encounter Location Date Provider Diagnosis [facility] [address] [place] [address] 12/19/2022 KANIKA YANG Human immunodeficien cy virus (HIV) disease B20 ; Encounter for screening for cardiovascular disorders Z13.6 and Encounter for therapeutic drug level monitoring Z51.[address] [facility] [address] [place] [address] 01/04/2023 KANIKA YANG [facility] [address] [place] [address] 01/17/2023 KANIKA YANG [facility] [address] [place] [address] 01/02/2023 KANIKA YANG HIV disease B20 ; Es sential (primary) hypertension I10 ; Mixed hyperlipidemia E78.2 and Moderate episode of recurrent major depressive disorder F33.[address] [facility] [address] [place] [address] 01/02/2023 KANIKA YANG Flu vaccine need Z23 [facility] [address] [place] [address] 01/02/2023 KANIKA YANG Encounter for observ ation for other suspected diseases and conditions ruled out Z03.89 ; Encounter for screening for diabetes mellitus Z13.1 ; Encounter for screening for cardiovascular disorders Z13.6 ; Encounter for therapeutic drug level monitoring Z51.81 ; HIV disease B20 ; Routine screening for STI (sexually transmitted infection) Z11.3 ; Pre-diabetes R73.03 ; Adult general medical exam Z00.00 and Nephropathy screen Z13.89 Assessments Encounter Date Diagnosis (ICD Code) Assessment Notes Treat ment Notes Treatment Clinical Notes 12/19/2022 Encounter for screen ing for cardiovascular disorders (ICD-10 - Z13.6) 01/02/2023 Encounter for observation for other suspected diseases and conditions ruled out (ICD-10 - Z03.89) 01/02/2023 Encounter for screen ing for diabetes mellitus (ICD-10 - Z13.1) 01/02/2023 Encounter for screen ing for cardiovascular disorders (ICD-10 - Z13.6) 01/02/2023 Encounter for therapeutic drug level monitoring (ICD-10 - Z51.81) 01/02/2023 HIV disease (ICD-10 - B20) 01/02/2023 Routine screening fo r STI (sexually transmitted infection) (ICD-10 - Z11.3) 01/02/2023 Pre-diabetes (ICD-10 - R73.03) 01/02/2023 Adult general medica l exam (ICD-10 - Z00.00) 01/02/2023 Nephropathy screen (ICD-10 - Z13.89) 01/02/2023 Flu vaccine need (ICD-10 - Z23) 12/19/2022 Human immunodeficien cy virus (HIV) disease (ICD-10 - B20) 01/02/2023 Essential (primary) hypertension (ICD-10 - I10) controlled with current medications. Followed by primary care 01/02/2023 HIV disease (ICD-10 - B20) routine lab work today. Patient has been stable past. 01/02/2023 Mixed hyperlipidemia (ICD-10 - E78.2) 12/19/2022 Encounter for therapeutic drug level monitoring (ICD-10 - Z51.81) 01/02/2023 Moderate episode of recurrent major depressive disorder (ICD-10 - F33.1) patient does want to start counseling or at least give it a try. We'll set that up for telephone counseling. Plan Of Treatment Pending Test Test Name Order Date RPR 01/02/2023 RPR 06/25/2018 LIPID PANEL WITH REFLEX TO DIRECT LDL LIPID PANEL WITH REFLEX TO DIRECT LDL LIPID PANEL WITH REFLEX TO DIRECT LDL LIPID PANEL WITH REFLEX TO DIRECT LDL LYMPHOCYTE SUBSET PANEL 5 02/19/2021 LYMPHOCYTE SUBSET PANEL 5 11/27/2020 LYMPHOCYTE SUBSET PANEL 5 05/18/2020 LYMPHOCYTE SUBSET PANEL 5 12/19/2022 LYMPHOCYTE SUBSET PANEL 5 07/21/2022 LYMPHOCYTE SUBSET PANEL 5 08/24/2021 LYMPHOCYTE SUBSET PANEL 5 06/07/2021 COMPREHENSIVE METABOLIC PANEL 06/07/2021 COMPREHENSIVE METABOLIC PANEL 08/24/2021 COMPREHENSIVE METABOLIC PANEL 07/21/2022 COMPREHENSIVE METABOLIC PANEL 06/04/2020 COMPREHENSIVE METABOLIC PANEL 12/19/2022 COMPREHENSIVE METABOLIC PANEL 05/18/2020 COMPREHENSIVE METABOLIC PANEL 11/27/2020 COMPREHENSIVE METABOLIC PANEL 02/19/2021 CBC (INCLUDES DIFF/PLT) (REFL) 1 CBC (INCLUDES DIFF/PLT) (REFL) 1 CBC (INCLUDES DIFF/PLT) (REFL) 1 CBC (INCLUDES DIFF/PLT) (REFL) 3 CBC (INCLUDES DIFF/PLT) (REFL) 3 CBC (INCLUDES DIFF/PLT) (REFL) 2 CBC (INCLUDES DIFF/PLT) (REFL) 2 URINALYSIS, COMPLETE W/REFLEX TO CULTURE 06/07/2021 URINALYSIS, COMPLETE W/REFLEX TO CULTURE 08/24/2021 URINALYSIS, COMPLETE W/REFLEX TO CULTURE 06/04/2020 URINALYSIS, COMPLETE W/REFLEX TO CULTURE 05/18/2020 URINALYSIS, COMPLETE W/REFLEX TO CULTURE 02/19/2021 RPR (MONITOR) W/REFL TITER 02/19/2021 RPR (MONITOR) W/REFL TITER 06/07/2021 RPR (MONITOR) W/REFL TITER 05/18/2020 HEMOGLOBIN A1c 05/18/2020 HEPATITIS C AB W/REFL TO HCV RNA, QN, PC R 05/18/2020 HEPATITIS C AB W/REFL TO HCV RNA, QN, PC R 06/07/2021 HEPATITIS C AB W/REFL TO HCV RNA, QN, PC R 02/19/2021 TSH W/REFLEX TO FT4 12/19/2022 HIV 1 RNA, QN PCR W/RFL DAVE (RTI,PI,INT EGRASE) 12/19/2022 HIV 1 RNA, QN PCR W/RFL DAVE (RTI,PI,INT EGRASE) 05/18/2020 HIV 1 RNA, QN PCR W/RFL DAVE (RTI,PI,INT EGRASE) 06/07/2021 HIV 1 RNA, QN PCR W/RFL DAVE (RTI,PI,INT EGRASE) 08/24/2021 HIV 1 RNA, QN PCR W/RFL DAVE (RTI,PI,INT EGRASE) 07/21/2022 HIV 1 RNA, QN PCR W/RFL DAVE (RTI,PI,INT EGRASE) 02/19/2021 HIV 1 RNA, QN PCR W/RFL DAVE (RTI,PI,INT EGRASE) 11/27/2020 QUANTIFERON(R)-TB GOLD PLUS, 1 TUBE 04/2022 Chlamydia/Gonorrhoeae 01/02/2023 Next Appt Details Provider Name:KANIKA Guerrier, 12/04/2023 10:30:00 AM, [address], [address], Provider Name:KANIKA Guerrier, 12/04/2023 11:00:00 AM, [address], [place], [address], Insurance Providers Payer Name Payer Address Payer Phone Subscriber Number Group Number Insured Name Patient Relationship to Insured Coverage Start Date Coverage End Date [employer] of [place] - J5 UB [address] [place] [address] [id number] Stanislaw Nair Self - patient is the insured 9 [place] [employer] [address] [place] [address] [id number] Stanislaw Nair Self - patient is the insured 6 [employer] 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 Has been on ART since. He was started on trizivir and sustiva, then changed to trizivir, viread and kaletra - since February 2004. From 11/27/08; CD4 count 296(24.7%), with undetectable HIV viral load. No history of opportunistic infection. Coronary artery disease; had myocardial infarction on 04/29/04, 06/05/04, 03/2005. Patient states he has 7 stents placed. Follow up at [facility]. I do not have his records to review at this time. Right arm fracture s/p ORIF Hypertension Dyslipidemia on lipitor Hypothyroidism Surgical History Surgery Date(Month/Year) THROAT BIOPSY (diagnosed with NHL) BONE MARROW BX STENTS 04/24,05/22,03/25 03/25 Surgery for fracture right forearm Ralls teeth x4
--- OUTSIDE RECORDS SUMMARY | 2023-12-01 20:54 | XMS_ITS ---
Author Name Unknown Organization [facility] ALLERGIES AND ADVERSE REACTIONS No information ASSESSMENT No information CHIEF COMPLAINT No information Medications Date Medication Startdate Stopdate Stopreason Active Dosequantit y Refills Ndccode Drugcode Pharmacyid Isprescription Srcstatus 12/21 08:01 :44 metolazone 2.5 mg tablet null 4 00:00:00 Removed 0 30 tablet 6 [id number] 001 [id number] 01 443 False Inactive 12/21 08:01 :36 losartan 50 mg tablet null 4 00:00:00 Removed 0 90 tablet 3 [id number] 616 [id number] 16 443 False Inactive 04/05 16:44 :13 amoxicillin 875 mg-potassiu m clavulanate 125 mg tablet null 4 00:00:00 Removed 0 null null [id number] 220 [id number] 20 null False Inactive 04/05 16:43 :19 azithromyci n 250 mg tablet null 4 00:00:00 Removed 0 null null [id number] 002 [id number] 02 null False Inactive 04/19 14:56 :44 amoxicillin 875 mg-potassiu m clavulanate 125 mg tablet null 4 00:00:00 Other 0 null null [id number] 220 [id number] 20 null False Inactive 04/19 14:56 :49 azithromyci n 250 mg tablet null 4 00:00:00 Other 0 null null [id number] 002 [id number] 02 null False Inactive 05/04 08:21 :05 hydrochloro thiazide 12.5 mg tablet null 4 00:00:00 Other 0 null null [id number] 011 [id number] 11 null False Inactive 06/13 11:04 :07 amiodarone 200 mg tablet null null null 1 30 tablet 3 [id number] 504 [id number] 04 443 False Active 06/13 11:04 :13 digoxin 125 mcg (0.125 mg) tablet null 4 00:00:00 Removed 0 30 tablet 3 [id number] 788 [id number] 88 443 False Inactive 06/13 11:03 :39 atorvastati n 40 mg tablet null null null 1 90 tablet 0 [id number] 990 [id number] 90 443 False Active 06/13 11:00 :46 metolazone 2.5 mg tablet null 4 00:00:00 Other 0 null null [id number] 001 [id number] 01 null False Inactive 06/13 11:00 :29 losartan 50 mg tablet null 4 00:00:00 Other 0 null null [id number] 616 [id number] 16 null False Inactive 08/15 15:19 :08 digoxin 125 mcg (0.125 mg) tablet null 4 00:00:00 Other 0 null null [id number] 788 [id number] 88 null False Inactive 03/27 12:37 :10 spironolact one 25 mg tablet 03/27/2023 00:00:00 null null 1 30 tablet 6 [id number] 605 [id number] 05 443 False Active 03/27 17:01 :04 Eliquis 2.5 mg tablet 03/27/2023 00:00:00 4 00:00:00 Removed 0 60 tablet 3 [id number] 321 [id number] 21 443 False Inactive 03/27 00:00 :00 Eliquis 2.5 mg tablet 03/27/2023 00:00:00 4 00:00:00 Other 0 null null [id number] 321 [id number] 21 null False Inactive 04/28 10:16 :48 prednisone 20 mg tablet 04/28/2023 00:00:00 4 00:00:00 Removed 0 10 tablet 0 [id number] 301 [id number] 01 443 False Inactive 04/28 10:16 :19 buspirone 10 mg tablet 04/28/2023 00:00:00 null null 1 60 tablet 2 [id number] 405 [id number] 05 443 False Active 04/28 00:00 :00 prednisone 20 mg tablet 04/28/2023 00:00:00 00:00:00 Other 0 null null [id number] 301 [id number] 01 null False Inactive 04/29 00:00 :00 furosemide 20 mg tablet 04/29/2022 00:00:00 00:00:00 Other 0 null null [id number] 810 [id number] 10 null False Inactive 05/05 11:41 :02 ondansetron 4 mg disintegrat ing tablet 05/05/2023 00:00:00 00:00:00 Removed 0 10 tablet 0 [id number] 293 [id number] 93 443 False Inactive 05/05 00:00 :00 ondansetron 4 mg disintegrat ing tablet 05/05/2023 00:00:00 00:00:00 Other 0 null null [id number] 293 [id number] 93 null False Inactive 05/09 00:00 :00 Lexapro 10 mg tablet 05/09/2022 00:00:00 00:00:00 Other 0 null null [id number] 001 [id number] 01 null False Inactive 06/14 10:28 :24 lidocaine 4 % topical cream 06/15/2023 00:00:00 null null 1 30 gram 0 [id number] 130 [id number] 30 443 False Active 06/19 15:30 :38 gabapentin 300 mg capsule 06/20/2023 00:00:00 null null 1 90 capsule 2 [id number] 701 [id number] 01 443 False Active 07/11 08:30 :50 levothyroxi ne 112 mcg capsule 07/12/2023 00:00:00 00:00:00 Removed 0 30 capsule 1 [id number] 732 [id number] 32 443 False Inactive 07/11 00:00 :00 levothyroxi ne 112 mcg capsule 07/12/2023 00:00:00 06/19/202 4 00:00:00 Other 0 null null [id number] 732 [id number] 32 null False Inactive 07/23 08:01 :08 Eliquis 2.5 mg tablet 07/24/2023 00:00:00 null null 1 60 tablet 5 [id number] 321 [id number] 21 443 False Active 07/27 00:00 :00 isosorbide mononitrate 60 mg tablet extended release 24 hr 07/27/2017 00:00:00 00:00:00 Other 0 null null [id number] 501 [id number] 01 null False Inactive 08/03 00:00 :00 ADULT ASPIRIN EC LOW STRENGTH 81 MG ORAL TABLET DELAYED RELEASE 08/03/2017 00:00:00 00:00:00 Other 0 null null null False Inactiv e 08/15 15:19 :31 tamsulosin 0.4 mg capsule 08/16/2023 00:00:00 null null 1 30 capsule 5 [id number] 210 [id number] 10 443 False Active 09/05 14:19 :08 levothyroxi ne 112 mcg tablet 09/06/2023 00:00:00 null null 1 30 tablet 5 [id number] 110 [id number] 10 443 False Active 09/09 00:00 :00 levothyroxi ne 100 mcg tablet 09/09/2022 00:00:00 00:00:00 Other 0 null null [id number] 910 [id number] 10 null False Inactive 10/07 11:17 :36 furosemide 20 mg tablet 10/07/2022 00:00:00 null null 1 30 tablet 5 [id number] 810 [id number] 10 443 False Active 11/25 09:32 :28 escitalopra m oxalate 10 mg tablet 11/25/2022 00:00:00 00:00:00 Changed 0 30 tablet 5 [id number] 501 [id number] 01 443 False Inactive 05/22 09:37 :19 escitalopra m 10 mg tablet 11/25/2022 00:00:00 null null 1 30 tablet 2 [id number] 405 [id number] 05 443 False Active 12/21 08:03 :06 potassium chloride 10 mEq tablet extended release 12/21/2022 00:00:00 4 00:00:00 Removed 0 30 tablet 3 [id number] 177 [id number] 77 443 False Inactive 12/21 00:00 :00 potassium chloride ER 10 mEq tablet,exte nded release 12/21/2022 00:00:00 4 00:00:00 Other 0 null null [id number] 177 [id number] 77 null False Inactive 02/01 09:11 :25 hydrocodone -acetaminop hen 5-325 mg tablet 01/16/2023 00:00:00 null null 1 28 tablet 0 66417718 905 [id number] 05 443 False Active 01/16 08:37 :31 hydrocodone -acetaminop hen 5-325 mg tablet 01/16/2023 00:00:00 null null 0 28 tablet 0 61403437 905 [id number] 05 443 True Inactive 02/01 09:33 :04 cyclobenzap rine 10 mg tablet 02/01/2023 00:00:00 4 00:00:00 Removed 0 30 tablet 0 [id number] 710 [id number] 10 443 False Inactive 02/01 00:00 :00 cyclobenzap rine 10 mg tablet 02/01/2023 00:00:00 4 00:00:00 Other 0 null null [id number] 710 [id number] 10 null False Inactive 02/22 00:00 :00 carvedilol 6.25 mg tablet 02/22/2021 00:00:00 4 00:00:00 Other 0 null null [id number] 305 [id number] 05 null False Inactive 03/03 00:00 :00 clopidogrel 75 mg tablet 03/03/2023 00:00:00 3 00:00:00 Changed 0 null null [id number] 303 [id number] 03 null False Inactive 06/13 11:03 :52 clopidogrel 75 mg tablet 03/03/2023 00:00:00 null null 1 30 tablet 3 [id number] 303 [id number] 03 443 False Active OBJECTIVE DATA No information PHYSICAL EXAMINATION No information TREATMENT PLAN No information PROBLEMS No information RESULTS No information REVIEW OF SYSTEMS No information SUBJECTIVE DATA No information VITAL SIGNS No information
[2023-12-01 20:59] VITALS: BP 124/76; PULSE 80; RESP 22; TEMP 36.7; O2SAT 100
--- NOTE | 2023-12-01 21:46 | PM.HP ---
Providers/Chief Complaint Admitting Physician: Romero Jimenez Primary Care Provider: Sonia Bustillo MD Chief Complaint: CHF History of Present Illness Stanislaw Nair is a 78 year old male with a past medical history of HIV, systolic CHF, advanced heart failure, EF of 15%, history of AICD, history of cardiac arrest, history of respiratory failure, CAD, JAMAL, who presents to [facility] as a transfer from [facility] for shortness of breath. Currently patient is on 5 L, OxyMask, resting comfortably, he tells me that he was quite short of breath when he was at [facility] but he is now resting more comfortably, denies any lightheadedness, no dizziness, no nausea, vomiting, no chest pain, no shortness of breath. He tells me that what brought him to [facility] was he was experiencing increasing shortness of breath, shortness of breath with minimal exertion shortness of breath at rest, denies any chest pain, no palpitations, no lightheadedness, dizziness, does have nonproductive cough, does report subjective fevers, chills, no dysuria, hematuria, he tells me that he is compliant with his HIV treatment, he tells me that when he exerts himself, he will become short of breath, and at times he passes out, he tells me that this has been going on for a while, he spoken to cardiology about it. He tells me that recently he has been feeling light headed, increasingly short of breath, and at times when he overexerts himself passing out and it has been happening quite frequently. Denies any head trauma, no headache, blurry vision, no rib trauma, no joint complaints, no hip pain, no back pain Review of Systems Const: Reports: fever(s), chills, fatigue and malaise Card: Denies: chest pain Resp: Reports: dyspnea GI: Denies: abdominal pain : Denies: flank pain Neuro: Denies: headache(s) Medications/Allergies Home Medications Medication Instructions Recorded Confirmed Last Taken Type escitalopram oxalate 10 mg tablet 10 mg PO QAM 01/13/23 11/23/23 05/17/23 History levothyroxine 100 mcg tablet 100 mcg PO QAM 01/13/23 11/23/23 05/17/23 History clopidogrel 75 mg tablet (Plavix) 75 mg PO QAM #90 tabs 03/06/23 11/23/23 05/15/23 Rx buspirone 10 mg tablet 10 mg PO BID 05/20/23 11/23/23 Unknown History dolutegravir 50 mg-lamivudine 300 1 tab PO DAILY 05/20/23 11/23/23 Unknown History mg tablet (Dovato) nitroglycerin 0.4 mg sublingual 0.4 mg sublingual Q5M PRN Chest 05/20/23 11/23/23 Unknown History tablet (Nitrostat) Pain ondansetron 4 mg disintegrating 4 mg PO Q8H PRN Nausea And Vomiting 05/20/23 11/23/23 Unknown History tablet potassium chloride 20 mEq 20 meq PO DAILY 05/20/23 11/23/23 Unknown History tablet,extended release apixaban 2.5 mg tablet (Eliquis) 5 mg (2 x 2.5 mg) PO BID #60 tabs 05/28/23 11/23/23 05/17/23 Rx digoxin 125 mcg (0.125 mg) tablet 125 mcg PO DAILY #90 tabs 05/28/23 11/23/23 Unknown Rx magnesium oxide 400 mg (241.3 mg 400 mg PO BID #6 tabs 05/28/23 11/23/23 Unknown Rx magnesium) tablet atorvastatin 40 mg tablet 40 mg PO BEDTIME #30 tabs 06/01/23 11/23/23 Unknown Rx losartan 50 mg tablet 25 mg (1/2 x 50 mg) PO DAILY #30 06/01/23 11/23/23 Unknown Rx tabs amiodarone 200 mg tablet (Pacerone) 200 mg PO DAILY #90 tabs 06/05/23 11/23/23 Unknown Rx hydrocodone 5 mg-acetaminophen 325 1 tab PO Q6H PRN pain 3 days #12 06/06/23 11/23/23 Unknown Rx mg tablet tabs furosemide 40 mg tablet (Lasix) 40 mg PO QAM #90 tabs 11/23/23 11/23/23 Unknown Rx Allergies Allergy/AdvReac Type Severity Reaction Status Date / Time No Known Allergies Allergy Verified 11/23/23 10:59 PFSH Acute PFSH: Medical History Right lower lobe pulmonary infiltrate Hypothyroidism Atrial fibrillation with RVR History of non-Hodgkin's lymphoma HIV (human immunodeficiency virus infection) CHF (congestive heart failure) 05/24/22: LVEF 15% Arteriosclerotic coronary artery disease HTN (hypertension) Surgical History History of coronary artery bypass graft S/P PTCA (percutaneous transluminal coronary angioplasty) Family History Mother Diabetes CAD (coronary artery disease) Hypertension Father Diabetes CAD (coronary artery disease) Hypertension Brother CAD (coronary artery disease) Stroke Social History Smoking and tobacco/nicotine status: never used tobacco/nicotine Vitals/I&O/Wt Last Vital Signs O2 Del Method Oxymask 12/01/23 20:58 Weight last 48 hrs Weight 65.856 kg Physical Exam Const: COMMON NORMALS: no acute distress and patient oriented x3 HENMT: COMMON NORMALS: normocephalic HEAD & SCALP: normocephalic Eye: COMMON NORMALS: Equal, round and reactive pupils present Neck/C-Spine: COMMON NORMALS: no JVD Lymph: LYMPHATIC: no lymphadenopathy noted Resp: COMMON NORMALS: normal respiratory effort, No retractions and No use of accessory muscles Cardio: COMMON NORMALS: no JVD, regular rate, regular rhythm, S1 normal heart sound present and S2 normal heart sound present RATE: regular rate RHYTHM: regular rhythm HEART SOUNDS: S1 normal heart sound present and S2 normal heart sound present GI: COMMON NORMALS: Normal to inspection, nondistended, normoactive bowel sounds present, Soft to palpation and non-tender Extremity: COMMON NORMALS: no calf tenderness and no pedal edema Neuro: COMMON NORMALS: patient oriented x3, CN's II-XII intact bilaterally and moves all extremities Psych: COMMON NORMALS: mental status grossly normal A&P Assessment and plan (1) Ischemic cardiomyopathy: (2) CHF (NYHA class IV, ACC/AHA stage D): (3) AICD (automatic cardioverter/defibrillator) present: (4) Arteriosclerotic coronary artery disease: (5) Acute hypoxic respiratory failure: (6) CHF exacerbation: (7) Syncope: (8) Fever: Plan Acute hypoxic respiratory failure -Likely secondary to underlying CHF Plan -Monitor in CSU closely -Has received Lasix at outside hospital -Continue Lasix 40 mg IV daily -ABG -Monitor urine output monitor creatinine monitor potassium -Order respiratory viral panel -Sputum cultures -Monitor respiratory status closely -Full code -Eliquis for DVT prophylaxis Fevers? -History of immunocompromise state with HIV -CT angiogram at outside hospital did not show any focal pneumonia, negative for PE -But did show bilateral perinephric stranding, abdominal ascites -Abdomen is a bit distended, no abdominal tenderness -Start Zosyn for now -CT abdomen pelvis without contrast -Respiratory viral panel Recurrent syncopal episodes -Repeat cardiac echo -CT head -Carotid artery ultrasound -Troponin series, EKG series NSTEMI -Serial EKGs, serial troponins, telemetry monitoring -No chest pain complaints Atrial fibrillation ? Check digoxin levels, continue digoxin ? Continue amiodarone -Continue Eliquis HIV ? Continue home medications, if we do not have a that here, we will have to have family numbers and bring it in Attestations Medical Necessity Statement*: Patient requires hospitalization, inpatient, greater than 2 midnights for acute hypoxic respiratory failure secondary to CHF, syncopal episodes, fever Diagnoses Ischemic cardiomyopathy I25.5 CHF (NYHA class IV, ACC/AHA stage D) I50.84 AICD (automatic cardioverter/defibrillator) present Z95.810 Arteriosclerotic coronary artery disease I25.10 Acute hypoxic respiratory failure J96.01 CHF exacerbation I50.9 Syncope R55 Fever R50.9
--- NOTE | 2023-12-01 21:55 | CTR_ITS ---
PROCEDURE INFORMATION: Exam: CT Abdomen And Pelvis Without Contrast Exam date and time: 12/01/2023 11:02 PM Age: 78 years old Clinical indication: Bloating; Prior surgery; Surgery date: 6+ months; Surgery type: Cabg. Pacer. Patient HX: Abd distention with ascites and perinephric stranding; Additional info: Abdomen distended, ascites, perinephris stranding TECHNIQUE: Imaging protocol: Computed tomography of the abdomen and pelvis without contrast. Radiation optimization: All CT scans at this facility use at least one of these dose optimization techniques: automated exposure control; mA and/or kV adjustment per patient size (includes targeted exams where dose is matched to clinical indication); or iterative reconstruction. COMPARISON: US renal BI* [id number] 05/20/2023 11:16 AM RADIATION DOSE METRICS: Total DLP (mGy-cm): 467.23 FINDINGS: Tubes, catheters and devices: Partially imaged right ventricular AICD lead. Pleural spaces: Small right and trace left pleural effusions with mild bibasilar ground-glass opacities. Heart: Global cardiomegaly. Liver: Punctate hepatic calcifications. Mild morphologic changes of the liver with a mildly nodular contour and caudate hypertrophy. Gallbladder and biliary ducts: Cholelithiasis. Pancreas: Normal. No ductal dilation. Spleen: Punctate splenic calcification. Adrenal glands: Normal. No mass. Kidneys and ureters: Subcentimeter renal cortical hypodensities are too small to characterize. Residual excreted contrast within the renal collecting systems and ureters, radrb-wuxghmf-oejr-left. No hydronephrosis. Mild bilateral perinephric fat stranding is nonspecific. Stomach and bowel: Unremarkable. No obstruction. No mucosal thickening. Appendix: No evidence of appendicitis. Intraperitoneal space: Small to moderate volume ascites. Vasculature: Advanced atherosclerotic calcifications of the abdominal aorta and its branch vessels. No aortic aneurysm. Lymph nodes: Unremarkable. No enlarged lymph nodes. Urinary bladder: Erickson catheter within the urinary bladder. The bladder is decompressed which somewhat limits assessment. However, the bladder appears diffusely thick walled with numerous diverticula bilaterally. Reproductive: Mild prostatomegaly. Bones/joints: Advanced degenerative changes of the lumbar spine most pronounced at L5-S1. No acute osseous findings. At least moderate degenerative changes of bilateral hips. Soft tissues: Diffuse anasarca. CT/CT abdomen pelvis wo con [id number] IMPRESSION: 1. Small to moderate ascites. 2. Mild morphologic changes of the liver. Correlate for clinical findings of cirrhosis. 3. Cholelithiasis. 4. Mild bilateral perinephric fat stranding is nonspecific. 5. Diffuse urinary bladder wall thickening with numerous diverticula. Findings may be related to chronic outlet obstruction. Further assessment of the bladder is limited due to decompression. 6. Erickson catheter within the urinary bladder. 7. Mild prostatomegaly. Correlate with PSA levels. 8. Cardiomegaly. 9. Small right and trace left pleural effusions with bibasilar ground-glass opacities which likely represents atelectasis. COMMENTS: Consistent with the [employer]'s Incidental Findings Committee white paper (J Am Celio Radiol 2018): Any incidental renal lesion less than 1 cm or classified as too small to characterize, or any incidental cystic renal lesion characterized as simple-appearing, is likely benign. No follow-up imaging is recommended for these lesions per consensus recommendations based on imaging criteria.
--- NOTE | 2023-12-01 21:56 | CTR_ITS ---
PROCEDURE INFORMATION: Exam: CT Head Without Contrast Exam date and time: 12/01/2023 11:00 PM Age: 78 years old Clinical indication: Injury or trauma; Blunt trauma (contusions or hematomas); Patient HX: Recurrent recent falls. TECHNIQUE: Imaging protocol: Computed tomography of the head without contrast. Radiation optimization: All CT scans at this facility use at least one of these dose optimization techniques: automated exposure control; mA and/or kV adjustment per patient size (includes targeted exams where dose is matched to clinical indication); or iterative reconstruction. COMPARISON: CT head wo con* [id number] 05/23/2023 1:38 AM RADIATION DOSE METRICS: Total DLP (mGy-cm): 1017.18 FINDINGS: Brain: Similar mild cerebral atrophy. No hemorrhage. Periventricular white matter hypodensities are again seen which likely represent chronic small vessel ischemic changes. Vascular calcifications along the carotid siphons. No mass effect. Cerebral ventricles: No ventriculomegaly. Paranasal sinuses: Again seen is mucosal thickening within the left maxillary sinus with chronic mucoperiosteal thickening changes of the robert. No fluid levels. Mastoid air cells: Visualized mastoid air cells are well aerated. Bones: Unremarkable. No acute fracture. Soft tissues: Unremarkable. CT/CT head wo con* [id number] IMPRESSION: No acute intracranial abnormality.
[2023-12-01] MEDS: pantoprazole 40 mg SDV IVP (21:58)
[2023-12-01 22:05] VITALS: PULSE 79
[2023-12-01 22:07] LABS: ABG PCO2 37.6 mmHg (35-45); ABG PH Result 7.47 (7.35-7.45); Arterial Blood Gas Hematocrit 39.6 % (42-52); Base Excess ABG 3.5 mmol/L (-2.0-2.0); Blood Gas Allen Test Pos; Blood Gas Operator Identificat CL; Blood Gas Sample Site Radial, right; Blood Gas Sample Type Arterial; HCO3 ABG 27.2 mmol/L (22-26); Oxygen Device NC
[2023-12-01 22:54] LABS: Digoxin 0.3 ng/mL (0.6-1.2); Lactic Sepsis W/Reflex 1.6 mmol/L (0.5-2.2)
[2023-12-01 23:04] LABS: Procalcitonin 0.11 ng/mL (0-0.5)
[2023-12-01] MEDS: piperacillin-tazobactam 3.375 GM in sodium chloride 0.9% (plus) 50 ML IV (23:29)
[2023-12-01 23:38] LABS: Urine Appearance Slightly Cloudy (CLEAR); Urine Color Yellow (Yellow)
[2023-12-01 23:39] LABS: Add Urine Culture? Yes; Add Urine Microscopic? YES; Bilirubin Urine Neg (Negative); Blood Urine 3+ (Negative); Glucose Urine UA Norm (Normal); Ketones Urine Negative (Negative); Leukocyte Esterase Urine 2+ (Negative); Mucus Urine 2+ /hpf; Nitrate Urine Negative (Negative); Protein Urine 1+ (Negative); RBC Urine 40-50 /hpf (0-2); Urobilinogen Urine Neg (Negative); pH Urine 5 (5-7)
[2023-12-01 23:48] LABS: Covid PCR NEGATIVE (Negative); Influenza A NEGATIVE (Negative); Influenza B NEGATIVE (Negative); Respiratory Syncytial Virus Ce NEGATIVE (Negative)
[2023-12-02] VITALS (19 sets, daily range): BP systolic 93–117; BP diastolic 52–74; PULSE 74–88; RESP 16–30; TEMP 36.3–36.8; O2SAT 96–100
[2023-12-02] MEDS: ipratropium-albuterol 3 mL Neb INHALATION ×5 (00:27→15:27)
[2023-12-02 03:57] LABS: Basophils % 0.4 %; Eosinophils % 0.2 %; Hematocrit 38.1 % (37-53); Lymphocytes # 0.8 10^3/uL (0.8-4.8); Lymphocytes % 8.3 %; Mean Corpuscular HGB Conc 31.8 g/dL (30-55); Mean Corpuscular Hemoglobin 30.1 pg (27-33); Mean Corpuscular Volume 94.8 fl (82-101); Mean Platelet Volume 11.1 fL (7.4-10.4); Monocytes # 0.6 10^3/uL (0.2-0.9); Monocytes % 6.6 %; Neutrophils # 7.79 10^3/uL (1.8-7.7); Neutrophils % 84.1 %; Nucleated Red Blood Cells % 0 %; Platelet Count 127 10^3/cmm (157-399); Red Blood Count 4.02 10^6/uL (3.85-5.65); Red Cell Distribution Width 15.3 % (12.1-15.1); White Blood Count 9.27 10^3/uL (3.29-11.43)
[2023-12-02 04:22] LABS: Alanine Aminotransferase 22 U/L (0-41); Albumin Level 3.3 g/dL (3.5-5.2); Alkaline Phosphatase 153 U/L (40-130); Anion Gap 15.8 (5-19); Aspartate Amino Transferase 24 U/L (0-40); Blood Urea Nitrogen 30 mg/dL (8-23); Calcium 8.5 mg/dL (8.5-10.5); Carbon Dioxide 26 mmol/L (22-29); Chloride 102 mmol/L (98-107); Globulin 2.9 g/dL (1.3-4.6); Glucose 105 mg/dL (65-115); Magnesium 2.2 mg/dL (1.7-2.3); NT Pro B Type Natriuretic Pept 14511 pg/mL (0-450); Osmolality Calculated 297 mOsm/kg (285-295); Potassium 3.8 mmol/L (3.5-5.1); Sodium 140 mmol/L (136-145); Total Bilirubin 1.2 mg/dL (0.15-1.2); Total Protein 6.2 g/dL (6.6-8.7)
[2023-12-02] MEDS: FUROsemide 10 mg/mL SDV 4mL 40 MG IVP ×2 (05:46→12:33)
[2023-12-02] MEDS: levothyroxine 100 mcg Tablet PO (05:47)
[2023-12-02] MEDS: escitalopram 10 mg Tablet PO (05:47)
[2023-12-02] MEDS: clopidogrel 75 mg Tablet PO (05:47)
[2023-12-02] MEDS: piperacillin-tazobactam 3.375 GM in sodium chloride 0.9% (plus) 50 ML IV ×3 (05:49→22:17)
--- NOTE | 2023-12-02 10:00 | P.PN_ITS ---
Subjective 2 Subjective: seen at bedside this AM no overnight events improved breathing. feelign improved still having swelling in legs and some SOB states he has been off digoxin x 1-3 months. digoxin level low. intermittent Afib. no afib RVR Medications: Reviewed: Yes Vitals/I&O/Wt Last Vital Signs Temp 97.3 F L 12/02/23 08:00 Pulse 81 12/02/23 08:00 Resp 22 H 12/02/23 08:00 BP 109/67 12/02/23 08:00 Pulse Ox 97 12/02/23 08:00 O2 Del Method Room Air 12/02/23 08:00 O2 Flow Rate 2 12/02/23 04:43 12/01/23 12/02/23 12/02/23 22:59 06:59 14:59 Intake Total 770 / 770 Output Total 425 / 425 350 / 775 Balance -425 / -425 420 / -5 Weight last 48 hrs Weight 143 lb 8.335 oz Weight 145 lb 3 oz Physical Exam 2 Narrative: General: AOx3, no acute distress, well developed, well nourished, appears stated age Eyes: conjunctiva clear w/o exudate or hemorrhage. non-icteric, EOM intact, PERRLA. no signs of nystagmus Nose: nasal mucosa pink, septum midline Oropharynx: denturs no pharyngeal exudate Neck: FROM, no lymphadenopathy, no tracheal deviation, non tender, thyroid gland normal w/o mass. supple Chest: atraumatic, symmetrical CVD: irr irr, not in RVR. normal S1 and S2, 2/6SEM LSB. NoR/G. 2+ pulse x 4 extremities, no JVD, no carotid bruit. 2+ edema to mid legs bilat Lungs: clear lung sounds in all gutierrez except for faint bibasilar crackles. no rhonchi, wheezing, rales. Abdomen: NT, ND, soft, NABS. No hepatosplenomegaly, no mass. umbilicus midline w/o herniation Skin:? no rash, vesicles, lesions. Urinary Catheter Management: Coude: Cath Placed During This Visit: no Data 12/02/23 10:30 12/02/23 10:30 Micro: Microbiology 12/01/23 22:00 Blood Culture - Preliminary Blood SPECIMEN COLLECTED 12/01/23 21:58 Blood Culture - Preliminary Blood SPECIMEN COLLECTED A&P Assessment and plan (1) Ischemic cardiomyopathy: (2) CHF (NYHA class IV, ACC/AHA stage D): (3) AICD (automatic cardioverter/defibrillator) present: (4) Arteriosclerotic coronary artery disease: (5) Acute hypoxic respiratory failure: (6) CHF exacerbation: (7) Syncope: (8) Fever: Plan Acute hypoxic respiratory failure -Likely secondary to underlying CHF -currently on lasix IV 40mg qd, will give aditional iv 40 at noon -little UOP, will increase lasix pending renal status -respiritory panel negative, cultures negative, on broad spec Abx HFrEF -EF 10-15% (06/10 ECHO), pending new ECHO -given additional IV 40 lasix at noon today -gentle diuresis given BP. -pt has 2+ edema mid legs with faint crackles. overall improving status Fevers? -History of immunocompromise state with HIV -CT angiogram at outside hospital did not show any focal pneumonia, negative for PE -But did show bilateral perinephric stranding, abdominal ascites -Abdomen is a bit distended, no abdominal tenderness -IV ZOsyn -negative resp panel and cultures thus far pending CT abd Recurrent syncopal episodes -Repeat cardiac echo -CT head w/o abnormalities -Carotid artery ultrasound pending -Troponin series, EKG series NSTEMI -Serial EKGs, serial troponins, telemetry monitoring -No chest pain complaints Atrial fibrillation ? LOW digoxin levels, continue digoxin. discussed compliance ? Continue amiodarone -Continue Eliquis -pt states he was taken odd digoxin by pcp 3 weeks ago. will monitor HIV ? Continue home medications, if we do not have a that here, we will have to have family numbers and bring it in R carotid artery stenosis -per US done today. mild stenosis of proximal R internal carotid at 50-69% FULL CODE Eliquis for DVT prophylaxis Attestations 2 Medical Necessity Statement*: will require 2 overnight stays Coding Level of Care Code 71230 Diagnoses Ischemic cardiomyopathy I25.5 CHF (NYHA class IV, ACC/AHA stage D) I50.84 AICD (automatic cardioverter/defibrillator) present Z95.810 Arteriosclerotic coronary artery disease I25.10 Acute hypoxic respiratory failure J96.01 CHF exacerbation I50.9 Syncope R55 Fever R50.9
[2023-12-02 10:39] LABS: Basophils % 0.5 %; Eosinophils % 0.1 %; Hematocrit 37.8 % (37-53); Lymphocytes # 0.4 10^3/uL (0.8-4.8); Lymphocytes % 4.9 %; Mean Corpuscular Hemoglobin 29.6 pg (27-33); Mean Corpuscular Volume 95.7 fl (82-101); Mean Platelet Volume 11.7 fL (7.4-10.4); Monocytes # 0.4 10^3/uL (0.2-0.9); Neutrophils # 7.82 10^3/uL (1.8-7.7); Neutrophils % 89.2 %; Nucleated Red Blood Cells % 0 %; Platelet Count 142 10^3/cmm (157-399); Red Blood Count 3.95 10^6/uL (3.85-5.65); Red Cell Distribution Width 15.2 % (12.1-15.1); White Blood Count 8.77 10^3/uL (3.29-11.43)
[2023-12-02] MEDS: magnesium oxide 400 mg tablet PO ×2 (10:41→17:24)
[2023-12-02] MEDS: apixaban 5 mg Tablet PO ×2 (10:42→20:32)
[2023-12-02] MEDS: amiodarone 200 mg Tablet PO (10:42)
[2023-12-02] MEDS: BuSPIRONE 10 mg Tablet PO (10:42)
[2023-12-02] MEDS: potassium chloride ER 20 mEq Tablet PO (10:42)
[2023-12-02 10:56] LABS: Alanine Aminotransferase 22 U/L (0-41); Albumin Level 3.3 g/dL (3.5-5.2); Alkaline Phosphatase 142 U/L (40-130); Anion Gap 16.2 (5-19); Aspartate Amino Transferase 22 U/L (0-40); Blood Urea Nitrogen 28 mg/dL (8-23); Carbon Dioxide 25 mmol/L (22-29); Chloride 101 mmol/L (98-107); Globulin 2.9 g/dL (1.3-4.6); Glucose 139 mg/dL (65-115); Magnesium 2.2 mg/dL (1.7-2.3); Osmolality Calculated 296 mOsm/kg (285-295); Potassium 3.2 mmol/L (3.5-5.1); Sodium 139 mmol/L (136-145); Total Bilirubin 1.2 mg/dL (0.15-1.2); Total Protein 6.2 g/dL (6.6-8.7)
[2023-12-02 11:04] LABS: Creatinine Clr Calc Pharmacy 34.6167
[2023-12-02] MEDS: atorvastatin 40 mg Tablet PO (20:32)
[2023-12-02] MEDS: pantoprazole 40 mg SDV IVP (20:32)
--- NOTE | 2023-12-02 21:35 | USCV_ITS ---
Stanislaw Nair Age: 78 Gender: M : 1945 Exam Date: 12/02/2023 14:22 Ordering Phys: Gilbert Zaldivar MD Technologist: Nghia Dexter Exam Location: [facility] [place] Indication: SOB BP: 100 / 52 HR: 77 Rhythm: Sinus Technical Quality: Adequate MEASUREMENTS (Male / Female) Normal Values 2D ECHO LV Diastolic Diameter PLAX 5.4 cm 4.2 - 5.9 / 3.9 - 5.3 cm IVS Diastolic Thickness 1.1 cm 0.6 - 1.0 / 0.6 - 0.9 cm IVS Systolic Thickness 1.4 cm LVPW Diastolic Thickness 0.8 cm 0.6 - 1.0 / 0.6 - 0.9 cm LVPW Systolic Thickness 1.2 cm LVOT Diameter 2.0 cm LV Ejection Fraction 2D Teich 13.7 % LV Ejection Fraction MOD 4C 20.4 % LV Ejection Fraction MOD 2C 23.4 % LV Ejection Fraction 2C AL 23.0 % LA Diameter 4.4 cm Aorta at Sinotubular Diameter 2.1 cm IVC Diameter 2.2 cm M-MODE LA Ao Ratio MM 1.9 AV Cusp Separation MM 1.6 cm DOPPLER AV Peak Velocity 127.3 cm/s LVOT Peak Velocity 61.0 cm/s AV Area Cont Eq vti 2.0 cm squared AV Area Cont Eq pk 1.5 cm squared MV Peak Velocity 112.0 cm/s MV Area PHT 6.7 cm squared Mitral E to A Ratio 2.6 TV Peak Velocity 280.0 cm/s TR Peak Velocity 314.0 cm/s TR Peak Gradient 39.4 mmHg TR Mean Velocity 239.0 cm/s TR Mean Gradient 24.7 mmHg TR Velocity Time Integral 82.0 cm PV Peak Velocity 86.7 cm/s RV Ejection Time 0.3 s FINDINGS Left Ventricle Left ankle is normal size. LV systolic function is severely reduced with EF of 15-20%. Severe global hypokinesis seen. Right Ventricle RV is moderate to severely hypokinetic. Pacemaker lead is seen Right Atrium Dilated. Pacemaker lead is seen Left Atrium Dilated Mitral Valve Mild mitral annular calcification. Moderate to severe mitral regurgitation. Aortic Valve Aortic valve is thickened. Mild aortic regurgtitation. No significant stenosis. Tricuspid Valve Moderate tricuspid regurgitation. Pulmonary artery systolic pressure is 35-40 mmHg. This is consistent with mild pulmonary hypertension Pulmonic Valve Not well visualized Pericardium Normal Aorta Normal in size IVC Appears to be dilated. CONCLUSIONS LV systolic function is severely reduced with EF of 15-20% RV is moderate to severely hypokinetic. Moderate to severe mitral regurgitation. Mild aortic regurgtitation. Moderate tricuspid regurgitation. Mild pulmonary hypertension.. IVC is dilated Compared to prior echocardiogram from 05/2023, no significant changes are seen. Milo Mistry MD (Electronically Signed) Final Date: 03 December 2023 10:03 S
--- NOTE | 2023-12-02 21:56 | USR_ITS ---
PROCEDURE INFORMATION: Exam: US Duplex Bilateral Extracranial Arteries; Complete; Carotid Arteries Exam date and time: 12/02/2023 2:50 PM Age: 78 years old Clinical indication: Syncope and collapse TECHNIQUE: Imaging protocol: Real-time duplex ultrasound scan of the bilateral extracranial arteries combining lopez scale, color Doppler and spectral waveform analysis with image documentation. Complete exam. Exam focused on the carotid arteries. COMPARISON: CT head wo con* [id number] 12/01/2023 11:00 PM FINDINGS: Right common carotid artery: Moderate atherosclerotic calcifications in portions of the artery. No occlusion or stenosis. Waveforms are normal. Peak systolic velocity 76.3 cm/s. Right internal carotid artery: Unremarkable. No occlusion or stenosis. Waveforms are normal. Peak systolic velocity 143.9 cm/s in the proximal portion. Right ICA/CCA ratio: Mildly elevated at 2.1. Right external carotid artery: No stenosis in the origin. Peak systolic velocity 116.8 cm/s. Right vertebral artery: Unremarkable. Antegrade flow. Left common carotid artery: Moderate atherosclerotic calcifications in portions of the artery. No occlusion or stenosis. Waveforms are normal. Peak systolic velocity 84.9 cm/s. Left internal carotid artery: Unremarkable. No occlusion or stenosis. Waveforms are normal. Peak systolic velocity 86.9 cm/s. Left ICA/CCA ratio: Within normal limits (1.0). Left external carotid artery: No stenosis in the origin. Peak systolic velocity 50.7 cm/s. Left vertebral artery: Unremarkable. Antegrade flow. US/CV carotid duplex BI* [id number] IMPRESSION: 1. Findings compatible with mild stenosis of the proximal right internal carotid artery with about 50-69% stenosis. 2. No hemodynamically significant stenosis within the left carotid arteries. 3. Antegrade flow in bilateral vertebral arteries. REFERENCES: SRU CRITERIA. The degree of internal carotid artery stenosis is based on criteria defined by the Society of Radiologists in Ultrasound (SRU). Normal is no stenosis. Mild is less than 50% stenosis. Moderate is 50-69% stenosis. Severe is greater than 69% stenosis to near occlusion. Near occlusion is a markedly narrowed lumen. Total occlusion is no detectable patent lumen.
[2023-12-03] VITALS (9 sets, daily range): BP systolic 102–107; BP diastolic 59–62; PULSE 70–83; RESP 16–28; TEMP 36.6–36.7; O2SAT 94–100
[2023-12-03] MEDS: ipratropium-albuterol 3 mL Neb INHALATION ×3 (04:40→11:28)
[2023-12-03] MEDS: piperacillin-tazobactam 3.375 GM in sodium chloride 0.9% (plus) 50 ML IV (05:51)
[2023-12-03] MEDS: levothyroxine 100 mcg Tablet PO (05:52)
[2023-12-03] MEDS: FUROsemide 10 mg/mL SDV 4mL 40 MG IVP (05:52)
[2023-12-03] MEDS: escitalopram 10 mg Tablet PO (05:52)
[2023-12-03] MEDS: clopidogrel 75 mg Tablet PO (05:52)
[2023-12-03] MEDS: digoxin 125 mcg Tablet PO (08:36)
[2023-12-03] MEDS: BuSPIRONE 10 mg Tablet PO (08:36)
[2023-12-03] MEDS: amiodarone 200 mg Tablet PO (08:36)
[2023-12-03] MEDS: apixaban 5 mg Tablet PO (08:36)
[2023-12-03] MEDS: potassium chloride ER 20 mEq Tablet PO (08:36)
[2023-12-03] MEDS: magnesium oxide 400 mg tablet PO (08:36)
--- NOTE | 2023-12-03 11:34 | P.DS_ITS ---
Discharge Providers Date of Admission: 12/01/23 20:48 Date of Discharge: December 03, 2023 Attending Provider at Admission: Romero Jimenez Attending Provider at Discharge: Mery Ta MD Primary Care Provider: Sonia Bustillo MD Diagnoses at Discharge Discharge Diagnosis (1) Ischemic cardiomyopathy: Status: Acute (2) CHF (NYHA class IV, ACC/AHA stage D): Status: Acute (3) AICD (automatic cardioverter/defibrillator) present: Status: Acute Permanent problem details: Placed by Dr. Rankin 05/25/2023 (4) Arteriosclerotic coronary artery disease: Status: Acute (5) Acute hypoxic respiratory failure: Status: Acute (6) CHF exacerbation: Status: Acute (7) Syncope: Status: Acute (8) Fever: Status: Acute Reason for Visit Reason for Visit: CHF Hospital Course Hospital Course Stanislaw Nair is a 78 year old male with a past medical history of HIV, systolic CHF, advanced heart failure, EF of 15%, history of AICD, history of cardiac arrest, history of respiratory failure, CAD, JAMAL, who presents to [facility] as a transfer from [facility] for shortness of breath Patient was admitted for management evaluation of shortness of breath, in the ER he was requiring 5 L, with help of diuresis we were able to bring him down to room air within 24 to 48 hours, patient also has moderate ascites likely related to ventricle failure, no abdominal pain, he remained afebrile, patient has an AICD as well At the time of discharge she will receive antibiotics for UTI he will resume his Lasix, Eliquis for A-fib, patient is being discharged with stable hemodynamics, no active discomfort or shortness of breath. Physical Exam Urinary Catheter Management: Coude: Cath Placed During This Visit: yes Reason for Continuing Indwelling Catheter: Accurate Measurement of Urinary Output in Critically Ill Patients Urinary Catheter Date of Insertion: 12/01/23 Discharge Data Studies Completed and Pending Completed Studies During Hospitalization Category Date Time Status CT abdomen pelvis wo con [id number] Routine Cat Scan 12/01/23 21:[address] head wo con* [id number] Routine Cat Scan 12/01/23 21:56 Completed CV carotid duplex BI* [id number] Routine Ultrasound 12/02/23 21:56 Completed CV. echo complete* [id number] Routine Ultrasound 12/02/23 21:35 Completed Pending at discharge Category Date Time Status Blood Culture Stat Lab 12/01/23 22:00 Results Sputum Culture and Gram Stain Stat Lab 12/01/23 21:54 Uncollected Urine Culture Routine Lab 12/01/23 22:51 Received Radiology Impressions Abdomen/Pelvis CT 12/01/23 21:55 IMPRESSION: 1. Small to moderate ascites. 2. Mild morphologic changes of the liver. Correlate for clinical findings of cirrhosis. 3. Cholelithiasis. 4. Mild bilateral perinephric fat stranding is nonspecific. 5. Diffuse urinary bladder wall thickening with numerous diverticula. Findings may be related to chronic outlet obstruction. Further assessment of the bladder is limited due to decompression. 6. Erickson catheter within the urinary bladder. 7. Mild prostatomegaly. Correlate with PSA levels. 8. Cardiomegaly. 9. Small right and trace left pleural effusions with bibasilar ground-glass opacities which likely represents atelectasis. COMMENTS: Consistent with the [employer]'s Incidental Findings Committee white paper (J Am Celio Radiol 2018): Any incidental renal lesion less than 1 cm or classified as too small to characterize, or any incidental cystic renal lesion characterized as simple-appearing, is likely benign. No follow-up imaging is recommended for these lesions per consensus recommendations based on imaging criteria. Head CT 12/01/23 21:56 IMPRESSION: No acute intracranial abnormality. Carotid Doppler Study 12/02/23 21:56 IMPRESSION: 1. Findings compatible with mild stenosis of the proximal right internal carotid artery with about 50-69% stenosis. 2. No hemodynamically significant stenosis within the left carotid arteries. 3. Antegrade flow in bilateral vertebral arteries. REFERENCES: SRU CRITERIA. The degree of internal carotid artery stenosis is based on criteria defined by the Society of Radiologists in Ultrasound (SRU). Normal is no stenosis. Mild is less than 50% stenosis. Moderate is 50-69% stenosis. Severe is greater than 69% stenosis to near occlusion. Near occlusion is a markedly narrowed lumen. Total occlusion is no detectable patent lumen. Laboratory Results WBC 8.77 10^3/uL (3.29-11.43) 12/02/23 10:30 RBC 3.95 10^6/uL (3.85-5.65) 12/02/23 10:30 Hgb 11.70 g/dL (11.27-16.99) 12/02/23 10:30 Hct 37.8 % (37-53) 12/02/23 10:30 MCV 95.7 fl (82-101) 12/02/23 10:30 MCH 29.6 pg (27-33) 12/02/23 10:30 MCHC 31.0 g/dL (30-55) 12/02/23 10:30 RDW 15.2 % (12.1-15.1) H 12/02/23 10:30 Plt Count 142 10^3/cmm (157-399) L 12/02/23 10:30 MPV 11.7 fL (7.4-10.4) H 12/02/23 10:30 Neut % (Auto) 89.2 % 12/02/23 10:30 Lymph % (Auto) 4.9 % 12/02/23 10:30 Randolph % (Auto) 5.0 % 12/02/23 10:30 Eos % (Auto) 0.1 % 12/02/23 10:30 Baso % (Auto) 0.5 % 12/02/23 10:30 Neut # (Auto) 7.82 10^3/uL (1.8-7.7) H 12/02/23 10:30 Lymph # (Auto) 0.4 10^3/uL (0.8-4.8) L 12/02/23 10:30 Randolph # (Auto) 0.4 10^3/uL (0.2-0.9) 12/02/23 10:30 Eos # (Auto) 0.0 10^3/uL (0.0-0.8) 12/02/23 10:30 Baso # (Auto) 0.0 10^3/uL (0.0-0.1) 12/02/23 10:30 Nucleated RBC % (auto) 0 % 12/02/23 10:30 Nucleated RBCs # 0.0 /100WBC 12/02/23 10:30 Specimen Type Arterial 12/01/23 22:00 Sample Site Radial, right 12/01/23 22:00 ABG pH 7.47 (7.35-7.45) H 12/01/23 22:00 ABG pCO2 37.6 mmHg (35-45) 12/01/23 22:00 ABG pO2 127.0 mmHg (80.0-100.0) H 12/01/23 22:00 ABG HCO3 27.2 mmol/L (22-26) H 12/01/23 22:00 ABG Base Excess 3.5 mmol/L (-2.0-2.0) H 12/01/23 22:00 Kevin Test Pos 12/01/23 22:00 Hematocrit 39.6 % (42-52) L 12/01/23 22:00 O2 Delivery Device Nc 12/01/23 22:00 O2 Liters/Min 4.0 % 12/01/23 22:00 Masonry Supervisor ID Cl 12/01/23 22:00 Sodium 139 mmol/L (136-145) 12/02/23 10:30 Potassium 3.2 mmol/L (3.5-5.1) L 12/02/23 10:30 Chloride 101 mmol/L (98-107) 12/02/23 10:30 Carbon Dioxide 25 mmol/L (22-29) 12/02/23 10:30 Anion Gap 16.2 (5-19) 12/02/23 10:30 BUN 28 mg/dL (8-23) H 12/02/23 10:30 Creatinine 1.6 mg/dL (0.7-1.2) H 12/02/23 10:30 GFR Calculation Not Reportable 12/02/23 10:30 Glucose 139 mg/dL (65-115) H 12/02/23 10:30 Calculated Osmolality 296 mOsm/kg (285-295) H 12/02/23 10:30 Lactic Acid 1.6 mmol/L (0.5-2.2) 12/01/23 21:58 Calcium 8.0 mg/dL (8.5-10.5) L 12/02/23 10:30 Magnesium 2.2 mg/dL (1.7-2.3) 12/02/23 10:30 Total Bilirubin 1.2 mg/dL (0.15-1.2) 12/02/23 10:30 AST 22 U/L (0-40) 12/02/23 10:30 ALT 22 U/L (0-41) 12/02/23 10:30 Alkaline Phosphatase 142 U/L (40-130) H 12/02/23 10:30 NT-Pro-B Natriuret Pep 09147 pg/mL (0-450) H 12/02/23 03:32 Total Protein 6.2 g/dL (6.6-8.7) L 12/02/23 10:30 Albumin 3.3 g/dL (3.5-5.2) L 12/02/23 10:30 Globulin 2.9 g/dL (1.3-4.6) 12/02/23 10:30 Procalcitonin 0.11 ng/mL (0-0.5) 12/01/23 21:58 Urine Color Yellow (Yellow) 12/01/23 22:51 Urine Appearance Slightly cloudy (CLEAR) 12/01/23 22:51 Urine pH 5 (5-7) 12/01/23 22:51 Ur Specific [place] 1.010 (1.005-1.030) 12/01/23 22:51 Urine Protein 1+ (Negative) H 12/01/23 22:51 Urine Glucose (UA) Norm (Normal) 12/01/23 22:51 Urine Ketones Negative (Negative) 12/01/23 22:51 Urine Blood 3+ (Negative) H 12/01/23 22:51 Urine Nitrate Negative (Negative) 12/01/23 22:51 Urine Bilirubin Neg (Negative) 12/01/23 22:51 Urine Urobilinogen Neg mg/dL (Negative) 12/01/23 22:51 Ur Leukocyte Esterase 2+ (Negative) H 12/01/23 22:51 Urine RBC 40-50 /hpf (0-2) H 12/01/23 22:51 Urine WBC 10-15 /hpf (0-5) H 12/01/23 22:51 Amorphous Sediment Not Reportable 12/01/23 22:51 Urine Bacteria None /hpf (NONE) 12/01/23 22:51 Urine Mucus 2+ /hpf 12/01/23 22:51 Digoxin 0.3 ng/mL (0.6-1.2) L 12/01/23 21:58 Coronavirus (PCR) Negative (Negative) 12/01/23 21:56 Influenza A (PCR) Negative (Negative) 12/01/23 21:56 Influenza Type B (PCR) Negative (Negative) 12/01/23 21:56 RSV (PCR) Negative (Negative) 12/01/23 21:56 Vitals Last Vital Signs Temp 97.8 F 12/03/23 08:00 Pulse 81 12/03/23 11:29 Resp 16 12/03/23 11:29 BP 107/62 12/03/23 08:00 Pulse Ox 97 12/03/23 11:29 O2 Del Method Room Air 12/03/23 11:29 O2 Flow Rate 2 12/02/23 04:43 Discharge Plan Discharge Patient Disposition: Home Condition: Stable Prescriptions: New cefpodoxime 200 mg tablet 200 mg PO BID Qty: 14 0RF Rx Instructions: must administer with a meal/food Continued Pacerone 200 mg tablet 200 mg PO DAILY Qty: 90 3RF hydrocodone-acetaminophen 5-325 mg tablet 1 tab PO Q6H PRN (Reason: pain) 3 Days Qty: 12 0RF Lasix 40 mg tablet 40 mg PO QAM Qty: 90 3RF Plavix 75 mg tablet 75 mg PO QAM Qty: 90 3RF buspirone 10 mg tablet 10 mg PO BID nitroglycerin [Nitrostat] 0.4 mg Tablet, Sublingual 0.4 mg SUBLINGUAL Q5M PRN (Reason: Chest Pain) Rx Instructions: do not exceed 3 doses per episode ondansetron 4 mg tablet,disintegrating 4 mg PO Q8H PRN (Reason: Nausea And Vomiting) potassium chloride 20 mEq tablet extended release 20 meq PO DAILY Dovato 50-300 mg tablet 1 tab PO DAILY magnesium oxide 400 mg (241.3 mg magnesium) Tablet 400 mg PO BID Qty: 6 0RF Eliquis 2.5 mg tablet 5 mg PO BID Qty: 60 0RF losartan 50 mg Tablet 25 mg PO DAILY Qty: 30 0RF atorvastatin 40 mg Tablet 40 mg PO BEDTIME Qty: 30 0RF levothyroxine 100 mcg tablet 100 mcg PO QAM escitalopram oxalate 10 mg tablet 10 mg PO QAM Discharge Orders: Discharge Order (Routine); Ordered 12/03/23 Ordered By: Mery Ta Referrals: Sonia Bustillo MD [Primary Care Provider] - (Please call for an follow-up appoint,ent with 4 to 7 days. ) Discharge Diet: Cardiac Discharge Activity: Increase activity as tolerated Patient Instructions: Cefpodoxime Proxetil (By mouth) (Vantin), Heart Failure (DC), CHF Stoplight, Opioid Safety Discharge Attestations Time Spent in Discharge Care*: less than 30 min Quality Metrics Clinical Quality Measures [ No reported AMI, CVA or VTE this stay] Coding Level of Care Code Acute Code for Chg Fwd Diagnoses Ischemic cardiomyopathy I25.5 CHF (NYHA class IV, ACC/AHA stage D) I50.84 AICD (automatic cardioverter/defibrillator) present Z95.810 Arteriosclerotic coronary artery disease I25.10 Acute hypoxic respiratory failure J96.01 CHF exacerbation I50.9 Syncope R55 Fever R50.9
--- NOTE | 2023-12-03 13:39 | PC.NURSE ---
Discharge Note Patient discharged to home via POV accompanied by life partner. Discharge instructions reviewed with patient and/or sales representative metals. Mobile pharmacy medications and/or prescriptions provided. Belongings/home medications returned.
== END 2023-12-03 13:40 | disposition home or self-care (01) | DRG 280 ==
PROVIDERS: Family Medicine; Admitting Provider Internal Medicine; PCP Internal Medicine; Visit Provider Internal Medicine
DX: I11.0 Hypertensive heart disease with heart failure (principal); I50.23 Acute on chronic systolic (congestive) heart failure; I21.4 Non-ST elevation (NSTEMI) myocardial infarction; J96.01 Acute respiratory failure with hypoxia; N39.0 Urinary tract infection, site not specified; I25.10 Atherosclerotic heart disease of native coronary artery without angina pectoris; E03.9 Hypothyroidism, unspecified; I25.5 Ischemic cardiomyopathy; Z21 Asymptomatic human immunodeficiency virus [HIV] infection status; I65.21 Occlusion and stenosis of right carotid artery; I48.91 Unspecified atrial fibrillation; Z95.810 Presence of automatic (implantable) cardiac defibrillator; Z86.74 Personal history of sudden cardiac arrest; Z79.899 Other long term (current) drug therapy; Z79.890 Hormone replacement therapy; Z85.72 Personal history of non-Hodgkin lymphomas; Z98.61 Coronary angioplasty status; Z95.1 Presence of aortocoronary bypass graft; Z82.49 Family history of ischemic heart disease and other diseases of the circulatory system; Z79.01 Long term (current) use of anticoagulants
CPT/HCPCS: 0241U; 36415; 36600; 70450; 74176; 80053; 80162; 81001; 82803; 83605; 83735; 83880; 84145; 85025; 87040; 87086; 93306; 93880; 94640; 94664; 96376; J1940; J2470; J2543